=== PATIENT | male | born 1965 | race Caucasian/White ===

== ENCOUNTER 2016-05-30 06:15 | Emergency (ER) | payer OTHER ==
[~2016-05-30] VITALS: Ht 182.9 cm; Wt 73.9 kg
[~2016-05-30 06:15] MED LIST: IBUP-1105 PO; TRAZ50TA35 PO
[2016-05-30 06:22] VITALS: TEMP 37.4; Ht 182.9 cm; Wt 73.9 kg
[2016-05-30] MEDS ORDERED: ONDANSETRON INJ 2 MG/ML 2 ML VIAL IV STA (06:47)
[2016-05-30] MEDS ORDERED: KETOROLAC TROMETHAMINE 30 MG/ML VIAL IV STA (06:47)
[2016-05-30] MEDS ORDERED: FLUO20CA35 PO (06:48)
[2016-05-30 06:57] LABS: BASO % 0.1 %; BASO ABS # 0.02 K/uL (0-0.2); COMPLETE YES; EOS % 0.9 %; HEMATOCRIT 41.1 % (42-52); IG% 0.2 %; LYMPH % 5.1 %; MEAN CELL VOLUME 89.2 fL (80-100); MEAN CORPUSCULAR HEMOGLOBIN 32.8 pg (25-34); MEAN CORPUSCULAR HGB CONC 36.7 g/dl (32-36); MONO % 4.5 %; NEUT % 89.2 %; PLATELET COUNT 179 K/uL (130-400); RED BLOOD COUNT 4.61 M/uL (4.7-6.1); WHITE BLOOD COUNT 13.84 K/uL (4.8-10.8)
[2016-05-30 07:04] LABS: BUN/CREATININE RATIO 6.8 (10-20); CALCIUM 8.9 mg/dl (8.5-10.1); CREATININE 0.9 mg/dl (0.60-1.40); POTASSIUM 4.1 mmol/L (3.5-5.1)
--- NOTE | 2016-05-30 07:04 | EMERGENCY ROOM VISIT NOTE ---
History Report prepared by Valeria: Julián Avitia Under the Supervision of: Dr. Kajal Malin D.O. First contact with patient: 06:32 Chief Complaint: ABDOMINAL PAIN Stated Complaint: STOMACH PAIN,LUNGS ARE DRY, CONGESTION Nursing Triage Summary: Pt complains of abdominal pain and nausea. It started yesterday. Pt also reports cough and congestion for 2 weeks. Pt concerned because he has history of pancreatitis. History of Present Illness The patient is a 51 year old male who presents to the Emergency Room with complaints of persistent abdominal pain that started last night. The patient notes that he has a history of pancreatitis and that the discomfort started after he ate a spicy meal. He notes that sitting up makes the pain worse. He also complains of fever and nausea. The patient notes that he drinks 3 beers a day typically. He would not have withdrawal symptoms if he did not drink for a few days. The patient also complains of cold-like symptoms including chest congestion, achiness, and difficulty swallowing. These symptoms started 4 days ago. The patient also notes that his hands have been cramping which he does not know if that is from work or not feeling well. He also notes pain in his left superficial ear that has been bothering him for a year. He notes his family has a history of skin cancer on the ear, but he has not gotten it biopsied yet. He notes discomfort with laying on that side. Source of History: patient Onset: yesterday Position: abdomen Timing: other (persistent) Modifying Factors (Worsening): movement (sitting up) Associated Symptoms: + fevers, + nausea Note: Other symptoms: cold-like symptoms, chest congestion, achiness, difficulty swallowing, ear pain Review of Systems See HPI for pertinent positives & negatives. A total of 10 systems reviewed and were otherwise negative. Past Medical & Surgical Medical Problems: (1) Abdominal pain (2) Diarrhea (3) Emphysema of lung (4) Hypomagnesemia syndrome (5) Pancreatitis (6) Syncope and collapse Family History FH: HTN (hypertension) FH: cancer FH: diabetes mellitus FH: heart disease FH: kidney disease Social History Smoking Status: Current Every Day Smoker Alcohol Use: heavy Drug Use: none Marital Status: Housing Status: lives with family Occupation Status: employed Current/Historical Medications Scheduled Fluoxetine (Prozac), 20 MG PO DAILY Trazodone Hcl (Trazodone), 50 MG PO HS Allergies Coded Allergies: Penicillins (Unverified Allergy, Mild, 05/30/16) Codeine (Verified Allergy, Unknown, GI SYMPTOMS, 05/30/16) Meperidine (Verified Allergy, Unknown, ., 05/30/16) Physical Exam Vital Signs Date Time Temp Pulse Resp B/P Pulse Ox O2 Delivery O2 Flow Rate FiO2 05/30/16 08:43 84 16 130/80 96 05/30/16 07:37 79 16 118/62 97 Room Air 05/30/16 06:22 37.4 99 18 126/75 96 Room Air Physical Exam GENERAL: Smells of alcohol. HEENT: Head - normocephalic and atraumatic Pupils are equal, round, and reactive to light. Extraocular eye muscles are intact, and sclera are anicteric. Nose - moist nasal mucosa without discharge. Anterior cervical lymphadenopathy. Mouth - moist buccal mucosa. Oropharynx is mildly erythematous and there is no tonsillar exudate or edema noted. EAR: Left ear top of the pinna has mild erythema, no induration, no open wound, normal TMs Neck: Supple; no JVD, nuchal rigidity, cervical lymphadenopathy. Heart: Regular rate and rhythm. There is a normal S1 and S2 with no murmurs, clicks, or gallops appreciated. Lungs: Clear to auscultation bilaterally with no wheezes, rales, or rhonchi. Abdomen: Soft, exquisite epigastric tenderness, nondistended, with good bowel sounds. There are no palpable pulsatile masses or hepatosplenomegaly. There is no guarding, rigidity, or rebound noted. Extremities: No evidence of cyanosis, clubbing, or edema. There are easily palpable peripheral pulses. Skin: warm and dry with good turgor and no rashes. Medical Decision & Procedures ER Provider Diagnostic Interpretation: X-ray results as stated below per interpretation by me and the radiologist: TWO VIEW CHEST CLINICAL HISTORY: Cough. FINDINGS: PA and lateral chest radiographs are compared to study dated 01/15/2014. The cardiomediastinal silhouette is unremarkable. Enlargement of the central pulmonary arteries suggests pulmonary artery hypertension. Emphysema and chronic residual thickening are similar to previous. No airspace consolidation or pleural effusion is identified. A calcified granulomas again seen in the left upper lobe. There is no pneumothorax. The bony thorax appears intact. IMPRESSION: Emphysema with no acute cardiopulmonary abnormality. Electronically signed by: Javier Vazquez M.D. 05/30/2016 7:42 AM Dictated Date/Time: 05/30/2016 7:38 AM Laboratory Results 05/30/16 06:35 Red Blood Count 4.61, Mean Corpuscular Volume 89.2, Mean Corpuscular Hemoglobin 32.8, Mean Corpuscular Hemoglobin Concent 36.7, Mean Platelet Volume 10.0, Neutrophils (%) (Auto) 89.2, Lymphocytes (%) (Auto) 5.1, Monocytes (%) (Auto) 4.5, Eosinophils (%) (Auto) 0.9, Basophils (%) (Auto) 0.1, Neutrophils # (Auto) 12.34, Lymphocytes # (Auto) 0.70, Monocytes # (Auto) 0.62, Eosinophils # (Auto) 0.13, Basophils # (Auto) 0.02 05/30/16 06:35 Test 05/30/16 06:35 05/30/16 07:00 White Blood Count 13.84 K/uL (4.8-10.8) Red Blood Count 4.61 M/uL (4.7-6.1) Hemoglobin 15.1 g/dL (14.0-18.0) Hematocrit 41.1 % (42-52) Mean Corpuscular Volume 89.2 fL (80-100) Mean Corpuscular Hemoglobin 32.8 pg (25-34) Mean Corpuscular Hemoglobin Concent 36.7 g/dl (32-36) Platelet Count 179 K/uL (130-400) Mean Platelet Volume 10.0 fL (7.4-10.4) Neutrophils (%) (Auto) 89.2 % Lymphocytes (%) (Auto) 5.1 % Monocytes (%) (Auto) 4.5 % Eosinophils (%) (Auto) 0.9 % Basophils (%) (Auto) 0.1 % Neutrophils # (Auto) 12.34 K/uL (1.4-6.5) Lymphocytes # (Auto) 0.70 K/uL (1.2-3.4) Monocytes # (Auto) 0.62 K/uL (0.11-0.59) Eosinophils # (Auto) 0.13 K/uL (0-0.5) Basophils # (Auto) 0.02 K/uL (0-0.2) RDW Standard Deviation 40.8 fL (36.4-46.3) RDW Coefficient of Variation 12.6 % (11.5-14.5) Immature Granulocyte % (Auto) 0.2 % Immature Granulocyte # (Auto) 0.03 K/uL (0.00-0.02) Anion Gap 10.0 mmol/L (3-11) Est Creatinine Clear Calc Drug Dose 103.8 ml/min Estimated GFR () 115.8 Estimated GFR (Non- 99.9 BUN/Creatinine Ratio 6.8 (10-20) Calcium Level 8.9 mg/dl (8.5-10.1) Total Bilirubin 0.5 mg/dl (0.2-1) Direct Bilirubin 0.1 mg/dl (0-0.2) Aspartate Amino Transf (AST/SGOT) 26 U/L (15-37) Alanine Aminotransferase (ALT/SGPT) 24 U/L (12-78) Alkaline Phosphatase 96 U/L (45-117) Total Protein 7.7 gm/dl (6.4-8.2) Albumin 4.4 gm/dl (3.4-5.0) Lipase 765 U/L (73-393) Influenza Type A Antigen Neg for Influ A (NEG) Influenza Type B Antigen Neg for Influ B (NEG) Laboratory results per my review. Medications Administered Medications (Trade) Dose Ordered Sig/Enedina Route Start Time Stop Time Status Last Admin Dose Admin Ketorolac Tromethamine (Toradol Inj) 30 mg NOW STAT IV 05/30/16 06:47 05/30/16 06:49 DC 05/30/16 06:59 30 MG Ondansetron HCl 4 mg 4 mg NOW STAT IV 05/30/16 06:47 05/30/16 06:49 DC 05/30/16 06:59 4 MG Sodium Chloride (Nss 1000ml) 1,000 ml @ 250 mls/hr Q4H STAT IV 05/30/16 07:26 05/30/16 09:17 DC 05/30/16 07:37 250 MLS/HR Procedure Medications: Zofran Inj, Toradol Inj, Sodium Chloride ED Course 0637: Past medical records reviewed. The patient was evaluated in room B2. A complete history and physical exam was performed. 0647: Ordered Zofran Inj 4 mg IV, Toradol Inj 30 mg IV. 0726: Ordered NSS 1000 ml @ 250 mls/hr IV. 0750: At this time, I reevaluated the patient and he was resting comfortably. He notes that he feels better after the medications. We discussed admission and he said he would rather go home if he did not absolutely have to stay in the hospital. 0810: At this time, I discussed the patient's case with RANJEET Ybarra - Gastroenterology [facility] and she agreed to follow up with the patient in the clinic next week. 0815: Upon reevaluation, I discussed findings and results with the patient and counseled him to stop drinking again. He verbalized agreement of the treatment plan. The patient was discharged home after the briefcase sewer contacted [facility] asking to put in a referral to [facility] for the patient. Medical Decision The patient is a 51 year old male who presents to the ED with abdominal pain. Differential diagnosis includes pancreatitis, influenza, colitis, gastritis, and pneumonia. Labs: White count 13.8, stable h&h, normal renal function, normal glucose and LFTs, lipase 765, influenza negative. The patient has a history of alcohol use and pancreatitis. He is required previous admission to the hospital for pancreatitis but is comfortable at this time. He is requesting to go home. The patient was strongly encouraged to avoid alcohol use. He will be seen in follow-up with GI. He was told to return to the emergency department if he had any worsening symptoms. Consults Time Called: 804 Consulting Physician: Amada POLLACK - Gastroenterology [facility] Returned Call: 0810 At this time, I discussed the patient's case with Amada POLLACK and she agreed to follow up with the patient in the clinic next week. Impression Primary Impression: Pancreatitis Scribe Attestation The scribe's documentation has been prepared under my direction and personally reviewed by me in its entirety. I confirm that the note above accurately reflects all work, treatment, procedures, and medical decision making performed by me. Departure Information Dispostion Home / Self-Care Referrals [facility] (PCP) Forms Call Back Authorization, HOME CARE DOCUMENTATION FORM, IMPORTANT VISIT INFORMATION Patient Instructions My [facility] Additional Instructions YOU MUST AVOID ALCOHOL. Take a bland diet and plenty of clear liquids Rest. You will be contacted by [facility] for referral to GI. If you develop a fever, worsening pain, or vomiting...return to the ER immediately
[2016-05-30] MEDS ORDERED: SODIUM CHLORIDE 0.9% 1000ML 1,000 ML IV STA (07:26)
--- NOTE | 2016-05-30 07:43 | DIAGNOSTIC IMAGING REPORT ---
TWO VIEW CHEST CLINICAL HISTORY: Cough. FINDINGS: PA and lateral chest radiographs are compared to study dated 01/15/2014. The cardiomediastinal silhouette is unremarkable. Enlargement of the central pulmonary arteries suggests pulmonary artery hypertension. Emphysema and chronic residual thickening are similar to previous. No airspace consolidation or pleural effusion is identified. A calcified granulomas again seen in the left upper lobe. There is no pneumothorax. The bony thorax appears intact. IMPRESSION: Emphysema with no acute cardiopulmonary abnormality. Electronically signed by: Javier Vazquez M.D. 05/30/2016 7:42 AM Dictated Date/Time: 05/30/2016 7:38 AM
[2016-05-30 08:43] VITALS: BP 130/80; PULSE 84; O2SAT 96
== END 2016-05-30 08:44 | disposition home or self-care (01) ==
LOC: C.EDB 06:16
DX: K85.90 Acute pancreatitis without necrosis or infection, unspecified (principal); F17.200 Nicotine dependence, unspecified, uncomplicated; Z88.0 Allergy status to penicillin; Z88.5 Allergy status to narcotic agent; Z82.49 Family history of ischemic heart disease and other diseases of the circulatory system; Z80.9 Family history of malignant neoplasm, unspecified; Z84.1 Family history of disorders of kidney and ureter

== ENCOUNTER 2016-11-05 07:46 | Emergency (ER) | payer OTHER ==
[~2016-11-05] VITALS: Ht 182.9 cm; Wt 69.6 kg
[~2016-11-05 07:46] MED LIST changes: +FLUO20CA35 PO; -IBUP-1105 PO
[2016-11-05 07:53] VITALS: Ht 182.9 cm; Wt 69.6 kg
[2016-11-05] MEDS ORDERED: SODIUM CHLORIDE 0.9% 1000ML 1,000 ML IV STA (08:02)
--- NOTE | 2016-11-05 08:13 | EMERGENCY ROOM VISIT NOTE ---
History Report prepared by Pavelibmelanie: Lavinia Randle Under the Supervision of: Dr. Clarisse Wagner M.D. First contact with patient: 08:01 Chief Complaint: RESPIRATORY PROBLEMS Stated Complaint: TROUBLE BREATHING History of Present Illness The patient is a 51 year old male who presents to the Emergency Room with complaints of worsening shortness of breathing beginning a few weeks prior to arrival. The patient states that he is experiencing trouble breathing and lower substernal chest discomfort. The patient also has a cough with green sputum. He states that he is an alcoholic and drinks 8-10 beers a day. He has recently had a binging episode and states that he only drinks beer during those. The patient on occasion has black stool. He did have blood in his stool about 2 months ago that resolved on his own. The patient denies vomiting, blood in stool, or sticky stool. The patient has a history of pancreatitis that occurred 2 years ago. He is a smoker and smokes about a 1/2 a pack a day. 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 A total of 10 systems reviewed and were otherwise negative. Past Medical & Surgical Medical Problems: (1) Abdominal pain (2) Diarrhea (3) Emphysema of lung (4) Hypomagnesemia syndrome (5) Pancreatitis (6) Syncope and collapse Family History FH: HTN (hypertension) FH: cancer FH: diabetes mellitus FH: heart disease FH: kidney disease Social History Smoking Status: Current Every Day Smoker Alcohol Use: heavy Drug Use: none Marital Status: Housing Status: lives with family Occupation Status: employed Current/Historical Medications Scheduled Doxycycline Hyclate (Doxycycline Hyclate), 1 TAB PO BID Fluoxetine (Prozac), 20 MG PO DAILY Pantoprazole (Protonix), 40 MG PO DAILY Trazodone Hcl (Trazodone), 50 MG PO HS Allergies Coded Allergies: Penicillins (Unverified Allergy, Mild, 11/05/16) Codeine (Verified Allergy, Unknown, GI SYMPTOMS, 11/05/16) Meperidine (Verified Allergy, Unknown, ., 11/05/16) Physical Exam Vital Signs Date Time Temp Pulse Resp B/P (MAP) Pulse Ox O2 Delivery O2 Flow Rate FiO2 11/05/16 11:53 36.7 67 18 127/77 98 11/05/16 10:38 63 18 126/74 97 Room Air 11/05/16 09:53 72 18 119/76 97 Room Air 11/05/16 09:47 67 18 119/76 97 11/05/16 08:49 69 18 127/87 97 Room Air 11/05/16 08:26 74 11/05/16 07:53 36.7 88 20 143/95 99 Room Air Physical Exam Vital signs reviewed. General: Well-appearing male, in no significant distress. HEENT: No scleral icterus, PERRLA, neck supple. Atraumatic. Cardiovascular: Regular rate and rhythm, no extra sounds. Pulmonary: Clear to auscultation bilaterally, normal work of breathing. Abdomen: Soft, tender in the epigastric region, nondistended, positive bowel sounds. Musculoskeletal: Atraumatic, no peripheral edema. Neurologic: Patient awake alert and oriented x 3 Skin: Warm, dry, no rash Medical Decision & Procedures ER Provider Diagnostic Interpretation: Radiology results as stated below per my review and radiologist interpretation: CT SCAN OF THE ABDOMEN AND PELVIS WITH IV CONTRAST CLINICAL HISTORY: Right upper quadrant abdominal pain. COMPARISON STUDY: Abdominal CT dated 05/14/2014 and 01/15/2014. TECHNIQUE: Following the IV administration of 92 cc of Optiray 320, CT scan of the abdomen and pelvis is performed from the lung bases to the proximal femora. Images are reviewed in the axial, sagittal, and coronal planes. IV contrast was administered without complication. Automated dose control exposure was utilized. CT DOSE: 276.22 mGy.cm FINDINGS: Lung bases: The heart is normal in size and without pericardial effusion. A 4 mm pulmonary nodule at the right lung base seen on image #13 is unchanged dating back to 2013 and of doubtful significance. Scattered calcified granulomas are observed. The lung bases are otherwise clear. Liver: The contrast-enhanced liver is normal in size, contour, and attenuation. There is no intrahepatic biliary ductal dilatation. The hepatic veins and portal veins are patent. Gallbladder: Unremarkable. Spleen: Normal in size and attenuation. Pancreas: Unremarkable. Adrenal glands: Unremarkable. Kidneys: The contrast enhanced kidneys are normal in size and without hydronephrosis. The kidneys enhance symmetrically. Abdominal vasculature: The abdominal aorta is normal in course and caliber noting moderate atherosclerotic calcification. Bowel: The small bowel and colon are normal in course and caliber. The appendix is well-visualized and normal. Peritoneum: There is no intraperitoneal free air or abdominal ascites. Lymphadenopathy: None. Pelvic viscera: The bladder is distended and grossly unremarkable. The prostate and seminal vesicles are normal as imaged. Skeletal structures: No lytic or blastic lesions are seen. IMPRESSION: There are no acute infectious or inflammatory findings in the abdomen or pelvis. Electronically signed by: Javier Vazquez M.D. 11/05/2016 10:24 AM Dictated Date/Time: 11/05/2016 10:18 AM CHEST 2 VIEWS ROUTINE CLINICAL HISTORY: Cough, bronchitis and smoker. COMPARISON STUDY: Chest radiograph May 30, 2016. FINDINGS: Lung hyperexpansion is noted. There is no consolidation to suggest pneumonia. No pneumothorax or pleural effusion is present. Cardiac size is normal. Mediastinal contours are normal. There is a 5 mm calcified nodule within the left upper lung zone. There is a possible 8 mm right midlung nodule. This was not evident on prior exams. IMPRESSION: 1. Possible 8 mm right midlung nodule. A follow-up nonemergent chest CT is recommended. 2. No acute cardiopulmonary findings. Electronically signed by: Gunner Dobbins M.D. 11/05/2016 11:31 AM Dictated Date/Time: 11/05/2016 11:27 AM Laboratory Results 11/05/16 08:14 Red Blood Count 5.00, Mean Corpuscular Volume 89.0, Mean Corpuscular Hemoglobin 32.0, Mean Corpuscular Hemoglobin Concent 36.0, Mean Platelet Volume 9.0, Neutrophils (%) (Auto) 78.0, Lymphocytes (%) (Auto) 14.5, Monocytes (%) (Auto) 6.1, Eosinophils (%) (Auto) 0.8, Basophils (%) (Auto) 0.5, Neutrophils # (Auto) 6.15, Lymphocytes # (Auto) 1.14, Monocytes # (Auto) 0.48, Eosinophils # (Auto) 0.06, Basophils # (Auto) 0.04 11/05/16 08:14 Test 11/05/16 08:10 11/05/16 08:14 Urine Color YELLOW Urine Appearance CLEAR (CLEAR) Urine pH 7.0 (4.5-7.5) Urine Specific [place] 1.010 (1.000-1.030) Urine Protein NEG (NEG) Urine Glucose (UA) NEG (NEG) Urine Ketones NEG (NEG) Urine Occult Blood TRACE (NEG) Urine Nitrite NEG (NEG) Urine Bilirubin NEG (NEG) Urine Urobilinogen NEG (NEG) Urine Leukocyte Esterase NEG (NEG) Urine WBC (Auto) 0 /hpf (0-5) Urine RBC (Auto) 0-4 /hpf (0-4) Urine Hyaline Casts (Auto) 0 /lpf (0-5) Urine Epithelial Cells (Auto) 0-5 /lpf (0-5) Urine Bacteria (Auto) NEG (NEG) Urine Opiates Screen NEG (NEG) Urine Methadone, Qualitative NEG (NEG) Urine Barbiturates NEG (NEG) Urine Phencyclidine (PCP) Level NEG (NEG) Ur Amphetamine/Methamphetamine NEG (NEG) MDMA (Ecstasy) Screen NEG (NEG) Urine Benzodiazepines Screen NEG (NEG) Urine Cocaine Metabolite NEG (NEG) Urine Marijuana (THC) POS (NEG) White Blood Count 7.88 K/uL (4.8-10.8) Red Blood Count 5.00 M/uL (4.7-6.1) Hemoglobin 16.0 g/dL (14.0-18.0) Hematocrit 44.5 % (42-52) Mean Corpuscular Volume 89.0 fL (80-100) Mean Corpuscular Hemoglobin 32.0 pg (25-34) Mean Corpuscular Hemoglobin Concent 36.0 g/dl (32-36) Platelet Count 254 K/uL (130-400) Mean Platelet Volume 9.0 fL (7.4-10.4) Neutrophils (%) (Auto) 78.0 % Lymphocytes (%) (Auto) 14.5 % Monocytes (%) (Auto) 6.1 % Eosinophils (%) (Auto) 0.8 % Basophils (%) (Auto) 0.5 % Neutrophils # (Auto) 6.15 K/uL (1.4-6.5) Lymphocytes # (Auto) 1.14 K/uL (1.2-3.4) Monocytes # (Auto) 0.48 K/uL (0.11-0.59) Eosinophils # (Auto) 0.06 K/uL (0-0.5) Basophils # (Auto) 0.04 K/uL (0-0.2) RDW Standard Deviation 41.5 fL (36.4-46.3) RDW Coefficient of Variation 12.9 % (11.5-14.5) Immature Granulocyte % (Auto) 0.1 % Immature Granulocyte # (Auto) 0.01 K/uL (0.00-0.02) Anion Gap 8.0 mmol/L (3-11) Est Creatinine Clear Calc Drug Dose 115.7 ml/min Estimated GFR () 124.2 Estimated GFR (Non- 107.1 BUN/Creatinine Ratio 7.4 (10-20) Calcium Level 9.6 mg/dl (8.5-10.1) Magnesium Level 1.9 mg/dl (1.8-2.4) Total Bilirubin 0.4 mg/dl (0.2-1) Direct Bilirubin 0.1 mg/dl (0-0.2) Aspartate Amino Transf (AST/SGOT) 23 U/L (15-37) Alanine Aminotransferase (ALT/SGPT) 23 U/L (12-78) Alkaline Phosphatase 111 U/L (45-117) Total Protein 8.3 gm/dl (6.4-8.2) Albumin 4.6 gm/dl (3.4-5.0) Lipase 252 U/L (73-393) Ethyl Alcohol mg/dL 122.0 mg/dl (0-3) Laboratory results per my review. Medications Administered Medications (Trade) Dose Ordered Sig/Enedina Route Start Time Stop Time Status Last Admin Dose Admin Sodium Chloride 1,000 ml @ 999 mls/hr Q1H1M STAT IV 11/05/16 08:02 11/05/16 09:02 DC 11/05/16 08:23 999 MLS/HR Hydromorphone HCl (Dilaudid Inj) 0.5 mg NOW STAT IV 11/05/16 08:58 11/05/16 08:59 DC 11/05/16 09:15 0.5 MG Ondansetron HCl (Zofran Inj) 4 mg NOW STAT IV 11/05/16 08:58 11/05/16 08:59 DC 11/05/16 09:15 4 MG Pantoprazole Sodium (Protonix Tab) 40 mg NOW STAT PO 11/05/16 09:48 11/05/16 09:49 DC 11/05/16 09:52 40 MG ED Course 0802: Sodium Chloride 1,000 ml @ 999 mls/hr IV. 0805: Past medical records reviewed. The patient was evaluated in room A10. A complete history and physical examination was performed. 0858: Zofran Inj 4 mg IV, Dilaudid Inj 0.5 mg IV. 0948: Protonix Tab 40 mg PO. 1047: I reevaluated the patient. 1142: Upon reevaluation, the patient appeared to have improvement of his symptoms. I discussed findings with him. He verbalized agreement of the treatment plan. He was discharged home. Medical Decision Differential diagnosis: Etiologies such as appendicitis, diverticulitis, PUD, biliary pathology, UTI, pancreatitis, obstruction, mesenteric ischemia, aortic pathology, infections, inflammatory bowel disease, renal colic, pneumonia, bronchitis as well as others were entertained. Medication Reconciliation: I attest that I have personally reviewed the patient' s current medication list. Blood Pressure Screening: Patient was found to have normal blood pressure on screening and does not require follow-up. This patient was evaluated and appeared to be in no significant distress. Physical examination reveals tenderness to the epigastric region. Patient is found to have a blood alcohol level of 122. Patient's lipase is normal. CT scan abdomen and pelvis was obtained and reveals no acute inflammatory findings. I suspect the patient has some gastritis/peptic ulcer disease secondary to his alcohol abuse. Chest x-ray is clear. The patient has been complaining of some green sputum production and chronic cough. He is a smoker. He was given a prescription for doxycycline 100 mg twice daily for 10 days. He is advised to minimize his alcohol or stop drinking, stop smoking and to drink plenty of clear fluids. He will follow-up with his physician at [facility] this week for reevaluation and GI referral. Patient was given a prescription for Protonix 40 mg daily. Impression Primary Impression: Gastritis Additional Impressions: Bronchitis Alcohol abuse Scribe Attestation The scribe's documentation has been prepared under my direction and personally reviewed by me in its entirety. I confirm that the note above accurately reflects all work, treatment, procedures, and medical decision making performed by me. Departure Information Dispostion Home / Self-Care Prescriptions Pantoprazole (Protonix) 40 Mg Tab 40 MG PO DAILY, #30 TAB Prov: Clarisse Wagner M.D. 11/05/16 Doxycycline Hyclate (Doxycycline Hyclate) 100 Mg Cap 1 TAB PO BID for 10 Days, #20 TAB Prov: Clarisse Wagner M.D. 11/05/16 Referrals [facility] (PCP) Forms HOME CARE DOCUMENTATION FORM, IMPORTANT VISIT INFORMATION, WORK / SCHOOL INSTRUCTIONS Patient Instructions My [facility] [employer] Additional Instructions Diagnosis: Gastritis with bleeding, bronchitis, alcohol dependency Doxycycline 100 mg twice daily for 10 days. Protonix 40 mg daily. Avoid alcohol, tobacco, aspirin, Aleve and ibuprofen. Follow-up with your physician this week for reevaluation and consideration of referral to gastroenterology. Drink plenty of water. Stop smoking. Return to the ER for worsening of symptoms or any medical concerns. Problem Qualifiers
[2016-11-05 08:35] LABS: URINE APPEARANCE CLEAR (CLEAR); URINE BILIRUBIN NEG (NEG); URINE COLOR YELLOW; URINE EPITHELIAL CELL AUTO 0-5 /lpf (0-5); URINE NITRITE NEG (NEG); UROBILINOGEN NEG (NEG); ZZUR CULT IF INDIC CLEAN CATCH NO
[2016-11-05 08:36] LABS: MANUAL MICROSCOPIC REQUIRED? NO; REVIEW REQ? NO
[2016-11-05 08:37] LABS: BASO % 0.5 %; BASO ABS # 0.04 K/uL (0-0.2); COMPLETE YES; EOS % 0.8 %; HEMATOCRIT 44.5 % (42-52); IG% 0.1 %; LYMPH % 14.5 %; LYMPH ABS # 1.14 K/uL (1.2-3.4); MONO % 6.1 %; PLATELET COUNT 254 K/uL (130-400); WHITE BLOOD COUNT 7.88 K/uL (4.8-10.8)
[2016-11-05 08:51] LABS: BUN/CREATININE RATIO 7.4 (10-20); CALCIUM 9.6 mg/dl (8.5-10.1); CREATININE 0.76 mg/dl (0.60-1.40); MAGNESIUM 1.9 mg/dl (1.8-2.4); POTASSIUM 4.7 mmol/L (3.5-5.1)
[2016-11-05 08:58] LABS: BENZODIAZEPINE, URINE NEG (NEG); COCAINE,URINE NEG (NEG); PHENCYCLIDINE, URINE NEG (NEG)
[2016-11-05] MEDS ORDERED: ONDANSETRON INJ 2 MG/ML 2 ML VIAL IV STA (08:58)
[2016-11-05] MEDS ORDERED: HYDROmorphone INJ 0.5 MG/0.5 ML SYR IV STA (08:58)
[2016-11-05] MEDS ORDERED: PANTOprazole SOD 40 MG TAB PO STA (09:48)
[2016-11-05] MEDS ORDERED: OPTIRAY 320 IV PRN (10:15)
--- NOTE | 2016-11-05 10:26 | DIAGNOSTIC IMAGING REPORT ---
CT SCAN OF THE ABDOMEN AND PELVIS WITH IV CONTRAST CLINICAL HISTORY: Right upper quadrant abdominal pain. COMPARISON STUDY: Abdominal CT dated 05/14/2014 and 01/15/2014. TECHNIQUE: Following the IV administration of 92 cc of Optiray 320, CT scan of the abdomen and pelvis is performed from the lung bases to the proximal femora. Images are reviewed in the axial, sagittal, and coronal planes. IV contrast was administered without complication. Automated dose control exposure was utilized. CT DOSE: 276.22 mGy.cm FINDINGS: Lung bases: The heart is normal in size and without pericardial effusion. A 4 mm pulmonary nodule at the right lung base seen on image #13 is unchanged dating back to 2013 and of doubtful significance. Scattered calcified granulomas are observed. The lung bases are otherwise clear. Liver: The contrast-enhanced liver is normal in size, contour, and attenuation. There is no intrahepatic biliary ductal dilatation. The hepatic veins and portal veins are patent. Gallbladder: Unremarkable. Spleen: Normal in size and attenuation. Pancreas: Unremarkable. Adrenal glands: Unremarkable. Kidneys: The contrast enhanced kidneys are normal in size and without hydronephrosis. The kidneys enhance symmetrically. Abdominal vasculature: The abdominal aorta is normal in course and caliber noting moderate atherosclerotic calcification. Bowel: The small bowel and colon are normal in course and caliber. The appendix is well-visualized and normal. Peritoneum: There is no intraperitoneal free air or abdominal ascites. Lymphadenopathy: None. Pelvic viscera: The bladder is distended and grossly unremarkable. The prostate and seminal vesicles are normal as imaged. Skeletal structures: No lytic or blastic lesions are seen. IMPRESSION: There are no acute infectious or inflammatory findings in the abdomen or pelvis. Electronically signed by: Javier Vazquez M.D. 11/05/2016 10:24 AM Dictated Date/Time: 11/05/2016 10:18 AM
--- NOTE | 2016-11-05 11:32 | DIAGNOSTIC IMAGING REPORT ---
CHEST 2 VIEWS ROUTINE CLINICAL HISTORY: Cough, bronchitis and smoker. COMPARISON STUDY: Chest radiograph May 30, 2016. FINDINGS: Lung hyperexpansion is noted. There is no consolidation to suggest pneumonia. No pneumothorax or pleural effusion is present. Cardiac size is normal. Mediastinal contours are normal. There is a 5 mm calcified nodule within the left upper lung zone. There is a possible 8 mm right midlung nodule. This was not evident on prior exams. IMPRESSION: 1. Possible 8 mm right midlung nodule. A follow-up nonemergent chest CT is recommended. 2. No acute cardiopulmonary findings. Electronically signed by: Gunner Dobbins M.D. 11/05/2016 11:31 AM Dictated Date/Time: 11/05/2016 11:27 AM
[2016-11-05] MEDS ORDERED: PANT40TA PO (11:41)
[2016-11-05] MEDS ORDERED: DXY100 PO (11:41)
[2016-11-05 11:53] VITALS: BP 127/77; PULSE 67; TEMP 36.7; O2SAT 98
== END 2016-11-05 11:55 | disposition home or self-care (01) ==
LOC: C.EDB 07:47 → C.EDA 11:55
DX: K29.70 Gastritis, unspecified, without bleeding (principal); J40 Bronchitis, not specified as acute or chronic; F10.10 Alcohol abuse, uncomplicated; E83.42 Hypomagnesemia; Z82.49 Family history of ischemic heart disease and other diseases of the circulatory system; Z83.3 Family history of diabetes mellitus; F17.200 Nicotine dependence, unspecified, uncomplicated

== ENCOUNTER 2017-08-04 18:52 | Inpatient (IN) | payer OTHER ==
[~2017-08-04] VITALS: Ht 182.9 cm; Wt 72.7 kg
[~2017-08-04 18:52] MED LIST changes: +DXY100 PO
[2017-08-04] MEDS ORDERED: SODIUM CHLORIDE 0.9% 1000ML 1,000 ML IV STA (19:05)
[2017-08-04] MEDS ORDERED: FENTANYL CITRATE INJ 50 MCG/1 ML 2 ML VIAL IV STA (19:05)
[2017-08-04] MEDS ORDERED: KETOROLAC TROMETHAMINE 30 MG/ML VIAL IV STA (19:05)
[2017-08-04] MEDS ORDERED: ALBUT/IPRATROP 3MG/0.5MG NEB 3 ML VIAL INH STA (19:05)
--- NOTE | 2017-08-04 19:23 | EMERGENCY ROOM VISIT NOTE ---
History Report prepared by Valeria: Delilah Rivera Under the Supervision of: Dr. Jeffrey Wayne M.D. First contact with patient: 19:01 Chief Complaint: CHEST PAIN Stated Complaint: CHEST TIGHT, STUFFY, STOMACH Nursing Triage Summary: Pt reports epigastric pain into back that started 1.5 days ago. Cough started Sat night, pain started Sun. Denies n/v. +Diarrhea. Hurts to take a deep breath. Reports hx of pancreatitis, states this is more painful. Denies cardiac hx. Reports fever of 102. Took Ibuprofen 800mg at 1800. History of Present Illness The patient is a 52 year old male who presents to the Emergency Room with complaints of worsening chest pain starting two days ago. The patient states that the pain feels like a tightness right below his chest. He states that it feels like it is in the same spot as when he had pancreatitis, but reports that the pain is much worse this time. He currently rates his pain as a 10/10. He states that the pain is worse with breathing. He states that the pain came on while he was lying in bed. The patient complains of clear productive cough, congestion, headache, diarrhea, and back pain. The patient denies a history of PE/DVT, history of cancer, a history of cholecystectomy, use of inhalers, nausea , vomiting, and urinary symptoms. The patient notes that the drinks 3 beers a day and is a smoker. He states that he wasn't able to drink because of the pain yesterday. Source of History: patient Onset: two days ago Position: chest Symptom Intensity: 10/10 Quality: other (tightness) Timing: worsening Modifying Factors (Worsening): breathing Associated Symptoms: + headache, + cough, + back pain, + diarrhea, No nausea , No vomiting, No urinary symptoms Note: The patient complains of congestion. Review of Systems See HPI for pertinent positives and negatives. A total of ten systems were reviewed and were otherwise negative. Past Medical & Surgical Medical Problems: (1) Abdominal pain (2) Anxiety (3) Depression (4) Diarrhea (5) Emphysema of lung (6) Hemoptysis, unspecified (7) Hypomagnesemia syndrome (8) Pancreatitis (9) Syncope and collapse Family History FH: HTN (hypertension) FH: cancer FH: diabetes mellitus FH: heart disease FH: kidney disease Social History Smoking Status: Current Every Day Smoker Alcohol Use: heavy Drug Use: none Marital Status: Housing Status: lives with family Occupation Status: employed Current/Historical Medications Scheduled PRN Ibuprofen (Advil), 400 MG PO DAILY PRN for Headache or Pain Allergies Coded Allergies: Penicillins (Unverified Allergy, Mild, 11/05/16) Codeine (Verified Allergy, Unknown, GI SYMPTOMS, 11/05/16) Meperidine (Verified Allergy, Unknown, ., 11/05/16) Physical Exam Vital Signs Date Time Temp Pulse Resp B/P (MAP) Pulse Ox O2 Delivery O2 Flow Rate FiO2 08/05/17 00:11 66 08/04/17 23:56 69 18 133/86 100 Room Air 08/04/17 22:16 71 18 143/85 100 Room Air 08/04/17 20:59 80 18 126/79 100 Room Air 08/04/17 20:13 82 08/04/17 19:21 100 Room Air 08/04/17 18:58 37.5 87 18 154/84 96 Room Air Physical Exam GENERAL: Awake, alert, uncomfortable-appearing, in no distress HENT: Normocephalic, atraumatic. Oropharynx unremarkable. Dry mucus membranes. EYES: Normal conjunctiva. Sclera non-icteric. NECK: Supple. No nuchal rigidity. FROM. No JVD. RESPIRATORY: Clear to auscultation. CARDIAC: Regular rate, normal rhythm. Extremities warm and well perfused. Pulses equal. ABDOMEN: Soft, non-distended. Moderate epigastric and RUQ tenderness to palpation. Positive Sauceda's sign. No peritoneal signs. No rebound or guarding. No masses. RECTAL: Deferred. MUSCULOSKELETAL: Chest examination reveals no tenderness. The back is symmetrical on inspection without obvious abnormality. There is no CVA tenderness to palpation. No joint edema. LOWER EXTREMITIES: Calves are equal size bilaterally and non-tender. No edema. No discoloration. NEURO: Normal sensorium. No sensory or motor deficits noted. SKIN: No rash or jaundice noted. Medical Decision & Procedures ER Provider Diagnostic Interpretation: Radiology results as stated below per my review and radiologist interpretation: CHEST ONE VIEW PORTABLE CLINICAL HISTORY: CHEST PAIN pain COMPARISON STUDY: 11/05/2016 FINDINGS: The bones soft tissues and hemidiaphragms are normal. The cardiomediastinal silhouette is normal. The lungs are clear. The pulmonary vasculature is normal. IMPRESSION: Negative chest. The above report was generated using voice recognition software. It may contain grammatical, syntax or spelling errors. Electronically signed by: Jomar Nixon M.D. 08/04/2017 7:44 PM Dictated Date/Time: 08/04/2017 7:43 PM CTA CHEST: No aortic dissection or aneurysm. No evidence of pulmonary emboli. Centrilobular nodules opacities with subtle groundglass in the left lower lobe in a peribronchovascular distribution in tree-in-bud configuration likely represent endobronchial spread of infection. Additional areas of reticular and groundglass opacities noted in the lateral segment of the right lower lobe which could also represent a focal area of infection or inflammation. Partially calcified 7 mm nodule in the right upper lobe (image 71), 5 mm nodule in the basilar posterior segment of the right lower lobe (image 43), 3 mm nodule in the left upper lobe (image 93) are nonspecific. Based on current Fleischner society guidelines, in low risk patients, for multiple solid incidental nodules greater than 6 mm, recommend CT at 3-6 months, then consider CT at 18-24 months. However, in high risk patients, recommend CT at 3-[address] at 18-24 months. Radiologist: Randy Jones MD Study ready at 23:42 and initial results transmitted at 00:02. Laboratory Results 08/04/17 19:14 Red Blood Count 4.64, Mean Corpuscular Volume 87.3, Mean Corpuscular Hemoglobin 32.5, Mean Corpuscular Hemoglobin Concent 37.3, Mean Platelet Volume 9.6, Neutrophils (%) (Auto) 77.3, Lymphocytes (%) (Auto) 14.1, Monocytes (%) (Auto) 7.8, Eosinophils (%) (Auto) 0.5, Basophils (%) (Auto) 0.3, Neutrophils # (Auto) 2.97, Lymphocytes # (Auto) 0.54, Monocytes # (Auto) 0.30, Eosinophils # (Auto) 0.02, Basophils # (Auto) 0.01 08/04/17 19:14 Test 08/04/17 19:14 08/04/17 19:28 08/04/17 20:10 White Blood Count 3.84 K/uL (4.8-10.8) Red Blood Count 4.64 M/uL (4.7-6.1) Hemoglobin 15.1 g/dL (14.0-18.0) Hematocrit 40.5 % (42-52) Mean Corpuscular Volume 87.3 fL (80-100) Mean Corpuscular Hemoglobin 32.5 pg (25-34) Mean Corpuscular Hemoglobin Concent 37.3 g/dl (32-36) Platelet Count 111 K/uL (130-400) Mean Platelet Volume 9.6 fL (7.4-10.4) Neutrophils (%) (Auto) 77.3 % Lymphocytes (%) (Auto) 14.1 % Monocytes (%) (Auto) 7.8 % Eosinophils (%) (Auto) 0.5 % Basophils (%) (Auto) 0.3 % Neutrophils # (Auto) 2.97 K/uL (1.4-6.5) Lymphocytes # (Auto) 0.54 K/uL (1.2-3.4) Monocytes # (Auto) 0.30 K/uL (0.11-0.59) Eosinophils # (Auto) 0.02 K/uL (0-0.5) Basophils # (Auto) 0.01 K/uL (0-0.2) RDW Standard Deviation 40.9 fL (36.4-46.3) RDW Coefficient of Variation 12.8 % (11.5-14.5) Immature Granulocyte % (Auto) 0.0 % Immature Granulocyte # (Auto) 0.00 K/uL (0.00-0.02) Prothrombin Time 9.9 SECONDS (9.0-12.0) Prothromb Time International Ratio 0.9 (0.9-1.1) Anion Gap 9.0 mmol/L (3-11) Est Creatinine Clear Calc Drug Dose 96.3 ml/min Estimated GFR () 118.3 Estimated GFR (Non- 102.1 BUN/Creatinine Ratio 6.6 (10-20) Osmolality 263 mOsm/kg (280-300) Calcium Level 8.5 mg/dl (8.5-10.1) Phosphorus Level 3.6 mg/dl (2.5-4.9) Magnesium Level 2.0 mg/dl (1.8-2.4) Total Bilirubin 0.3 mg/dl (0.2-1) Direct Bilirubin < 0.1 mg/dl (0-0.2) Aspartate Amino Transf (AST/SGOT) 40 U/L (15-37) Alanine Aminotransferase (ALT/SGPT) 34 U/L (12-78) Alkaline Phosphatase 85 U/L (45-117) Troponin I < 0.015 ng/ml (0-0.045) Total Protein 7.4 gm/dl (6.4-8.2) Albumin 3.9 gm/dl (3.4-5.0) Lipase 162 U/L (73-393) Influenza Type A (RT-PCR) Neg for Influ A (NEG) Influenza Type B (RT-PCR) POS for Influ B (NEG) Venous Blood pH 7.47 (7.36-7.41) Venous Blood Partial Pressure CO2 38 mmHg (38.0-50.0) Venous Blood Partial Pressure O2 35 mmHg Venous Blood HCO3 27 mmol/L Venous Blood Oxygen Saturation 68.7 % Venous Blood Base Excess 3.3 mEq/L Ethyl Alcohol mg/dL 8.5 mg/dl (0-3) Urine Color YELLOW Urine Appearance CLEAR (CLEAR) Urine pH 7.0 (4.5-7.5) Urine Specific [place] 1.007 (1.000-1.030) Urine Protein NEG (NEG) Urine Glucose (UA) NEG (NEG) Urine Ketones NEG (NEG) Urine Occult Blood TRACE (NEG) Urine Nitrite NEG (NEG) Urine Bilirubin NEG (NEG) Urine Urobilinogen NEG (NEG) Urine Leukocyte Esterase NEG (NEG) Urine WBC (Auto) 0 /hpf (0-5) Urine RBC (Auto) 0-4 /hpf (0-4) Urine Hyaline Casts (Auto) 0 /lpf (0-5) Urine Epithelial Cells (Auto) 0-5 /lpf (0-5) Urine Bacteria (Auto) NEG (NEG) Urine Osmolality 175 mOms/kg (500-800) Laboratory results reviewed by me Medications Administered Medications (Trade) Dose Ordered Sig/Enedina Route Start Time Stop Time Status Last Admin Dose Admin Sodium Chloride 1,000 ml @ 999 mls/hr Q1H1M STAT IV 08/04/17 19:05 08/04/17 20:05 DC 08/04/17 19:18 999 MLS/HR Fentanyl Citrate (Fentanyl Inj) 50 mcg NOW STAT IV 08/04/17 19:05 08/04/17 19:11 DC 08/04/17 19:17 50 MCG Albuterol/ Ipratropium (Duoneb) 3 ml NOW STAT INH 08/04/17 19:05 08/04/17 19:11 DC 08/04/17 19:17 3 ML Ketorolac Tromethamine (Toradol Inj) 15 mg NOW STAT IV 08/04/17 19:05 08/04/17 19:11 DC 08/04/17 19:18 15 MG Famotidine (Pepcid Tab) 20 mg NOW ONCE PO 08/04/17 21:00 08/04/17 21:01 DC 08/04/17 20:58 20 MG Miscellaneous Medication (Gi Cocktail) 24 ml NOW STAT PO 08/04/17 20:47 08/04/17 20:49 DC 08/04/17 20:58 24 ML Al Hydroxide/Mg Hydroxide (Maalox Susp) 30 ml STK-MED ONCE .ROUTE 08/04/17 20:55 08/04/17 20:56 DC 08/04/17 20:57 30 ML Lidocaine HCl (Viscous Lidocaine 2% Soln) 20 ml STK-MED ONCE .ROUTE 08/04/17 20:55 08/04/17 20:56 DC 08/04/17 20:58 20 ML Oseltamivir Phosphate (Tamiflu Cap) 75 mg NOW STAT PO 08/04/17 21:13 08/04/17 21:15 DC 08/04/17 21:19 75 MG Levofloxacin (Levaquin / D5W) 750 mg NOW STAT IV 08/05/17 00:31 08/05/17 00:32 DC 08/05/17 00:47 750 MG ECG Per My Interpretation Indication: chest pain Rate (beats per minute): 87 Rhythm: normal sinus Findings: no acute ischemic change, other (normal axis) ED Course 1903: The patient was evaluated in room B12B. A complete history and physical exam was performed. 2235: I reevaluated the patient and he is doing well. 2303: I reevaluated the patient and he is coughing up blood. 0051: I discussed the patient with Dr. Sophia Pham [facility] Hospitalist will evaluate the patient for further treatment. Medical Decision I reviewed the patient's past medical history, medications, and the nursing notes as described above. Differential diagnosis: Etiologies such as appendicitis, diverticulitis, PUD, biliary pathology, UTI, pancreatitis, obstruction, mesenteric ischemia, aortic pathology, infections, inflammatory bowel disease, renal colic, cardiac ischemia, aortic dissection, pulmonary embolism, pneumonia, pneumothorax, musculoskeletal, infections, pericarditis, myocarditis, esophageal rupture, gastrointestinal, as well as others were entertained. The patient is a 52-year-old gentleman with a past medical history of alcohol abuse, chronic smoking, pancreatitis who presents emergency department with upper abdominal pain and chest pain per hpi. On arrival, the patient is uncomfortable but no acute distress, afebrile stable vital signs. EKG unremarkable. Influenza B positive. WBC 3.8 consistent with viral illness. Patient has hyponatremia to 126 setting of the patient's chronic alcohol abuse. The patient is feeling slightly improved after IVFs and duo neb. However, then had episode of minor hemoptysis (blood tinged sputum with cough). CT-PE ordered and demonstrates ground glass opacities c/w PNA. Thus, will treat with Levaquin. Case d/w VERENICE Gallegos hospitalist who will evaluate the patient for admission. Medication Reconcilliation Current Medication List: was personally reviewed by me Blood Pressure Screening Patient's blood pressure: Normal blood pressure Will be further monitored by the hospitalist. Consults Time Called: 31 Consulting Physician: Dr. Sophia REAL Hospitalist Returned Call: [phone] I discussed the patient with Dr. Sophia REAL Hospitalist will evaluate the patient for further treatment. Impression Primary Impression: Pneumonia Additional Impressions: Hyponatremia Influenza B Scribe Attestation The scribe's documentation has been prepared under my direction and personally reviewed by me in its entirety. I confirm that the note above accurately reflects all work, treatment, procedures, and medical decision making performed by me. Departure Information Dispostion Being Evaluated By Hospitalist Referrals Boni Rudolph M.D. (PCP) Patient Instructions My [facility] Problem Qualifiers
[2017-08-04 19:28] LABS: BASO % 0.3 %; BASO ABS # 0.01 K/uL (0-0.2); EOS % 0.5 %; EOS ABS # 0.02 K/uL (0-0.5); HEMATOCRIT 40.5 % (42-52); HEMOGLOBIN 15.1 g/dL (14.0-18.0); LYMPH % 14.1 %; LYMPH ABS # 0.54 K/uL (1.2-3.4); MEAN CELL VOLUME 87.3 fL (80-100); MEAN CORPUSCULAR HEMOGLOBIN 32.5 pg (25-34); MEAN CORPUSCULAR HGB CONC 37.3 g/dl (32-36); MEAN PLATELET VOLUME 9.6 fL (7.4-10.4); MONO % 7.8 %; NEUT % 77.3 %; NEUT ABS # 2.97 K/uL (1.4-6.5); PLATELET COUNT 111 K/uL (130-400); RED CELL DISTRIBUTION WIDTH CV 12.8 % (11.5-14.5); RED CELL DISTRIBUTION WIDTH SD 40.9 fL (36.4-46.3); WHITE BLOOD COUNT 3.84 K/uL (4.8-10.8)
[2017-08-04 19:41] LABS: INR 0.9 (0.9-1.1)
[2017-08-04 19:45] LABS: ALBUMIN 3.9 gm/dl (3.4-5.0); ALT/SGPT 34 U/L (12-78); BLOOD UREA NITROGEN 6 mg/dl (7-18); CALCIUM 8.5 mg/dl (8.5-10.1); CARBON DIOXIDE 25 mmol/L (21-32); CREATININE 0.84 mg/dl (0.60-1.40); GLUCOSE 72 mg/dl (70-99); LIPASE 162 U/L (73-393); POTASSIUM 3.8 mmol/L (3.5-5.1); SODIUM 126 mmol/L (136-145)
--- NOTE | 2017-08-04 19:45 | DIAGNOSTIC IMAGING REPORT ---
CHEST ONE VIEW PORTABLE CLINICAL HISTORY: CHEST PAIN pain COMPARISON STUDY: 11/05/2016 FINDINGS: The bones soft tissues and hemidiaphragms are normal. The cardiomediastinal silhouette is normal. The lungs are clear. The pulmonary vasculature is normal. IMPRESSION: Negative chest. The above report was generated using voice recognition software. It may contain grammatical, syntax or spelling errors. Electronically signed by: Jomar Nixon M.D. 08/04/2017 7:44 PM Dictated Date/Time: 08/04/2017 7:43 PM
[2017-08-04] MEDS ORDERED: IBUP-1050 PO (19:47)
[2017-08-04 19:50] LABS: ALKALINE PHOSPHATASE 85 U/L (45-117); AST/SGOT 40 U/L (15-37); TOTAL PROTEIN 7.4 gm/dl (6.4-8.2)
[2017-08-04] MEDS ORDERED: GI COCKTAIL PO STA (20:47)
[2017-08-04] MEDS ORDERED: LIDOCAINE HCL 2% VISC SOLN 20 ML UDC ONE (20:55)
[2017-08-04] MEDS ORDERED: ALUMINUM/MAGNESIUM SUSP 30 ML UDC ONE (20:55)
[2017-08-04 20:58] LABS: INFLUENZA A PCR Neg for Influ A (NEG); INFLUENZA B PCR POS for Influ B (NEG)
[2017-08-04] MEDS ORDERED: FAMOTIDINE 20 MG TAB PO ONE (21:00)
[2017-08-04] MEDS ORDERED: OSELTAMIVIR PHOSPHATE 75 MG CAP PO STA (21:13)
--- NOTE | 2017-08-04 22:03 | DIAGNOSTIC IMAGING REPORT ---
GALLBLADDER-ABD LIMITED CLINICAL HISTORY: RUQ pain nausea TECHNIQUE: Ultrasound COMPARISON STUDY: None FINDINGS: Normal gallbladder. Slightly contracted. Common bile duct 5.5 mm. Liver is uniform. Pancreas poorly seen due to overlying bowel content. Right kidney is negative for hydronephrosis. IMPRESSION: Negative study. The above report was generated using voice recognition software. It may contain grammatical, syntax or spelling errors. Electronically signed by: Jomar Nixon M.D. 08/04/2017 10:01 PM Dictated Date/Time: 08/04/2017 10:00 PM
[2017-08-04] MEDS ORDERED: OPTIRAY 320 IV PRN (23:15)
[2017-08-05] MEDS ORDERED: LEVAQUIN 750MG / 150ML D5W IV STA (00:31)
[2017-08-05] MEDS ORDERED: LORAZEPAM 2 MG/ML 1 ML VIAL IV PRN ×2 (01:45)
[2017-08-05] MEDS ORDERED: ALUMINUM/MAGNESIUM/SIMETH (MAALOX MAX) 30 ML UDC PO PRN (01:45)
[2017-08-05] MEDS ORDERED: IV FLUIDS COMPLETED PRN (02:15)
--- NOTE | 2017-08-05 02:40 | History and Physical ---
History & Physical Date & Time of Service: Aug 05, 2017 at 01:58 Chief Complaint: cough with hemoptysis, epigastric pain Primary Care Physician: Boni Rudolph M.D. History of Present Illness Source: patient Mr. Sykes is a 52yo C male with history of GERD, COPD, tobacco abuse and daily EtOH use presenting with cough that started the evening of 24March. Cough is productive for clear sputum, had some mild hemoptysis, bright red streaks of blood in his sputum this evening. He reports fevers since 25March AM , 102.5 PO today as well as body aches, headache, rhinorrhea. He has been taking Ibuprofen 200mg x 4 tablets daily for the last3 days for his fevers. He also reports severe epigastric abdominal pain, dull and achy 10/10 in severity with radiation to the back and shoulders that has been present since 25March. He states that the pain is similar to his prior episode of pancreatitis, although more severe. He has had some mild diarrhea and nausea as well. He denies chest pain, SOB, wheeze, melena/hematochezia or urinary complaints. He is an active drinker, reports 1-2 beers daily with his last drink being 10AM yesterday. He has participated in Alcohol rehab multiple times, denies history of withdrawal symptoms or seizures. ER Course: Levaquin 750mg IV, Tamiflu 75mg, Pepcid 20mg, Maalox 30mL, Viscous lidocaine, GI cocktail, Fentanyl 50mcg, DuoNeb, Toradol 15mg Past Medical/Surgical History Medical Problems: (1)Pancreatitis (2) Alcohol abuse (3) Anxiety/Depression (4) GERD (5) Chronic hyponatremia (6) Hypomagnesemia (7) Emphysema of lung (8) Gastritis (9) Hemoptysis, unspecified (10) Tobacco abuse Family History FH: HTN (hypertension) FH: cancer FH: diabetes mellitus FH: heart disease FH: kidney disease Social History Smoking Status: Current Every Day Smoker Smokeless Tobacco Use: No Alcohol Use: heavy Drug Use: none Marital Status: , Housing status: lives with family Occupational Status: employed Immunizations History of Influenza Vaccine: No History of Tetanus Vaccine?: No History of Pneumococcal: No History of Hepatitis B Vaccine: No Allergies Coded Allergies: Penicillins (Unverified Allergy, Mild, 11/05/16) Codeine (Verified Allergy, Unknown, GI SYMPTOMS, 11/05/16) Meperidine (Verified Allergy, Unknown, ., 11/05/16) Home Medications Scheduled PRN Ibuprofen (Advil), 400 MG PO DAILY PRN for Headache or Pain Review of Systems Constitutional: + fever, + chills, + sweats, + weakness, + fatigue Eyes: No eye pain, No redness ENT: + nasal symptoms, + sore throat, No trouble swallowing Respiratory: + cough, + sputum, + hemoptysis, No wheezing, No shortness of breath, No dyspnea on exertion Cardiovascular: No chest pain, No edema, No palpitations Abdomen: + pain, + nausea, + diarrhea, No vomiting, No GI bleeding Musculoskeletal: No swelling Genitourinary - Male: No hematuria Psychiatric: No depression symptoms Hematologic / Lymphatic: No abnormal bleeding/bruising Physical Exam Vital Signs Date Time Temp Pulse Resp B/P (MAP) Pulse Ox O2 Delivery O2 Flow Rate FiO2 08/05/17 00:11 66 08/04/17 23:56 69 18 133/86 100 Room Air 08/04/17 22:16 71 18 143/85 100 Room Air 08/04/17 20:59 80 18 126/79 100 Room Air 08/04/17 20:13 82 08/04/17 19:21 100 Room Air 08/04/17 18:58 37.5 87 18 154/84 96 Room Air General: AA&Ox4, NAD, resting comfortably in bed Skin: warm, dry, intact, no rashes/bruises or lesions HEENT: NC/AT, PERRL, EOMI, anicteric sclera, conjunctiva without injection, MMM , poor dentition, erythema of posterior pharynx, neck supple, trachea midline, palpable anterior cervical LAD, tender and mobile, neck supple Heart: +S1/S2, regular, no m/r/g Lungs: equal air entry bilaterally, no rales/rhonchi or wheezes Abdomen: flat, normoactive bowel sounds, soft with midepigastric tenderness and voluntary guarding, tenderness of RUQ and LUQ without rebound, negative McBurneys, no organomegaly, liver 7cm right mid-clavicular line, no ascites Extremities: warm, well perfused, palpable pulses, no edema Neuro: grossly nonfocal, moving 4 extremities spontaneously with equal strength Diagnostics Laboratory Results Results Past 24 Hours Test 08/04/17 19:14 08/04/17 19:28 08/04/17 20:10 08/05/17 01:40 Range/Units White Blood Count 3.84 4.8-10.8 K/uL Red Blood Count 4.64 4.7-6.1 M/uL Hemoglobin 15.1 14.0-18.0 g/dL Hematocrit 40.5 42-52 % Mean Corpuscular Volume 87.3 80-100 fL Mean Corpuscular Hemoglobin 32.5 25-34 pg Mean Corpuscular Hemoglobin Concent 37.3 32-36 g/dl Platelet Count 111 130-400 K/uL Mean Platelet Volume 9.6 7.4-10.4 fL Neutrophils (%) (Auto) 77.3 % Lymphocytes (%) (Auto) 14.1 % Monocytes (%) (Auto) 7.8 % Eosinophils (%) (Auto) 0.5 % Basophils (%) (Auto) 0.3 % Neutrophils # (Auto) 2.97 1.4-6.5 K/uL Lymphocytes # (Auto) 0.54 1.2-3.4 K/uL Monocytes # (Auto) 0.30 0.11-0.59 K/uL Eosinophils # (Auto) 0.02 0-0.5 K/uL Basophils # (Auto) 0.01 0-0.2 K/uL RDW Standard Deviation 40.9 36.4-46.3 fL RDW Coefficient of Variation 12.8 11.5-14.5 % Immature Granulocyte % (Auto) 0.0 % Immature Granulocyte # (Auto) 0.00 0.00-0.02 K/uL Prothrombin Time 9.9 9.0-12.0 SECONDS Prothromb Time International Ratio 0.9 0.9-1.1 Sodium Level 126 136-145 mmol/L Potassium Level 3.8 3.5-5.1 mmol/L Chloride Level 92 98-107 mmol/L Carbon Dioxide Level 25 21-32 mmol/L Anion Gap 9.0 3-11 mmol/L Blood Urea Nitrogen 6 7-18 mg/dl Creatinine 0.84 0.60-1.40 mg/dl Est Creatinine Clear Calc Drug Dose 96.3 ml/min Estimated GFR () 118.3 Estimated GFR (Non- 102.1 BUN/Creatinine Ratio 6.6 10-20 Random Glucose 72 70-99 mg/dl Osmolality 263 280-300 mOsm/kg Calcium Level 8.5 8.5-10.1 mg/dl Total Bilirubin 0.3 0.2-1 mg/dl Direct Bilirubin < 0.1 0-0.2 mg/dl Aspartate Amino Transf (AST/SGOT) 40 15-37 U/L Alanine Aminotransferase (ALT/SGPT) 34 12-78 U/L Alkaline Phosphatase 85 45-117 U/L Troponin I < 0.015 0-0.045 ng/ml Total Protein 7.4 6.4-8.2 gm/dl Albumin 3.9 3.4-5.0 gm/dl Lipase 162 73-393 U/L Influenza Type A (RT-PCR) Neg for Influ A NEG Influenza Type B (RT-PCR) POS for Influ B NEG Venous Blood pH 7.47 7.36-7.41 Venous Blood Partial Pressure CO2 38 38.0-50.0 mmHg Venous Blood Partial Pressure O2 35 mmHg Venous Blood HCO3 27 mmol/L Venous Blood Oxygen Saturation 68.7 % Venous Blood Base Excess 3.3 mEq/L Ethyl Alcohol mg/dL 8.5 0-3 mg/dl Urine Color YELLOW Urine Appearance CLEAR CLEAR Urine pH 7.0 4.5-7.5 Urine Specific [place] 1.007 1.000-1.030 Urine Protein NEG NEG Urine Glucose (UA) NEG NEG Urine Ketones NEG NEG Urine Occult Blood TRACE NEG Urine Nitrite NEG NEG Urine Bilirubin NEG NEG Urine Urobilinogen NEG NEG Urine Leukocyte Esterase NEG NEG Urine WBC (Auto) 0 0-5 /hpf Urine RBC (Auto) 0-4 0-4 /hpf Urine Hyaline Casts (Auto) 0 0-5 /lpf Urine Epithelial Cells (Auto) 0-5 0-5 /lpf Urine Bacteria (Auto) NEG NEG Urine Osmolality 175 500-800 mOms/kg Diagnostic Radiology GALLBLADDER-ABD LIMITED CLINICAL HISTORY: RUQ pain nausea TECHNIQUE: Ultrasound COMPARISON STUDY: None FINDINGS: Normal gallbladder. Slightly contracted. Common bile duct 5.5 mm. Liver is uniform. Pancreas poorly seen due to overlying bowel content. Right kidney is negative for hydronephrosis. IMPRESSION: Negative study. CHEST ONE VIEW PORTABLE CLINICAL HISTORY: CHEST PAIN pain COMPARISON STUDY: 11/05/2016 FINDINGS: The bones soft tissues and hemidiaphragms are normal. The cardiomediastinal silhouette is normal. The lungs are clear. The pulmonary vasculature is normal. IMPRESSION: Negative chest. EKG The study demonstrates normal sinus rhythm at 87bpm, normal axis and intervals, no evidence of ischemia. Interpreted by me Normal EKG Impression Assessment and Plan 52yo C male presenting with 3 days of cough/congestion/fever/body aches with scant hemoptysis this evening found to be positive for influenza B. Also with severe epigastric discomfort. 1. Hemoptysis - patient with scant bright red blood streaked sputum this evening in ER in setting of cough x 3 days, positive Influenza B serology. Patient is hemodynamically stable, no respiratory distress. -Continue to monitor -Robitussin PRN cough 2. Influenza B - Patient administered Tamiflu in ER. -Continue Tamiflu 75mg po BID x 5 day duration -Administer flu shot 3. Epigastric pain - Patient with documented history of GERD, presently not on medications. Thorough ER workup with Ofjsbw=147, LFTs largely normal, RUQUS negative, CT of thoracic aorta performed, final read pending, no dissection noted by my review. I suspect gastritis vs PUD secondary to ibuprofen and continued EtOH use. -Ranitidine 150mg po BID -Maalox PRN -Hold NSAIDS -If pain persists or worsens will pursue additional imaging and consultation with GI 4. COPD - Stable. Adequate oxygenation and ventilation on RA. No respiratory distress. -Albuterol PRN SOB/wheeze 5. EtOH use - patient reports daily EtOH intake, last drink yesterday AM around 10:00. No history of withdrawal or seizures. -Administer banana bag x 1 liter -CIWA protocol with IV Ativan PRN -Daily MVI 6. F/E/N - banana bag x 1 liter, check Mg and PO4 and replete as needed, patient with chronic hyponatremia, Dt=856 today, baseline in 130's. Continue to monitor. Regular diet as tolerated with daily MVI 7. Ppx - LEROY stockings and early ambulation for DVT prophylaxis in setting of mild hemoptysis 8. Code - Full per discussion with patient 9. Dispo - Observation Resuscitation Status Full VTE Prophylaxis Will order VTE Prophylaxis: No Reason for no VTE drug order: Treatment not indicated Reason no Mechanical VTE Order: Treatment not indicated
[2017-08-05] MEDS ORDERED: ALBUT/IPRATROP 3MG/0.5MG NEB 3 ML VIAL INH PRN (02:45)
[2017-08-05 02:48] LABS: PHOSPHORUS 3.6 mg/dl (2.5-4.9)
[2017-08-05] MEDS ORDERED: MULTI-VITAMIN INFUSION INJ 10 ML, THIAMINE HCL INJ 100 MG, FoLIC ACID INJ 1 MG in SODIU... IV ONE (03:00)
[2017-08-05 03:09] VITALS: BP 171/99; PULSE 76; TEMP 36.7; O2SAT 95; Ht 182.9 cm; Wt 72.7 kg
--- NOTE | 2017-08-05 06:49 | DIAGNOSTIC IMAGING REPORT ---
CT ANGIOGRAM OF THE CHEST CLINICAL HISTORY: Atypical chest pain COMPARISON STUDY: Chest x-ray dated 08/04/2017 TECHNIQUE: Following the IV administration of 91 mL of Optiray-320, CT angiogram of the thorax was performed from the thoracic inlet to the lung bases utilizing the pulmonary embolus protocol. Images are reviewed in the axial, sagittal, and coronal planes. IV contrast was administered without complication. MIP imaging was performed. A dose lowering technique was utilized adhering to the principles of ALARA. CT DOSE: 275.59 mGy.cm FINDINGS: There is an enlarged subcarinal lymph node measuring 14 mm. There is mild bilateral hilar lymph node enlargement. There is no evidence of pathologic axillary lymphadenopathy. There was no evidence of thoracic aortic dilatation. There were no pulmonary artery filling defects to indicate acute pulmonary embolism. No pleural effusions are visualized. There is mild bronchiectasis. There are few scattered calcified granulomas present. There are areas of lower lobe mucous plugging. Tree-in-bud nodularity within the left lower lobe is likely inflammatory/infectious. There is a 9 mm right upper lobe pulmonary nodule containing central calcifications. This favors a postinflammatory etiology. There is a 5 mm solid right lower lobe pulmonary nodule as visualized in image #107/[id number]. There are subtle groundglass opacities within the right middle lobe best visualized in image #90/333 is a 4 mm left upper lobe pulmonary nodule as visualized in image #231/333. There is a 3 mm lingular nodule as visualized in image #93/333. IMPRESSION: 1. No evidence of acute pulmonary embolism. 2. Mild mediastinal and hilar lymphadenopathy 3. Bronchiectasis with lower lobe mucous plugging 4. Tree-in-bud opacities within the left lower lobe, likely infectious/inflammatory 5. Scattered bilateral pulmonary nodules, the largest of which is located within the right lower lobe measuring 9 mm. 3-6 month follow-up CT scanning is recommended. Please refer to below summary of Fleischner criteria recommendations for follow-up of incidental CT nodules ([place], Guidelines for management of small pulmonary nodules detected on CT scans: A statement from the Fleischner Society, Radiology 237: [phone].) SOLID NODULES Solitary nodule size: <6 mm * low risk patients: no follow-up needed * high risk patients: optional CT at 12 months Solitary nodule size: 6-8 mm * low risk patients: follow-up at 6-12 months, then consider further follow-up at 18-24 months * high risk patients: initial follow-up CT at 6-12 months and then at 18-24 months if no change Solitary nodule size: >8 mm * either low or high risk patients - consider follow-up CT at 3 months, and/or CT-PET, and/or biopsy Multiple nodules size: <6 mm * low risk patients: no routine follow-up * high risk patients: optional CT at 12 months Multiple nodules size: 6-8 mm * low risk patients: follow-up at 3-6 months, then consider further follow-up at 18-24 months * high risk patients: follow-up at 3-6 months, then at 18-24 months if no change Multiple nodules size: >8 mm * low risk patients: follow-up at 3-6 months, then consider further follow-up at 18-24 months * high risk patients: follow-up at 3-6 months, then at 18-24 months if no change Note: newly detected indeterminate nodule in persons 35 years of age or older. * low risk patients: minimal or absent history of smoking and/or other known risk factors * high risk patients: history of smoking or of other known risk factors (e.g. first degree relative with lung cancer, or exposure to asbestos, radon, uranium) * if a nodule up to 8 mm is partly solid or is ground glass further follow-up is required after 24 months to exclude possible slow growing adenocarcinoma (SUSANA) SUBSOLID NODULES Solitary pure ground-glass nodule * nodule size <6 mm - no CT follow-up required * nodule size >=6 mm - follow-up CT at 6-12 months, then every 2 years until 5 years Solitary part-solid nodule * nodule size <6 mm - no CT follow-up required * nodule size >=6 mm - follow-up CT at 3-6 months. If unchanged, and solid component remains <6 mm, then annual follow-up for 5 years Multiple subsolid nodules * nodule size <6 mm - follow-up CT at 3-6 months, consider further follow-up at 2 and 4 years if stable * nodule size >=6 mm - follow-up CT at 3-6 months, subsequent management based on the most suspicious nodule(s) Electronically signed by: Deepak Alcantara M.D. 08/05/2017 6:48 AM Dictated Date/Time: 08/05/2017 6:40 AM
[2017-08-05 07:51] VITALS: BP 134/94; PULSE 76; TEMP 37; O2SAT 96
[2017-08-05] MEDS: ACETAMINOPHEN 325 MG TAB PO PRN ×3 (08:13→22:25)
[2017-08-05] MEDS: NICOTINE 14 MG/24 HR TDSY TD SCH (08:13)
[2017-08-05] MEDS: OSELTAMIVIR PHOSPHATE 75 MG CAP PO SCH ×2 (08:22→20:00)
[2017-08-05] MEDS: MULTIVITAMINS W/MINERALS 15ML UDP PO SCH (08:22)
[2017-08-05] MEDS: RANITIDINE HCL 150 MG TAB PO SCH ×2 (08:22→20:00)
[2017-08-05 08:33] VITALS: O2SAT 96
[2017-08-05] MEDS: GUAIFENESIN SUGAR FREE 100 MG/5 ML UDC PO PRN ×2 (15:42→22:30)
[2017-08-05 18:07] LABS: HEMATOCRIT 41.9 % (42-52); HEMOGLOBIN 15.4 g/dL (14.0-18.0); MEAN CELL VOLUME 87.7 fL (80-100); MEAN CORPUSCULAR HEMOGLOBIN 32.2 pg (25-34); MEAN CORPUSCULAR HGB CONC 36.8 g/dl (32-36); PLATELET COUNT 117 K/uL (130-400); RED CELL DISTRIBUTION WIDTH CV 12.8 % (11.5-14.5); RED CELL DISTRIBUTION WIDTH SD 41.2 fL (36.4-46.3); WHITE BLOOD COUNT 2.98 K/uL (4.8-10.8)
[2017-08-05 18:24] LABS: CALCIUM 8.9 mg/dl (8.5-10.1); CREATININE 0.93 mg/dl (0.60-1.40); POTASSIUM 3.8 mmol/L (3.5-5.1)
[2017-08-05] MEDS ORDERED: SODIUM CHLORIDE 0.65% NA SOLN 45 ML (OCEAN) ONE (21:02)
[2017-08-05] MEDS: ZOLPIDEM TARTRATE 5 MG TAB PO PRN (22:24)
[2017-08-05 23:31] VITALS: BP 124/80; PULSE 81; TEMP 36.7; O2SAT 96
[2017-08-06 06:44] LABS: CALCIUM 9.1 mg/dl (8.5-10.1); CREATININE 0.88 mg/dl (0.60-1.40); POTASSIUM 4.3 mmol/L (3.5-5.1)
[2017-08-06 07:37] VITALS: BP 136/85; PULSE 78; TEMP 36.5; O2SAT 96
[2017-08-06] MEDS: OSELTAMIVIR PHOSPHATE 75 MG CAP PO SCH ×2 (08:05→20:18)
[2017-08-06] MEDS: MULTIVITAMINS W/MINERALS 15ML UDP PO SCH (08:05)
[2017-08-06] MEDS: RANITIDINE HCL 150 MG TAB PO SCH ×2 (08:06→20:19)
[2017-08-06] MEDS: NICOTINE 14 MG/24 HR TDSY TD SCH (08:06)
[2017-08-06] MEDS: IBUPROFEN 200 MG TAB PO PRN (08:07)
--- NOTE | 2017-08-06 10:49 | Progress Note ---
Progress Note Date of Service Aug 05, 2017. Progress Note Late entry due to system being down. Patient admitted overnight. He states no significant improvement. Will monitor and order AFB times 3 given that imaging showed tree in bud. Will check for Mycobacterium avium complex.
[2017-08-06] MEDS: ACETAMINOPHEN 325 MG TAB PO PRN (13:21)
[2017-08-06 15:46] VITALS: BP 109/71; PULSE 63; TEMP 36.5; O2SAT 98
[2017-08-06] MEDS: GUAIFENESIN 200 MG TAB PO SCH (20:18)
[2017-08-06] MEDS: ZOLPIDEM TARTRATE 5 MG TAB PO PRN (20:25)
--- NOTE | 2017-08-06 22:53 | Progress Note ---
Subjective Date of Service: Aug 06, 2017. Subjective Pt evaluation today including: conversation w/ patient 52 YO MALE who presents to the hospital with fever, chills, and cough. Patient reports cough and fevers have subsided. Patient reports that he is having difficulty giving a sample of AFB. Patient reports though that he continues to have pain in his bilateral lower chest when he breaths. Pain is aggravating when patient touches the chest, Problem List Medical Problems: (1) Alcohol abuse Status: Acute (2) Anxiety Status: Acute (3) Bronchitis Status: Acute (4) Chronic hyponatremia Status: Acute (5) Depression Status: Acute (6) Facial cellulitis Status: Acute (7) Gastritis Status: Acute (8) Hypomagnesemia Status: Acute (9) Hyponatremia Status: Acute (10) Influenza Status: Acute (11) Influenza B Status: Acute (12) Mood disorder Status: Acute (13) Pneumonia Status: Acute (14) Syncope Status: Acute Review of Systems Constitutional: No fever Eyes: No worsening of vision ENT: No hearing loss Respiratory: + cough, + shortness of breath Cardiac: + chest pain Neurologic: No memory loss Psychiatric: No depression symptoms Endo: + fatigue Skin: No rash All Other Systems: Reviewed and Negative Objective Vital Signs Date Time Temp Pulse Resp B/P (MAP) Pulse Ox O2 Delivery O2 Flow Rate FiO2 08/06/17 16:30 Room Air 08/06/17 15:46 36.5 63 18 109/71 (84) 98 Room Air 08/06/17 09:51 Room Air 08/06/17 07:37 36.5 78 18 136/85 (102) 96 Room Air 08/06/17 00:00 Room Air 08/05/17 23:31 36.7 81 18 124/80 (95) 96 Room Air Physical Exam General Appearance: WD/WN, no apparent distress Eyes: normal inspection ENT: normal ENT inspection Neck: supple, no adenopathy Respiratory/Chest: chest non-tender, lungs clear, normal breath sounds Cardiovascular: regular rate, rhythm, no edema Abdomen: normal bowel sounds, non tender, soft Extremities: normal range of motion, non-tender Neurologic/Psychiatric: alert, oriented x 3 Skin: normal color Lymphatic: no adenopathy Laboratory Results Last 24 Hours Test 08/06/17 05:16 Sodium Level 130 mmol/L Potassium Level 4.3 mmol/L Chloride Level 95 mmol/L Carbon Dioxide Level 27 mmol/L Anion Gap 8.0 mmol/L Blood Urea Nitrogen 5 mg/dl Creatinine 0.88 mg/dl Est Creatinine Clear Calc Drug Dose 103.3 ml/min Estimated GFR () 116.1 Estimated GFR (Non- 100.2 BUN/Creatinine Ratio 6.2 Random Glucose 97 mg/dl Calcium Level 9.1 mg/dl Assessment and Plan 52yo C male presenting with 3 days of cough/congestion/fever/body aches with scant hemoptysis this evening found to be positive for influenza B. Also with severe epigastric discomfort. 1. Hemoptysis - patient with scant bright red blood streaked sputum this evening in ER in setting of cough x 3 days, positive Influenza B serology. Patient is hemodynamically stable, no respiratory distress. -Continue to monitor -will obtain AFB. likely MAC as imaging showed tree in bud. -will hold off antibiotics until cultures are confirmed. -will hold opff pulmonary consult for now. 2. Influenza B - Patient administered Tamiflu in ER. -Continue Tamiflu 75mg po BID x 5 day duration -Administer flu shot 3. Epigastric pain - Patient with documented history of GERD, presently not on medications. Thorough ER workup with Zwaumf=151, LFTs largely normal, RUQUS negative, CT of thoracic aorta performed, final read pending, no dissection noted by my review. I suspect gastritis vs PUD secondary to ibuprofen and continued EtOH use. -Ranitidine 150mg po BID -Maalox PRN -pain appears to be controlled. 4. COPD - Stable. Adequate oxygenation and ventilation on RA. No respiratory distress. -Albuterol PRN SOB/wheeze 5. EtOH use - patient reports daily EtOH intake, last drink yesterday AM around 10:00. No history of withdrawal or seizures. -Patient currently not actively going through withdrawals. -CIWA protocol with IV Ativan PRN -Daily MVI 6. F/E/N - banana bag x 1 liter, check Mg and PO4 and replete as needed, patient with chronic hyponatremia, Ka=641 today, baseline in 130's. Continue to monitor. Regular diet as tolerated with daily MVI 7.Chest pain likely musculoskeletal from influenza. will monitor. 8. Ppx - LEROY stockings and early ambulation for DVT prophylaxis in setting of mild hemoptysis 9. Code - Full per discussion with patient Continued [facility] stay due to: other (awaiting culture)
[2017-08-06 23:41] VITALS: BP 109/70; PULSE 64; TEMP 36.4; O2SAT 96
[2017-08-07] MEDS: GUAIFENESIN 200 MG TAB PO SCH ×6 (01:54→20:28)
[2017-08-07 07:06] LABS: CALCIUM 8.7 mg/dl (8.5-10.1); CREATININE 0.8 mg/dl (0.60-1.40); POTASSIUM 4.6 mmol/L (3.5-5.1)
[2017-08-07 07:30] VITALS: BP 108/72; PULSE 64; TEMP 36.5; O2SAT 96
[2017-08-07] MEDS: RANITIDINE HCL 150 MG TAB PO SCH ×2 (07:51→20:28)
[2017-08-07] MEDS: OSELTAMIVIR PHOSPHATE 75 MG CAP PO SCH ×2 (07:51→20:29)
[2017-08-07] MEDS: NICOTINE 14 MG/24 HR TDSY TD SCH (07:52)
[2017-08-07] MEDS: IBUPROFEN 200 MG TAB PO PRN ×2 (07:52→20:30)
[2017-08-07] MEDS: MULTIVITAMINS W/MINERALS 15ML UDP PO SCH (07:53)
[2017-08-07 15:21] VITALS: BP 156/90; PULSE 67; TEMP 36.7; O2SAT 97
[2017-08-07] MEDS: ZOLPIDEM TARTRATE 5 MG TAB PO PRN (20:37)
--- NOTE | 2017-08-07 22:18 | Progress Note ---
Subjective Date of Service: Aug 07, 2017. Subjective Pt evaluation today including: conversation w/ patient 52 YO MALE Patient was found sitting comfortably in bed. Patient reports his cough has decreased, however, he is able to give a good sample today for his AFB culture. Patient states his chest pain is improving too. Patient rpeorts that he deneis any tremors, hallucinations, nausea, vomiting. Problem List Medical Problems: (1) Alcohol abuse Status: Acute (2) Anxiety Status: Acute (3) Bronchitis Status: Acute (4) Chronic hyponatremia Status: Acute (5) Depression Status: Acute (6) Facial cellulitis Status: Acute (7) Gastritis Status: Acute (8) Hypomagnesemia Status: Acute (9) Hyponatremia Status: Acute (10) Influenza Status: Acute (11) Influenza B Status: Acute (12) Mood disorder Status: Acute (13) Pneumonia Status: Acute (14) Syncope Status: Acute Review of Systems Constitutional: No fever, No chills Eyes: No worsening of vision ENT: No hearing loss Respiratory: No dyspnea on exertion, No dyspnea at rest Cardiac: + chest pain Abdomen: No pain Male : No dysuria Neurologic: No memory loss Psychiatric: No depression symptoms Heme: No abnormal bleeding/bruising Endo: No fatigue Skin: No rash All Other Systems: Reviewed and Negative Objective Vital Signs Date Time Temp Pulse Resp B/P (MAP) Pulse Ox O2 Delivery O2 Flow Rate FiO2 08/07/17 15:21 36.7 67 18 156/90 (112) 97 Room Air 08/07/17 15:20 Room Air 08/07/17 08:00 Room Air 08/07/17 07:30 36.5 64 18 108/72 (84) 96 08/07/17 01:26 Room Air 08/06/17 23:41 36.4 64 18 109/70 (83) 96 Room Air Physical Exam Comments: General Appearance: WD/WN, no apparent distress Eyes: normal inspection ENT: normal ENT inspection Neck: supple, no adenopathy Respiratory/Chest: chest non-tender, lungs clear, normal breath sounds Cardiovascular: regular rate, rhythm, no edema Abdomen: normal bowel sounds, non tender, soft Extremities: normal range of motion, non-tender Neurologic/Psychiatric: alert, oriented x 3 Skin: normal color Lymphatic: no adenopathy Laboratory Results Last 24 Hours Test 08/07/17 05:27 Sodium Level 131 mmol/L Potassium Level 4.6 mmol/L Chloride Level 97 mmol/L Carbon Dioxide Level 26 mmol/L Anion Gap 8.0 mmol/L Blood Urea Nitrogen 9 mg/dl Creatinine 0.80 mg/dl Est Creatinine Clear Calc Drug Dose 113.6 ml/min Estimated GFR () 120.7 Estimated GFR (Non- 104.2 BUN/Creatinine Ratio 10.7 Random Glucose 95 mg/dl Calcium Level 8.7 mg/dl Assessment and Plan 52yo C male presenting with 3 days of cough/congestion/fever/body aches with scant hemoptysis this evening found to be positive for influenza B. Also with severe epigastric discomfort. 1. Hemoptysis - patient with scant bright red blood streaked sputum this evening in ER in setting of cough x 3 days, positive Influenza B serology. Patient is hemodynamically stable, no respiratory distress. -Continue to monitor -will obtain AFB. likely MAC as imaging showed tree in bud. -will hold off antibiotics until cultures are confirmed. -will hold off pulmonary consult for now. -so far we have 2 out of 3 AFB cultures brewing. 2. Influenza B - Patient administered Tamiflu in ER. -Continue Tamiflu 75mg po BID x 5 day duration -Administer flu shot -August 09 AM should be final dose of tamiflu. Patient has remained afebrile. 3. Epigastric pain - Patient with documented history of GERD, presently not on medications. Thorough ER workup with Yqthbo=804, LFTs largely normal, RUQUS negative, CT of thoracic aorta performed, final read pending, no dissection noted by my review. I suspect gastritis vs PUD secondary to ibuprofen and continued EtOH use. -Ranitidine 150mg po BID -Maalox PRN -pain appears to be controlled. 4. COPD - Stable. Adequate oxygenation and ventilation on RA. No respiratory distress. -Albuterol PRN SOB/wheeze 5. EtOH use - patient reports daily EtOH intake, last drink yesterday AM around 10:00. No history of withdrawal or seizures. -Patient currently not actively going through withdrawals. -CIWA protocol with IV Ativan PRN -Daily MVI 6. F/E/N - banana bag x 1 liter, check Mg and PO4 and replete as needed, patient with chronic hyponatremia, Gv=885 today, baseline in 130's. Continue to monitor. Regular diet as tolerated with daily MVI 7.Chest pain likely musculoskeletal from influenza. will monitor. 8. Ppx - LEROY stockings and early ambulation for DVT prophylaxis in setting of mild hemoptysis 9. Code - Full per discussion with patient
[2017-08-07 23:56] VITALS: BP 115/72; PULSE 57; TEMP 36.7; O2SAT 97
[2017-08-08] MEDS: GUAIFENESIN 200 MG TAB PO SCH ×4 (03:36→21:10)
[2017-08-08] MEDS: IBUPROFEN 200 MG TAB PO PRN (03:37)
[2017-08-08 06:34] LABS: CALCIUM 8.9 mg/dl (8.5-10.1); CREATININE 0.86 mg/dl (0.60-1.40); POTASSIUM 4.1 mmol/L (3.5-5.1)
[2017-08-08 07:53] VITALS: BP 132/95; PULSE 69; TEMP 36.6; O2SAT 97
[2017-08-08 08:00] VITALS: O2SAT 97
[2017-08-08] MEDS: MULTIVITAMINS W/MINERALS 15ML UDP PO SCH (08:46)
[2017-08-08] MEDS: RANITIDINE HCL 150 MG TAB PO SCH ×2 (08:47→21:09)
[2017-08-08] MEDS: OSELTAMIVIR PHOSPHATE 75 MG CAP PO SCH ×2 (08:47→21:08)
[2017-08-08] MEDS: NICOTINE 14 MG/24 HR TDSY TD SCH (08:48)
[2017-08-08] MEDS: ACETAMINOPHEN 325 MG TAB PO PRN ×2 (10:13→17:35)
[2017-08-08 15:56] VITALS: BP 115/82; PULSE 96; TEMP 37.1; O2SAT 98
[2017-08-08 16:00] VITALS: O2SAT 97
--- NOTE | 2017-08-08 16:36 | Progress Note ---
Subjective Date of Service: Aug 08, 2017. Subjective Pt evaluation today including: conversation w/ patient, physical exam, chart review, lab review Pain: No pain reported Voiding: no voiding problems Patient is seen and examined by me. Patient is feeling much better compared to yesterday. Patient is pacing the room little anxious however denies chest pain , shortness of breath, dizziness, palpitation or loss of consciousness. Patient denies abdominal pain, nausea, vomiting and diarrhea. Patient denies headache and blurry vision. Patient is doing incentive spirometry on and off however not consistent with it. Problem List Medical Problems: (1) Alcohol abuse Status: Acute (2) Anxiety Status: Acute (3) Bronchitis Status: Acute (4) Chronic hyponatremia Status: Acute (5) Depression Status: Acute (6) Facial cellulitis Status: Acute (7) Gastritis Status: Acute (8) Hypomagnesemia Status: Acute (9) Hyponatremia Status: Acute (10) Influenza Status: Acute (11) Influenza B Status: Acute (12) Mood disorder Status: Acute (13) Pneumonia Status: Acute (14) Syncope Status: Acute Review of Systems Constitutional: No fever, No chills Eyes: No worsening of vision ENT: No hearing loss Respiratory: No dyspnea on exertion, No dyspnea at rest Cardiac: + chest pain Abdomen: No pain Male : No dysuria Neurologic: No memory loss Psychiatric: No depression symptoms Heme: No abnormal bleeding/bruising Endo: No fatigue Skin: No rash Objective Vital Signs Date Time Temp Pulse Resp B/P (MAP) Pulse Ox O2 Delivery O2 Flow Rate FiO2 08/08/17 15:56 37.1 96 20 115/82 (93) 98 Room Air 08/08/17 08:00 97 Room Air 08/08/17 07:53 36.6 69 20 132/95 (107) 97 Room Air 08/08/17 00:00 Room Air 08/07/17 23:56 36.7 57 18 115/72 (86) 97 Room Air 08/07/17 20:00 Room Air Physical Exam Comments: General Appearance: WD/WN, no apparent distress Eyes: normal inspection ENT: normal ENT inspection Neck: supple, no adenopathy Respiratory/Chest: chest non-tender, lungs clear, normal breath sounds Cardiovascular: regular rate, rhythm, no edema Abdomen: normal bowel sounds, non tender, soft Extremities: normal range of motion, non-tender Neurologic/Psychiatric: alert, oriented x 3 Skin: normal color Lymphatic: no adenopathy Laboratory Results Last 24 Hours Test 08/08/17 05:10 Sodium Level 130 mmol/L Potassium Level 4.1 mmol/L Chloride Level 97 mmol/L Carbon Dioxide Level 29 mmol/L Anion Gap 4.0 mmol/L Blood Urea Nitrogen 9 mg/dl Creatinine 0.86 mg/dl Est Creatinine Clear Calc Drug Dose 105.7 ml/min Estimated GFR () 117.2 Estimated GFR (Non- 101.1 BUN/Creatinine Ratio 10.5 Random Glucose 81 mg/dl Calcium Level 8.9 mg/dl Assessment and Plan 52yo C male presenting with 3 days of cough/congestion/fever/body aches with scant hemoptysis this evening found to be positive for influenza B. Also with severe epigastric discomfort. 1. Hemoptysis -resolved -will obtain AFB. likely MAC ? as imaging showed tree in bud -will hold off antibiotics until cultures are confirmed. -will hold off pulmonary consult for now. -3 AFB cultures are collected, 1 shows no acid-fast bacilli 2. Influenza B - Patient administered Tamiflu in ER. -Continue Tamiflu 75mg po BID x 5 day duration -Administer flu shot -August 09 AM should be final dose of tamiflu. Patient has remained afebrile. 3. Epigastric pain GERD versus gastritis versus peptic ulcer disease -Ranitidine 150mg po BID -Maalox PRN -pain appears to be controlled. 4. COPD - Stable. Adequate oxygenation and ventilation on RA. No respiratory distress. -Albuterol PRN SOB/wheeze 5. EtOH use - patient reports daily EtOH intake, last drink yesterday AM around 10:00. No history of withdrawal or seizures. -Patient currently not actively going through withdrawals. -CIWA protocol with IV Ativan PRN -Daily MVI 6. F/E/N - banana bag x 1 liter, check Mg and PO4 and replete as needed, patient with chronic hyponatremia, Tk=701 today, baseline in 130's. Continue to monitor. Regular diet as tolerated with daily MVI 7.Chest pain likely musculoskeletal from influenza. will monitor. 8. Ppx - LEROY stockings and early ambulation for DVT prophylaxis in setting of mild hemoptysis 9. Code - Full per discussion with patient Continued [facility] stay due to: other (awaiting culture) Discharge planning: home
[2017-08-08] MEDS ORDERED: DOCUSATE SODIUM 100 MG CAP PO ONE (18:15)
[2017-08-08] MEDS ORDERED: NURSING VERBAL MED ORDER ONE (18:15)
[2017-08-08] MEDS: ZOLPIDEM TARTRATE 5 MG TAB PO PRN (21:16)
[2017-08-08 23:56] VITALS: BP 107/70; PULSE 87; TEMP 37.3; O2SAT 97
[2017-08-09 07:49] VITALS: BP 104/69; PULSE 74; TEMP 36.7; O2SAT 98
[2017-08-09] MEDS: GUAIFENESIN 200 MG TAB PO SCH ×5 (08:00→19:53)
[2017-08-09] MEDS: MULTIVITAMINS W/MINERALS 15ML UDP PO SCH (08:18)
[2017-08-09] MEDS: OSELTAMIVIR PHOSPHATE 75 MG CAP PO SCH ×2 (08:18→19:53)
[2017-08-09] MEDS: NICOTINE 14 MG/24 HR TDSY TD SCH (08:19)
[2017-08-09] MEDS: RANITIDINE HCL 150 MG TAB PO SCH ×2 (08:19→19:53)
[2017-08-09] MEDS: ACETAMINOPHEN 325 MG TAB PO PRN (08:26)
--- NOTE | 2017-08-09 11:41 | Progress Note ---
Subjective Date of Service: Aug 09, 2017. Subjective Pt evaluation today including: conversation w/ patient, physical exam, chart review, lab review, review of inpatient medication list Pain: no pain reported Voiding: no voiding problems, no incontinence Pt is seen and examined by me, little tenderness on coughing still some sputum production. Problem List Medical Problems: (1) Alcohol abuse Status: Acute (2) Anxiety Status: Acute (3) Bronchitis Status: Acute (4) Chronic hyponatremia Status: Acute (5) Depression Status: Acute (6) Facial cellulitis Status: Acute (7) Gastritis Status: Acute (8) Hypomagnesemia Status: Acute (9) Hyponatremia Status: Acute (10) Influenza Status: Acute (11) Influenza B Status: Acute (12) Mood disorder Status: Acute (13) Pneumonia Status: Acute (14) Syncope Status: Acute Review of Systems Respiratory: + cough, + sputum All Other Systems: Reviewed and Negative Medications Medications (Trade) Dose Ordered Sig/[place]ed[place] Route Start Time Stop Time Status Last Admin Dose Admin Docusate Sodium (coLACE CAP) 200 mg NOW ONCE PO 08/08/17 18:15 08/08/17 18:16 DC 08/08/17 21:07 200 MG Objective Vital Signs Date Time Temp Pulse Resp B/P (MAP) Pulse Ox O2 Delivery O2 Flow Rate FiO2 08/09/17 08:00 Room Air 08/09/17 07:49 36.7 74 18 104/69 (81) 98 Room Air 08/09/17 00:00 Room Air 08/08/17 23:56 37.3 87 18 107/70 (82) 97 Room Air 08/08/17 20:00 Room Air 08/08/17 16:00 97 Room Air 08/08/17 15:56 37.1 96 20 115/82 (93) 98 Room Air Physical Exam General Appearance: WD/WN, no apparent distress Eyes: normal inspection, EOMI Neck: supple Respiratory/Chest: normal breath sounds, no accessory muscle use, + pertinent finding (slightly tender chest on coughing ) Cardiovascular: regular rate, rhythm, no murmur Abdomen: normal bowel sounds, non tender, soft Extremities: normal range of motion, non-tender, normal inspection, no pedal edema Neurologic/Psychiatric: alert, normal mood/affect, oriented x 3 Skin: no rash Lymphatic: no adenopathy Assessment and Plan 52yo C male presenting with 3 days of cough/congestion/fever/body aches with scant hemoptysis this evening found to be positive for influenza B. Also with severe epigastric discomfort. 1. Hemoptysis -resolved - feeling little tender in chest area when he cough other simpson normal o2 saturation -will hold off antibiotics until cultures are confirmed. -will hold off pulmonary consult for now. -3 AFB smears are collected, 3 shows no acid-fast bacilli, final culture pending 2. Influenza B - Patient administered Tamiflu in ER. -Continue Tamiflu 75mg po BID x 5 day duration -Administer flu shot -August 09 AM should be final dose of tamiflu. Patient has remained afebrile. 3. Epigastric pain GERD versus gastritis versus peptic ulcer disease -Ranitidine 150mg po BID -Maalox PRN -pain appears to be controlled. 4. COPD - Stable. Adequate oxygenation and ventilation on RA. No respiratory distress. -Albuterol PRN SOB/wheeze 5. EtOH use - patient reports daily EtOH intake, last drink yesterday AM around 10:00. No history of withdrawal or seizures. -Patient currently not actively going through withdrawals. -CIWA protocol with IV Ativan PRN -Daily MVI 6. F/E/N - banana bag x 1 liter, check Mg and PO4 and replete as needed, patient with chronic hyponatremia, Lk=045 today, baseline in 130's. Continue to monitor. Regular diet as tolerated with daily MVI 7.Chest pain likely musculoskeletal from influenza. will monitor. 8. Ppx - LEROY stockings and early ambulation for DVT prophylaxis in setting of mild hemoptysis 9. Code - Full per discussion with patient Dc in am Continued [facility] stay due to: other (awaiting culture) Discharge planning: home
[2017-08-09] MEDS: GUAIFENESIN SUGAR FREE 100 MG/5 ML UDC PO PRN (13:45)
[2017-08-09 15:46] VITALS: BP 125/89; PULSE 77; TEMP 36.8; O2SAT 97
[2017-08-09 16:00] VITALS: O2SAT 97
[2017-08-09] MEDS: ZOLPIDEM TARTRATE 5 MG TAB PO PRN (21:27)
[2017-08-09 23:30] VITALS: BP 110/66; PULSE 64; TEMP 36.8; O2SAT 97
[2017-08-10] MEDS: RANITIDINE HCL 150 MG TAB PO SCH (07:55)
[2017-08-10] MEDS: MULTIVITAMINS W/MINERALS 15ML UDP PO SCH (07:55)
[2017-08-10] MEDS: NICOTINE 14 MG/24 HR TDSY TD SCH (07:55)
[2017-08-10] MEDS: GUAIFENESIN 200 MG TAB PO SCH ×2 (07:55→11:59)
[2017-08-10] MEDS: OSELTAMIVIR PHOSPHATE 75 MG CAP PO SCH (07:55)
[2017-08-10 08:15] VITALS: BP 112/72; PULSE 65; TEMP 36.3; O2SAT 96
[2017-08-10 12:12] VITALS: BP 112/72; PULSE 65; TEMP 36.3; O2SAT 96
[2017-08-10] MEDS ORDERED: ZNT150 PO (13:29)
--- NOTE | 2017-08-10 13:31 | Discharge Instructions ---
Discharge Instructions Date of Service Aug 10, 2017. Admission Reason for Admission: Hemoptysis,Unsepcified Discharge Discharge Diagnosis / Problem: Flu Discharge Goals Goal(s): Decrease discomfort, Improve function, Increase independence Activity Recommendations Activity Limitations: resume your previous activity . Instructions / Follow-Up Instructions / Follow-Up Dr. Rudolph as needed You finished a course of Tamiflu during your admission and will not need further treatment for flu Current Hospital Diet Patient's current hospital diet: Regular Diet Discharge Diet Recommended Diet: Regular Diet Pending Studies Studies pending at discharge: no Medical Emergencies . Who to Call and When: Medical Emergencies: If at any time you feel your situation is an emergency, please call 911 immediately. . Non-Emergent Contact Non-Emergency issues call your: Primary Care Provider . . "Provider Documentation" section prepared by Ana Mccord. .
--- NOTE | 2017-08-10 13:33 | Discharge Summary ---
Discharge Summary Date of Service Aug 10, 2017. Discharge Summary Admission Date: Aug 06, 2017 at 17:43 Discharge Date: Aug 10, 2017 Discharge Disposition: Home Principal Diagnosis: Influenza Problems/Secondary Diagnoses: GERD COPD Anxiety/depression Alcohol abuse Immunizations: Have You Had Influenza Vaccine: No History of Tetanus Vaccine?: No History of Pneumococcal: No History of Hepatitis B Vaccine: No Medication Reconciliation New Medications: Ranitidine HCl (Ranitidine HCl) 150 Mg Tab 150 MG PO BID for 30 Days, #60 TAB Continued Medications: Ibuprofen (Advil) 200 Mg Tab 400 MG PO DAILY PRN for Headache or Pain, TAB Discharge Exam Pt is feeling much improved. Still with a cough, but better. No further blood in his sputum. Tolerating PO without issue. No chest pain or SOB. Pt denies fever, abd pain, n/v/c/d, LE pain or swelling. He would like to go home today. Physical Exam: General Appearance: WD/WN, no apparent distress Eyes: normal inspection, sclerae normal Respiratory/Chest: normal breath sounds, no respiratory distress Cardiovascular: regular rate, rhythm, no edema Abdomen / GI: non tender, soft Extremities: no calf tenderness, no pedal edema Neurologic/Psychiatric: alert, normal mood/affect, oriented x 3 Skin: normal color, warm/dry Hospital Course 52yo C male presenting with 3 days of cough/congestion/fever/body aches with scant hemoptysis this evening found to be positive for influenza B. Hemoptysis -resolved -3 AFB smears are collected, 3 shows no acid-fast bacilli, final culture pending Influenza B - Patient administered Tamiflu in ER. -Finished course of Tamiflu 75mg during admission -Administer flu shot Patient has remained afebrile. Epigastric pain GERD versus gastritis versus peptic ulcer disease in the setting of known alcohol abuse -Ranitidine 150mg po BID -Maalox PRN -pain has resolved COPD - Stable. Adequate oxygenation and ventilation on RA. No respiratory distress. -Albuterol PRN SOB/wheeze EtOH use - patient reports daily EtOH intake. No history of withdrawal or seizures and no issues during admission Chest pain likely musculoskeletal from influenza and has resolved Total Time Spent: Greater than 30 minutes This includes examination of the patient, discharge planning, medication reconciliation, and communication with other providers. Discharge Instructions Please refer to the electronic Patient Visit Report (Discharge Instructions) for additional information. Follow-Up Dr. Rudolph as needed Additional Copies To Boni Rudolph M.D.
== END 2017-08-10 14:04 | disposition home or self-care (01) | DRG 194 ==
LOC: C.EDB 18:55 → C.4E 08-05 01:56 → UNDOADMOB 08-05 01:56 → ENRESERV 08-05 02:18 → INTOOBSV 08-05 17:43 → OBSVTOIN 08-05 17:43 → C.4E 08-06 00:22 → OBSVTOIN 08-06 17:43
PROVIDERS: ADMIT Internal Medicine; ATTEND Family Medicine
DX: J10.1 Influenza due to other identified influenza virus with other respiratory manifestations (principal); R04.2 Hemoptysis; E87.1 Hypo-osmolality and hyponatremia; R10.13 Epigastric pain; K21.9 Gastro-esophageal reflux disease without esophagitis; K29.20 Alcoholic gastritis without bleeding; K27.9 Peptic ulcer, site unspecified, unspecified as acute or chronic, without hemorrhage or perforation; T39.315A Adverse effect of propionic acid derivatives, initial encounter; J44.9 Chronic obstructive pulmonary disease, unspecified; R07.89 Other chest pain; F17.200 Nicotine dependence, unspecified, uncomplicated; Z72.89 Other problems related to lifestyle; Z88.0 Allergy status to penicillin; Z88.5 Allergy status to narcotic agent; Z82.49 Family history of ischemic heart disease and other diseases of the circulatory system; Z83.3 Family history of diabetes mellitus; Z84.1 Family history of disorders of kidney and ureter

== ENCOUNTER → 2017-09-01 | Outpatient (CLI) | payer OTHER ==
[~2017-09-01] MED LIST changes: -DXY100 PO; -FLUO20CA35 PO; +IBUP-1050 PO; -TRAZ50TA35 PO; +ZNT150 PO
== END | disposition home or self-care (01) ==
LOC: C.LAB 20:30
DX: Z02.83 Encounter for blood-alcohol and blood-drug test (principal)

== ENCOUNTER 2020-01-02 20:15 | Inpatient (IN) ==
[2020-01-02] MEDS ORDERED: SODIUM CHLORIDE 0.9% 1000ML 1,000 ML IV ONE ×2 (21:01→22:30)
[2020-01-02] MEDS ORDERED: FAMOTIDINE 20MG/5ML IV PUSH IV STA (21:01)
--- NOTE | 2020-01-02 21:09 | Emergency Department Note ---
History of Present Illness General Chief complaint: Mental Health Evaluation Stated complaint: UNABLE TO SLEEP OR EAT Time Seen by Provider: 01/02/20 20:26 Source: patient Mode of arrival: ambulatory Limitations: no limitations History of Present Illness Provider complaint: Suicidal ideation with plan, abdominal pain Onset (ago): day(s) 3 Location: abdomen Radiation: back Severity: moderate Pain Consistency: + constant Maximum Pain Intensity: 9 Current Pain Intensity: 9 Quality: + constant Relieved By: + none Exacerbated By: + none Associated symptoms: + cough, + loss of appetite, + malaise and + nausea/vomiting; no chest pain, no fever/chills and no shortness of breath Treatments prior to arrival: none This is a 54-year-old male who presents the emergency department with various complaints. Patient states he is here because he has been having suicidal thoughts and this afternoon had a plan to hang himself. Patient states he tied a noose and then realized what he was doing and stopped and called his family and asked them to bring him to the emergency room. Patient states he does have a history of suicidal ideation and has been admitted as an inpatient to a psychiatric facility on 3 prior occasions. No prior attempt. Patient denies HI, paranoia, hallucinations. Patient states that he began having SI 3 days ago. Patient states that around the same time he began noticing epigastric and right upper quadrant pain. Patient states it feels similar to a prior episode of pancreatitis. Patient does admit to smoking and states he has had a more productive cough recently, he denies any shortness of breath or hemoptysis. Patient denies any known sick contacts. Patient states he has been trying to quit smoking. Patient states he does use alcohol daily, and he has been trying to cut back on that as well. Patient states he did have one beer earlier today. Patient states he has had pancreatitis once before, denies that it was related to liver or biliary dysfunction or related to alcohol abuse. Patient states he has not eaten in 3 days as he has not had an appetite. Then goes on to state that he did have a small amount of food yesterday, however states this did not worsen his pain in any way. Patient denies any nausea or vomiting. Patient denies any diarrhea, black or bloody stools. Patient denies any change in urine. Pt seen during a time of high acuity and national emergency pandemic while wearing PPE. Home Medications Home Medications Medication Instructions Recorded Confirmed Type escitalopram oxalate 20 mg PO DAILY 01/02/20 01/02/20 History folic acid 1 mg PO DAILY 01/02/20 01/02/20 History gabapentin 300 mg PO TID 01/02/20 01/02/20 History doxepin 100 mg PO HS 01/04/20 01/04/20 History Allergies Allergy/AdvReac Type Severity Reaction Status Date / Time codeine Allergy Intermediate GI SYMPTOMS Verified 01/02/20 21:08 meperidine Allergy Intermediate CAUSES Verified 01/02/20 21:08 CONFUSION Penicillins Allergy Mild FINGERS Verified 01/02/20 21:08 SWELLED A CHILD Past Med/Surg History Medical History Anxiety Depression Pancreatitis Social History Smoking Status: Heavy tobacco smoker Cigarettes Per Day: 20; Second Hand Exposure: Yes; Do You Dip or Chew Tobacco: No; Tobacco Cessation Education Requested by Patient: No Hx Alcohol Use: Yes Alcohol type: beer Hx Substance Use: No Preferred Language: [place] Communication Ability: Effective 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 and A total of 10 systems reviewed and were otherwise negative Physical Exam Vital Signs Vital Signs - 24 hr 01/02/20 20:17 01/02/20 22:00 01/02/20 22:30 Temperature 36.8 C Temperature Source Oral Pulse Rate 103 H 81 74 Pulse Rate from SpO2 Sensor 81 74 Respiratory Rate 18 14 Respiratory Depth Normal Blood Pressure 129/96 125/77 118/69 Blood Pressure Mean 107 87 78 Blood Pressure Position Sitting Pulse Oximetry 98 97 95 Oxygen Delivery Method Room Air Room Air Room Air Sepsis Recent Fever Within 48 Hours No Sepsis New/Unexplained Change in Mental Status No Sepsis Action Taken by Nursing No Action Required 01/02/20 23:00 01/02/20 23:30 01/03/20 00:07 Temperature Temperature Source Pulse Rate 81 74 79 Pulse Rate from SpO2 Sensor 81 74 81 Respiratory Rate 16 16 19 Respiratory Depth Blood Pressure 113/59 L 124/78 150/82 H Blood Pressure Mean 80 86 97 Blood Pressure Position Pulse Oximetry 95 95 98 Oxygen Delivery Method Sepsis Recent Fever Within 48 Hours Sepsis New/Unexplained Change in Mental Status Sepsis Action Taken by Nursing 01/03/20 00:30 Temperature Temperature Source Pulse Rate 75 Pulse Rate from SpO2 Sensor 75 Respiratory Rate 15 Respiratory Depth Blood Pressure 105/60 Blood Pressure Mean 68 Blood Pressure Position Pulse Oximetry 96 Oxygen Delivery Method Sepsis Recent Fever Within 48 Hours Sepsis New/Unexplained Change in Mental Status Sepsis Action Taken by Nursing GENERAL: alert, well appearing, well nourished, no distress, non-toxic, thin build EYE EXAM: normal conjunctiva, PERRL and EOM's grossly intact OROPHARYNX: no exudate, no erythema, lips, buccal mucosa, and tongue normal and mucous membranes are moist NECK: supple, no nuchal rigidity, no adenopathy, non-tender LUNGS: Clear but decreased to auscultation. Normal chest wall mechanics, no w/r/r HEART: no murmurs, S1 normal and S2 normal ABDOMEN: abdomen soft, non-tender, normo-active bowel sounds, no masses, no rebound or guarding. BACK: Back is symmetrical on inspection and there is no deformity, no midline tenderness, no CVA tenderness. SKIN: no rashes and no bruising UPPER EXTREMITIES: upper extremities are grossly normal. FROM, nml pulses b/l. Mild clubbing noted bilaterally, discoloration of the right second and third digits consistent with smoking. LOWER EXTREMITIES: No pitting edema. FROM, nml pulses b/l. NEURO EXAM: Normal sensorium, cranial nerves II-XII grossly intact, normal speech, no gross weakness of arms, no gross weakness of legs. Gross sensation intact. Course Course 0050: Pt resting, multivitamin bag infusing. Will recheck sugar. No hx of inpatient etoh withdrawal treatment/DT's. 0107: Pt signed out to Dr. Malin. Pt awaiting sobriety and psych case management coordinator evaluation. Administered Medications Acetaminophen (Acetaminophen 325 Mg Tab) 650 mg PO Q4H PRN PRN Reason: Pain or Fever Stop: 02/02/20 09:36 Last Admin: 01/04/20 14:37 Dose: 650 mg Documented by: [id number] Doxepin HCl (Doxepin Hcl 50 Mg Capsule) 100 mg PO HS YESSENIA Stop: 02/02/20 21:59 Last Admin: 01/03/20 21:59 Dose: 100 mg Documented by: [id number] Escitalopram Oxalate (Escitalopram Oxalate 20 Mg Tab) 20 mg PO DAILY YESSENIA Stop: 02/02/20 09:36 Last Admin: 01/03/20 10:17 Dose: 20 mg Documented by: [id number] Folic Acid 1 mg/ Syringe 10 mls @ 5 mls/min IV QAM YESSENIA Stop: 02/02/20 09:36 Last Admin: 01/05/20 08:10 Dose: 5 mls/min Documented by: [id number] Admin: 01/04/20 08:28 Dose: 5 mls/min Documented by: [id number] Admin: 01/03/20 10:17 Dose: 5 mls/min Documented by: [id number] Lorazepam (Ativan) 1 mg in 2 mls @ 2 mls/min IV UD PRN; Protocol PRN Reason: EtOH Withdrawl AWSS Score 6,7 Stop: 02/02/20 09:36 Last Admin: 01/03/20 10:33 Dose: 2 mls/min Documented by: [id number] Thiamine HCl 100 mg/ Syringe 10 mls @ 2 mls/min IV QAM YESSENIA Stop: 02/02/20 09:36 Last Admin: 01/05/20 08:10 Dose: 2 mls/min Documented by: [id number] Admin: 01/04/20 08:28 Dose: 2 mls/min Documented by: [id number] Admin: 01/03/20 10:17 Dose: 2 mls/min Documented by: [id number] Pantoprazole Sodium (Pantoprazole 40 Mg Tab) 40 mg PO BID YESSENIA Stop: 02/03/20 20:59 Last Admin: 01/05/20 08:10 Dose: 40 mg Documented by: [id number] Admin: 01/04/20 21:07 Dose: 40 mg Documented by: [id number] Discontinued Medications Famotidine (Famotidine 20mg/5ml Iv Push) 20 mg IV ONE STA Stop: 01/02/20 21:02 Last Admin: 01/02/20 21:25 Dose: 20 mg Documented by: [id number] Gabapentin (Gabapentin 600 Mg Tab) 1,200 mg PO NOW ONE Stop: 01/03/20 10:01 Last Admin: 01/03/20 10:17 Dose: 1,200 mg Documented by: [id number] Gabapentin (Gabapentin 600 Mg Tab) 600 mg PO Q6H YESSENIA Stop: 01/03/20 22:01 Last Admin: 01/03/20 21:29 Dose: 600 mg Documented by: [id number] Admin: 01/03/20 16:00 Dose: 600 mg Documented by: [id number] Gabapentin (Gabapentin 600 Mg Tab) 600 mg PO Q8H YESSENIA Stop: 01/04/20 22:01 Last Admin: 01/04/20 21:08 Dose: 600 mg Documented by: [id number] Admin: 01/04/20 14:29 Dose: 600 mg Documented by: [id number] Admin: 01/04/20 05:57 Dose: 600 mg Documented by: [id number] Sodium Chloride (Nss 1000ml) 1,000 mls @ 999 mls/hr IV .Q1H1M ONE Stop: 01/02/20 22:01 Last Infusion: 01/02/20 22:11 Dose: 0 mls/hr Documented by: [id number] Admin: 01/02/20 21:10 Dose: 999 mls/hr Documented by: [id number] Sodium Chloride (Nss 1000ml) 1,000 mls @ 999 mls/hr IV .Q1H1M ONE Stop: 01/02/20 23:30 Last Infusion: 01/02/20 23:58 Dose: 0 mls/hr Documented by: [id number] Admin: 01/02/20 22:40 Dose: 999 mls/hr Documented by: [id number] Multivitamins 10 ml/ Thiamine HCl 100 mg/ Folic Acid 1 mg/Sodium Chloride 1,011.2 mls @ 1,011.2 mls/hr IV .Q1H ONE Stop: 01/02/20 23:32 Last Infusion: 01/03/20 00:45 Dose: 0 mls/hr Documented by: [id number] Admin: 01/02/20 23:27 Dose: 1,011.2 mls/hr Documented by: [id number] Lorazepam (Ativan) 1 mg in 2 mls @ 2 mls/min IV NOW STA Stop: 01/03/20 05:50 Last Admin: 01/03/20 05:56 Dose: 2 mls/min Documented by: [id number] Dextrose/Sodium Chloride (D5w And Nss) 1,000 mls @ 80 mls/hr IV .[id number] YESSENIA Stop: 02/02/20 09:59 Last Infusion: 01/04/20 16:48 Dose: 0 mls/hr Documented by: [id number] Admin: 01/04/20 12:27 Dose: 80 mls/hr Documented by: [id number] Infusion: 01/04/20 10:30 Dose: 80 mls/hr Documented by: [id number] Admin: 01/03/20 22:00 Dose: 80 mls/hr Documented by: [id number] Infusion: 01/03/20 22:00 Dose: 80 mls/hr Documented by: [id number] Admin: 01/03/20 10:41 Dose: 80 mls/hr Documented by: [id number] Pantoprazole Sodium 40 mg/ (Syringe) 10 mls @ 5 mls/min IV BID YESSENIA Stop: 02/02/20 09:36 Last Admin: 01/04/20 08:28 Dose: 5 mls/min Documented by: [id number] Admin: 01/03/20 20:02 Dose: 5 mls/min Documented by: [id number] Admin: 01/03/20 10:16 Dose: 5 mls/min Documented by: [id number] Magnesium Sulfate/Dextrose (Magnesium Sulfate / D5w) 1 gm in 100 mls @ 50 mls/hr IV Q2H YESSENIA Stop: 01/04/20 16:59 Last Infusion: 01/04/20 18:20 Dose: 0 mls/hr Documented by: [id number] Admin: 01/04/20 16:15 Dose: 50 mls/hr Documented by: [id number] Infusion: 01/04/20 16:15 Dose: 50 mls/hr Documented by: [id number] Admin: 01/04/20 14:29 Dose: 50 mls/hr Documented by: [id number] Infusion: 01/04/20 14:24 Dose: 50 mls/hr Documented by: [id number] Admin: 01/04/20 12:24 Dose: 50 mls/hr Documented by: [id number] Infusion: 01/04/20 12:21 Dose: 50 mls/hr Documented by: [id number] Admin: 01/04/20 10:21 Dose: 50 mls/hr Documented by: [id number] Ioversol (Ioversol 100ml) 93 ml IV ONCE ONE Stop: 01/02/20 22:53 Last Admin: 01/02/20 22:52 Dose: 93 ml Documented by: [id number] Potassium Chloride (Potassium Chloride 20 Meq Tabcr) 40 meq PO Q6H YESSENIA Stop: 01/04/20 16:00 Last Admin: 01/04/20 16:14 Dose: 40 meq Documented by: [id number] Admin: 01/04/20 10:21 Dose: 40 meq Documented by: [id number] Medical Decision Making Differential Diagnosis Differential diagnoses includes but is not limited to gastritis, peptic ulcer d isease, GERD, gallbladder disease, pancreatitis, small bowel obstruction, acute coronary syndrome, pericarditis, ischemic bowel, irritable bowel disease, irritable bowel syndrome, appendicitis, diverticulitis, malignancy, hernia, urinary tract infection, torsion, [/ectopic (if female)], perforation, trauma, infectious, mood disorder, infection, hypoglycemia, electrolyte abnormalities, cardiac sources, intracerebral event, toxicologic, neurologic, as well as others. Medical Records Attestation: I reviewed the patient's medical records. Home Medications Current Medication List: was personally reviewed by me Laboratory Data Attestation: I reviewed the patient's lab results. Result diagrams: 01/05/20 06:48 01/05/20 06:48 Lab Results 01/02/20 01/02/20 01/02/20 Range/Units 21:09 21:09 21:09 WBC 4.44 L (4.8-10.8) K/uL RBC 4.93 (4.7-6.1) M/uL Hgb 16.3 (14.0-18.0) g/dL Hct 44.8 (42-52) % MCV 90.9 (80-100) fL MCH 33.1 (25-34) pg MCHC 36.4 H (32-36) g/dL RDW Std Deviation 44.0 (36.4-46.3) fL RDW Coeff of Florencio 13.3 (11.5-14.5) % Plt Count 105 L (130-400) K/uL MPV 9.5 (7.4-10.4) fL Neutrophils % (Manual) 29.6 % Lymphocytes % (Manual) 31.2 % Reactive Lymphs % (Man) 26.1 % Monocytes % (Manual) 12.2 % Basophils % (Manual) 0.9 % Neutrophils # (Manual) 1.31 L (1.4-6.5) K/uL Total Absolute Neuts 1.31 L (1.4-6.5) K/uL Lymphocytes # (Manual) 1.39 (1.2-3.4) K/uL Reactive Lymphs # 1.16 K/uL Total Abs Lymphocytes 2.54 (1.2-3.4) K/uL Monocytes # (Manual) 0.54 (0.11-0.59) K/uL Basophils # (Manual) 0.04 (0-0.2) K/uL RBC Morphology Unremarkable PT 10.5 (9.0-12.0) Seconds INR 1.0 (0.9-1.1) Sodium 132 L (136-145) mmol/L Potassium 4.1 (3.5-5.1) mmol/L Chloride 99 (98-107) mmol/L Carbon Dioxide 24 (21-32) mmol/L Anion Gap 9.0 (3-11) BUN 8 (7-18) mg/dl Creatinine 0.65 (0.6-1.4) mg/dl Est Cr Clr Drug Dosing 131.4 ml/min Est GFR ( Amer) 129.6 Est GFR (Non-Af Amer) 111.9 BUN/Creatinine Ratio 11.8 (10-20) Glucose 49 L* (70-99) mg/dl POC Glucose (70-99) mg/dl Calcium 9.3 (8.5-10.1) mg/dl Magnesium 1.9 (1.8-2.4) mg/dl Total Bilirubin 0.6 (0.2-1) mg/dl AST 112 H (15-37) U/L ALT 153 H (12-78) U/L Alkaline Phosphatase 109 (45-117) U/L Troponin I < 0.015 (0-0.045) ng/ml NT-Pro-B Natriuret Pep 23 (0-900) pg/ml Total Protein 8.3 H (6.4-8.2) gm/dl Albumin 4.2 (3.4-5.0) gm/dl Globulin 4.1 H (2.5-4.0) gm/dl Albumin/Globulin Ratio 1.0 (0.9-2) Lipase 432 H (73-393) U/L Salicylates (2.8-20) mg/dl Urine Opiates Screen (Neg) Ur Methadone, Qual (Neg) Acetaminophen (10-30) ug/ml Urine Barbiturates (Neg) Ur Phencyclidine (PCP) (Neg) U Amphetamin/Meth Scrn (Neg) MDMA (Ecstasy) Screen (Neg) U Benzodiazepines Scrn (Neg) Ur Cocaine Metabolite (Neg) U Marijuana (THC) Screen (Neg) Ethyl Alcohol mg/dL (0-3) mg/dl 01/02/20 01/02/20 01/02/20 Range/Units 21:09 21:09 21:30 WBC (4.8-10.8) K/uL RBC (4.7-6.1) M/uL Hgb (14.0-18.0) g/dL Hct (42-52) % MCV (80-100) fL MCH (25-34) pg MCHC (32-36) g/dL RDW Std Deviation (36.4-46.3) fL RDW Coeff of Florencio (11.5-14.5) % Plt Count (130-400) K/uL MPV (7.4-10.4) fL Neutrophils % (Manual) % Lymphocytes % (Manual) % Reactive Lymphs % (Man) % Monocytes % (Manual) % Basophils % (Manual) % Neutrophils # (Manual) (1.4-6.5) K/uL Total Absolute Neuts (1.4-6.5) K/uL Lymphocytes # (Manual) (1.2-3.4) K/uL Reactive Lymphs # K/uL Total Abs Lymphocytes (1.2-3.4) K/uL Monocytes # (Manual) (0.11-0.59) K/uL Basophils # (Manual) (0-0.2) K/uL RBC Morphology PT (9.0-12.0) Seconds INR (0.9-1.1) Sodium (136-145) mmol/L Potassium (3.5-5.1) mmol/L Chloride (98-107) mmol/L Carbon Dioxide (21-32) mmol/L Anion Gap (3-11) BUN (7-18) mg/dl Creatinine (0.6-1.4) mg/dl Est Cr Clr Drug Dosing ml/min Est GFR ( Amer) Est GFR (Non-Af Amer) BUN/Creatinine Ratio (10-20) Glucose (70-99) mg/dl POC Glucose (70-99) mg/dl Calcium (8.5-10.1) mg/dl Magnesium (1.8-2.4) mg/dl Total Bilirubin (0.2-1) mg/dl AST (15-37) U/L ALT (12-78) U/L Alkaline Phosphatase (45-117) U/L Troponin I (0-0.045) ng/ml NT-Pro-B Natriuret Pep (0-900) pg/ml Total Protein (6.4-8.2) gm/dl Albumin (3.4-5.0) gm/dl Globulin (2.5-4.0) gm/dl Albumin/Globulin Ratio (0.9-2) Lipase (73-393) U/L Salicylates 4.3 (2.8-20) mg/dl Urine Opiates Screen Neg (Neg) Ur Methadone, Qual Neg (Neg) Acetaminophen < 2 L (10-30) ug/ml Urine Barbiturates Neg (Neg) Ur Phencyclidine (PCP) Neg (Neg) U Amphetamin/Meth Scrn Neg (Neg) MDMA (Ecstasy) Screen Neg (Neg) U Benzodiazepines Scrn Neg (Neg) Ur Cocaine Metabolite Neg (Neg) U Marijuana (THC) Screen Neg (Neg) Ethyl Alcohol mg/dL 304.7 H (0-3) mg/dl 01/02/20 01/03/20 Range/Units 22:21 01:12 WBC (4.8-10.8) K/uL RBC (4.7-6.1) M/uL Hgb (14.0-18.0) g/dL Hct (42-52) % MCV (80-100) fL MCH (25-34) pg MCHC (32-36) g/dL RDW Std Deviation (36.4-46.3) fL RDW Coeff of Florencio (11.5-14.5) % Plt Count (130-400) K/uL MPV (7.4-10.4) fL Neutrophils % (Manual) % Lymphocytes % (Manual) % Reactive Lymphs % (Man) % Monocytes % (Manual) % Basophils % (Manual) % Neutrophils # (Manual) (1.4-6.5) K/uL Total Absolute Neuts (1.4-6.5) K/uL Lymphocytes # (Manual) (1.2-3.4) K/uL Reactive Lymphs # K/uL Total Abs Lymphocytes (1.2-3.4) K/uL Monocytes # (Manual) (0.11-0.59) K/uL Basophils # (Manual) (0-0.2) K/uL RBC Morphology PT (9.0-12.0) Seconds INR (0.9-1.1) Sodium (136-145) mmol/L Potassium (3.5-5.1) mmol/L Chloride (98-107) mmol/L Carbon Dioxide (21-32) mmol/L Anion Gap (3-11) BUN (7-18) mg/dl Creatinine (0.6-1.4) mg/dl Est Cr Clr Drug Dosing ml/min Est GFR ( Amer) Est GFR (Non-Af Amer) BUN/Creatinine Ratio (10-20) Glucose (70-99) mg/dl POC Glucose 93 94 (70-99) mg/dl Calcium (8.5-10.1) mg/dl Magnesium (1.8-2.4) mg/dl Total Bilirubin (0.2-1) mg/dl AST (15-37) U/L ALT (12-78) U/L Alkaline Phosphatase (45-117) U/L Troponin I (0-0.045) ng/ml NT-Pro-B Natriuret Pep (0-900) pg/ml Total Protein (6.4-8.2) gm/dl Albumin (3.4-5.0) gm/dl Globulin (2.5-4.0) gm/dl Albumin/Globulin Ratio (0.9-2) Lipase (73-393) U/L Salicylates (2.8-20) mg/dl Urine Opiates Screen (Neg) Ur Methadone, Qual (Neg) Acetaminophen (10-30) ug/ml Urine Barbiturates (Neg) Ur Phencyclidine (PCP) (Neg) U Amphetamin/Meth Scrn (Neg) MDMA (Ecstasy) Screen (Neg) U Benzodiazepines Scrn (Neg) Ur Cocaine Metabolite (Neg) U Marijuana (THC) Screen (Neg) Ethyl Alcohol mg/dL (0-3) mg/dl Imaging Data Radiologist's Impression: CT abdomen and pelvis with contrast: No prior exam for comparison. Clear lung bases. Normal cardiac size. Fluid within the ascending colon which may be associated with nonspecific enteritis or malabsorption. No focal wall thickening to suggest colitis. Normal appendix. Degenerative disc disease at L5-S1. Atherosclerotic disease of aorta with no evidence of aneurysm. Impression: Fluid within the colon which may indicate sequelae of nonspecific enteritis or malabsorption. No acute appendicitis or bowel obstruction. Unremarkable abdominal viscera. Radiologist: Melvina Mello MD ECG Data Attestation: I personally reviewed and interpreted this ECG as follows: Indication: + abdominal pain Rate (beats per minute): 83 Rhythm: + normal sinus ECG Intervals/blocks: + Normal QRS and + Normal QT ECG Howe: + Normal ECG ST segments: + Normal ST segments Blood Pressure Blood Pressure Findings: Elevated blood pressure Blood Pressure Disposition: Referred to patients primary care provider MDM Narrative This is a 54-year-old male who presents the emergency department voluntarily complaining of suicidal ideation with plan to hang himself. Patient does admit to ongoing alcohol use and does have a history of alcohol abuse. Patient also describes some upper abdominal pain which she states feels similar to pancreatitis. In light of this labs are drawn and sent, patient started on IV fluids, and sent for CT imaging. Patient's labs reassuring, mild elevation of transaminases likely secondary to alcohol use. Mild elevation of lipase likely secondary to alcohol use as well. No CT evidence for acute pancreatitis, pseudocyst or necrosis. No other evidence of acute abdominal pathology, and other labs reassuring. Thrombocytopenia and mild hyponatremia likely secondary to alcohol use as well. Patient hydrated here with 2 L of normal saline and given a banana bag in addition. Patient continued to remain calm and cooperative with stable vital signs. No evidence at time of signout of evolving withdrawal and patient has not previously been admitted for severe withdrawal symptoms, DTs, or alcohol-related seizures. Patient admitted to with plan while here, and states he has previously had inpatient psychiatric treatment. Patient signed out to tool and die maker level five awaiting sobriety and psychiatric evaluation. An order was placed for continuous cardiac monitoring. The monitor shows a rate of 78_ with _normal sinus rhythm. Patient has no family history of alcohol abuse. Patient was first seen and observation began at 2025 and was necessary in order to allow time for sobriety and ongoing observation of patient's symptoms as well as observation for any signs of alcohol withdrawal requiring medical admission. Upon re-evaluation, 8 hours of observation revealed that the patient could be Medically cleared and evaluated by the psychiatric case therapist. Final disposition pending at time of signout to the tool and die maker level five, Dr. Skinner. Impression & Plan Abdominal pain, Suicidal ideation, Alcohol abuse, Alcoholic intoxication, Hypoglycemia, Thrombocytopenia, Acute hyponatremia, Transaminitis Discharge Plan Visit Data Chief Complaint: Mental Health Evaluation Stated Complaint: UNABLE TO SLEEP OR EAT ED Provider: Kajal Malin Discharge Problem: Abdominal pain, Suicidal ideation, Alcohol abuse, Alcoholic intoxication, Hypoglycemia, Thrombocytopenia, Acute hyponatremia, Transaminitis Patient Disposition: Admitted As Inpatient Discharge Instructions Interventions: ED Discharge Assessment Last Done: 01/03/20 08:41 Discharge Problem: Abdominal pain Qualifiers: Abdominal location: upper abdomen, unspecified Qualified Code(s): R10.10 - Upper abdominal pain, unspecified Alcoholic intoxication Qualifiers: Complication of substance-induced condition: uncomplicated Qualified Code(s): F10.920 - Alcohol use, unspecified with intoxication, uncomplicated
[2020-01-02 21:24] LABS: Hematocrit (blood only) 44.8 % (42-52); Hemoglobin 16.3 g/dL (14.0-18.0); Mean Corpuscular Hemoglobin 33.1 pg (25-34); Mean Corpuscular Hgb Conc 36.4 g/dL (32-36); Mean Corpuscular Volume 90.9 fL (80-100); Mean Platelet Volume 9.5 fL (7.4-10.4); Platelet Count 105 K/uL (130-400); RDW Coefficient of Variation 13.3 % (11.5-14.5); Red Blood Count 4.93 M/uL (4.7-6.1); White Blood Count 4.44 K/uL (4.8-10.8)
[2020-01-02 21:34] LABS: Prothrombin Time 10.5 Seconds (9.0-12.0)
[2020-01-02 21:47] LABS: Acetaminophen < 2 ug/ml (10-30); Salicylate 4.3 mg/dl (2.8-20)
[2020-01-02 21:48] LABS: Alanine Aminotransferase 153 U/L (12-78); Albumin Level 4.2 gm/dl (3.4-5.0); Alkaline Phosphatase 109 U/L (45-117); Aspartate Aminotransferase 112 U/L (15-37); BUN Creatinine Ratio 11.8 (10-20); Bilirubin,Total 0.6 mg/dl (0.2-1); Blood Urea Nitrogen 8 mg/dl (7-18); Calcium 9.3 mg/dl (8.5-10.1); Carbon Dioxide 24 mmol/L (21-32); Chloride 99 mmol/L (98-107); Creatinine Clr Calc Pharmacy 131.4 ml/min; Est GFR (African American) 129.6; Est GFR (Non-African American) 111.9; Globulin 4.1 gm/dl (2.5-4.0); Glucose 49 mg/dl (70-99); Lipase 432 U/L (73-393); Magnesium 1.9 mg/dl (1.8-2.4); NT Pro B Type Natriuretic Pept 23 pg/ml (0-900); Potassium 4.1 mmol/L (3.5-5.1); Sodium 132 mmol/L (136-145); Total Protein 8.3 gm/dl (6.4-8.2); Troponin I < 0.015 ng/ml (0-0.045)
[2020-01-02 22:06] LABS: Amphetamines+Metham, Urine Neg (Neg); Barbiturates, Urine Neg (Neg); Benzodiazepine, Urine Neg (Neg); Cocaine, Urine Neg (Neg); MDMA (Ecstacy), Urine Neg (Neg); Methadone, Urine Neg (Neg); Opiate, Urine Neg (Neg); Phencyclidine, Urine Neg (Neg)
[2020-01-02 22:24] LABS: ALC (manual) 2.54 K/uL (1.2-3.4); ANC (manual) 1.31 K/uL (1.4-6.5); Basophils # (manual) 0.04 K/uL (0-0.2); Basophils % (manual) 0.9 %; Lymphocytes # (manual) 1.39 K/uL (1.2-3.4); Lymphocytes % (manual) 31.2 %; Monocytes # (manual) 0.54 K/uL (0.11-0.59); Monocytes % (manual) 12.2 %; Neutrophils # (manual) 1.31 K/uL (1.4-6.5); Neutrophils % (manual) 29.6 %; RBC Morphology Unremarkable; Reactive Lymphocytes # (manual) 1.16 K/uL; Reactive Lymphocytes % (manual) 26.1 %
[2020-01-02] MEDS ORDERED: MULTI-VITAMIN INFUSION 10 ML, THIAMINE HCL 100 MG, FOLIC ACID 1 MG in SODIUM CHLORIDE 0... IV ONE (22:33)
[2020-01-02] MEDS ORDERED: IOVERSOL 100ml IV ONE (22:52)
--- NOTE | 2020-01-03 01:42 | Emergency Department Note ---
ED Visit Note This case was signed out to me at change of shift awaiting evaluation at 5 AM once the patient is sober. 0545: The patient was evaluated by the ED psychiatric bilingual case manager. We had a lengthy discussion about his case. Unfortunately, the patient has started to withdraw from alcohol. He will receive benzodiazepines to help with those withdrawal symptoms. I will discuss the case with [facility] and they will evaluate for further inpatient medical management of his withdrawal symptoms and detox. . : Abdominal pain Qualifiers: Abdominal location: upper abdomen, unspecified Qualified Code(s): R10.10 - Upper abdominal pain, unspecified Alcoholic intoxication Qualifiers: Complication of substance-induced condition: uncomplicated Qualified Code(s): F10.920 - Alcohol use, unspecified with intoxication, uncomplicated
[2020-01-03] MEDS ORDERED: LORazepam 1 MG/2 ML VIAL IV STA (05:49)
--- NOTE | 2020-01-03 07:55 | XRay Report ---
XR chest 1V portable CLINICAL HISTORY: cough COMPARISON STUDY: 08/02/2018 FINDINGS: The cardiac and mediastinal contours are normal. There is no evidence of focal pulmonary co nsolidation. There is no evidence of failure. No pleural effusions are visualized.[Bilateral pulmonar y nodules remain stable. IMPRESSION: No active disease in the chest. ACT 112: Negative or not required by law. Electronically signed by: Deepak Alcantara M.D. 01/03/2020 7:54 AM
--- NOTE | 2020-01-03 08:00 | CT Scan Report ---
CT abd pelvis IV con only CLINICAL HISTORY: epigastric, RUQ pain COMPARISON STUDY: 11/05/2016 TECHNIQUE: The patient was scanned in a dynamic helical fashion during intravenous administration of 93 cc of Optiray 320 A dose lowering technique was utilized adhering to the principles of ALARA. CT DOSE: 298.24 mGy.cm FINDINGS: Lower chest: The heart is normal in size and configuration, without pericardial effusion. The lung ba ses and pleural spaces are clear. Liver: There is mild hepatic steatosis. No focal hepatic masses are visualized. The hepatic and tiffany l veins appear patent. There is no ductal dilatation. Gallbladder: Unremarkable. Spleen: Normal in size and attenuation. Pancreas: Unremarkable. Adrenal glands: Unremarkable. Kidneys: There is symmetric renal cortical enhancement. The kidneys are normal in size without hydron ephrosis. Bowel: There are fluid-filled loops of colon and small bowel. There are no transition zones to indica te bowel obstruction. The appendix appears normal. There is no evidence of acute diverticulitis. Peritoneum: There is no intraperitoneal free air or abdominal ascites. Vasculature: The abdominal aorta is normal in course and caliber. Adenopathy: None. Pelvic viscera: There is mild prostatomegaly Skeletal structures: There are scattered tiny sclerotic lesions likely representing bone islands IMPRESSION: 1. No evidence of bowel obstruction. No evidence of free air 2. Normal appendix. No evidence of acute diverticulitis 3. Scattered fluid within the bowel. This can be a normal finding or related to an enteritis. ACT 112: Negative or not required by law. Electronically signed by: Deepak Alcantara M.D. 01/03/2020 7:58 AM
--- NOTE | 2020-01-03 08:42 | Electrocardiogram Report ---
Test Reason : Blood Pressure : / mmHG Vent. Rate : 083 BPM Atrial Rate : 083 BPM P-R Int : 172 ms QRS Dur : 106 ms QT Int : 408 ms P-R-T Axes : 075 079 072 degrees QTc Int : 479 ms Normal sinus rhythm Normal ECG When compared with ECG of 02-AUG-2018 05:46, QT has lengthened Confirmed by Giovanny Lopes ([id number]) on 01/03/2020 8:42:04 AM Referred By: REFERRED SELF Confirmed By:Giovanny Lopes
--- NOTE | 2020-01-03 08:55 | History and Physical Report ---
DATE OF ADMISSION: 01/02/2020 CHIEF COMPLAINT: Alcoholism and abdominal pain. HISTORY OF PRESENT ILLNESS: This is a 54-year-old male with past medical history significant for ongoing alcohol abuse, major depression, sleep disturbance, anxiety, chronic sinusitis, presents with alcoholism and suicidal ideation. The patient states that he drinks 80 ounces of beer every day and smokes half pack of cigarettes daily. Lives with his mom. He is having abdominal discomfort for the last few days and did not eat any food for the last 3 days and is also having cough with yellowish phlegm. He smokes and also complains of some cough going for last 1 month and shortness of breath. Denies feeling hot and cold. Complains of some blurred vision going on for few months says in right eye. Has some headache. Has some runny nose, no sore throat. No chest pain. Has diarrhea. No blood in the stool or black stools. Normal bladder movements. No rash. Ambulates okay. Currently resting comfortably and hemodynamically stable. ALLERGIES: CODEINE, MEPERIDINE AND PENICILLINS. PAST MEDICAL HISTORY: As mentioned above. PAST SURGICAL HISTORY: Colonoscopy, EGD with endoscopic ultrasound, tonsillectomy. MEDICATIONS: The patient is on Lexapro 20 mg p.o. daily, gabapentin 300 mg p.o. t.i.d., doxepin 100 mg capsule at bedtime, folic acid 1 mg p.o. daily. FAMILY HISTORY: Significant for mother had diabetes. Father had cirrhosis. Uncle has skin cancer. SOCIAL HISTORY: Currently lives with his mom, smokes 1 pack a day for 21 years, patient says currently smokes half pack a day. Alcohol drinking 80 ounces of beer daily. Drug use, marijuana as per the records. REVIEW OF SYMPTOMS: As per HPI. Rest of review of symptoms negative. PHYSICAL EXAMINATION: GENERAL: The patient is of moderate build, not in acute distress. VITAL SIGNS: Temperature 36.8, pulse 77, respiratory rate 13, blood pressure 131/101, oxygen 97% on room air. HEENT: No pallor, no icterus. Pupils equal, round, reactive to light. NECK: No JVD, no neck masses. CARDIOVASCULAR: S1, S2 heard, regular rate and rhythm, no murmur, no gallop. RESPIRATORY SYSTEM: Normal AP diameter. No accessory muscle use. No wheezing, no crackles. ABDOMEN: Soft, bowel sounds present. Mild abdominal discomfort. No guarding, no rigidity. CENTRAL NERVOUS SYSTEM: Cranial nerves II-XII grossly intact, nonfocal. EXTREMITIES: No edema, no erythema. LABORATORY DATA: WBC 4.4, hemoglobin 16.3, hematocrit 46.8, platelets 105. PT 10.5, INR 1. Sodium 132, potassium 4.1, chloride 99, bicarbonate 24, BUN 8, creatinine 0.6, serum glucose 49, calcium 9.3, magnesium 1.9, total bilirubin 0.6, AST 112, ALT 153, alkaline phosphatase 109. Troponin I less than 0.015. BNP 23. Lipase 432. Urine drug screen negative. Ethyl alcohol level 304. IMAGING: CT of abdomen and pelvis preliminary report showed nonspecific enteritis. Chest x-ray, no acute findings. EKG: Normal sinus rhythm with rate of 83, no acute ST changes seen. ASSESSMENT AND PLAN: This is a 54-year-old male who presents with history of alcoholism and tobacco abuse comes for evaluation of his abdominal pain. 1. Alcoholism, drinks 80 ounces of beer every day. Alcohol level is 304 in the ER. We will monitor for withdrawal. We will place him on gabapentin protocol. Hold his home gabapentin, we will resume home gabapentin after protocol. IV Ativan p.r.n. Received banana bag in the ER. We will place on IV thiamine and IV folic acid. Closely monitor in the med tele. Needs counseling. 2. Tobacco abuse, needs counseling. 3. Suicidal ideation. He says he felt like hanging himself today. Placed him on one-on-one, suicidal checks. Consult psychiatry. 4. History of depression. Continue his Lexapro. 5. Abdominal pain, could be from gastritis. Lipase level is slightly elevated, but his ct scan seemed okay for any pancreatitis. We will place on Protonix b.i.d. and consult GI for further recommendations. 6. Complaint of cough and shortness of breath, history of tobacco abuse. Chest x-ray unremarkable. We will monitor. 7. Thrombocytopenia, could be from alcoholism. We will follow the labs. 8. Hypoglycemia. We will place him on fluids, D5 normal saline and fpllow. 9.Elevated transaminitis. We will follow the repeat labs. 10. Blurred vision. Needs to be followed up 11. Deep venous thrombosis prophylaxis, sequential compression devices. DISPOSITION: Monitor in the med tele. Level 1 full code. Social Service to help with discharge planning. VIVIANA
[2020-01-03] MEDS ORDERED: ATIVAN IV ALCOHOL WITHDRAWL IV PRN (09:37)
[2020-01-03] MEDS ORDERED: NITROGLYCERIN SL 0.4 MG/TAB TAB SL PRN (09:37)
[2020-01-03] MEDS ORDERED: LORazepam 2 MG/4 ML VIAL IV PRN (09:37)
[2020-01-03] MEDS ORDERED: LORazepam 3 MG/6 ML VIAL IV PRN (09:37)
[2020-01-03] MEDS ORDERED: cloNIDine HCL 0.1 MG TAB PO PRN (09:37)
[2020-01-03] MEDS ORDERED: ACETAMINOPHEN 325 MG TAB PO PRN (09:37)
[2020-01-03] MEDS ORDERED: ONDANSETRON INJ 2 MG/ML 2 ML VIAL IV PRN (09:37)
[2020-01-03] MEDS ORDERED: LORazepam 1 MG/2 ML VIAL IV PRN (09:37)
[2020-01-03] MEDS ORDERED: GABAPENTIN 1200MG ALCOHOL WITHDRAWAL LOAD PO STA (09:37)
[2020-01-03] MEDS ORDERED: ESCITALOPRAM OXALATE 20 MG TAB PO SCH (09:37)
[2020-01-03] MEDS ORDERED: GABAPENTIN 600 MG TAB PO ONE (10:00)
[2020-01-03] MEDS: PANTOprazole 40 MG in SYRINGE 0 ML IV SCH ×2 (10:16→20:02)
[2020-01-03] MEDS: FOLIC ACID 1 MG in SYRINGE 9.8 ML IV SCH (10:17)
[2020-01-03] MEDS: THIAMINE HCL 100 MG in SYRINGE 9 ML IV SCH (10:17)
--- NOTE | 2020-01-03 10:20 | Gastrointestinal Consultation ---
Date of Consultation January 03, 2020 Assessment & Plan (1) Alcoholic intoxication: (2) Transaminitis: (3) Suicidal ideation: (4) Abdominal pain: Pt is a 54 y/o male admitted for ETOH intoxication, suicidal ideation. GI consulted for abd pain which is worse w eating and located on epigastric area. No n/v, diarrhea symptoms. Labs notable for transaminitis and very mild lipase elevation. CT abd/pelvis w contrast showed fatty liver, normal pancreas and gallbladder, fluid in bowels ? enteritis. Suspect has gastritis (large ETOH intake w NSAIDs), and likely mild ETOH hepatitis but Maddreys Discriminant function score is low. - IVF support - Protonix 40mg IV BID - Would defer endoscopic eval at this time especially if he's going through ETOH withdrawals - If diarrhea, check stool studies to r/o infections - Trend LFTs and if increasing may consider Pentoxifylline for ETOh hepatitis - Watch for DTs, protocol in place - Psych to eval and treat, likely will go to inpt rehab once medically stable - ETOH cessation advised. Supervising Physician Co-Signing Physician Notes I have seen and examined the patient and discussed the management with RANJEET Ndiaye. Consult is for abdominal pain. Labs suggestive of mild alcoholic hepatitis and pancreatitis. IV fluids, IV PPI, consider Trental if persistent elevation in lft's. Stool studies for diarhea. PE - sad appearing gentleman in nad, perrla no scleral icterus noted, cv- rrr no mrg, pulm - ctab, abd - soft nt nd +bs Labs reviewed Agree with further plan of care as outlined in Maggie's assessment and plan. History of Present Illness Reason for Consultation: Abdominal pain Requesting Physician: Dr. Marilu Pruett Attending Physician: Dr. Karla Smith History of Present Illness Pt is a 54 y/o male who presented to ED today w c/o productive cough, upper abd pain x last 3-4 days and suicidal thoughts. He made a hangman noose couple of days ago and had suicidal thoughts. Currently on 1:1 watch. Hx of ongoing ETOH abuse (80 oz beer a day), depression, anxiety. He was on psych & ETOH rehab, quit drinking for 8 months but started back again. On Lexapro, Ativan, Gabapentin at home. Takes NSAIDs for abd pain. He denies any sick contact, fever, chills, n/v. Eating makes upper abd pain worse. He denies any diarrhea, rectal bleeding. Labs reviewed: no leukocytosis, H/H normal, + thrombocytopenia, no coagulopathy. BMP unremarkable. LFTs w transaminitis: Tbili 0.6, AST 112, ALT 153, Alk phos 109. Lipase 432. CXR unremarkable. CT abd/pelvis w contrast showed signs of hepatic steatosis, gallbladder, pancreas normal. + fluid in small bowel suggestive of enteritis. No signs of obstruction or free air noted. EGD/EUS: gastritis, ? pancreas divisum Colonoscopy 2019: Tubovillous adenoma polyps, int hemorrhoids Allergies Allergy/AdvReac Type Severity Reaction Status Date / Time codeine Allergy Intermediate GI SYMPTOMS Verified 01/02/20 21:08 meperidine Allergy Intermediate CAUSES Verified 01/02/20 21:08 CONFUSION Penicillins Allergy Mild FINGERS Verified 01/02/20 21:08 SWELLED A CHILD Home Medications Home Medications Medication Instructions Recorded Confirmed Type escitalopram oxalate 20 mg PO DAILY 01/02/20 01/02/20 History folic acid 1 mg PO DAILY 01/02/20 01/02/20 History gabapentin 300 mg PO TID 01/02/20 01/02/20 History Patient History Medical History Anxiety Depression Pancreatitis Social History Smoking Status: Heavy tobacco smoker Cigarettes Per Day: 20; Second Hand Exposure: Yes; Do You Dip or Chew Tobacco: No; Tobacco Cessation Education Requested by Patient: No Hx Alcohol Use: Yes Alcohol type: beer Hx Substance Use: No Preferred Language: South Korean Communication Ability: Effective Fondant Cooker Required: No Beliefs That Will Affect Care: None Current Living Situation: Parent Other Information That Helps Us Care for You: No Feels Safe at Home: Yes Safety Concerns: Feels Safe At This Time Review of Systems Review of Systems: All systems reviewed & are unremarkable except as noted in HPI & below Physical Exam Constitutional: Shaky, cooperative Eyes: PERRL, conjunctivae normal, anicteric sclerae ENMT: external ear and nose normal, oropharynx normal Respiratory: normal respiratory effort and + cough; no respiratory distress and does not use accessory muscles coarse lung sounds Cardiovascular: RRR, no murmur, no edema Gastrointestinal (Abdomen): Inspection/Auscultation: + hypoactive bowel sounds Percussion/Palpation: + abdomen tender (epigastric ) and abdomen soft Skin: no rashes, warm and dry no jaundice Neurologic: Motor/Sensory: + tremor Psychiatric: A+Ox3, euthymic affect Lymphatic: no lymphedema Results & Data ([facility]) Vital Signs (Past 12 Hours) Vital Signs Temp Pulse Resp BP BP Pulse Ox 01/03/20 09:44 36.9 C 20 160/98 H 96 01/03/20 08:41 88 16 124/80 96 01/03/20 07:31 78 17 95 01/03/20 07:30 78 18 151/99 H 95 01/03/20 07:01 72 15 95 01/03/20 07:00 69 16 125/73 95 01/03/20 06:31 65 14 95 01/03/20 06:30 66 12 118/74 95 01/03/20 06:01 67 12 96 01/03/20 06:00 71 10 L 126/74 95 01/03/20 05:31 77 13 97 01/03/20 05:30 79 17 131/101 H 97 01/03/20 05:01 71 16 96 01/03/20 05:00 70 16 131/90 96 01/03/20 04:31 68 16 96 01/03/20 04:30 74 14 124/76 96 01/03/20 04:01 73 15 95 01/03/20 04:00 75 16 120/74 95 01/03/20 03:31 76 18 95 01/03/20 03:30 76 21 131/88 95 01/03/20 03:01 75 22 95 01/03/20 03:00 75 21 136/86 95 01/03/20 02:30 75 17 116/79 95 01/03/20 02:00 84 13 132/88 95 01/03/20 01:30 75 14 113/87 98 01/03/20 01:00 76 16 110/60 95 01/03/20 00:30 75 15 105/60 96 01/03/20 00:07 79 19 150/82 H 98 01/02/20 23:30 74 16 124/78 95 01/02/20 23:00 81 16 113/59 L 95 01/02/20 22:30 74 118/69 95 (1) Alcoholic intoxication Complication of substance-induced condition: uncomplicated Qualified Code(s): F10.920 - Alcohol use, unspecified with intoxication, uncomplicated (2) Abdominal pain Abdominal location: upper abdomen, unspecified Qualified Code(s): R10.10 - Upper abdominal pain, unspecified
[2020-01-03] MEDS: D5W AND NSS 1,000 ML IV SCH ×2 (10:41→22:00)
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
[2020-01-03] MEDS: GABAPENTIN 600 MG TAB PO SCH ×2 (16:00→21:29)
--- NOTE | 2020-01-03 17:45 | Communication Note ---
Date of Service: January 03, 2020 The patient was seen and examined in medical telemetry unit He is a 54-year-old male with significant history of alcoholism and suicidal ideation who has been in inpatient alcohol rehab x3 was admitted with abdominal pain and suicidal ideation He was noted to have withdrawal symptoms on admission During my examination he was not having any significant symptoms except some pain in abdomen without nausea and or vomiting and minimal tremors involving the outstretched hands. On examination Hemodynamically stable Chest-clear to auscultate bilateral Heart-S1-S2 regular Abdomen-mildly tender epigastrium without guarding and rigidity Extremities-negative for any edema [employer]-alert, awake and oriented x3 Has minimal tremors involving the outstretched hands His labs and imaging studies reviewed Has alcoholic intoxication and going through withdrawal Transaminitis with acute pancreatitis Suicidal ideation Appreciate GI and psychiatry input and recommendation We will continue current management Dr Juliet Pruett
[2020-01-03] MEDS ORDERED: DOXEPIN HCL 50 MG CAPSULE PO SCH (22:00)
[2020-01-03 22:58] LABS: Appearance Urine Clear (Clear); Bilirubin Urine Negative (Negative); Blood Urine Negative (Negative); Color Urine Yellow; Glucose Urine UA Negative (Negative); Ketones Urine Negative (Negative); Leukocyte Esterase Urine Negative (Negative); Nitrite Urine Negative (Negative); Protein Urine Negative (Negative); Specific Gravity Urine 1.011 (1.000-1.030); Urobilinogen Urine Negative (Negative); pH Urine 7.5 (4.5-7.5)
[2020-01-04 05:51] LABS: Hematocrit (blood only) 42.7 % (42-52); Hemoglobin 14.9 g/dL (14.0-18.0); Mean Corpuscular Hemoglobin 32.3 pg (25-34); Mean Corpuscular Hgb Conc 34.9 g/dL (32-36); Mean Corpuscular Volume 92.4 fL (80-100); RDW Coefficient of Variation 13.3 % (11.5-14.5); RDW Standard Deviation 44.6 fL (36.4-46.3); Red Blood Count 4.62 M/uL (4.7-6.1); White Blood Count 3.57 K/uL (4.8-10.8)
[2020-01-04] MEDS: GABAPENTIN 600 MG TAB PO SCH ×3 (05:57→21:08)
[2020-01-04 06:22] LABS: Albumin Level 3.7 gm/dl (3.4-5.0); BUN Creatinine Ratio 5.4 (10-20); Bilirubin Direct 0.4 mg/dl (0-0.2); Bilirubin,Total 1.5 mg/dl (0.2-1); Creatinine Clr Calc Pharmacy 133.5 ml/min; Est GFR (African American) 130.5; Est GFR (Non-African American) 112.6; Magnesium 1.3 mg/dl (1.8-2.4); Phosphorus 3.1 mg/dl (2.5-4.9); Total Protein 7.2 gm/dl (6.4-8.2)
[2020-01-04 07:14] LABS: ALC (manual) 1.61 K/uL (1.2-3.4); ANC (manual) 1.74 K/uL (1.4-6.5); Basophils # (manual) 0.03 K/uL (0-0.2); Basophils % (manual) 0.9 %; Lymphocytes # (manual) 1.12 K/uL (1.2-3.4); Lymphocytes % (manual) 31.3 %; Monocytes # (manual) 0.19 K/uL (0.11-0.59); Monocytes % (manual) 5.2 %; Neutrophils # (manual) 1.74 K/uL (1.4-6.5); Neutrophils % (manual) 48.7 %; Platelet Count 89 K/uL (130-400); Reactive Lymphocytes % (manual) 13.9 %
[2020-01-04] MEDS: FOLIC ACID 1 MG in SYRINGE 9.8 ML IV SCH (08:28)
[2020-01-04] MEDS: THIAMINE HCL 100 MG in SYRINGE 9 ML IV SCH (08:28)
[2020-01-04] MEDS: PANTOprazole 40 MG in SYRINGE 0 ML IV SCH (08:28)
[2020-01-04 08:48] LABS: Folate (Folic Acid) 12.85 ng/ml (>5.38)
--- NOTE | 2020-01-04 09:51 | Gastroenterology Progress Note ---
Date of Service January 04, 2020 Assessment & Plan (1) Alcoholic intoxication: (2) Transaminitis: (3) Suicidal ideation: (4) Abdominal pain: Pt is a 54 y/o male admitted for ETOH intoxication, suicidal ideation. GI consulted for abd pain which is worse w eating and located on epigastric area. No n/v, diarrhea symptoms. Labs notable for transaminitis and very mild lipase elevation. CT abd/pelvis w contrast showed fatty liver, normal pancreas and gallbladder, fluid in bowels ? enteritis. Cdiff negative, Stool cx pending. Suspect has gastritis (large ETOH intake w NSAIDs), and likely mild ETOH hepatitis but Maddreys Discriminant function score is low. No more nausea, abd pain improved, tolerating solid meals. - IVF support - Protonix 40mg PO BID - Would defer endoscopic eval at this time especially if he's going through ETOH withdrawals - Cdiff negative, f/u stool cx - Slight increase in Tbili but transaminases decreasing. Trend LFTs, and if increased again will consider [place] - Watch for DTs, protocol in place - 1:1 suicide precaution. Psych to eval and treat, likely will go to inpt rehab once medically stable - ETOH cessation advised. - GI to sign off; pls recall prn Admission and Anticipated Discharge Date Admission Date: January 03, 2020 Supervising Physician Co-Signing Physician Notes I have seen and examined the patient and discussed the management with RANJEET Ndiaye. Mood somewhat better. Abdominal pain somewhat better. PE noteable for well nourished male in nad, HEENT - perrla, no scleral icterus, CV - rrr no mrg, Pulm - CTAB, Abd - soft nt nd +bs Labs reviewed Would continue with PPI. He is continuing to follow with psych. Subjective Pt reports abd pain is improved, no nausea, vomiting. Stools loose, Cdiff negative, stool cx pending. Tolerating solid meals Still w suicidal thoughts though less frequent. He is anticipating inpt psych rehab after medically DC'd. + cough w whitish phlegm but w/o SOB, CP Review of Systems Review of Systems: All systems reviewed & are unremarkable except as noted in HPI & below Physical Exam Eyes: PERRL, conjunctivae normal, anicteric sclerae ENMT: external ear and nose normal, oropharynx normal Respiratory: normal respiratory effort; no respiratory distress and does not use accessory muscles Cardiovascular: RRR, no murmur, no edema Gastrointestinal (Abdomen): normal bowel sounds, soft, nontender, no hepatosplenomegaly Skin: no rashes, warm and dry no jaundice Neurologic: Motor/Sensory: + tremor Psychiatric: A+Ox3, euthymic affect Lymphatic: no lymphedema Results & Data ([facility]) Vital Signs (Past 12 Hours) Vital Signs Temp Pulse Pulse Resp BP Pulse Ox 01/04/20 07:54 36.7 C 72 18 145/91 H 99 01/04/20 03:31 36.5 C 71 18 134/96 94 01/03/20 23:59 61 01/03/20 23:28 36.6 C 71 18 149/89 H 98 (1) Alcoholic intoxication Complication of substance-induced condition: uncomplicated Qualified Code(s): F10.920 - Alcohol use, unspecified with intoxication, uncomplicated (2) Abdominal pain Abdominal location: upper abdomen, unspecified Qualified Code(s): R10.10 - Upper abdominal pain, unspecified
[2020-01-04] MEDS: POTASSIUM CHLORIDE 20 MEQ TABCR PO SCH ×2 (10:21→16:14)
[2020-01-04] MEDS: MAGNESIUM SULFATE / D5W 1 GM/100 ML BAG IV SCH ×4 (10:21→16:15)
[2020-01-04] MEDS: D5W AND NSS 1,000 ML IV SCH (12:27)
--- NOTE | 2020-01-04 14:56 | Hospitalist Progress Note ---
Date of Service January 04, 2020 Assessment & Plan (1) Depression: Home medication is Lexapro, currently on hold. Planned for psych inpatient rehab at discharge. Will also hold Doxepin as this has a warning for increased suicidal thoughts. (2) Alcohol withdrawal: supportive care and gabapentin/Lorazepam protocol. Notably he has not needed any Lorazepam for 24 hours. (3) Suicidal ideations: 302, inpatient psychiatric counseling pending medical stability post ETOH withdrawal symptoms. (4) Abdominal pain: Likely 2/2 gastritis with ETOH and NSAID use. Cont Protonix BID. Consider outpatient EGD. No peritoneal signs, epigastric pain that is concerning, nausea or vomiting and tolerating food. Appreciate GI following and recs. Liver US ordered for today with RUQ pain on exam. (5) Alcohol abuse: counseled to stop drinking. He is open to an requesting an inpatient alcohol rehabilitation program. Vitamins B and folate daily. (6) Transaminitis: likely related to alcohol and fatty liver. Cont to trend for now off ETOH. Will also obtain RUQ us with RUQ pain on exam today and to ensure there is nothing obstructing the biliary tree. (7) Thrombocytopenia: chronic, likely related to long history of alcohol abuse. (8) Hypomagnesemia: Replace and repeat in am. (9) Hypokalemia: Replace and repeat in am. (10) Smoker: denies nicoderm replacement (11) DVT prophylaxis: SCDs/ambulation Full Code Dispo-to psych inpatient program once medically stable, then to alcohol rehab program. Karley Covarrubias DO [facility] Hospitalist Admission and Anticipated Discharge Date Admission Date: January 03, 2020 Subjective 54 yo depressed alcoholic man presented with suicidal ideations. He has been withdrawing from alcohol since admission and is still tremulous today. He feels like he is withdrawing and reports some anxiety. He reports apathy to food but otherwise denies symptoms such as no abd pain, chest pain or shortness of breath. He reports that he was suicidal, and that he has juancarlos stressed on the job front. He reports interest in alcoholic rehab. Reports not eating much at home prior to admission. Review of Systems Review of Systems: All systems reviewed & are unremarkable except as noted in Subjective Physical Exam Physical Exam: CONSTITUTIONAL: WNWD, vitals as above, generally well- appearing EYES: pupils are equal and round bilaterally, normal conjunctivae, no scleral icterus ENT: MMM RESPIRATORY: clear to auscultation bilaterally, no crackles, rales or wheezes, normal respiratory effort CARDIOVASCULAR: regular rate and rhythm, S1 and 2 heard without murmurs, gallops or rubs, no JVD, no peripheral edema GASTROINTESTINAL: normal bowel sounds, soft, ND, some tenderness to palpation over the RUQ area. MUSCULOSKELETAL: strength 5/5 throughout, head is normocephalic and atraumatic, neck supple, normal palpation of chest wall without tenderness SKIN: warm and dry NEUROLOGIC: No facial palsy, no dysarthria. Touch, pain and proprioception normal. CN 2-12 grossly intact, no sensory deficit, normal cognition, normal speech, +tremor PSYCHIATRIC: alert cooperative and oriented to person, place and time. Euthymic mood, makes good eye contact. Results & Data Results & Data ([facility]) Vital Signs (Past 12 Hours) Vital Signs Temp Pulse Pulse Resp BP Pulse Ox 01/04/20 12:30 66 01/04/20 07:54 36.7 C 72 18 145/91 H 99 01/04/20 03:31 36.5 C 71 18 134/96 94 Laboratory Results Short CBC 01/04/20 Range/Units 05:36 WBC 3.57 L (4.8-10.8) K/uL Hgb 14.9 (14.0-18.0) g/dL Hct 42.7 (42-52) % Plt Count 89 L (130-400) K/uL BMP 01/04/20 05:36 Sodium 135 L Potassium 3.0 L D Chloride 100 Carbon Dioxide 30 BUN 3 L D Creatinine 0.64 Glucose 101 H Calcium 9.0 Liver Function 01/04/20 Range/Units 05:36 Total Bilirubin 1.5 H D (0.2-1) mg/dl Direct Bilirubin 0.4 H (0-0.2) mg/dl AST 78 H (15-37) U/L ALT 114 H (12-78) U/L Alkaline Phosphatase 80 (45-117) U/L Albumin 3.7 (3.4-5.0) gm/dl Urine 01/03/20 Range/Units 21:30 Urine Color Yellow Urine Appearance Clear (Clear) Urine pH 7.5 (4.5-7.5) Ur Specific Marilla 1.011 (1.000-1.030) Urine Protein Negative (Negative) Urine Glucose (UA) Negative (Negative) Medications Administered Current Inpatient Medications Acetaminophen (Acetaminophen 325 Mg Tab) 650 mg PO Q4H PRN PRN Reason: Pain or Fever Stop: 02/02/20 09:36 Last Admin: 01/04/20 14:37 Dose: 650 mg Documented by: Clonidine HCl (Clonidine Hcl 0.1 Mg Tab) 0.1 mg PO Q4H PRN PRN Reason: Hypertension Stop: 02/02/20 09:36 Doxepin HCl (Doxepin Hcl 50 Mg Capsule) 100 mg PO HS YESSENIA Stop: 02/02/20 21:59 Last Admin: 01/03/20 21:59 Dose: 100 mg Documented by: Escitalopram Oxalate (Escitalopram Oxalate 20 Mg Tab) 20 mg PO DAILY [facility] Stop: 02/02/20 09:36 Last Admin: 01/03/20 10:17 Dose: 20 mg Documented by: Gabapentin (Gabapentin 600 Mg Tab) 600 mg PO Q24H YESSENIA Stop: 01/06/20 22:01 Gabapentin (Gabapentin 600 Mg Tab) 600 mg PO Q8H YESSENIA Stop: 01/04/20 22:01 Last Admin: 01/04/20 14:29 Dose: 600 mg Documented by: Gabapentin (Gabapentin 600 Mg Tab) 600 mg PO Q12H YESSENIA Stop: 01/05/20 22:01 Folic Acid 1 mg/ Syringe 10 mls @ 5 mls/min IV QAM YESSENIA Stop: 02/02/20 09:36 Last Admin: 01/04/20 08:28 Dose: 5 mls/min Documented by: Lorazepam (Ativan) 1 mg in 2 mls @ 2 mls/min IV UD PRN; Protocol PRN Reason: EtOH Withdrawl AWSS Score 6,7 Stop: 02/02/20 09:36 Last Admin: 01/03/20 10:33 Dose: 2 mls/min Documented by: Lorazepam (Ativan) 2 mg in 4 mls @ 4 mls/min IV UD PRN; Protocol PRN Reason: EtOH Withdrawl AWSS Score 8,9 Stop: 02/02/20 09:36 Lorazepam (Ativan) 3 mg in 6 mls @ 4 mls/min IV ONCE PRN; Protocol PRN Reason: EtOH Withdrawl AWSS Score >=10 Stop: 02/02/20 09:36 Dextrose/Sodium Chloride (D5w And Nss) 1,000 mls @ 80 mls/hr IV .[id number] [facility] Stop: 02/02/20 09:59 Last Admin: 01/04/20 12:27 Dose: 80 mls/hr Documented by: Thiamine HCl 100 mg/ Syringe 10 mls @ 2 mls/min IV QAM [facility] Stop: 02/02/20 09:36 Last Admin: 01/04/20 08:28 Dose: 2 mls/min Documented by: Magnesium Sulfate/Dextrose (Magnesium Sulfate / D5w) 1 gm in 100 mls @ 50 mls/hr IV Q2H [facility] Stop: 01/04/20 16:59 Last Admin: 01/04/20 14:29 Dose: 50 mls/hr Documented by: Nitroglycerin (Nitroglycerin Sl 0.4 Mg/Tab Tab) 0.4 mg SL UD PRN PRN Reason: Chest Pain Stop: 02/02/20 09:36 Ondansetron HCl (Ondansetron Inj 2 Mg/Ml 2 Ml Vial) 4 mg IV Q6H PRN PRN Reason: Nausea Stop: 02/02/20 09:36 Pantoprazole Sodium (Pantoprazole 40 Mg Tab) 40 mg PO BID [facility] Stop: 02/03/20 20:59 Potassium Chloride (Potassium Chloride 20 Meq Tabcr) 40 meq PO Q6H YESSENIA Stop: 01/04/20 16:00 Last Admin: 01/04/20 10:21 Dose: 40 meq Documented by: (1) Abdominal pain Abdominal location: upper abdomen, unspecified Qualified Code(s): R10.10 - Upper abdominal pain, unspecified
--- NOTE | 2020-01-04 20:13 | Ultrasound Report ---
US liver CLINICAL HISTORY: alcoholic, elev LFTs, RUQ pain COMPARISON STUDY: Right upper quadrant ultrasound August 04, 2017. CT of the abdomen and pelvis Augus 2019. FINDINGS: The liver is mildly enlarged. Hepatic echogenicity is at the upper limits of normal. No hep atic lesions are identified. Main portal vein is patent with appropriately directed flow. There is no biliary ductal dilatation. The common bile duct measures 4 mm in caliber. There are no gallstones. N o gallbladder wall thickening is noted. The pancreatic body is normal. The head and tail are obscured . There is no right hydronephrosis. IMPRESSION: 1. No gallstones or biliary ductal dilatation. 2. Mild hepatomegaly and possible fatty infiltration of the liver. ACT 112: Negative or not required by law. Electronically signed by: Gunner Dobbins M.D. 01/04/2020 8:12 PM
[2020-01-04] MEDS: PANTOprazole 40 MG TAB PO SCH (21:07)
[2020-01-05 07:19] LABS: Hematocrit (blood only) 41.3 % (42-52); Hemoglobin 14.6 g/dL (14.0-18.0); Mean Corpuscular Hemoglobin 33.1 pg (25-34); Mean Corpuscular Hgb Conc 35.4 g/dL (32-36); Mean Corpuscular Volume 93.7 fL (80-100); RDW Standard Deviation 44.7 fL (36.4-46.3); Red Blood Count 4.41 M/uL (4.7-6.1); White Blood Count 2.55 K/uL (4.8-10.8)
[2020-01-05 07:30] LABS: Mean Platelet Volume 10.5 fL (7.4-10.4); Platelet Count 84 K/uL (130-400)
[2020-01-05 07:46] LABS: BUN Creatinine Ratio 6.2 (10-20); Calcium 9.1 mg/dl (8.5-10.1); Creatinine Clr Calc Pharmacy 128.6 ml/min; Est GFR (African American) 129.6; Est GFR (Non-African American) 111.9; Potassium 3.9 mmol/L (3.5-5.1)
[2020-01-05] MEDS: PANTOprazole 40 MG TAB PO SCH ×2 (08:10→21:52)
[2020-01-05] MEDS: THIAMINE HCL 100 MG in SYRINGE 9 ML IV SCH (08:10)
[2020-01-05] MEDS: FOLIC ACID 1 MG in SYRINGE 9.8 ML IV SCH (08:10)
[2020-01-05] MEDS: GABAPENTIN 600 MG TAB PO SCH ×2 (10:54→21:52)
--- NOTE | 2020-01-05 15:04 | Hospitalist Progress Note ---
Date of Service January 05, 2020 Assessment & Plan (1) Depression: Home medication is Lexapro, currently on hold. Planned for psych inpatient rehab at discharge. They will restart the Lexapro once they have him on the floor as he hasn't been using it for 3 weeks. Will also hold Doxepin as this has a warning for increased suicidal thoughts. (2) Alcohol withdrawal: supportive care and gabapentin/Lorazepam protocol. This appears to have resolved. (3) Suicidal ideations: 302, inpatient psychiatric counseling when medically cleared. Kyliey, need to get his abdominal pain better controlled. (4) Abdominal pain: Likely 2/2 gastritis with ETOH and NSAID use. Cont Protonix BID. Epigastric pain is worse today but he is still eating and denies nausea or vomiting. This pain has been ongoing for 4 weeks per his report. GI is considering outpatient EGD. After speaking with GI will plan to try carafate and bentyl to see if this helps his symptoms. Will trend LFTs in am, also. (5) Alcohol abuse: counseled to stop drinking. He is open to an requesting an inpatient alcohol rehabilitation program. Vitamins B and folate daily. (6) Transaminitis: likely related to alcohol and fatty liver. Cont to trend for now off ETOH. per plan for abdominal pain above (7) Thrombocytopenia: chronic, likely related to long history of alcohol abuse. (8) Hypomagnesemia: resolved (9) Hypokalemia: resolved (10) Smoker: denies nicoderm replacement, recommended to quit smoking altogether (11) Neuropathy: Neuropathic symptoms of feet bilaterally. Will start initial workup of peripheral neuropathy with screening for A1C, TSH, DEANNA,SPEP. This is most likely a result of nerve damage from alcoholism. B12 was already checked this admission and was within normal range. PT has seen him and assessed that he has no PT needs at this time. Would recommend continuing the workup/followup for this with PCP as outpatient. Also, quit drinking moving forward to avoid further insult. (12) DVT prophylaxis: SCDs/ambulation-added lovenox at this time. Full Code Dispo-to psych inpatient program once medically stable, then to alcohol rehab program. Karley Cov[facility]ubias DO [facility] and Anticipated Discharge Date Admission Date: January 03, 2020 Subjective 54 yo M admitted for ETOH withdrawal and suicidal ideations. He has severe depression and has been to alcohol and depression/mental health rehab in the past. Pt reports drinking 80 oz beer daily. He also reports today some worsened abdominal pain, specifically in the epigastric area. Also there is persistent pain in the RUQ. Lipase was normal and patient has been eating food (although "not that much") but reports early satiety, not pain or nausea. He states that over the last 4 weeks he would drink a beer and this pain would immediately go away. He also now reports numbness in his feet bilaterally, which has been ongoing for the past 4 weeks at home. He states this impedes his ability to walk properly. Otherwise ROS was negative. Review of Systems Review of Systems: All systems reviewed & are unremarkable except as noted in Subjective Physical Exam Physical Exam: CONSTITUTIONAL: WNWD, vitals as above, generally well- appearing EYES: pupils are equal and round bilaterally, normal conjunctivae, no scleral icterus ENT: MMM RESPIRATORY: clear to auscultation bilaterally, no crackles, rales or wheezes, normal respiratory effort CARDIOVASCULAR: regular rate and rhythm, S1 and 2 heard without murmurs, gallops or rubs, no JVD, no peripheral edema GASTROINTESTINAL: normal bowel sounds, soft, ND, some tenderness to palpation over the RUQ area, greater TTP in epigastric area. MUSCULOSKELETAL: strength 5/5 throughout, head is normocephalic and atraumatic, neck supple, normal palpation of chest wall without tenderness SKIN: warm and dry NEUROLOGIC: No facial palsy, no dysarthria. Touch, pain and proprioception normal. CN 2-12 grossly intact, no sensory deficit, normal cognition, normal speech, +tremor PSYCHIATRIC: alert cooperative and oriented to person, place and time. Euthymic mood, makes good eye contact. Results & Data Results & Data ([facility]) Vital Signs (Past 12 Hours) Vital Signs Temp Pulse Pulse Resp BP Pulse Ox 01/05/20 07:32 69 01/05/20 07:19 36.6 C 65 18 130/88 100 Laboratory Results Short CBC 01/05/20 Range/Units 06:48 WBC 2.55 L (4.8-10.8) K/uL Hgb 14.6 (14.0-18.0) g/dL Hct 41.3 L (42-52) % Plt Count 84 L (130-400) K/uL BMP 01/05/20 06:48 Sodium 134 L Potassium 3.9 D Chloride 101 Carbon Dioxide 29 BUN 4 L Creatinine 0.65 Glucose 78 Calcium 9.1 Diagnostic Findings US liver CLINICAL HISTORY: alcoholic, elev LFTs, RUQ pain COMPARISON STUDY: Right upper quadrant ultrasound August 04, 2017. CT of the abdomen and pelvis January 02, 2020. FINDINGS: The liver is mildly enlarged. Hepatic echogenicity is at the upper limits of normal. No hepatic lesions are identified. Main portal vein is patent with appropriately directed flow. There is no biliary ductal dilatation. The common bile duct measures 4 mm in caliber. There are no gallstones. No gallbladder wall thickening is noted. The pancreatic body is normal. The head and tail are obscured. There is no right hydronephrosis. IMPRESSION: 1. No gallstones or biliary ductal dilatation. 2. Mild hepatomegaly and possible fatty infiltration of the liver. Medications Administered Current Inpatient Medications Acetaminophen (Acetaminophen 325 Mg Tab) 650 mg PO Q4H PRN PRN Reason: Pain or Fever Stop: 02/02/20 09:36 Last Admin: 01/04/20 14:37 Dose: 650 mg Documented by: Clonidine HCl (Clonidine Hcl 0.1 Mg Tab) 0.1 mg PO Q4H PRN PRN Reason: Hypertension Stop: 02/02/20 09:36 Doxepin HCl (Doxepin Hcl 50 Mg Capsule) 100 mg PO HS YESSENIA Stop: 02/02/20 21:59 Last Admin: 01/03/20 21:59 Dose: 100 mg Documented by: Escitalopram Oxalate (Escitalopram Oxalate 20 Mg Tab) 20 mg PO DAILY YESSENIA Stop: 02/02/20 09:36 Last Admin: 01/03/20 10:17 Dose: 20 mg Documented by: Gabapentin (Gabapentin 600 Mg Tab) 600 mg PO Q24H YESSENIA Stop: 01/06/20 22:01 Gabapentin (Gabapentin 600 Mg Tab) 600 mg PO Q12H YESSENIA Stop: 01/05/20 22:01 Last Admin: 01/05/20 10:54 Dose: 600 mg Documented by: Folic Acid 1 mg/ Syringe 10 mls @ 5 mls/min IV QAM YESSENIA Stop: 02/02/20 09:36 Last Admin: 01/05/20 08:10 Dose: 5 mls/min Documented by: Lorazepam (Ativan) 1 mg in 2 mls @ 2 mls/min IV UD PRN; Protocol PRN Reason: EtOH Withdrawl AWSS Score 6,7 Stop: 02/02/20 09:36 Last Admin: 01/03/20 10:33 Dose: 2 mls/min Documented by: Lorazepam (Ativan) 2 mg in 4 mls @ 4 mls/min IV UD PRN; Protocol PRN Reason: EtOH Withdrawl AWSS Score 8,9 Stop: 02/02/20 09:36 Lorazepam (Ativan) 3 mg in 6 mls @ 4 mls/min IV ONCE PRN; Protocol PRN Reason: EtOH Withdrawl AWSS Score >=10 Stop: 02/02/20 09:36 Thiamine HCl 100 mg/ Syringe 10 mls @ 2 mls/min IV QAM [facility] Stop: 02/02/20 09:36 Last Admin: 01/05/20 08:10 Dose: 2 mls/min Documented by: Nitroglycerin (Nitroglycerin Sl 0.4 Mg/Tab Tab) 0.4 mg SL UD PRN PRN Reason: Chest Pain Stop: 02/02/20 09:36 Ondansetron HCl (Ondansetron Inj 2 Mg/Ml 2 Ml Vial) 4 mg IV Q6H PRN PRN Reason: Nausea Stop: 02/02/20 09:36 Pantoprazole Sodium (Pantoprazole 40 Mg Tab) 40 mg PO BID [facility] Stop: 02/03/20 20:59 Last Admin: 01/05/20 08:10 Dose: 40 mg Documented by: (1) Abdominal pain Abdominal location: upper abdomen, unspecified Qualified Code(s): R10.10 - Upper abdominal pain, unspecified
[2020-01-05 17:42] LABS: Ferritin 715.7 ng/ml (8-388); Thyroid Stimulating Hormone 2.66 uIu/ml (0.300-4.500)
[2020-01-05] MEDS: SUCRALFATE 1 GM/10 ML UDC PO SCH ×2 (18:20→21:52)
[2020-01-05 18:42] LABS: Lyme Ab IgG w/WB Rflx Negative (Negative)
[2020-01-05 18:50] LABS: Lyme Ab IgM w/WB Rflx Equivocal (Negative)
[2020-01-05] MEDS: DICYCLOMINE HCL 10 MG CAP PO SCH (21:52)
[2020-01-06 05:47] LABS: Estimated Average Glucose 97 mg/dl
[2020-01-06 07:01] LABS: Hematocrit (blood only) 41.4 % (42-52); Hemoglobin 14.5 g/dL (14.0-18.0); Mean Corpuscular Hemoglobin 32.7 pg (25-34); Mean Corpuscular Volume 93.2 fL (80-100); RDW Coefficient of Variation 12.9 % (11.5-14.5); RDW Standard Deviation 44.2 fL (36.4-46.3); Red Blood Count 4.44 M/uL (4.7-6.1); White Blood Count 4.43 K/uL (4.8-10.8)
[2020-01-06 07:28] LABS: Mean Platelet Volume 10.3 fL (7.4-10.4); Platelet Count 91 K/uL (130-400)
[2020-01-06 07:44] LABS: Albumin Level 3.8 gm/dl (3.4-5.0); BUN Creatinine Ratio 9.9 (10-20); Calcium 9.4 mg/dl (8.5-10.1); Creatinine Clr Calc Pharmacy 123.7 ml/min; Est GFR (African American) 127.3; Est GFR (Non-African American) 109.8; Magnesium 1.7 mg/dl (1.8-2.4); Potassium 4.1 mmol/L (3.5-5.1)
[2020-01-06 07:51] LABS: Albumin Globulin Ratio 1.1 (0.9-2); Globulin 3.4 gm/dl (2.5-4.0); Total Protein 7.2 gm/dl (6.4-8.2)
[2020-01-06] MEDS: FOLIC ACID 1 MG in SYRINGE 9.8 ML IV SCH (08:44)
[2020-01-06] MEDS: THIAMINE HCL 100 MG in SYRINGE 9 ML IV SCH (08:44)
[2020-01-06] MEDS: SUCRALFATE 1 GM/10 ML UDC PO SCH ×4 (08:45→20:31)
[2020-01-06] MEDS: PANTOprazole 40 MG TAB PO SCH ×2 (08:45→20:32)
[2020-01-06] MEDS: DICYCLOMINE HCL 10 MG CAP PO SCH (08:45)
[2020-01-06] MEDS: MAGNESIUM SULFATE / D5W 1 GM/100 ML BAG IV SCH ×2 (11:19→13:31)
[2020-01-06] MEDS ORDERED: LORazepam 0.5 MG/1 ML VIAL IV STA (13:34)
[2020-01-06] MEDS: GABAPENTIN 300 MG CAP PO SCH ×2 (15:35→20:31)
--- NOTE | 2020-01-06 18:57 | Hospitalist Progress Note ---
Date of Service January 06, 2020 Assessment & Plan (1) Depression: Home medication is Lexapro, currently on hold. Planned for psych inpatient rehab at discharge. They will restart the Lexapro once they have him on the floor as he hasn't been using it for 3 weeks. Will also hold Doxepin as this has a warning for increased suicidal thoughts. (2) Alcohol withdrawal: supportive care and gabapentin/Lorazepam protocol. This appears to have resolved. (3) Suicidal ideations: 302, inpatient psychiatric counseling when medically cleared. Kyliey, need to get his abdominal pain better controlled. (4) Abdominal pain: Likely 2/2 gastritis with ETOH and NSAID use. Cont Protonix BID. Epigastric pain is worse today but he is still eating and denies nausea or vomiting. This pain has been ongoing for 4 weeks per his report. GI is considering outpatient EGD. Cont carafate as this is helping. Avoid NSAIDs. LFTs slightly higher today, likely related to alcohol use. Spoke with GI and this is less likely alcohol induced hepatitis. Cont symptom treatment. (5) Alcohol abuse: counseled to stop drinking. He is open to an requesting an inpatient alcohol rehabilitation program. Thiamine and folate daily. (6) Transaminitis: likely related to alcohol and fatty liver. Less likely alcohol induced hepatitis per GI who will likely followup with him in the clinic in a few weeks and consider an outpatient EGD. (7) Thrombocytopenia: chronic, likely related to long history of alcohol abuse. (8) Hypomagnesemia: resolved (9) Hypokalemia: resolved (10) Smoker: denies nicoderm replacement, recommended to quit smoking altogether (11) Neuropathy: Neuropathic symptoms of feet bilaterally. Will start initial workup of peripheral neuropathy. This is most likely a result of nerve damage from alcoholism. B12 was already checked this admission and was within normal range. Lyme and DEANNA still pending. PT has seen him and assessed that he has no PT needs at this time. Would recommend continuing the workup/followup for this with PCP as outpatient. Also, quit drinking moving forward to avoid further insult. Restart his home gabapentin to help with pain. (12) DVT prophylaxis: Lovenox Full Code Dispo-to psych inpatient program once medically stable, then to alcohol rehab program. Karley Covarrubias DO [facility] Hospitalist Admission and Anticipated Discharge Date Admission Date: January 03, 2020 Subjective still having epigastric pain, not necessarily provoked by food. Carafate is helping, not sure if bentyl is though. Feet are still painful. We discussed the labs and that this may be moreso from alcohol use. We talked about outpatient EMG/NCV to prove it. He reports strong intention to stay quit. Also gabapentin was considered for pain control. He is already taking 300 TID at home so will restart this now. Review of Systems Review of Systems: All systems reviewed & are unremarkable except as noted in Subjective Physical Exam Physical Exam: CONSTITUTIONAL: WNWD, vitals as above, generally well- appearing EYES: pupils are equal and round bilaterally, normal conjunctivae, no scleral icterus ENT: MMM RESPIRATORY: clear to auscultation bilaterally, no crackles, rales or wheezes, normal respiratory effort CARDIOVASCULAR: regular rate and rhythm, S1 and 2 heard without murmurs, gallops or rubs, no JVD, no peripheral edema GASTROINTESTINAL: normal bowel sounds, soft, ND, some tenderness to palpation over the RUQ area, greater TTP in epigastric area-about the same as yesterday. MUSCULOSKELETAL: strength 5/5 throughout, head is normocephalic and atraumatic, neck supple, normal palpation of chest wall without tenderness SKIN: warm and dry NEUROLOGIC: No facial palsy, no dysarthria. Touch, pain and proprioception normal. CN 2-12 grossly intact, no sensory deficit, normal cognition, normal speech, no tremor PSYCHIATRIC: alert cooperative and oriented to person, place and time. Eu thymic mood, makes good eye contact. Results & Data Results & Data ([facility]) Vital Signs (Past 12 Hours) Vital Signs Temp Pulse Pulse Resp BP Pulse Ox 01/06/20 14:50 36.7 C 71 16 122/73 99 01/06/20 13:35 36.9 C 78 19 130/86 99 01/06/20 10:57 36.9 C 68 19 135/86 100 01/06/20 07:13 36.6 C 68 16 119/80 98 01/06/20 07:00 63 Laboratory Results Short CBC 01/06/20 Range/Units 06:48 WBC 4.43 L (4.8-10.8) K/uL Hgb 14.5 (14.0-18.0) g/dL Hct 41.4 L (42-52) % Plt Count 91 L (130-400) K/uL BMP 01/06/20 06:48 Sodium 135 L Potassium 4.1 Chloride 99 Carbon Dioxide 29 BUN 7 Creatinine 0.68 Glucose 92 Calcium 9.4 Liver Function 01/06/20 Range/Units 06:48 Total Bilirubin 1.0 (0.2-1) mg/dl AST 129 H (15-37) U/L ALT 183 H (12-78) U/L Alkaline Phosphatase 94 (45-117) U/L Albumin 3.8 (3.4-5.0) gm/dl Medications Administered Current Inpatient Medications Acetaminophen (Acetaminophen 325 Mg Tab) 650 mg PO Q4H PRN PRN Reason: Pain or Fever Stop: 02/02/20 09:36 Last Admin: 01/04/20 14:37 Dose: 650 mg Documented by: Doxepin HCl (Doxepin Hcl 50 Mg Capsule) 100 mg PO HS [facility] Stop: 02/02/20 21:59 Last Admin: 01/03/20 21:59 Dose: 100 mg Documented by: Escitalopram Oxalate (Escitalopram Oxalate 20 Mg Tab) 20 mg PO DAILY [facility] Stop: 02/02/20 09:36 Last Admin: 01/03/20 10:17 Dose: 20 mg Documented by: Folic Acid (Folic Acid 1 Mg Tab) 1 mg PO DAILY YESSENIA Stop: 02/06/20 08:59 Gabapentin (Gabapentin 300 Mg Cap) 300 mg PO TID [facility] Stop: 02/05/20 14:46 Last Admin: 01/06/20 15:35 Dose: 300 mg Documented by: Lorazepam (Ativan) 1 mg in 2 mls @ 2 mls/min IV UD PRN; Protocol PRN Reason: EtOH Withdrawl AWSS Score 6,7 Stop: 02/02/20 09:36 Last Admin: 01/03/20 10:33 Dose: 2 mls/min Documented by: Lorazepam (Ativan) 2 mg in 4 mls @ 4 mls/min IV UD PRN; Protocol PRN Reason: EtOH Withdrawl AWSS Score 8,9 Stop: 02/02/20 09:36 Lorazepam (Ativan) 3 mg in 6 mls @ 4 mls/min IV ONCE PRN; Protocol PRN Reason: EtOH Withdrawl AWSS Score >=10 Stop: 02/02/20 09:36 Ondansetron HCl (Ondansetron Inj 2 Mg/Ml 2 Ml Vial) 4 mg IV Q6H PRN PRN Reason: Nausea Stop: 02/02/20 09:36 Pantoprazole Sodium (Pantoprazole 40 Mg Tab) 40 mg PO BID [facility] Stop: 02/03/20 20:59 Last Admin: 01/06/20 08:45 Dose: 40 mg Documented by: Sucralfate (Sucralfate 1 Gm/10 Ml Udc) 1 gm PO QID [facility] Stop: 02/04/20 17:14 Last Admin: 01/06/20 16:24 Dose: 1 gm Documented by: (1) Abdominal pain Abdominal location: upper abdomen, unspecified Qualified Code(s): R10.10 - Upper abdominal pain, unspecified
[2020-01-06] MEDS ORDERED: GABAPENTIN 300 MG CAP PO SCH (21:00)
[2020-01-06] MEDS ORDERED: GABAPENTIN 600 MG TAB PO SCH (22:00)
[2020-01-07 07:02] LABS: Albumin Level 3.6 gm/dl (3.4-5.0); Calcium 9.8 mg/dl (8.5-10.1); Creatinine Clr Calc Pharmacy 106.4 ml/min; Est GFR (African American) 119.7; Est GFR (Non-African American) 103.2; Magnesium 1.9 mg/dl (1.8-2.4)
[2020-01-07 07:05] LABS: Bilirubin,Total 0.7 mg/dl (0.2-1); Globulin 3.7 gm/dl (2.5-4.0); Total Protein 7.3 gm/dl (6.4-8.2)
[2020-01-07] MEDS: GABAPENTIN 300 MG CAP PO SCH ×2 (08:24→13:03)
[2020-01-07] MEDS: PANTOprazole 40 MG TAB PO SCH (08:24)
[2020-01-07] MEDS: SUCRALFATE 1 GM/10 ML UDC PO SCH ×3 (08:24→16:50)
[2020-01-07] MEDS ORDERED: FOLIC ACID 1 MG TAB PO SCH (09:00)
--- NOTE | 2020-01-07 15:22 | Discharge Summary ---
Date of Service January 07, 2020 Admission HPI Per Admitting Provider HISTORY OF PRESENT ILLNESS: This is a 54-year-old male with past medical history significant for ongoing alcohol abuse, major depression, sleep disturbance, anxiety, chronic sinusitis, presents with alcoholism and suicidal ideation. The patient states that he drinks 80 ounces of beer every day and smokes half pack of cigarettes daily. Lives with his mom. He is having abdominal discomfort for the last few days and did not eat any food for the last 3 days and is also having cough with yellowish phlegm. He smokes and also complains of some cough going for last 1 month and shortness of breath. Denies feeling hot and cold. Complains of some blurred vision going on for few months says in right eye. Has some headache. Has some runny nose, no sore throat. No chest pain. Has diarrhea. No blood in the stool or black stools. Normal bladder movements. No rash. Ambulates okay. Currently resting comfortably and hemodynamically stable. Admission Exam Per Admitting Provider PHYSICAL EXAMINATION: GENERAL: The patient is of moderate build, not in acute distress. VITAL SIGNS: Temperature 36.8, pulse 77, respiratory rate 13, blood pressure 131/101, oxygen 97% on room air. HEENT: No pallor, no icterus. Pupils equal, round, reactive to light. NECK: No JVD, no neck masses. CARDIOVASCULAR: S1, S2 heard, regular rate and rhythm, no murmur, no gallop. RESPIRATORY SYSTEM: Normal AP diameter. No accessory muscle use. No wheezing, no crackles. ABDOMEN: Soft, bowel sounds present. Mild abdominal discomfort. No guarding, no rigidity. CENTRAL NERVOUS SYSTEM: Cranial nerves II-XII grossly intact, nonfocal. EXTREMITIES: No edema, no erythema. Principal Diagnosis ETOH Withdrawal Tobacco Abuse Peripheral Neuropathy Depression with Suicidal Ideations Discharge Exam CONSTITUTIONAL: WNWD, vitals as above, generally well-appearing EYES: pupils are equal and round bilaterally, normal conjunctivae, no scleral icterus ENT: MMM RESPIRATORY: clear to auscultation bilaterally, no crackles, rales or wheezes, normal respiratory effort CARDIOVASCULAR: regular rate and rhythm, S1 and 2 heard without murmurs, gallops or rubs, no JVD, no peripheral edema GASTROINTESTINAL: normal bowel sounds, soft, ND, some tenderness to palpation over the RUQ area, greater TTP in epigastric area-about the same as yesterday. MUSCULOSKELETAL: strength 5/5 throughout, head is normocephalic and atraumatic, neck supple, normal palpation of chest wall without tenderness SKIN: warm and dry NEUROLOGIC: No facial palsy, no dysarthria. Touch, pain and proprioception normal. CN 2-12 grossly intact, no sensory deficit, normal cognition, normal speech, no tremor PSYCHIATRIC: alert cooperative and oriented to person, place and time. Euthymic mood, makes good eye contact. Discharge Data Allergies Allergy/AdvReac Type Severity Reaction Status Date / Time codeine Allergy Intermediate GI SYMPTOMS Verified 01/02/20 21:08 meperidine Allergy Intermediate CAUSES Verified 01/02/20 21:08 CONFUSION Penicillins Allergy Mild FINGERS Verified 01/02/20 21:08 SWELLED A CHILD Consultations 01/03/20 05:46 ED Decision to Admit Stat 01/03/20 09:37 Consult Case Management - Discharge Planning Routine Consult Gastroenterology Routine Consult Psychiatry Routine Ordered Studies 01/02/20 22:30 CT abd pelvis IV con only Urgent 01/04/20 15:10 US liver Routine Hospital Course (1) Alcohol withdrawal: supportive care and gabapentin/Lorazepam protocol. Resolved prior to discharge. He is mentating clearly and ready for further work on depression as an inpatient. (2) Abdominal pain: Likely 2/2 gastritis with ETOH and NSAID use. Cont Protonix BID. Epigastric pain was present, but he was still tolerating PO and without nausea or vomiting. This pain was ongoing for 4 weeks per his report. GI was consulted and would consider an outpatient EGD if not improved. Trial of carafate and Protonix 40mg BID with avoidance of NSAIDs. Slight transaminitis was worked up and thought to be 2/2 alcohol use. Cont to avoid NSAIDs and alcohol and followup with PCP as outpatient. (3) Alcohol abuse: counseled to stop drinking. He is open to an requesting an inpatient alcohol rehabilitation program. Thiamine and folate given daily while admitted (4) Transaminitis: likely related to alcohol and fatty liver. Less likely alcohol induced hepatitis per GI who will likely followup with him in the clinic in a few weeks and consider an outpatient EGD. (5) Thrombocytopenia: chronic, likely related to long history of alcohol abuse. (6) Hypomagnesemia: resolved (7) Hypokalemia: resolved (8) Smoker: denies nicoderm replacement, recommended to quit smoking altogether (9) Neuropathy: Neuropathic symptoms of feet bilaterally. Workup initiated during the hospital stay, despite this most likely a result of nerve damage from alcoholism. B12 was already checked this admission and was within normal range. Lyme and DEANNA were negative. Physical therapy has seen him and assessed that he has no PT needs at this time. Would recommend continuing the workup/followup for this with PCP as outpatient. Also, quit drinking moving forward to avoid further insult. Restart his home gabapentin to help with pain. At time of discharge he was mentating and ambulating at baseline and was tolerating PO. He was sent to mental health rehab followed by alcohol rehab in stable condition. Total Time Total Time Spent Total Time Spent (In Minutes): 60 Total Time Includes: Examination of the Patient, Discharge Planning, Medication Reconciliation and Communication With Other Providers Discharge Plan Discharge Items Patient Disposition: Transfer Behavioral Health Fac Reason For Visit: sucideal ideation Discharge Diagnosis: ETOH Withdrawal Tobacco Abuse Peripheral Neuropathy Depression with Suicidal Ideations Condition on Discharge: Good Goals: Stop smoking Quit drinking Activity: Resume your previous activity Non-emergency contact: Primary Care Provider Call non-emergency contact if: you have any medication questions and your symptoms worsen Follow-up/Referrals: PCP,NO [Primary Care Provider] - Diet: Regular Addtl Attending Provider Instructions: Please take all medications as instructed on discharge list below. It is recommended that you follow-up closely with your PCP within 1-2 weeks after discharge. Alcohol rehabilitation is strongly recommended. Please continue taking the gabapentin for your peripheral neuropathy and follow- up with your PCP for titration of this as needed, and to report on the results of the outstanding labwork pending at time of discharge. It was a pleasure taking care of you! Please call if you have any questions or problems. You can reach a [facility] [address] hospitalist on duty at [facility] 24 hours a day by calling [phone]. Take care of yourself. Karley Covarrubias DO [facility] [address] Hospitalist Pending Studies at Discharge: Yes Studies:: Lyme, DEANNA Stand-Alone Forms: My [facility], Suicide Prevention Resources Skilled Items DNR: No Lines: None Urinary Catheter: No Medications and DC Order Prescriptions: New pantoprazole 40 mg Tablet,Delayed Release (Dr/Ec) 40 mg PO BID Qty: 60 RF: 1 sucralfate 100 mg/mL Suspension 1 g PO QID Qty: 420 RF: 0 Continued folic acid 1 mg tablet 1 mg PO DAILY RF: 0 escitalopram oxalate 20 mg tablet 20 mg PO DAILY RF: 0 gabapentin 300 mg capsule 300 mg PO TID RF: 0 No Action nicotine (polacrilex) [Nicorelief] 2 mg Gum 4 mg MT Q2H PRN (Reason: cravings) Qty: 1 RF: 0 nicotine [Nicoderm CQ] 21 mg/24 hr Patch 24 Hour 21 mg transdermal QAM Qty: 1 RF: 0 Discharge Orders: Discharge Order (Routine); Ordered 01/07/20 Ordered By: Karley Covarrubias Admission Data Admit Date/Time: 01/03/20 06:35 Attending Provider: Karley Covarrubias Admit Provider: Keagan Almonte Primary Care Provider: PCP,NO Other Providers: Keagan Almonte ; Ruddy Hanson Melissa C. Other Interventions: Discharge Summary Assessment (RN) Last Done: 01/07/20 15:58
[2020-01-09 15:11] LABS: Anti Nuclear Antibody Screen POSITIVE (NEGATIVE)
[2020-01-09 19:01] LABS: Alpha 1 Globulin 0.3 g/dL (0.2-0.3); Alpha 2 Globulin 0.6 g/dL (0.5-0.9); Beta-1-Globulin 0.4 g/dL (0.4-0.6); Beta-2-Globulin 0.3 g/dL (0.2-0.5); Gamma Globulin 0.9 g/dL (0.8-1.7); Monoclonal Protein Band 1 DNR g/dL (NONE DETECTED); Monoclonal Protein Band 2 DNR g/dL (NONE DETECTED); Monoclonal Protein Band 3 DNR g/dL (NONE DETECTED); Total Protein 6.5 g/dL (6.1-8.1)
[2020-01-10 10:51] LABS: 18KDIGG Band REACTIVE; 23KDIGG Band NON-REACTIVE; 23KDIGM Band REACTIVE; 28KDIGG Band NON-REACTIVE; 30KDIGG Band NON-REACTIVE; 39KDIGG Band NON-REACTIVE; 39KDIGM Band NON-REACTIVE; 41KDIGG Band REACTIVE; 41KDIGM Band NON-REACTIVE; 45KDIGG Band NON-REACTIVE; 58KDIGG Band NON-REACTIVE; 66KDIGG Band NON-REACTIVE; 93KDIGG Band NON-REACTIVE; Lyme Antibodies, WB IgG NEGATIVE (NEGATIVE); Lyme Antibodies, WB IgM NEGATIVE (NEGATIVE)
[2020-01-10 13:54] LABS: ANA Pattern Nuclear, Homogeneous
== END 2020-01-07 18:05 | DRG 897 ==
LOC: ED 20:15 → SUATTDRO 01-03 06:35 → 2W 01-03 06:35 → 3W 01-06 13:35

== ENCOUNTER 2020-01-07 16:53 | Inpatient (IN) ==
[2020-01-07] MEDS ORDERED: SODIUM CHLORIDE 0.65% NA SOLN 45 ML (OCEAN) PRN (18:37)
[2020-01-07] MEDS ORDERED: BISMUTH SUBSALICYLATE PER ML OMNICELL CHARGE PO PRN (18:37)
[2020-01-07] MEDS ORDERED: ALUMINUM/MAGNESIUM SUSP 30 ML UDC PO PRN (18:37)
[2020-01-07] MEDS ORDERED: MAGNESIUM HYDROXIDE SUSP 30 ML UDC PO PRN (18:37)
[2020-01-07] MEDS ORDERED: NICOTINE POLACRILEX 2 MG GUM MT PRN (18:52)
[2020-01-07] MEDS ORDERED: PATIENT'S HEIGHT AND/OR WEIGHT NEEDED SCH (19:00)
[2020-01-07] MEDS: GABAPENTIN 300 MG CAP PO SCH (21:01)
[2020-01-07] MEDS: PANTOprazole 40 MG TAB PO SCH (21:01)
[2020-01-07] MEDS: SUCRALFATE 1 GM/10 ML UDC PO SCH (21:03)
[2020-01-07] MEDS: NICOTINE 21 MG/24 HR TDSY TD SCH (21:09)
[2020-01-07] MEDS ORDERED: DOXEPIN HCL 50 MG CAPSULE PO SCH (22:00)
[2020-01-08] MEDS: NICOTINE 21 MG/24 HR TDSY TD SCH (07:48)
[2020-01-08] MEDS: GABAPENTIN 300 MG CAP PO SCH ×3 (07:48→20:55)
[2020-01-08] MEDS: SUCRALFATE 1 GM/10 ML UDC PO SCH ×4 (07:48→20:55)
[2020-01-08] MEDS: FOLIC ACID 1 MG TAB PO SCH (07:48)
[2020-01-08] MEDS: ESCITALOPRAM OXALATE 20 MG TAB PO SCH (07:48)
[2020-01-08] MEDS: PANTOprazole 40 MG TAB PO SCH ×2 (07:48→20:55)
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
[2020-01-08] MEDS: ACETAMINOPHEN 325 MG TAB PO PRN (19:50)
[2020-01-09] MEDS: FOLIC ACID 1 MG TAB PO SCH (07:43)
[2020-01-09] MEDS: SUCRALFATE 1 GM/10 ML UDC PO SCH ×4 (07:43→20:48)
[2020-01-09] MEDS: GABAPENTIN 300 MG CAP PO SCH ×3 (07:43→20:48)
[2020-01-09] MEDS: ESCITALOPRAM OXALATE 20 MG TAB PO SCH (07:43)
[2020-01-09] MEDS: PANTOprazole 40 MG TAB PO SCH ×2 (07:43→20:49)
[2020-01-09] MEDS: NICOTINE 21 MG/24 HR TDSY TD SCH (07:43)
[2020-01-09 08:29] LABS: Albumin Level 3.9 gm/dl (3.4-5.0); Bilirubin Direct 0.2 mg/dl (0-0.2); Bilirubin,Total 0.6 mg/dl (0.2-1); Total Protein 7.8 gm/dl (6.4-8.2)
--- NOTE | 2020-01-09 10:58 | Psychiatric Progress Note ---
Date of Service January 09, 2020 Impression / Recommendations Impression 54-year-old single male with a history of severe alcoholism, depression, and now multiple medical problems as a result of alcohol abuse who presented to the hospital with abdominal pain, inability to eat, intoxication, and suicidal ideation with a plan to hang himself, and reported having made a noose at home. He was admitted medically for alcohol withdrawal and work-up of his GI symptoms, all of which were felt to be due to his alcoholism. Upon medical clearance he came to the [facility], and interestingly, he is now stating that he was never suicidal and only said that to be admitted to the hospital, and only made a noose because he "likes to tie knots." We will need to get collateral information from his sister, who brought him to the hospital - a family meeting has been scheduled for this afternoon. He reports that depression has been well controlled with escitalopram, and although he is refusing recommendations for inpatient rehab for his alcoholism, he is willing to increase his outpatient substance abuse treatment to an IOP level of care. Inpatient treatment is medically necessary due to the severity of presenting symptoms and risk for rapid relapse, worsening depression, and suicide if discharged prematurely and without a good discharge plan. (1) Suicidal ideation: 01/07 -patient now minimizing depressive symptoms and SI. States that he lied about his plan to hang himself on presentation, and that he only said this to get help faster. We will start by calling his sister who was involved in bringing him to the hospital for collateral information, as I am concerned that he is misrepresenting his true state at the time of admission. Other considerations include malingering. 01/08 - Pt now denying SI; giving conflicting information regarding factors contributing to his admission - Need to confirm that noose and other potentially harmful items (firearms, medications, etc) are secured - Family meeting with sister via phone today (2) Depression: 01/07 -continue home dose of escitalopram 20 mg daily, which patient states has been effective and well-tolerated. Advised him that it is hepatically metabolized, and that given his alcoholic hepatitis, this will need to be monitored closely, and that if he continues to drink, he should probably not take this medication. -Refer for outpatient psychiatric care for dual diagnosis. -Discontinue doxepin as it is also hepatically metabolized and we are trying to minimize the strain on his liver given ongoing transaminitis. 01/08 - Continue medication regimen as above - Determine psychiatric capability of patient's requested IOP program. (3) Alcohol dependence: 01/07 -withdrawal treated on the medical floor, resolved. Reviewed the risks of ongoing alcohol abuse, including worsening of his medical problems (already has alcoholic hepatitis, neuropathy, thrombocytopenia, gastritis, electrolyte abnormalities, drug drug interactions, OUTREACH COORDINATOR depression, withdrawal, and ). He expressed understanding. Reviewed that our primary recommendation is for inpatient rehab, and then this is very strongly recommended as the best way for him to attain sobriety, followed by IOP and peers support groups such as AA. He, unfortunately, is now refusing this recommendation, although while on the medical floor had agreed. He is now only willing for IOP. -Contact his outpatient therapist, Narendra, at [facility] tomorrow for coordination of care. Patient had not been honest with him about his ongoing daily drinking. -Recovery protocol. -Avoid medications that are addictive/abusable, or hepatically metabolized. Brief intervention was offered and accepted Intervention was greater than 5 min in length. Brief interventions include: 1. Assess Readiness to Quit, 2. Advise: Help Patient to Reduce or Abstain from Alcohol, 3. Agree: Set Specific, Feasible Goals, 4. Assist: Anticipate barriers, Problem-Solving Solutions. Social work to 5. Arrange: Referrals to appropriate treatment. Summary of intervention: The patient is in contemplation stage with regards to transtheoretical model of change. The patient is advised to decrease alcohol consumption due to depressant effects and risk of interactions with prescription medications. The patient agreed to IOP, and will be provided with recovery mate crow to continue to education self on how to cope with their condition without drinking. 01/08 - Continued to discuss patient's motivation and goals related to his alcohol use. Pt continues to report goal to maintain sobriety on discharge but is unwilling to follow recommendation of inpatient D&A rehab. - Will coordinate IOP through [facility] and speak with patient's D&A counselor about recommendations (4) Neuropathy: 01/07 -continue home dose of gabapentin, and send records to PCP for coordination of care. -Vitamin B12 normal. Lyme and DEANNA still pending, he will complete the work-up with his PCP. (5) Smoker: 01/07 -patient has cut back smoking on his own to approximately 5 cigarettes/day. Continue patch and nicotine gum as needed, will discharge with prescription and follow-up with PCP for smoking cessation. (6) Abdominal pain: 01/07 -GI work-up on hospitalist service indicated pain and nausea were due to alcoholic gastritis and hepatitis, and he was started on pantoprazole 40 mg twice daily and sucralfate 1 g 4 times daily. 01/08 - LFTs rechecked, levels remain elevated, but improved overall. AST - 52 (down from 105 on 01/06) and ALT - 150 (down from 174 on 01/06). - Recommendation from medical admission was for outpatient GI follow-up, with consideration for EGD. Will try to determine if this appointment had been scheduled while patient was on the medical floor. Risk Factors Assessment Male: Yes : Yes Do You Have Access To A Gun?: No Health Problems: Yes Mental Health Diagnoses: Yes Substance Use Disorders: Yes Previous Attempt: No Family History of Suicide: No Previous Psychiatric Hospitalization: Yes Hopelessness: No Smoker: Yes Protective Factors Assessment : No Responsible for Young Children: No Employed: No Supportive Family: Yes Good Rapport with Provider: No (Not honest with substance abuse counselor about his ongoing alcohol abuse.) Interval History Identifying Information RICK BLANTON is a 54-year-old M who currently lives in [place] with his mother, has a history of depression and alcohol dependence, and was admitted on 01/07/20 18:20 on a 201 voluntary commitment for depression and suicidality. Chief Complaint "Oh, I'm good. Just working through these books and stuff. This ain't my first rodeo." Review of Systems Notes Constitutional: denied Cardiovascular: denied Respiratory: denied Gastrointestinal: denied Neurological: reports ongoing tremors of hands Psychiatric: denies symptoms other than stated above Total of at least 10 systems reviewed, pertinent positives as above and in HPI. Sleep Information Total Hours of Sleep: 6 Sleep Comments: pt on q-15 minute checks Meal Information Percent Meal Consumed - Breakfast: 100 Percent Meal Consumed - Lunch: 100 Percent Meal Consumed - Dinner: 100 Subjective Subjective Patient was seen & assessed and interval progress reviewed with treatment team. Staff report the patient has continued to minimize his presenting symptoms, even to the point of seemingly lying about events leading to admission. Some collateral has been obtained from the patient's sister who shares that patient has had very limited episodes of sobriety and that his mother is enabling his chronic alcohol use. Pt is willing for IOP, but continues to refuse recommended inpatient D&A treatment. Family meeting with sister has been scheduled for this afternoon. Pt was seen today to assess progress since admission. Pt states "Oh, I'm good." He is observed to be working through aspects of his Recovery Protocol book, and is preparing for a group meeting on completing written safety plans. Pt frequently reports "this ain't my first rodeo" during our conversation. Pt tells this provider that he knows his sister cares about him, but he is "pretty frustrated with her right now." He shares that he is aware of some of the information his sister shared with staff and that the information is "all not true." Pt does admit that he had called his sister requesting she br ing him to the hospital and is now telling this provider "I told her I would tell them I was suicidal to get me in here faster" - he clarifies he does mean inpatient psychiatric treatment as, "I knew I needed it." Pt then begins to share his opinion that "information has been twisted" and tells this provider about his hobby of "knot-tying." This provider reminded the patient of the information he shared during our previous conversation on the medical floor - where he did in fact admit that he created to noose with intent to hang himself and stated he was searching for somewhere to hang it. Pt stated "no, no. That's not true." Pt was reminded that those were, in fact, his words to this provider. He also reports frustration that "my Lexapro was just stopped, cold turkey." Pt was reminded that he had informed this provider that he had run out of medications and had not been taking them for 3 weeks prior to his admission. Pt again states, "I didn't say that. That's not true." Pt continues to refuse recommendation for inpatient rehab. He is permitting us to contact his D&A counselor, and is agreeable to IOP. However, patient does state "If Narendra told me he wanted me to go to rehab, I'd be right there." Pt denies SI today. He denies other needs or concerns presently. He is aware of scheduled meeting this afternoon and reports a plan to "just wing it." Physical Exam Psychiatric Orientation: alert, oriented x 3 and + guarded (superficially cooperative, though provider contradictory information) Apperance: appropriately dressed (casually, wearing t-shirt and pajama pants) and + disheveled (long hair and euceda, appearing clean but unkempt) Eye Contact: good eye contact Motor Behavior: no abnormal motor movements (observed while sitting in chair at activity table) Speech: normal rate/rhythm/volume of speech Affect: + blunted affect (appearing subdued, but not overtly depressed) Mood: no depressed mood ("Good") Thought Process: goal directed thought process Thought Content: + cognitive distortions (most consistent with addiction history ); no hopelessness and no worthlessness Suicidal Thoughts: denies suicidal thoughts Homicidal Thoughts: denies homicidal thoughts Cognition: attention grossly intact and language grossly intact Insight: + poor insight Judgement: + impaired judgement Vital Signs (Past 24 Hours) Last Vital Signs Temp 36.6 C 01/09/20 06:32 Pulse 87 01/09/20 06:33 Resp 18 01/09/20 06:32 BP 128/85 01/09/20 06:33 Results & Data ([facility]) Laboratory Results Laboratory Results - last 24 hr 01/09/20 07:40 Total Bilirubin 0.6 Direct Bilirubin 0.2 AST 52 H ALT 150 H Alkaline Phosphatase 83 Total Protein 7.8 Albumin 3.9 Current Inpatient Medications Current Inpatient Medications: Current Inpatient Medications Acetaminophen (Acetaminophen 325 Mg Tab) 650 mg PO Q4H PRN PRN Reason: Headache or Minor Fever Stop: 02/06/20 18:36 Last Admin: 01/08/20 19:50 Dose: 650 mg Documented by: Al Hydrox/Mg Hydrox/Simethicone (Aluminum/Magnesium Susp 30 Ml Udc) 30 ml PO Q4H PRN PRN Reason: GI Upset Stop: 02/06/20 18:36 Bismuth Subsalicylate (Bismuth Subsalicylate Per Ml Omnicell Charge) 15 ml PO PRN PRN PRN Reason: Loose Stool Stop: 02/06/20 18:36 Escitalopram Oxalate (Escitalopram Oxalate 20 Mg Tab) 20 mg PO QAM YESSENIA Stop: 02/07/20 08:59 Last Admin: 01/09/20 07:43 Dose: 20 mg Documented by: Folic Acid (Folic Acid 1 Mg Tab) 1 mg PO QAM [facility] Stop: 02/07/20 08:59 Last Admin: 01/09/20 07:43 Dose: 1 mg Documented by: Gabapentin (Gabapentin 300 Mg Cap) 300 mg PO TID [facility] Stop: 02/06/20 20:59 Last Admin: 01/09/20 07:43 Dose: 300 mg Documented by: Hydroxyzine HCl (Hydroxyzine Hcl 25 Mg Tab) 50 mg PO HSZ PRN PRN Reason: Insomnia Stop: 02/06/20 18:36 Last Admin: 01/08/20 22:30 Dose: 50 mg Documented by: Hydroxyzine HCl (Hydroxyzine Hcl 25 Mg Tab) 25 mg PO Q4H PRN PRN Reason: Anxiety Stop: 02/06/20 18:36 Magnesium Hydroxide (Magnesium Hydroxide Susp 30 Ml Udc) 30 ml PO DAILY PRN PRN Reason: Constipation Stop: 02/06/20 18:36 Miscellaneous (Remove Nicoderm Patch) 1 ea N/A DAILY@[id number] [facility] Stop: 02/07/20 08:58 Last Admin: 01/08/20 07:47 Dose: 1 ea Documented by: Nicotine (Nicotine 21 Mg/24 Hr Tdsy) 21 mg TD QAM [facility] Stop: 02/06/20 18:59 Last Admin: 01/09/20 07:43 Dose: 21 mg Documented by: Nicotine Polacrilex (Nicotine Polacrilex 2 Mg Gum) 2 piece MT Q2H PRN PRN Reason: NICOTINE WITHDRAWAL Stop: 02/06/20 18:51 Last Admin: 01/08/20 21:08 Dose: 2 piece Documented by: Pantoprazole Sodium (Pantoprazole 40 Mg Tab) 40 mg PO BID [facility] Stop: 02/06/20 20:59 Last Admin: 01/09/20 07:43 Dose: 40 mg Documented by: Sodium Chloride (Sodium Chloride 0.65% Na Soln 45 Ml ([place])) 1 - 2 sprays NA PRN PRN PRN Reason: Nasal Dryness/Congestion Stop: 02/06/20 18:36 Sucralfate (Sucralfate 1 Gm/10 Ml Udc) 1 gm PO QID [facility] Stop: 02/06/20 20:59 Last Admin: 01/09/20 07:43 Dose: 1 gm Documented by: Mental Health & Subst Abuse Tx Therapist Name of Therapist: D& A counselor at [facility] [employer] Administrative Assistant Name of Real Estate Administrative Assistant: none Post Discharge Appointments Primary Care Physician Name Of Family Doctor: Dr. Arboleda
[2020-01-09] MEDS: ACETAMINOPHEN 325 MG TAB PO PRN (20:50)
[2020-01-10] MEDS: FOLIC ACID 1 MG TAB PO SCH (09:14)
[2020-01-10] MEDS: ESCITALOPRAM OXALATE 20 MG TAB PO SCH (09:14)
[2020-01-10] MEDS: GABAPENTIN 300 MG CAP PO SCH ×3 (09:14→21:03)
[2020-01-10] MEDS: SUCRALFATE 1 GM/10 ML UDC PO SCH ×4 (09:14→21:03)
[2020-01-10] MEDS: PANTOprazole 40 MG TAB PO SCH ×2 (09:15→21:03)
[2020-01-10] MEDS: NICOTINE 21 MG/24 HR TDSY TD SCH (09:15)
--- NOTE | 2020-01-10 11:14 | Psychiatric Progress Note ---
Date of Service January 10, 2020 Impression / Recommendations Impression 54-year-old single male with a history of severe alcoholism, depression, and now multiple medical problems as a result of alcohol abuse who presented to the hospital with abdominal pain, inability to eat, intoxication, and suicidal ideation with a plan to hang himself, and reported having made a noose at home. He was admitted medically for alcohol withdrawal and work-up of his GI symptoms, all of which were felt to be due to his alcoholism. Upon medical clearance he came to the [facility], and interestingly, he is now stating that he was never suicidal and only said that to be admitted to the hospital, and only made a noose because he "likes to tie knots." Pt participated in a family meeting with his sister, and during that session made the decision to return to inpatient rehab. Referral had been faxed to [facility] that afternoon. He reports that depression has been well controlled with escitalopram, and has tolerated the medication being resumed. Inpatient treatment is medically necessary due to the severity of presenting symptoms and recommendation for direct transfer to rehab to reduce risk of relapse. (1) Suicidal ideation: 01/07 -patient now minimizing depressive symptoms and SI. States that he lied about his plan to hang himself on presentation, and that he only said this to get help faster. We will start by calling his sister who was involved in bringing him to the hospital for collateral information, as I am concerned that he is misrepresenting his true state at the time of admission. Other considerations include malingering. 01/08 - Pt now denying SI; giving conflicting information regarding factors contributing to his admission - Need to confirm that noose and other potentially harmful items (firearms, medications, etc) are secured - Family meeting with sister via phone today 01/09 - Pt continues to deny SI, future oriented in conversation and is now motivated for inpatient rehab (2) Depression: 01/07 -continue home dose of escitalopram 20 mg daily, which patient states has been effective and well-tolerated. Advised him that it is hepatically metabolized, and that given his alcoholic hepatitis, this will need to be monitored closely, and that if he continues to drink, he should probably not take this medication. -Refer for outpatient psychiatric care for dual diagnosis. -Discontinue doxepin as it is also hepatically metabolized and we are trying to minimize the strain on his liver given ongoing transaminitis. 01/08 - Continue medication regimen as above - Determine psychiatric capability of patient's requested IOP program. 01/09 - Continue current medication regimen - Pt continues to deny SI - and supportive family meeting with sister yesterday - Pt now interested in attending inpatient rehab at discharge, requesting referral to [facility] as he is familiar with this program (3) Alcohol dependence: 01/07 -withdrawal treated on the medical floor, resolved. Reviewed the risks of ongoing alcohol abuse, including worsening of his medical problems (already has alcoholic hepatitis, neuropathy, thrombocytopenia, gastritis, electrolyte abnormalities, drug drug interactions, [facility] depression, withdrawal, and ). He expressed understanding. Reviewed that our primary recommendation is for inpatient rehab, and then this is very strongly recommended as the best way for him to attain sobriety, followed by IOP and peers support groups such as AA. He, unfortunately, is now refusing this recommendation, although while on the medical floor had agreed. He is now only willing for IOP. -Contact his outpatient therapist, Narendra, at [facility] tomorrow for coordination of care. Patient had not been honest with him about his ongoing daily drinking. -Recovery protocol. -Avoid medications that are addictive/abusable, or hepatically metabolized. Brief intervention was offered and accepted Intervention was greater than 5 min in length. Brief interventions include: 1. Assess Readiness to Quit, 2. Advise: Help Patient to Reduce or Abstain from Alcohol, 3. Agree: Set Specific, Feasible Goals, 4. Assist: Anticipate barriers, Problem-Solving Solutions. Social work to 5. Arrange: Referrals to appropriate treatment. Summary of intervention: The patient is in contemplation stage with regards to transtheoretical model of change. The patient is advised to decrease alcohol consumption due to depressant effects and risk of interactions with prescription medications. The patient agreed to IOP, and will be provided with recovery materials to continue to education self on how to cope with their condition without drinking. 01/08 - Continued to discuss patient's motivation and goals related to his alcohol use. Pt continues to report goal to maintain sobriety on discharge but is unwilling to follow recommendation of inpatient D&A rehab. - Will coordinate IOP through [facility] and speak with patient's D&A counselor about recommendations 01/09 - Pt is now willing for referral to [facility] for inpatient [facility] - Will assist with coordinating referral (4) Neuropathy: 01/07 -continue home dose of gabapentin, and send records to PCP for coordination of care. -Vitamin B12 normal. Lyme and DEANNA still pending, he will complete the work-up with his PCP. (5) Smoker: 01/07 -patient has cut back smoking on his own to approximately 5 cigarettes/day. Continue patch and nicotine gum as needed, will discharge with prescription and follow-up with PCP for smoking cessation. (6) Abdominal pain: 01/07 -GI work-up on hospitalist service indicated pain and nausea were due to alcoholic gastritis and hepatitis, and he was started on pantoprazole 40 mg twice daily and sucralfate 1 g 4 times daily. 01/08 - LFTs rechecked, levels remain elevated, but improved overall. AST - 52 (down from 105 on 01/06) and ALT - 150 (down from 174 on 01/06). - Recommendation from medical admission was for outpatient GI follow-up, with consideration for EGD. Will try to determine if this appointment had been scheduled while patient was on the medical floor. Risk Factors Assessment Male: Yes : Yes Do You Have Access To A Gun?: No Health Problems: Yes Mental Health Diagnoses: Yes Substance Use Disorders: Yes Previous Attempt: No Family History of Suicide: No Previous Psychiatric Hospitalization: Yes Hopelessness: No Smoker: Yes Protective Factors Assessment : No Responsible for Young Children: No Employed: No Supportive Family: Yes Good Rapport with Provider: No (Not honest with substance abuse counselor about his ongoing alcohol abuse.) Interval History Identifying Information RICK BLANTON is a 54-year-old M who currently lives in [place] with his mother, has a history of depression and alcohol dependence, and was admitted on 01/07/20 18:20 on a 201 voluntary commitment for depression and suicidality. Chief Complaint "Oh, I'm doing real good. Planning to go back to [place] now. My sister started crying during that meeting, and I was just like - 'nope, no more'." Review of Systems Notes Constitutional: denied Cardiovascular: denied Respiratory: denied Gastrointestinal: denied Neurological: denied Psychiatric: denies symptoms other than stated above Total of at least 10 systems reviewed, pertinent positives as above and in HPI. Sleep Information Total Hours of Sleep: 5.5 Sleep Comments: pt SHAYLA @0445 and thereafter. pt on q-15 minute checks Meal Information Percent Meal Consumed - Breakfast: 100 Percent Meal Consumed - Lunch: 100 Percent Meal Consumed - Dinner: 100 Subjective Subjective Patient was seen & assessed and interval progress reviewed with nursing and social work. Staff reports the patient participated in a meeting with his sister yesterday. It was reported the patient was challenged by his sister, but that the meeting was ultimately supportive. Patient did agree to pursuing inpatient rehab as part of his discharge plan. Patient is hopeful to return to [facility] as he has found rehab there to be helpful in the past. Patient rated his mood a 9/10 and "peaceful" evening. Patient was seen today to assess progress since admission. He updates this provider with his new discharge plan, but that now includes a referral for inpatient rehab. Patient states that he realized his need for additional treatment after his sister became emotional during the family meeting yesterday. Patient states that with sisters encouragement and ongoing support from friends he feels that rehab will be beneficial for him. Patient states he is also considering a partial program through [facility] when he is completed the inpatient portion of his treatment. Patient continues to deny suicidal ideation, and is optimistic that rehab will be beneficial for him. Patient denies other needs or concerns, and at this time is agreeable to remaining in inpatient psychiatric treatment to allow for direct transfer to an inpatient rehab facility. Patient is aware that communication has been initiated with [facility] and that we will provide updates as available. Physical Exam Psychiatric Orientation: alert, oriented x 3 and cooperative Apperance: appropriately dressed (casually, in t-shirt and pajama pants), ap propriately groomed (long hair and euceda appearing somwhat unkempt, but clean) and appeared stated age Eye Contact: good eye contact Motor Behavior: steady gait and station and no abnormal motor movements Speech: normal rate/rhythm/volume of speech Affect: euthymic affect and mood congruent with affect Mood: no depressed mood ("real good") Thought Process: goal directed thought process, clear/coherent thought process and thought association intact Thought Content: reality based without delusions; no hopelessness and no worthlessness Suicidal Thoughts: denies suicidal thoughts, denies suicidal plan and denies suicidal intent Homicidal Thoughts: denies homicidal thoughts Hallucinations: no auditory hallucinations and no visual hallucinations Cognition: recent memory grossly intact, attention grossly intact and language grossly intact Estimated Intelligence: consistent with education level Insight: + fair insight Judgement: + fair judgement Vital Signs (Past 24 Hours) Last Vital Signs Temp 36.6 C 01/10/20 06:47 Pulse 75 01/10/20 06:47 Resp 18 01/10/20 06:47 BP 127/84 01/10/20 06:47 Results & Data ([facility]) Current Inpatient Medications Current Inpatient Medications: Current Inpatient Medications Acetaminophen (Acetaminophen 325 Mg Tab) 650 mg PO Q4H PRN PRN Reason: Headache or Minor Fever Stop: 02/06/20 18:36 Last Admin: 01/09/20 20:50 Dose: 650 mg Documented by: Al Hydrox/Mg Hydrox/Simethicone (Aluminum/Magnesium Susp 30 Ml Udc) 30 ml PO Q4H PRN PRN Reason: GI Upset Stop: 02/06/20 18:36 Bismuth Subsalicylate (Bismuth Subsalicylate Per Ml Omnicell Charge) 15 ml PO PRN PRN PRN Reason: Loose Stool Stop: 02/06/20 18:36 Escitalopram Oxalate (Escitalopram Oxalate 20 Mg Tab) 20 mg PO QAM [facility] Stop: 02/07/20 08:59 Last Admin: 01/10/20 09:14 Dose: 20 mg Documented by: Folic Acid (Folic Acid 1 Mg Tab) 1 mg PO QAM YESSENIA Stop: 02/07/20 08:59 Last Admin: 01/10/20 09:14 Dose: 1 mg Documented by: Gabapentin (Gabapentin 300 Mg Cap) 300 mg PO TID YESSENIA Stop: 02/06/20 20:59 Last Admin: 01/10/20 09:14 Dose: 300 mg Documented by: Hydroxyzine HCl (Hydroxyzine Hcl 25 Mg Tab) 50 mg PO HSZ PRN PRN Reason: Insomnia Stop: 02/06/20 18:36 Last Admin: 01/09/20 21:41 Dose: 50 mg Documented by: Hydroxyzine HCl (Hydroxyzine Hcl 25 Mg Tab) 25 mg PO Q4H PRN PRN Reason: Anxiety Stop: 02/06/20 18:36 Last Admin: 01/09/20 12:42 Dose: 25 mg Documented by: Magnesium Hydroxide (Magnesium Hydroxide Susp 30 Ml Udc) 30 ml PO DAILY PRN PRN Reason: Constipation Stop: 02/06/20 18:36 Miscellaneous (Remove Nicoderm Patch) 1 ea N/A DAILY@0859 [facility] Stop: 02/07/20 08:58 Last Admin: 01/10/20 09:39 Dose: 1 ea Documented by: Nicotine (Nicotine 21 Mg/24 Hr Tdsy) 21 mg TD QAM [facility] Stop: 02/06/20 18:59 Last Admin: 01/10/20 09:15 Dose: 21 mg Documented by: Nicotine Polacrilex (Nicotine Polacrilex 2 Mg Gum) 2 piece MT Q2H PRN PRN Reason: NICOTINE WITHDRAWAL Stop: 02/06/20 18:51 Last Admin: 01/08/20 21:08 Dose: 2 piece Documented by: Pantoprazole Sodium (Pantoprazole 40 Mg Tab) 40 mg PO BID [facility] Stop: 02/06/20 20:59 Last Admin: 01/10/20 09:15 Dose: 40 mg Documented by: Sodium Chloride (Sodium Chloride 0.65% Na Soln 45 Ml ([place])) 1 - 2 sprays NA PRN PRN PRN Reason: Nasal Dryness/Congestion Stop: 02/06/20 18:36 Sucralfate (Sucralfate 1 Gm/10 Ml Udc) 1 gm PO QID [facility] Stop: 02/06/20 20:59 Last Admin: 01/10/20 09:14 Dose: 1 gm Documented by: Mental Health & Subst Abuse Tx Therapist Name of Therapist: Miguelangel - Drug and Alcohol Counselor Vero Mackey Therapist's Therapy Appointment Comment: [facility] [place] [address] Research Microbiologist Name of Research Microbiologist: none Post Discharge Appointments Primary Care Physician Name Of Family Doctor: Lonnie Richard [facility] Date of Appointment with PCP: 01/13/20 Time of Appointment with PCP: 1:45 p.m. Provider Appointment Comment: [address] [place] [address]
[2020-01-11] MEDS: NICOTINE 21 MG/24 HR TDSY TD SCH (08:31)
[2020-01-11] MEDS: FOLIC ACID 1 MG TAB PO SCH (08:32)
[2020-01-11] MEDS: GABAPENTIN 300 MG CAP PO SCH ×2 (08:32→12:17)
[2020-01-11] MEDS: ESCITALOPRAM OXALATE 20 MG TAB PO SCH (08:32)
[2020-01-11] MEDS: PANTOprazole 40 MG TAB PO SCH (08:32)
[2020-01-11] MEDS: SUCRALFATE 1 GM/10 ML UDC PO SCH ×2 (08:32→12:16)
--- NOTE | 2020-01-11 08:36 | Discharge Summary ---
Date of Service January 11, 2020 History of Present Illness The patient presented to the ER on 01/02/2020 with suicidal ideation and a plan to hang himself, having made a noose, then calling family who brought him to the ER. He also reported epigastric and abdominal pain, insomnia, productive cough, daily alcohol use, and inability to eat x3 days. He was tachycardic, hypertensive, leukocytopenic, hyponatremic, hyperglycemic, with elevated lipase, transaminitis, and ethyl alcohol level of 304.7. CT abdomen and pelvis showed fluid in within the colon and fatty liver, EKG was normal. He was observed in the ER until sober, and began to have alcohol withdrawal symptoms, so was admitted to the hospitalist service for 4 days, where his withdrawal was treated per [facility] protocol with gabapentin taper and lorazepam as needed. He had a GI consultation for abdominal pain, thought to be due to gastritis and alcoholic hepatitis. Transaminases were monitored and decreased. He had thrombocytopenia and bilateral lower extremity neuropathy, both thought to be due to chronic alcohol abuse. Vitamin B12 was normal, Lyme and DEANNA drawn and pending. Physical therapy saw him and did not have any recommendations for acute treatment. The primary recommendation was that he go to inpatient rehab for addiction treatment, and cessation of alcohol use. He had psychiatric consultation on 01/03/2020, and given ongoing depression and SI, inpatient psychiatric treatment was recommended. Escitalopram was held as he had been noncompliant with it for several weeks prior to admission and was actively in withdrawal with alcoholic hepatitis, but was resumed upon medical clearance. He was medically cleared and transferred to the psychiatric unit voluntarily 01/07/2020. Most recent labs from yesterday show AST 105 (down from 129), and ALT 174 (down from 183). On my assessment, the patient states his mood has been depressed for a couple of months, was isolating, not eating due to stomach pain, and started having suicidal thoughts a few days prior to admission. He then says his mood is "always happy, if I see daylight, I'm happy," and that he only made the noose because he likes to make knots. He says he lied about his plan to end his life, and only said that so that he could "get help quicker." His reports today do not match his reports from his hospitalization prior to this, stating he loves life. He does say he is on escitalopram for depression, which was started in rehab last fall, and thinks it helps. States he lives with his mother and that she is healthy, although told staff he takes care of her. Says he helps her with shopping and lifting heavy things. Also reports good support from his s ister, uncle and aunt. He denies current depressive symptoms and SI, anxiety, psychosis and scott. States he sees his therapist weekly and when asked if he had told him he was drinking again, says "well I told him once, but he never really asked." States he isn't really sure when he relapsed and began drinking again, "hard to keep track of em, been to so many." Says he wants to "focus on recovery," but is refusing rehab, "not going again, I've been to 8 of em." States he will return to [facility] at [facility] in [place]. He says he goes to but doesn't have a sponsor, "I don't believe in sponsors, I don't believe in the 12 steps, I just go to vent and relax." He thinks Lexapro is helpful for mood and reports it has worked better than any other medication he's tried. Physical Exam Psychiatric Orientation: alert and cooperative Apperance: appropriately dressed, appropriately groomed and appeared stated age Eye Contact: good eye contact Motor Behavior: steady gait and station and no abnormal motor movements Speech: normal rate/rhythm/volume of speech Affect: euthymic affect and mood congruent with affect "Good." Thought Process: goal directed thought process Thought Content: reality based without delusions Suicidal Thoughts: denies suicidal thoughts Homicidal Thoughts: denies homicidal thoughts Hallucinations: no auditory hallucinations Cognition: recent memory grossly intact, attention grossly intact and language grossly intact Insight: + impaired insight Judgement: + fair judgement Vital Signs (Past 24 Hours) Last Vital Signs Temp 36.8 C 01/11/20 06:40 Pulse 79 01/11/20 06:40 Resp 18 01/11/20 06:40 BP 125/77 01/11/20 06:40 Principal Diagnosis Depression otherwise specified Alcohol use disorder, severe with withdrawal Psychiatric Data The patient was hospitalized for 4 days. He was initially on the hospitalist service for 5 days for alcohol withdrawal, alcoholic gastritis, transaminitis, neuropathy, and electrolyte abnormalities, all related to his drinking. He was seen on the psychiatric consultation service, and inpatient psychiatric treatment recommended due to suicidality on presentation to the hospital. His home psychotropic medications were held on the medical floor due to alcohol withdrawal, and escitalopram was resumed on transfer to the behavioral health unit, but doxepin was discontinued given his persistent transaminitis. LFTs were tracked and were decreasing but remained above normal levels (most recent values 01/09/2020 showed AST 52 and ALT 150). He was eating and sleeping well on the [facility], taking medications as prescribed, and attended and participated in groups and therapy. He minimized his alcoholism, gave inconsistent reports about periods of sobriety, and also minimized the suicidal ideation that he had reported when he initially presented to the hospital. He consistently denied depressive symptoms and SI while on the [facility]. He had agreed to rehab for his alcoholism while on the medical service, but on transfer to our unit initially refused, stating he would only do outpatient treatment, but did not want to do AA as he "doesn't believe in sponsors," and "doesn't believe in 12 steps." We attempted to contact his outpatient substance abuse counselor to coordinate care, but did not hear back from him. He had a family meeting with his sister and the social work nurse on 01/09/2020; his sister was able to confront the person regarding his poor insight and minimization of alcoholism and suicidal thoughts prior to presentation, telling him she feared he would from his alcoholism. The patient became tearful, and they processed stressors, including their mother, whom he lives with, who tells him he has to take care of her and do things for her because he promised his father he would. He admitted that he spends the majority of his day in the basement drinking, and ultimately agreed to recommendations for inpatient rehab. His sister agreed to go to his mother's home and remove the noose he had made from the basement. He was referred to rehab at [place], and transferred directly there from the hospital in order to minimize risk of relapse. Day of Discharge Assessment Staff report the patient is attending groups and participating, socializing with peers, taking medications as prescribed, and stating willingness to transition to rehab. On my assessment, he states his mood is "good," feels treatment has been helpful, and denies any suicidal thoughts since he came to the hospital. He states he is ready to take the next step and go to rehab, "this ain't my firs t rodeo, I know what to expect next." He says he is "ready to get this ball rolling." He thoughts of harming himself or anyone else, and reports good support from family. Reviewed the results of his Lyme and DEANNA screens with Dr. Covarrubias and the patient. PCP follow-up is scheduled in 1 month, after he returns from rehab. Transition of Care Transition Of Care Record: was reviewed with the patient Advance Directives Advance Directives Information Provided: Yes Advance Directives: No Mental Health Advance Directive: No Advance Directives on File: No Living Will: No Power of Repairer General: No Advance Directives Reason:: Declines as Mental Health Visit. Risk Factors Assessment Risk factors were mitigated by admission to the inpatient unit, use of medications to target mood symptoms, monitoring of labs related to liver damage from alcohol, treatment of comorbid medical conditions and coordination with hospitalist service, involving him in groups and therapy, working on healthy coping skills and discharge safety plan, education about the risks of ongoing substance abuse/recovery protocol, family meeting with his sister, and referral to inpatient rehab to address his alcoholism. He has demonstrated improved mood, has consistently denied suicidal thoughts in the hospital, is tolerating medications well, eating and drinking, and performing ADLs independently. He is being transferred directly to inpatient rehab at [place] today to address his addiction. He is no longer at acute risk of harm to himself, so can be managed at a rehab level of care at this time. He has consistently denied thoughts of harming others, has not been violent, aggressive or threatening, and is not at acute risk of harm to others. Male: Yes : Yes Do You Have Access To A Gun?: No Health Problems: Yes Mental Health Diagnoses: Yes Substance Use Disorders: Yes Previous Attempt: No Family History of Suicide: No Previous Psychiatric Hospitalization: Yes Hopelessness: No Smoker: Yes Protective Factors Assessment : No Responsible for Young Children: No Employed: No Supportive Family: Yes Good Rapport with Provider: No (Not honest with substance abuse counselor about his ongoing alcohol abuse.) Tobacco Cessation at Discharge Tobacco Cessation Medication Prescribed at Discharge: Offered & Prescribed Practical counseling provided including: recognizing danger situations, develo ping coping skills and providing basic information about quitting Tobacco Cessation Outpatient Followup: Outpatient referral made to (Inpatient rehab, then PCP) Total Time Total Time Spent: Greater Than 30 Minutes Total Time Includes: Examination of the patient, Discharge Planning, Medication Reconciliation and Communication with other providers Discharge Data Lab Results 01/09/20 07:40 Total Bilirubin 0.6 Direct Bilirubin 0.2 AST 52 H ALT 150 H Alkaline Phosphatase 83 Total Protein 7.8 Albumin 3.9 Hospital Course (1) Suicidal ideation: 01/07 -patient now minimizing depressive symptoms and SI. States that he lied about his plan to hang himself on presentation, and that he only said this to get help faster. We will start by calling his sister who was involved in bringing him to the hospital for collateral information, as I am concerned that he is misrepresenting his true state at the time of admission. Other co nsiderations include malingering. 01/08 - Pt now denying SI; giving conflicting information regarding factors contributing to his admission - Need to confirm that noose and other potentially harmful items (firearms, medications, etc) are secured - Family meeting with sister via phone today 01/09 - Pt continues to deny SI, future oriented in conversation and is now motivated for inpatient rehab (2) Depression: 01/07 -continue home dose of escitalopram 20 mg daily, which patient states has been effective and well-tolerated. Advised him that it is hepatically metabolized, and that given his alcoholic hepatitis, this will need to be monitored closely, and that if he continues to drink, he should probably not take this medication. -Refer for outpatient psychiatric care for dual diagnosis. -Discontinue doxepin as it is also hepatically metabolized and we are trying to minimize the strain on his liver given ongoing transaminitis. 01/08 - Continue medication regimen as above - Determine psychiatric capability of patient's requested IOP program. 01/09 - Continue current medication regimen - Pt continues to deny SI - and supportive family meeting with sister yesterday - Pt now interested in attending inpatient rehab at discharge, requesting referral to [facility] as he is familiar with this program (3) Alcohol dependence: 01/07 -withdrawal treated on the medical floor, resolved. 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 He expressed understanding. Reviewed that our primary recommend ation is for inpatient rehab, and then this is very strongly recommended as the best way for him to attain sobriety, followed by IOP and peers support groups such as AA. He, unfortunately, is now refusing this recommendation, although while on the medical floor had agreed. He is now only willing for IOP. -Contact his outpatient therapist, Narendra, at [facility] tomorrow for coordination of care. Patient had not been honest with him about his ongoing daily drinking. -Recovery protocol. -Avoid medications that are addictive/abusable, or hepatically metabolized. Brief intervention was offered and accepted Intervention was greater than 5 min in length. Brief interventions include: 1. Assess Readiness to Quit, 2. Advise: Help Patient to Reduce or Abstain from Alcohol, 3. Agree: Set Specific, Feasible Goals, 4. Assist: Anticipate barriers, Problem-Solving Solutions. Social work to 5. Arrange: Referrals to appropriate treatment. Summary of intervention: The patient is in contemplation stage with regards to transtheoretical model of change. The patient is advised to decrease alcohol consumption due to depressant effects and risk of interactions with prescription medications. The patient agreed to IOP, and will be provided with recovery materials to continue to education self on how to cope with their condition without drinking. 01/08 - Continued to discuss patient's motivation and goals related to his alcohol use. Pt continues to report goal to maintain sobriety on discharge but is unwilling to follow recommendation of inpatient D&A rehab. - Will coordinate IOP through [facility] and speak with patient's D&A counselor about recommendations 01/09 - Pt is now willing for referral to [facility] for inpatient [facility]A rehab - Will assist with coordinating referral (4) Neuropathy: 01/07 -continue home dose of gabapentin, and send records to PCP for coordination of care. -Vitamin B12 normal. Lyme and DEANNA still pending, he will complete the work-up with his PCP. 01/10 -Lyme and DEANNA results reviewed and discussed with Dr. Covarrubias; she reports Lyme is negative and DEANNA is positive, may be a normal variant. He may require a rheumatology referral, which will need to go through his PCP. She will communicate this to his PCP, and we have scheduled follow-up with Dr. John on 02/14/2020, after patient returns from rehab. (5) Smoker: 01/07 -patient has cut back smoking on his own to approximately 5 cigarettes/day. Continue patch and nicotine gum as needed, will discharge with prescription and follow-up with PCP for smoking cessation. (6) Abdominal pain: 01/07 -GI work-up on hospitalist service indicated pain and nausea were due to alcoholic gastritis and hepatitis, and he was started on pantoprazole 40 mg twice daily and sucralfate 1 g 4 times daily. Prescriptions were sent to his pharmacy by the hospitalist on discharge from their service. 01/08 - LFTs rechecked, levels remain elevated, but improved overall. AST - 52 (down from 105 on 01/06) and ALT - 150 (down from 174 on 01/06). - Recommendation from medical admission was for outpatient GI follow-up, with consideration for EGD. Mental Health & Subst Abuse Tx Therapist Name of Therapist: Miguelangel - Drug and Alcohol Counselor - Narendra Smith Therapist's Time of Therapist Appointment: Follow up post discharge from rehab Therapy Appointment Comment: [address] [place] [address] Senior Business Process Analyst Name of Senior Business Process Analyst: . Post Discharge Appointments Primary Care Physician Name Of Family Doctor: Lonnie [facility] Date of Appointment with PCP: 01/13/20 Time of Appointment with PCP: Follow up post discharge from rehab Provider Appointment Comment: [address] [place] [address] Smoking Cessation Counseling Tobacco Cessation Medication Prescribed at Discharge: Offered & Prescribed Contact Information Discharge Discharge Address: [facility]: [address] [place] [address] Contact Information Comment: Permanent Address: [address] [place] [id number] Discharge Plan Discharge Items Patient Disposition: Drug & Alcohol Rehab Reason For Visit: DEPRESSION NOS Discharge Diagnosis: Depression Alcohol dependence Activity: Per Instructions section Non-emergency contact: Primary Care Provider and Therapist Call non-emergency contact if: you have any medication questions and your symptoms worsen Follow-up/Referrals: PCP,NO [Primary Care Provider] - Diet: Regular Addtl Attending Provider Instructions: SPECIAL CARE INSTRUCTIONS: 1. Follow through with your scheduled aftercare appointments. If unable to keep an appointment, please call to reschedule. After you complete rehab, you can follow-up with [facility] and your therapist at [facility] in [facility]. 2. Take your medication only as prescribed. Medication should not be changed or stopped without the approval of your doctor. In the event of worsening symptoms or concerns about side effects, contact your doctor immediately. While you are on the hospitalist service, you were started on sucralfate and pantoprazole for GI symptoms. Dr. Covarrubias sent these prescriptions to your pharmacy for pickup when you complete rehab. On the medical service, you had Lyme and DEANNA testing (Lyme was negative, DEANNA screen was positive) -please follow-up with your PCP after completing rehab. 3. Utilize new healthy coping skills, anger management skills, and stress management skills learned during your hospitalization. Journal feelings and process them with a support person. Identify stressors or situations that may result in relapse, deterioration or inappropriate behaviors and develop a plan to deal with those issues. 4. If your coping skills are ineffective and you are in crisis, contact your outpatient providers for direction. If unable to reach your providers, please call the [facility] CRISIS LINE AT or go to the closest Emergency Room. 5. You should not drink alcohol, use recreational drugs, or take prescription medications that are addictive or abusable. 6. You have been provided with the Mental Health Advance Directives Pamphlet for your review. AFTERCARE APPOINTMENTS: * Please call your insurance company prior to your scheduled appointment to confirm your aftercare providers are covered. Take your insurance information to your appointments. WHO TO CALL AND WHEN: Medical Emergencies: For questions or emergencies related to your hospital stay, please contact the Inpatient Behavioral Health Unit at [phone]. A office clinician is on-call 01/12 for the Behavioral Health Unit for emergencies At any time you feel your situation is an emergency, you may also call 911 immediately. Your Doctors Instructions noted above were prepared by provider Madelyn Morrison MD. Pending Studies at Discharge: No Stand-Alone Forms: [facility] Sk[facility] Patient informed of condition?: Yes DNR: No Discharge Level of Care: Other Communicable Disease: No Discharge Prognosis: Improving Lines: None Urinary Catheter: No Medications and DC Order Prescriptions: New nicotine (polacrilex) [Nicorelief] 2 mg Gum 4 mg MT Q2H PRN (Reason: cravings) Qty: 1 RF: 0 nicotine [Nicoderm CQ] 21 mg/24 hr Patch 24 Hour 21 mg transdermal QAM Qty: 1 RF: 0 Continued folic acid 1 mg tablet 1 mg PO DAILY RF: 0 escitalopram oxalate 20 mg tablet 20 mg PO DAILY RF: 0 gabapentin 300 mg capsule 300 mg PO TID RF: 0 pantoprazole 40 mg Tablet,Delayed Release (Dr/Ec) 40 mg PO BID Qty: 60 RF: 1 sucralfate 100 mg/mL Suspension 1 g PO QID Qty: 420 RF: 0 Discontinued doxepin 100 mg capsule 100 mg PO HS RF: 0 Discharge Orders: Discharge Order (Routine); Ordered 01/11/20 Ordered By: Madelyn Morrison Admission Data Admit Date/Time: 01/07/20 18:20 Attending Provider: Madelyn Morrison Admit Provider: Madelyn Morrison Primary Care Provider: PCP,NO Other Interventions: Discharge Summary Assessment (RN) Last Done: 01/11/20 10:56 PSY Interdisciplinary Discharge Planning Last Done: 01/11/20 10:56 Coding Level of Care Code 26347 D/C day mgmt > 30 min Diagnoses Suicidal ideation R45.851 Depression F32.9 Alcohol dependence F10.20 Neuropathy G62.9 Smoker F17.200 Abdominal pain R10.9
== END 2020-01-11 14:32 | disposition alcohol treatment (31) | DRG 897 ==
LOC: 3S 18:20

== ENCOUNTER 2020-12-27 12:13 | Inpatient (IN) ==
[2020-12-27 14:04] LABS: Basophils # (auto) 0.01 K/uL (0-0.2); Basophils % (auto) 0.4 %; Hematocrit (blood only) 45.2 % (42-52); Hemoglobin 15.9 g/dL (14.0-18.0); Lymphocytes # (auto) 0.26 K/uL (1.2-3.4); Lymphocytes % (auto) 10.3 %; Mean Corpuscular Hemoglobin 32.9 pg (25-34); Mean Corpuscular Hgb Conc 35.2 g/dL (32-36); Mean Corpuscular Volume 93.6 fL (80-100); Mean Platelet Volume 9.7 fL (7.4-10.4); Monocytes # (auto) 0.09 K/uL (0.11-0.59); Monocytes % (auto) 3.6 %; Neutrophils # (auto) 2.17 K/uL (1.4-6.5); Neutrophils % (auto) 85.7 %; Platelet Count 129 K/uL (130-400); RDW Coefficient of Variation 13.9 % (11.5-14.5); RDW Standard Deviation 48.1 fL (36.4-46.3); Red Blood Count 4.83 M/uL (4.7-6.1); White Blood Count 2.53 K/uL (4.8-10.8)
[2020-12-27] MEDS ORDERED: MULTI-VITAMIN INFUSION 10 ML, THIAMINE HCL 100 MG, FOLIC ACID 1 MG in SODIUM CHLORIDE 0... IV ONE (14:07)
--- NOTE | 2020-12-27 14:07 | Emergency Department Note ---
History of Present Illness General Chief complaint: Weakness Stated complaint: diaphoretic, detox Time Seen by Provider: 12/27/20 14:05 Home Medications Medication Instructions Recorded Confirmed Type escitalopram oxalate 20 mg tablet 20 mg PO QAM 01/02/20 11/04/20 History folic acid 1 mg tablet 1 mg PO QAM 01/02/20 11/04/20 History gabapentin 300 mg capsule 300 mg PO TID 01/02/20 11/04/20 History pantoprazole 40 mg tablet,delayed 40 mg PO BID #60 tab 01/07/20 11/04/20 Rx release sucralfate 100 mg/mL oral 1 g PO QID #420 ml 01/07/20 11/04/20 Rx suspension doxepin 100 mg capsule 100 mg PO HS 11/04/20 11/04/20 History oxycodone 5 mg tablet (Roxicodone) 5 mg PO Q6H PRN #12 tab 11/04/20 Rx prazosin 2 mg capsule (Minipress) 2 mg PO HS 11/04/20 11/04/20 History propranolol 10 mg tablet 10 mg PO BID 11/04/20 11/04/20 History Allergies Allergy/AdvReac Type Severity Reaction Status Date / Time codeine Allergy Intermediate GI SYMPTOMS Verified 11/04/20 09:16 meperidine Allergy Intermediate CAUSES Verified 11/04/20 09:16 CONFUSION Penicillins Allergy Mild FINGERS Verified 11/04/20 09:16 SWELLED A CHILD Past Med/Surg History Medical History Abdominal pain Alcohol dependence Anxiety Depression Pancreatitis Suicidal ideation Social History Smoking Status: Current every day smoker Tobacco Type: Cigarettes Cigarettes Per Day: 20; Second Hand Exposure: Yes; Hx Alcohol Use: Yes Alcohol type: beer Hx Substance Use: No Preferred Language: Kinyarwanda Communication Ability: Effective Auction Assistant Required: No Beliefs That Will Affect Care: [employer] (Druze) marital status: Single Current Living Situation: Parent Feels Safe at Home: Yes Assistive Devices: None Physical Exam Vital Signs Vital Signs - 24 hr 12/27/20 12:20 12/27/20 12:26 12/27/20 12:30 Temperature 34.0 C L Temperature Source Rectal Pulse Rate 68 53 L 53 L Pulse Rate from SpO2 Sensor 53 L Pulse Rhythm Regular Pulse Strength Normal Respiratory Rate 15 20 10 L Respiratory Effort / Characteristics Non-Labored Spontaneous Respiratory Depth Normal Blood Pressure 137/85 131/83 131/83 Blood Pressure Mean 102 99 99 Pulse Oximetry 98 99 Oxygen Delivery Method Room Air Oxygen Flow Rate Sepsis Recent Fever Within 48 Hours No Sepsis New/Unexplained Change in Mental Status N/A Sepsis Action Taken by Nursing No Action Required 12/27/20 12:36 12/27/20 13:00 12/27/20 13:30 Temperature 35.1 C L Temperature Source Pulse Rate 53 L 58 L Pulse Rate from SpO2 Sensor 53 L 58 L Pulse Rhythm Pulse Strength Respiratory Rate 10 L 12 Respiratory Effort / Characteristics Respiratory Depth Blood Pressure 129/80 129/87 Blood Pressure Mean 96 101 Pulse Oximetry 98 99 98 Oxygen Delivery Method Room Air Oxygen Flow Rate 0 Sepsis Recent Fever Within 48 Hours Sepsis New/Unexplained Change in Mental Status Sepsis Action Taken by Nursing 12/27/20 13:42 Temperature Temperature Source Pulse Rate Pulse Rate from SpO2 Sensor Pulse Rhythm Pulse Strength Respiratory Rate Respiratory Effort / Characteristics Respiratory Depth Blood Pressure Blood Pressure Mean Pulse Oximetry 97 Oxygen Delivery Method Room Air Oxygen Flow Rate Sepsis Recent Fever Within 48 Hours Sepsis New/Unexplained Change in Mental Status Sepsis Action Taken by Nursing Medical Decision Making Laboratory Data Result diagrams: 12/27/20 13:55 12/27/20 13:55 Lab Results 12/27/20 12/27/20 Range/Units 12:22 13:55 WBC 2.53 L (4.8-10.8) K/uL RBC 4.83 (4.7-6.1) M/uL Hgb 15.9 (14.0-18.0) g/dL Hct 45.2 (42-52) % MCV 93.6 (80-100) fL MCH 32.9 (25-34) pg MCHC 35.2 (32-36) g/dL RDW Std Deviation 48.1 H (36.4-46.3) fL RDW Coeff of Florencio 13.9 (11.5-14.5) % Plt Count 129 L (130-400) K/uL MPV 9.7 (7.4-10.4) fL Immature Gran % (Auto) 0.0 % Neut % (Auto) 85.7 % Lymph % (Auto) 10.3 % [place] % (Auto) 3.6 % Eos % (Auto) 0.0 % Baso % (Auto) 0.4 % Neut # (Auto) 2.17 (1.4-6.5) K/uL Lymph # (Auto) 0.26 L (1.2-3.4) K/uL [place] # (Auto) 0.09 L (0.11-0.59) K/uL Eos # (Auto) 0.00 (0-0.5) K/uL Baso # (Auto) 0.01 (0-0.2) K/uL Immature Gran # (Auto) 0.00 (0.00-0.02) K/uL POC Glucose 166 H (70-99) mg/dl Discharge Plan Visit Data Chief Complaint: Weakness Stated Complaint: diaphoretic, detox ED Provider: Justin Calvillo Forms Stand Alone Forms: [facility] Prescriptions Prescriptions: No Action folic acid 1 mg tablet 1 mg PO QAM RF: 0 escitalopram oxalate 20 mg tablet 20 mg PO QAM RF: 0 gabapentin 300 mg capsule 300 mg PO TID RF: 0 pantoprazole 40 mg Tablet,Delayed Release (Dr/Ec) 40 mg PO BID Qty: 60 RF: 1 sucralfate 100 mg/mL Suspension 1 g PO QID Qty: 420 RF: 0 propranolol 10 mg tablet 10 mg PO BID RF: 0 doxepin 100 mg capsule 100 mg PO HS RF: 0 prazosin [Minipress] 2 mg capsule 2 mg PO HS RF: 0 oxycodone [Roxicodone] 5 mg tablet 5 mg PO Q6H PRN (Reason: pain) Qty: 12 RF: 0 Referrals Referrals: Jomar Richard MD [Primary Care Provider] -
[2020-12-27] MEDS ORDERED: LORazepam 1 MG/2 ML VIAL IV STA ×2 (14:13→16:10)
--- NOTE | 2020-12-27 14:13 | XRay Report ---
XR chest 1V portable HISTORY: weakness COMPARISON: Chest and right rib series 11/04/2020. FINDINGS: There again noted also nondisplaced right posterior rib fractures. These are better appreci ated on the recent right rib series. No pneumothorax. No pleural effusions. Stable calcified granulom a seen within the lungs. No evidence for pulmonary edema. The heart is normal in size. No new focal l farooq consolidations to suggest pneumonia. IMPRESSION: Redemonstration of the nondisplaced right posterior rib fractures. Otherwise, no acute process within the chest. ACT 112: Negative or not required by law. Electronically signed by: Bassem Díaz M.D. 12/27/2020 2:11 PM
[2020-12-27 14:19] LABS: Echinocytes 1+
[2020-12-27 14:23] LABS: Albumin Level 4.3 gm/dl (3.4-5.0); Calcium 8.9 mg/dl (8.5-10.1); Creatinine Clr Calc Pharmacy 125.9 ml/min; Est GFR (African American) 128.7 ml/min; Est GFR (Non-African American) 111.1 ml/min; Potassium 3.8 mmol/L (3.5-5.1)
[2020-12-27 14:33] LABS: Albumin Globulin Ratio 1.1 (0.9-2); Bilirubin,Total 0.7 mg/dl (0.2-1); Globulin 3.8 gm/dl (2.5-4.0); Thyroid Stimulating Hormone 0.596 uIu/ml (0.300-4.500); Total Protein 8.1 gm/dl (6.4-8.2)
--- NOTE | 2020-12-27 15:03 | CT Scan Report ---
CT head/brain wo con CLINICAL HISTORY: 55 years-old Male with fall. Acute head trauma status post fall TECHNIQUE: Multiple axial CT images of the head were obtained without contrast. A dose lowering tech nique was utilized adhering to the principles of ALARA. CT DOSE: 729.78 mGycm COMPARISON: Head CT 04/20/2015 FINDINGS: No acute intracranial hemorrhage, midline shift, intracranial mass, hydrocephalus, territorial ischem ia or abnormal extra-axial collection. The calvarium is intact. The paranasal sinuses, mastoid air cells, and middle ear cavities are clear . IMPRESSION: No acute intracranial abnormality or calvarial fracture. ACT 112: Negative or not required by law. The above report was generated using voice recognition software. It may contain grammatical, syntax o r spelling errors. Electronically signed by: Shamir Flynn M.D. 12/27/2020 3:01 PM
[2020-12-27 15:04] LABS: Magnesium 1.8 mg/dl (1.8-2.4); Troponin I < 0.015 ng/ml (0-0.045)
--- NOTE | 2020-12-27 15:12 | CT Scan Report ---
CT OF THE CERVICAL SPINE CLINICAL HISTORY: found down COMPARISON STUDY: No previous studies for comparison. CT DOSE: 456.66 mGycm TECHNIQUE: CT scan of the cervical spine was performed from the skull base to the thoracic inlet. Jyoti ges are reviewed in the axial, sagittal, and coronal planes. IV contrast was not administered for thi s examination. A dose lowering technique was utilized adhering to the principles of ALARA. FINDINGS: The visualized portions of the lung apices reveal no evidence of pneumothorax. The prevertebral soft tissues are normal. No fractures or subluxations are visualized. Normal cervical lordosis is preserved. Minimal intervertebral disc space narrowing is seen at the C5-C6 and C6-7 level with anterior and pos terior osteophytes. No significant central canal stenosis is seen. Minimal neural foraminal narrowing is seen at the C5-C6 and C6-C7 on the left and at the C6-C7 level on the right. IMPRESSION: No acute fracture or traumatic malalignment. Mild multilevel degenerative changes as detailed above. ACT 112: Negative or not required by law. The above report was generated using voice recognition software. It may contain grammatical, syntax o r spelling errors. Electronically signed by: Abby Crowley DO 12/27/2020 3:11 PM
[2020-12-27 15:27] LABS: Folate (Folic Acid) > 20.00 ng/ml (>5.38); Vitamin B12 936 pg/ml (193-986)
--- NOTE | 2020-12-27 15:48 | XRay Report ---
XR ribs RT min 2V w CXR1V CLINICAL HISTORY: pain post ?fall; h/o prior rib frx's that side 4 w COMPARISON STUDY: November 04, 2020 FINDINGS: No pneumothorax. No pleural effusion. No large infiltrates or consolidative lesions are seen. Cardiomediastinal silhouette is within normal limits in size. No significant pulmonary vascular congestion.. Osseous structures: unremarkable.Previously seen fractures of posterior aspect of the ninth and 10th right ribs are no longer visualized. No new acute displaced rib fractures demonstrated. IMPRESSION: 1. No acute pulmonary process. 2. No definite acute displaced rib fractures seen. ACT 112: Negative or not required by law. The above report was generated using voice recognition software. It may contain grammatical, syntax o r spelling errors. Electronically signed by: Abby Crowley DO 12/27/2020 3:46 PM
--- NOTE | 2020-12-27 16:24 | History & Physical Report ---
Date of Service December 27, 2020 Assessment & Plan (1) Alcohol withdrawal: (2) Alcoholic intoxication: (3) Hypothermia: (4) Acute hyponatremia: (5) Hypoglycemia: (6) Thrombocytopenia: (7) Rib fracture: (8) Emphysema of lung: (9) Depression: Plan: This is a 55-year-old male who has significant past medical history of alcohol abuse, depression with anxiety, history of pancreatitis, history of gastritis, tobacco abuse who presents to ED 2/2 to attempting to rehab at home from alcohol. Alcohol abuse/intoxication Alcohol withdrawal Hypothermia Metabolic acidosis likely 2/2 to acute alcohol abuse, ETOH level 188 LR @ 125cc/hr Gabapentin taper per protocol IV ativan prn continue folic acid and b12 encourage alcohol cessation/rehab, pt refusing currently stating he has been there 8 times in past Transaminitis 2/2 to alcohol use monitor lfts, does not meet criteria for alcoholic hepatitis Liver US 12/2019 revealed mild hepatomegaly and possible fatty infiltration of liver need to follow up with [facility] will obtain US for follow up Hyponatremia, chronic likely 2/2 to etoh use obtain serum osm, urine osm, urine na continue IVF, monitor bmp Hypoglycemia obtain a1c in a.m., no hx of t2dm likely alcohol induced, poor intake R rib fracture, 9 and 10, non displaced lidoderm patch, incentive spirometry supportive care Emphysema of lung Tobacco abuse nicotine patch encourage smoking cessation Depression mood stable continue escitalopram, doxepin, prazosin, propranolol DVT ppx: Lovenox Dispo: PCU PCP: Hilary FULL CODE Pt was seen and examined in collaboration with Dr. Torrez, please see addendum History of Present Illness Chief Complaint: Attempting to rehab at home from ETOH. Primary Care Provider: Jomar Richard MD This is a 55-year-old male who has significant past medical history of alcohol abuse, depression with anxiety, history of pancreatitis, history of gastritis, tobacco abuse who presents to ED 2/2 to attempting to rehab at home from alcohol. He was found down at home diaphoretic and hypothermic and was brought in via EMS. BSG on arrival was 40 and he required amp of D50. According to patient he is attempting to rehab from alcohol while at home. His last alcoholic beverage was yesterday. Of significance he was seen in ED a few weeks prior secondary to fall with rib fractures. He states he got his feet tangled in sheets and fell on his right side. Earlier today patient admits he went downstairs and felt sweaty and then cold and opted to lay on the floor. He continued to have sweats and generally felt weak and unable to get up. His mother found him about an hour later and called EMS. He states he last drank yesterday approximately 6-8 beers. He also smoked weed approximately 2 days ago. He continues to smoke tobacco. He admits to being in a rehab a times admitting it is never, "worked for him." He does not wish to return to rehab. He further complains of itchy watery eyes, rhinorrhea and inability to eat. He states he is afraid to eat secondary to straining causing him to have right rib pain. Right rib pain is also made worse with deep breathing. Per EMS paperwork patient's temp on arrival was 91.8. He was also hypothermic in ED which improved with bear hugger. His alcohol level was found to be extremely high at 188.6. Further lab abnormalities include sodium 129, chloride 96, anion gap 17, BUN six, creatinine 0.65, glucose 123, AST 299, ALT 233. Rib series x-ray revealed previous fractures on right ribs nine and 10 nondisplaced. In ED he did receive banana bag and IV lorazepam. Patient denies prior history of alcohol withdrawal despite multiple rehab attempts or seizure-like activity. Allergies Allergy/AdvReac Type Severity Reaction Status Date / Time codeine Allergy Intermediate GI SYMPTOMS Verified 11/04/20 09:16 meperidine Allergy Intermediate CAUSES Verified 11/04/20 09:16 CONFUSION Penicillins Allergy Mild FINGERS Verified 11/04/20 09:16 SWELLED A CHILD Home Medications Medication Instructions Recorded Confirmed Type escitalopram oxalate 20 mg tablet 20 mg PO QAM 01/02/20 12/27/20 History folic acid 1 mg tablet 1 mg PO QAM 01/02/20 12/27/20 History gabapentin 300 mg capsule 300 mg PO TID 01/02/20 12/27/20 History pantoprazole 40 mg tablet,delayed 40 mg PO BID #60 tab 01/07/20 12/27/20 Rx release doxepin 100 mg capsule 100 mg PO HS 11/04/20 12/27/20 History prazosin 2 mg capsule (Minipress) 2 mg PO HS 11/04/20 12/27/20 History propranolol 10 mg tablet 10 mg PO BID 11/04/20 12/27/20 History Past Med/Surg History Medical History (Updated 12/27/20 @ 16:57 by Milady Hernandez PA-C) Abdominal pain Alcohol dependence Anxiety Depression Pancreatitis Suicidal ideation Surgical History History of colonoscopy History of esophagogastroduodenoscopy (EGD) History of tonsillectomy Family History Father Alcohol abuse Cirrhosis Social History Smoking Status: Current every day smoker Tobacco Type: Cigarettes Cigarettes Per Day: 10; Second Hand Exposure: Yes; Hx Alcohol Use: Yes Alcohol type: beer Hx Substance Use: Yes Last Used Substance: Days (ago) Preferred Language: Icelandic Communication Ability: Effective Arc Cutter Plasma Arc Required: No Beliefs That Will Affect Care: None marital status: Single Current Living Situation: Parent Other Information That Helps Us Care for You: No Feels Safe at Home: Yes Safety Concerns: Feels Safe At This Time Assistive Devices: None Review of Systems Review of Systems: All systems reviewed & are unremarkable except as noted in HPI & below Physical Exam Physical Exam: Constitutional: WD/WN, facial hair unkempt, vitals as above, NAD, sitting up in bed, pleasant, conversing easily Head: Normocephalic, Atraumatic Eyes: PERRL, conjunctivae normal, anicteric sclerae ENMT: external ear and nose normal, oropharynx normal Neck: trachea midline, no thyromegaly normal visual inspection Respiratory: normal respiratory effort, but guarded secondary to pain, lungs clear to auscultation, no wheeze, rales, rhonchi. Normal insp/exp effort, no accessory muscle use Cardiovascular: RRR, no murmur, no edema Vessels: no JVD or carotid bruit Chest: normal inspection of chest Abdomen: normal bowel sounds, soft, nontender, no hepatosplenomegaly Musculoskeletal: no cyanosis or clubbing, extremities motor strength 5/5 Skin: no rashes, warm and dry normal turgor Neurologic: PERRL, EOMI, accommodation nl, no face palsy, no dysarthria CN's II-XI intact bilaterally and moves all extremities Psychiatric: A+Ox3, euthymic affect Lymphatic: no cervical or axillary lymphadenopathy : deferred Results & Data Results & Data ([facility]) Vital Signs (Past 12 Hours) Vital Signs Temp Pulse Resp BP Pulse Ox 12/27/20 15:35 36.3 C L 12/27/20 14:00 80 12 139/93 99 12/27/20 13:42 97 12/27/20 13:30 35.1 C L 58 L 12 129/87 98 12/27/20 13:00 53 L 10 L 129/80 99 12/27/20 12:36 98 12/27/20 12:30 53 L 10 L 131/83 99 12/27/20 12:26 34.0 C L 53 L 20 131/83 98 12/27/20 12:20 68 15 137/85 Diagnostic Findings Chest X-Ray 12/27/20 13:41 XR chest 1V portable HISTORY: weakness COMPARISON: Chest and right rib series 11/04/2020. FINDINGS: There again noted also nondisplaced right posterior rib fractures. These are better appreciated on the recent right rib series. No pneumothorax. No pleural effusions. Stable calcified granuloma seen within the lungs. No evidence for pulmonary edema. The heart is normal in size. No new focal lung consolidations to suggest pneumonia. IMPRESSION: Redemonstration of the nondisplaced right posterior rib fractures. Otherwise, no acute process within the chest. ACT 112: Negative or not required by law. Electronically signed by: Bassem Díaz M.D. 12/27/2020 2:[address] 12/27/20 14:07 CT OF THE CERVICAL SPINE CLINICAL HISTORY: found down COMPARISON STUDY: No previous studies for comparison. CT DOSE: 456.66 mGycm TECHNIQUE: CT scan of the cervical spine was performed from the skull base to the thoracic inlet. Images are reviewed in the axial, sagittal, and coronal planes. IV contrast was not administered for this examination. A dose lowering technique was utilized adhering to the principles of ALARA. FINDINGS: The visualized portions of the lung apices reveal no evidence of pneumothorax. The prevertebral soft tissues are normal. No fractures or subluxations are visu alized. Normal cervical lordosis is preserved. Minimal intervertebral disc space narrowing is seen at the C5-C6 and C6-7 level with anterior and posterior osteophytes. No significant central canal stenosis is seen. Minimal neural foraminal narrowing is seen at the C5-C6 and C6-C7 on the left and at the C6-C7 level on the right. IMPRESSION: No acute fracture or traumatic malalignment. Mild multilevel degenerative changes as detailed above. ACT 112: Negative or not required by law. The above report was generated using voice recognition software. It may contain grammatical, syntax or spelling errors. Electronically signed by: Abby Crowley DO 12/27/2020 3:[address] 12/27/20 14:07 CT head/brain wo con CLINICAL HISTORY: 55 years-old Male with fall. Acute head trauma status post fall TECHNIQUE: Multiple axial CT images of the head were obtained without contrast. A dose lowering technique was utilized adhering to the principles of ALARA. CT DOSE: 729.78 mGycm COMPARISON: Head CT 04/20/2015 FINDINGS: No acute intracranial hemorrhage, midline shift, intracranial mass, hydrocephalus, territorial ischemia or abnormal extra-axial collection. The calvarium is intact. The paranasal sinuses, mastoid air cells, and middle ear cavities are clear. IMPRESSION: No acute intracranial abnormality or calvarial fracture. ACT 112: Negative or not required by law. The above report was generated using voice recognition software. It may contain grammatical, syntax or spelling errors. Electronically signed by: Shamir Flynn M.D. 12/27/2020 3:01 PM Ribs w/Chest X-Ray 12/27/20 14:13 XR ribs RT min 2V w CXR1V CLINICAL HISTORY: pain post ?fall; h/o prior rib frx's that side 4 w COMPARISON STUDY: November 04, 2020 FINDINGS: No pneumothorax. No pleural effusion. No large infiltrates or consolidative lesions are seen. Cardiomediastinal silhouette is within normal limits in size. No significant pulmonary vascular congestion.. Osseous structures: unremarkable.Previously seen fractures of posterior aspect of the ninth and 10th right ribs are no longer visualized. No new acute displaced rib fractures demonstrated. IMPRESSION: 1. No acute pulmonary process. 2. No definite acute displaced rib fractures seen. ACT 112: Negative or not required by law. The above report was generated using voice recognition software. It may contain grammatical, syntax or spelling errors. Electronically signed by: Abby Crowley DO 12/27/2020 3:46 PM Medications Administered Medication List Discontinued Medications Multivitamins 10 ml/ Thiamine HCl 100 mg/ Folic Acid 1 mg/Sodium Chloride 1,011.2 mls @ 1,011.2 mls/hr IV .Q1H ONE Stop: 12/27/20 15:06 Last Admin: 12/27/20 14:42 Dose: 1,011.2 mls/hr Documented by: [id number] Lorazepam (Ativan) 1 mg in 2 mls @ 2 mls/min IV NOW STA Stop: 12/27/20 14:14 Last Admin: 12/27/20 14:37 Dose: 2 mls/min Documented by: [id number] ECG Rate (beats per minute): 62 Rhythm: normal sinus COVID-19 Results Results COVID-19 Adm Lab Results: RBC 4.83 M/uL (4.7-6.1) 12/27/20 WBC 2.53 K/uL (4.8-10.8) L 12/27/20 Hgb 15.9 g/dL (14.0-18.0) 12/27/20 Hct 45.2 % (42-52) 12/27/20 Plt Count 129 K/uL (130-400) L 12/27/20 Neutrophils (%) (Auto) 85.7 % 12/27/20 Lymphocytes (%) (Auto) 10.3 % 12/27/20 Monocytes # (Auto) 0.09 K/uL (0.11-0.59) L 12/27/20 Eosinophils # (Auto) 0.00 K/uL (0-0.5) 12/27/20 Immature Granulocyte % (Auto) 0.0 % 12/27/20 Neutrophils # (Auto) 2.17 K/uL (1.4-6.5) 12/27/20 Lymphocytes # (Auto) 0.26 K/uL (1.2-3.4) L 12/27/20 Monocytes # (Auto) 0.09 K/uL (0.11-0.59) L 12/27/20 Eosinophils # (Auto) 0.00 K/uL (0-0.5) 12/27/20 Basophils # (Auto) 0.01 K/uL (0-0.2) 12/27/20 Immature Granulocyte # (Auto) 0.00 K/uL (0.00-0.02) 12/27/20 Echinocytes 1+ 12/27/20 Na 129 mmol/L (136-145) L 12/27/20 K 3.8 mmol/L (3.5-5.1) 12/27/20 Cl 96 mmol/L (98-107) L 12/27/20 CO2 16 mmol/L (21-32) L 12/27/20 Anion Gap 17.0 (3-11) H 12/27/20 BUN 6 mg/dl (7-18) L 12/27/20 Creatinine 0.65 mg/dl (0.6-1.4) 12/27/20 BUN/Creatinine Ratio 9.0 (10-20) L 12/27/20 Glucose Level 136 mg/dl (70-99) H 12/27/20 Ca 8.9 mg/dl (8.5-10.1) 12/27/20 Total Bilirubin 0.7 mg/dl (0.2-1) 12/27/20 AST/SGOT 299 U/L (15-37) H 12/27/20 ALT/SGPT 233 U/L (12-78) H 12/27/20 Alkaline Phosphatase 116 U/L (45-117) 12/27/20 Total Protein 8.1 gm/dl (6.4-8.2) 12/27/20 Albumin 4.3 gm/dl (3.4-5.0) 12/27/20 Globulin 3.8 gm/dl (2.5-4.0) 12/27/20 Albumin/Globulin Ratio 1.1 (0.9-2) 12/27/20 Troponin I < 0.015 ng/ml (0-0.045) 12/27/20 COVID-19 PCR NEGATIVE (Negative) 12/27/20 Chest X-Ray 12/27/20 Code Status & VTE Plan Code Status Full Code VTE Prophylaxis Plan VTE Prophylaxis will be ordered: Yes Supervising Physician Co-Signing Physician Notes Patient is a 55-year-old male with history of alcohol abuse, tobacco use disorder and other medical problems presents with history of alcohol intoxication. He was found to be hypothermic, hypoglycemic when checked by EMS. He admits to drinking 6-8 beers per day. States having right rib pain from recent rib fractures secondary to fall. Please review HPI for complete details of presentation. Blood work suggestive of hyponatremia 129, anion gap metabolic acidosis, transaminitis, alcohol levels 188. On exam patient is moderately built and nourished, unkept, poor oral hygiene, no distress, normocephalic atraumatic, EOMI, decreased breath sounds, clear to auscultation, S1-S2, no murmur, no pedal edema, abdomen soft, nontender, normal bowel sounds, alert, awake, oriented, grossly no focal deficits. Patient is admitted for management of alcohol intoxication, metabolic acidosis, hyponatremia. Agree with IV fluids, thiamine, folic acid, gabapentin protocol. Case management to help with discharge planning. Counseled to quit drinking alcohol. Monitor LFTs. Avoid hepatotoxic agents. Agree with hyponatremia work-up, monitor sodium levels. Monitor for hypoglycemia as well. I personally reviewed the record. Patient is interviewed and examined at bedside. Patient's care is coordinated with Milady Hernandez PA-C. Please refer to the documentation above for details of patient's presentation and for discussion of other issues. (1) Alcoholic intoxication Complication of substance-induced condition: uncomplicated Qualified Code(s): F10.920 - Alcohol use, unspecified with intoxication, uncomplicated
[2020-12-27] MEDS ORDERED: LORazepam 1 MG/2 ML VIAL IV PRN (18:48)
[2020-12-27] MEDS ORDERED: MAGNESIUM HYDROXIDE SUSP 30 ML UDC PO PRN (18:48)
[2020-12-27] MEDS ORDERED: ONDANSETRON INJ 2 MG/ML 2 ML VIAL IV PRN (18:48)
[2020-12-27] MEDS ORDERED: LACTATED RINGER'S 1,000 ML IV SCH (18:48)
[2020-12-27] MEDS ORDERED: POLYETHYLENE (MIRALAX) 17 GM PACK PO PRN (18:48)
[2020-12-27] MEDS ORDERED: ALUMINUM/MAGNESIUM SUSP 30 ML UDC PO PRN (18:48)
[2020-12-27] MEDS ORDERED: GABAPENTIN 1200MG ALCOHOL WITHDRAWAL LOAD PO STA (18:48)
[2020-12-27] MEDS ORDERED: ACETAMINOPHEN 325 MG TAB PO PRN (18:48)
[2020-12-27] MEDS ORDERED: GABAPENTIN 600 MG TAB PO ONE (19:15)
[2020-12-27] MEDS: FOLIC ACID 1 MG TAB PO SCH (19:46)
[2020-12-27] MEDS: NICOTINE 21 MG/24 HR TDSY TD SCH (19:46)
[2020-12-27] MEDS: LIDOCAINE 5% 1 PATCH TD SCH (19:46)
[2020-12-27] MEDS: THIAMINE HCL 100 MG TAB PO SCH (19:46)
--- NOTE | 2020-12-27 20:10 | Emergency Department Note ---
Impression & Plan Alcohol abuse, Hypothermia, Dehydration, Transaminitis ED Provider Note NAME: RICK BLANTON AGE: 55 SEX: M : 1965 ARRIVES VIA: Ambulance INFORMANT: Patient, ED PROVIDER(S): Justin Calvillo MD Chief Complaint: Found down, hypothermia, possible alcohol HPI: Patient does present after being found down in his parents residence as the patient does live with his mother. The patient reportedly was hypothermic. BSG was in the 40s and 50s and thus was given dextrose in route. The patient did present and had some complaints of some right-sided chest wall pain. The patient does have a recent history of a similar event where the patient did have several right-sided rib fractures. Patient denies any fevers or chills. Patient denies any abdominal pain or vomiting. The patient does admit to chronic alcohol use and typically drinks about a sixpack at night. The patient does use tobacco but denies drugs. The patient denies any numbness tingling or focal weakness. He denies any head or neck pain. The patient states he feels improved compared to before. Patient does state that the pain in his right chest is typically worse with breathing or palpation. He describes it as occasionally sharp in nature. ROS: See HPI for pertinent positives and negatives. A total of 10 systems were reviewed and otherwise negative. Past medical history: See below Surgical history: See below Social history: See below Physical Exam: GENERAL: NAD, wearing a mask, non-toxic. EYE EXAM: Normal conjunctiva. PERRL, no anisocoria and EOM's grossly intact w/o pain. NECK: Supple, no nuchal rigidity, no adenopathy, non-tender. No signs of meningismus. No midline C-spine TTP. Chest: Mild right-sided chest wall pain without obvious flail chest crepitus or ecchymosis. LUNGS: Clear to auscultation. Normal chest wall mechanics. HEART: NSR, no MRG. ABDOMEN: Abdomen soft, non-tender, normo-active bowel sounds, no masses, no rebound or guarding. BACK: No CVA TTP. SKIN: No rashes and no bruising. UPPER EXTREMITIES: Upper extremities are grossly normal. LOWER EXTREMITIES: Grossly normal, no edema. NEURO EXAM: A&O x3, cranial nerves II-XII grossly intact, normal speech, moves all 4 extremities on command w/o issue. Differential diagnoses: Infection, dehydration, metabolic abnormality, hypo/hyperglycemia, electrolyte disturbance, anemia, hypoxia, cardiac sources, intracerebral event, toxicologic, neurologic, as well as other pathologies. Course: Patient was seen and evaluated the bedside. Full history physical exam was performed. EKG interpreted by me Normal sinus rhythm, rate of 62, normal intervals, normal axis, no ST changes or T WI. Imaging Studies: See Below Cardiac monitoring: An order was placed for continuous cardiac monitoring. The monitor shows a rate of 65 with sinus rhythm. MDM: Patient did present with concern for being found down and hypothermia. Blood work was obtained. The patient did have a CT of the head and cervical spine performed along with a rib series. The patient's blood work did show a leukopenia and thrombocytopenia with associated hyponatremia. Patient does have slightly lower bicarb and elevated anion gap. This may be because of dehydration and the patient's chronic alcohol use. The patient has a negative troponin and unremarkable EKG. The patient was ordered a banana bag. Alcohol 180. Covid negative. Rib series does not show any acute changes just the chronic fractures. CT of the head is negative. Given the patient's electrolyte abnormalities and hypothermia I did speak with the on-call hospitalist the patient was admitted by Dr. Torrez. 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 Beliefs That Will Affect Care: None marital status: Single Current Living Situation: Parent Other Information That Helps Us Care for You: No Feels Safe at Home: Yes Safety Concerns: Feels Safe At This Time Assistive Devices: None Allergies Allergies Allergy/AdvReac Type Severity Reaction Status Date / Time codeine Allergy Intermediate GI SYMPTOMS Verified 11/04/20 09:16 meperidine Allergy Intermediate CAUSES Verified 11/04/20 09:16 CONFUSION Penicillins Allergy Mild FINGERS Verified 11/04/20 09:16 SWELLED A CHILD Home Meds Home Medications Medication Instructions Recorded Confirmed escitalopram oxalate 20 mg tablet 20 mg PO QAM 01/02/20 12/27/20 folic acid 1 mg tablet 1 mg PO QAM 01/02/20 12/27/20 gabapentin 300 mg capsule 300 mg PO TID 01/02/20 12/27/20 doxepin 100 mg capsule 100 mg PO HS 11/04/20 12/27/20 prazosin 2 mg capsule (Minipress) 2 mg PO HS 11/04/20 12/27/20 propranolol 10 mg tablet 10 mg PO BID 11/04/20 12/27/20 Previous Rx's Medication Instructions Recorded pantoprazole 40 mg tablet,delayed 40 mg PO BID #60 tab 01/07/20 release Results & Data (ED) Vital Signs Vital Signs - 24 hr 12/27/20 12:20 12/27/20 12:26 12/27/20 12:30 Temperature 34.0 C L Temperature Source Rectal Pulse Rate 68 53 L 53 L Pulse Rate from SpO2 Sensor 53 L Pulse Rhythm Regular Pulse Strength Normal Respiratory Rate 15 20 10 L Respiratory Effort / Characteristics Non-Labored Spontaneous Respiratory Depth Normal Blood Pressure 137/85 131/83 131/83 Blood Pressure Mean 102 99 99 Pulse Oximetry 98 99 Oxygen Delivery Method Room Air Oxygen Flow Rate Sepsis Recent Fever Within 48 Hours No Sepsis New/Unexplained Change in Mental Status N/A Sepsis Action Taken by Nursing No Action Required 12/27/20 12:36 12/27/20 13:00 12/27/20 13:30 Temperature 35.1 C L Temperature Source Pulse Rate 53 L 58 L Pulse Rate from SpO2 Sensor 53 L 58 L Pulse Rhythm Pulse Strength Respiratory Rate 10 L 12 Respiratory Effort / Characteristics Respiratory Depth Blood Pressure 129/80 129/87 Blood Pressure Mean 96 101 Pulse Oximetry 98 99 98 Oxygen Delivery Method Room Air Oxygen Flow Rate 0 Sepsis Recent Fever Within 48 Hours Sepsis New/Unexplained Change in Mental Status Sepsis Action Taken by Nursing 12/27/20 13:42 12/27/20 14:00 12/27/20 15:00 Temperature Temperature Source Pulse Rate 80 78 Pulse Rate from SpO2 Sensor 80 78 Pulse Rhythm Pulse Strength Respiratory Rate 12 12 Respiratory Effort / Characteristics Respiratory Depth Blood Pressure 139/93 147/90 H Blood Pressure Mean 108 109 Pulse Oximetry 97 99 99 Oxygen Delivery Method Room Air Oxygen Flow Rate Sepsis Recent Fever Within 48 Hours Sepsis New/Unexplained Change in Mental Status Sepsis Action Taken by Nursing 12/27/20 15:30 12/27/20 15:35 12/27/20 16:02 Temperature 36.3 C L Temperature Source Oral Pulse Rate 79 89 Pulse Rate from SpO2 Sensor 79 Pulse Rhythm Pulse Strength Respiratory Rate 14 20 Respiratory Effort / Characteristics Respiratory Depth Blood Pressure 138/94 Blood Pressure Mean 108 Pulse Oximetry 99 Oxygen Delivery Method Oxygen Flow Rate Sepsis Recent Fever Within 48 Hours Sepsis New/Unexplained Change in Mental Status Sepsis Action Taken by [facility] Medications Current Medication List: was personally reviewed by me Laboratory Data Attestation: I reviewed the patient's lab results. Result diagrams: 12/27/20 13:55 12/27/20 13:55 Lab Results 12/27/20 12/27/20 12/27/20 Range/Units 12:22 13:55 13:55 WBC 2.53 L (4.8-10.8) K/uL RBC 4.83 (4.7-6.1) M/uL Hgb 15.9 (14.0-18.0) g/dL Hct 45.2 (42-52) % MCV 93.6 (80-100) fL MCH 32.9 (25-34) pg MCHC 35.2 (32-36) g/dL RDW Std Deviation 48.1 H (36.4-46.3) fL RDW Coeff of Florencio 13.9 (11.5-14.5) % Plt Count 129 L (130-400) K/uL MPV 9.7 (7.4-10.4) fL Immature Gran % (Auto) 0.0 % Neut % (Auto) 85.7 % Lymph % (Auto) 10.3 % [place] % (Auto) 3.6 % Eos % (Auto) 0.0 % Baso % (Auto) 0.4 % Neut # (Auto) 2.17 (1.4-6.5) K/uL Lymph # (Auto) 0.26 L (1.2-3.4) K/uL [place] # (Auto) 0.09 L (0.11-0.59) K/uL Eos # (Auto) 0.00 (0-0.5) K/uL Baso # (Auto) 0.01 (0-0.2) K/uL Immature Gran # (Auto) 0.00 (0.00-0.02) K/uL Echinocytes 1+ Sodium 129 L (136-145) mmol/L Potassium 3.8 (3.5-5.1) mmol/L Chloride 96 L (98-107) mmol/L Carbon Dioxide 16 L (21-32) mmol/L Anion Gap 17.0 H (3-11) BUN 6 L (7-18) mg/dl Creatinine 0.65 (0.6-1.4) mg/dl Est Cr Clr Drug Dosing 125.9 ml/min Est GFR ( Amer) 128.7 ml/min Est GFR (Non-Af Amer) 111.1 ml/min BUN/Creatinine Ratio 9.0 L (10-20) Glucose 136 H (70-99) mg/dl POC Glucose 166 H (70-99) mg/dl Osmolality (280-300) mOsm/kg Calcium 8.9 (8.5-10.1) mg/dl Magnesium (1.8-2.4) mg/dl Total Bilirubin 0.7 (0.2-1) mg/dl AST 299 H (15-37) U/L ALT 233 H (12-78) U/L Alkaline Phosphatase 116 (45-117) U/L Troponin I (0-0.045) ng/ml Total Protein 8.1 (6.4-8.2) gm/dl Albumin 4.3 (3.4-5.0) gm/dl Globulin 3.8 (2.5-4.0) gm/dl Albumin/Globulin Ratio 1.1 (0.9-2) Vitamin B12 (193-986) pg/ml Folate (>5.38) ng/ml TSH 0.596 (0.300-4.500) uIu/ml Ethyl Alcohol mg/dL (0-3) mg/dl COVID-19 Eval Order SARS-CoV-2 (PCR) (Negative) 12/27/20 12/27/20 12/27/20 Range/Units 14:00 14:32 14:32 WBC (4.8-10.8) K/uL RBC (4.7-6.1) M/uL Hgb (14.0-18.0) g/dL Hct (42-52) % MCV (80-100) fL MCH (25-34) pg MCHC (32-36) g/dL RDW Std Deviation (36.4-46.3) fL RDW Coeff of Florencio (11.5-14.5) % Plt Count (130-400) K/uL MPV (7.4-10.4) fL Immature Gran % (Auto) % Neut % (Auto) % Lymph % (Auto) % [place] % (Auto) % Eos % (Auto) % Baso % (Auto) % Neut # (Auto) (1.4-6.5) K/uL Lymph # (Auto) (1.2-3.4) K/uL [place] # (Auto) (0.11-0.59) K/uL Eos # (Auto) (0-0.5) K/uL Baso # (Auto) (0-0.2) K/uL Immature Gran # (Auto) (0.00-0.02) K/uL Echinocytes Sodium (136-145) mmol/L Potassium (3.5-5.1) mmol/L Chloride (98-107) mmol/L Carbon Dioxide (21-32) mmol/L Anion Gap (3-11) BUN (7-18) mg/dl Creatinine (0.6-1.4) mg/dl Est Cr Clr Drug Dosing ml/min Est GFR ( Amer) ml/min Est GFR (Non-Af Amer) ml/min BUN/Creatinine Ratio (10-20) Glucose (70-99) mg/dl POC Glucose (70-99) mg/dl Osmolality 325 H (280-300) mOsm/kg Calcium (8.5-10.1) mg/dl Magnesium 1.8 (1.8-2.4) mg/dl Total Bilirubin (0.2-1) mg/dl AST (15-37) U/L ALT (12-78) U/L Alkaline Phosphatase (45-117) U/L Troponin I < 0.015 (0-0.045) ng/ml Total Protein (6.4-8.2) gm/dl Albumin (3.4-5.0) gm/dl Globulin (2.5-4.0) gm/dl Albumin/Globulin Ratio (0.9-2) Vitamin B12 936 (193-986) pg/ml Folate > 20.00 (>5.38) ng/ml TSH (0.300-4.500) uIu/ml Ethyl Alcohol mg/dL (0-3) mg/dl COVID-19 Eval Order SARS-CoV-2 (PCR) (Negative) 12/27/20 12/27/20 12/27/20 Range/Units 14:32 14:33 14:48 WBC (4.8-10.8) K/uL RBC (4.7-6.1) M/uL Hgb (14.0-18.0) g/dL Hct (42-52) % MCV (80-100) fL MCH (25-34) pg MCHC (32-36) g/dL RDW Std Deviation (36.4-46.3) fL RDW Coeff of Florencio (11.5-14.5) % Plt Count (130-400) K/uL MPV (7.4-10.4) fL Immature Gran % (Auto) % Neut % (Auto) % Lymph % (Auto) % [place] % (Auto) % Eos % (Auto) % Baso % (Auto) % Neut # (Auto) (1.4-6.5) K/uL Lymph # (Auto) (1.2-3.4) K/uL [place] # (Auto) (0.11-0.59) K/uL Eos # (Auto) (0-0.5) K/uL Baso # (Auto) (0-0.2) K/uL Immature Gran # (Auto) (0.00-0.02) K/uL Echinocytes Sodium (136-145) mmol/L Potassium (3.5-5.1) mmol/L Chloride (98-107) mmol/L Carbon Dioxide (21-32) mmol/L Anion Gap (3-11) BUN (7-18) mg/dl Creatinine (0.6-1.4) mg/dl Est Cr Clr Drug Dosing ml/min Est GFR ( Amer) ml/min Est GFR (Non-Af Amer) ml/min BUN/Creatinine Ratio (10-20) Glucose (70-99) mg/dl POC Glucose 123 H (70-99) mg/dl Osmolality (280-300) mOsm/kg Calcium (8.5-10.1) mg/dl Magnesium (1.8-2.4) mg/dl Total Bilirubin (0.2-1) mg/dl AST (15-37) U/L ALT (12-78) U/L Alkaline Phosphatase (45-117) U/L Troponin I (0-0.045) ng/ml Total Protein (6.4-8.2) gm/dl Albumin (3.4-5.0) gm/dl Globulin (2.5-4.0) gm/dl Albumin/Globulin Ratio (0.9-2) Vitamin B12 (193-986) pg/ml Folate (>5.38) ng/ml TSH (0.300-4.500) uIu/ml Ethyl Alcohol mg/dL 188.6 H (0-3) mg/dl COVID-19 Eval Order Covid19 at [facility] SARS-CoV-2 (PCR) (Negative) 12/27/20 Range/Units 14:48 WBC (4.8-10.8) K/uL RBC (4.7-6.1) M/uL Hgb (14.0-18.0) g/dL Hct (42-52) % MCV (80-100) fL MCH (25-34) pg MCHC (32-36) g/dL RDW Std Deviation (36.4-46.3) fL RDW Coeff of Florencio (11.5-14.5) % Plt Count (130-400) K/uL MPV (7.4-10.4) fL Immature Gran % (Auto) % Neut % (Auto) % Lymph % (Auto) % [place] % (Auto) % Eos % (Auto) % Baso % (Auto) % Neut # (Auto) (1.4-6.5) K/uL Lymph # (Auto) (1.2-3.4) K/uL [place] # (Auto) (0.11-0.59) K/uL Eos # (Auto) (0-0.5) K/uL Baso # (Auto) (0-0.2) K/uL Immature Gran # (Auto) (0.00-0.02) K/uL Echinocytes Sodium (136-145) mmol/L Potassium (3.5-5.1) mmol/L Chloride (98-107) mmol/L Carbon Dioxide (21-32) mmol/L Anion Gap (3-11) BUN (7-18) mg/dl Creatinine (0.6-1.4) mg/dl Est Cr Clr Drug Dosing ml/min Est GFR ( Amer) ml/min Est GFR (Non-Af Amer) ml/min BUN/Creatinine Ratio (10-20) Glucose (70-99) mg/dl POC Glucose (70-99) mg/dl Osmolality (280-300) mOsm/kg Calcium (8.5-10.1) mg/dl Magnesium (1.8-2.4) mg/dl Total Bilirubin (0.2-1) mg/dl AST (15-37) U/L ALT (12-78) U/L Alkaline Phosphatase (45-117) U/L Troponin I (0-0.045) ng/ml Total Protein (6.4-8.2) gm/dl Albumin (3.4-5.0) gm/dl Globulin (2.5-4.0) gm/dl Albumin/Globulin Ratio (0.9-2) Vitamin B12 (193-986) pg/ml Folate (>5.38) ng/ml TSH (0.300-4.500) uIu/ml Ethyl Alcohol mg/dL (0-3) mg/dl COVID-19 Eval Order SARS-CoV-2 (PCR) NEGATIVE (Negative) Administered Medications Folic Acid (Folic Acid 1 Mg Tab) 1 mg PO QAM YESSENIA Stop: 01/26/21 19:14 Last Admin: 12/27/20 19:46 Dose: 1 mg Documented by: [id number] Lactated Ringer's (Lr) 1,000 mls @ 125 mls/hr IV .Q8H YESSENIA Stop: 01/26/21 18:47 Last Admin: 12/27/20 19:46 Dose: 125 mls/hr Documented by: [id number] Lidocaine (Lidocaine 5% 1 Patch) 1 patch TD QAM YESSENIA Stop: 01/26/21 19:14 Last Admin: 12/27/20 19:46 Dose: 1 patch Documented by: [id number] Nicotine (Nicotine 21 Mg/24 Hr Tdsy) 21 mg TD QAM YESSENIA Stop: 01/26/21 19:14 Last Admin: 12/27/20 19:46 Dose: 21 mg Documented by: [id number] Thiamine HCl (Thiamine Hcl 100 Mg Tab) 100 mg PO QAM YESSENIA Stop: 01/26/21 19:14 Last Admin: 12/27/20 19:46 Dose: 100 mg Documented by: [id number] Discontinued Medications Gabapentin (Gabapentin 600 Mg Tab) 1,200 mg PO ONE ONE Stop: 12/27/20 19:16 Last Admin: 12/27/20 19:45 Dose: 1,200 mg Documented by: [id number] Multivitamins 10 ml/ Thiamine HCl 100 mg/ Folic Acid 1 mg/Sodium Chloride 1,011.2 mls @ 1,011.2 mls/hr IV .Q1H ONE Stop: 12/27/20 15:06 Last Infusion: 12/27/20 16:32 Dose: 0 mls/hr Documented by: [id number] Admin: 12/27/20 14:42 Dose: 1,011.2 mls/hr Documented by: [id number] Lorazepam (Ativan) 1 mg in 2 mls @ 2 mls/min IV NOW STA Stop: 12/27/20 14:14 Last Admin: 12/27/20 14:37 Dose: 2 mls/min Documented by: [id number] Lorazepam (Ativan) 1 mg in 2 mls @ 2 mls/min IV NOW STA Stop: 12/27/20 16:11 Last Admin: 12/27/20 16:30 Dose: 2 mls/min Documented by: [id number] Imaging Data Radiologist's Impression: Chest X-Ray 12/27/20 13:41 XR chest 1V portable HISTORY: weakness COMPARISON: Chest and right rib series 11/04/2020. FINDINGS: There again noted also nondisplaced right posterior rib fractures. These are better appreciated on the recent right rib series. No pneumothorax. No pleural effusions. Stable calcified granuloma seen within the lungs. No evidence for pulmonary edema. The heart is normal in size. No new focal lung consolidations to suggest pneumonia. IMPRESSION: Redemonstration of the nondisplaced right posterior rib fractures. Otherwise, no acute process within the chest. ACT 112: Negative or not required by law. Electronically signed by: Bassem Díaz M.D. 12/27/2020 2:[address] 12/27/20 14:07 CT OF THE CERVICAL SPINE CLINICAL HISTORY: found down COMPARISON STUDY: No previous studies for comparison. CT DOSE: 456.66 mGycm TECHNIQUE: CT scan of the cervical spine was performed from the skull base to the thoracic inlet. Images are reviewed in the axial, sagittal, and coronal planes. IV contrast was not administered for this examination. A dose lowering technique was utilized adhering to the principles of ALARA. FINDINGS: The visualized portions of the lung apices reveal no evidence of pneumothorax. The prevertebral soft tissues are normal. No fractures or subluxations are visualized. Normal cervical lordosis is preserved. Minimal intervertebral disc space narrowing is seen at the C5-C6 and C6-7 level with anterior and posterior osteophytes. No significant central canal stenosis is seen. Minimal neural foraminal narrowing is seen at the C5-C6 and C6-C7 on the left and at the C6-C7 level on the right. IMPRESSION: No acute fracture or traumatic malalignment. Mild multilevel degenerative changes as detailed above. ACT 112: Negative or not required by law. The above report was generated using voice recognition software. It may contain grammatical, syntax or spelling errors. Electronically signed by: Abby Crowley DO 12/27/2020 3:[address] 12/27/20 14:07 CT head/brain wo con CLINICAL HISTORY: 55 years-old Male with fall. Acute head trauma status post fall TECHNIQUE: Multiple axial CT images of the head were obtained without contrast. A dose lowering technique was utilized adhering to the principles of ALARA. CT DOSE: 729.78 mGycm COMPARISON: Head CT 04/20/2015 FINDINGS: No acute intracranial hemorrhage, midline shift, intracranial mass, hydrocephalus, territorial ischemia or abnormal extra-axial collection. The calvarium is intact. The paranasal sinuses, mastoid air cells, and middle ear cavities are clear. IMPRESSION: No acute intracranial abnormality or calvarial fracture. ACT 112: Negative or not required by law. The above report was generated using voice recognition software. It may contain grammatical, syntax or spelling errors. Electronically signed by: Shamir Flynn M.D. 12/27/2020 3:01 PM Ribs w/Chest X-Ray 12/27/20 14:13 XR ribs RT min 2V w [id number] CLINICAL HISTORY: pain post ?fall; h/o prior rib frx's that side 4 w COMPARISON STUDY: November 04, 2020 FINDINGS: No pneumothorax. No pleural effusion. No large infiltrates or consolidative lesions are seen. Cardiomediastinal silhouette is within normal limits in size. No significant pulmonary vascular congestion.. Osseous structures: unremarkable.Previously seen fractures of posterior aspect of the ninth and 10th right ribs are no longer visualized. No new acute displaced rib fractures demonstrated. IMPRESSION: 1. No acute pulmonary process. 2. No definite acute displaced rib fractures seen. ACT 112: Negative or not required by law. The above report was generated using voice recognition software. It may contain grammatical, syntax or spelling errors. Electronically signed by: Abby Crowley DO 12/27/2020 3:46 PM Discharge Plan Visit Data Chief Complaint: Weakness Stated Complaint: diaphoretic, detox ED Provider: Justin Calvillo Discharge Problem: Alcohol abuse, Hypothermia, Dehydration, Transaminitis Patient Disposition: Admitted As Inpatient Discharge Instructions Interventions: ED Discharge Assessment Last Done: 12/27/20 17:58
[2020-12-27] MEDS: PRAZOSIN HCL 1 MG CAP PO SCH (20:47)
[2020-12-27] MEDS: PROPRANOLOL HCL 10 MG TAB PO SCH (20:48)
[2020-12-27] MEDS: DOXEPIN HCL 50 MG CAPSULE PO SCH (20:48)
[2020-12-27] MEDS: PANTOprazole 40 MG TAB PO SCH (20:48)
--- NOTE | 2020-12-27 20:49 | Ultrasound Report ---
US abdomen limited HISTORY: 55 years-old Male liver, elevated lft acutely elevated LFTs COMPARISON: Abdominal ultrasound 01/04/2020, CT abdomen and pelvis 01/02/2020 TECHNIQUE: Multiple real-time sonographic images of the abdominal right upper quadrant were obtained assessing grayscale appearance and color flow FINDINGS: The pancreas is obscured by bowel gas. Increased echogenicity of the liver which measures up to 19 cm in length. No hepatic mass, marginal nodularity or ascites. Trace gallbladder sludge. No shadowing c holelithiasis, gallbladder wall thickening or pericholecystic fluid. Mild gallbladder distention. Son ographic Sauceda sign reported as negative. Normal common bile duct, 5 mm. The imaged right kidney is unremarkable without hydronephrosis. IMPRESSION: 1. Trace gallbladder sludge. No cholelithiasis or sonographic evidence of acute cholecystitis. 2. No biliary ductal dilation. 3. Hepatomegaly with hepatic steatosis redemonstrated. ACT 112: Negative or not required by law. The above report was generated using voice recognition software. It may contain grammatical, syntax o r spelling errors. Electronically signed by: Shamir Flynn M.D. 12/27/2020 8:48 PM
[2020-12-27 22:04] LABS: BUN Creatinine Ratio 9.4 (10-20); Calcium 8.6 mg/dl (8.5-10.1); Creatinine Clr Calc Pharmacy 163.8 ml/min; Est GFR (African American) 141.1 ml/min; Est GFR (Non-African American) 121.7 ml/min; Potassium 3.6 mmol/L (3.5-5.1)
[2020-12-27] MEDS: DEXTROSE 50% 50 ML SYRINGE IV STA (22:31)
[2020-12-27] MEDS ORDERED: DEXTROSE 50% 50 ML SYRINGE IV ONE (22:33)
[2020-12-27] MEDS: D5W AND NSS 1,000 ML IV SCH (22:45)
[2020-12-28] MEDS: GABAPENTIN 600 MG TAB PO SCH ×2 (01:30→07:49)
[2020-12-28] MEDS: DEXTROSE 50% 50 ML SYRINGE IV STA (02:01)
[2020-12-28] MEDS: D5W AND NSS 1,000 ML IV SCH ×3 (05:45→21:18)
[2020-12-28 06:00] LABS: Hematocrit (blood only) 38.3 % (42-52); Hemoglobin 13.8 g/dL (14.0-18.0); Mean Corpuscular Hemoglobin 32.6 pg (25-34); Mean Corpuscular Volume 90.5 fL (80-100); Mean Platelet Volume 9.8 fL (7.4-10.4); Platelet Count 124 K/uL (130-400); RDW Coefficient of Variation 13.9 % (11.5-14.5); RDW Standard Deviation 46.3 fL (36.4-46.3); Red Blood Count 4.23 M/uL (4.7-6.1); White Blood Count 2.92 K/uL (4.8-10.8)
--- NOTE | 2020-12-28 06:03 | Electrocardiogram Report ---
Test Reason : Blood Pressure : / mmHG Vent. Rate : 062 BPM Atrial Rate : 062 BPM P-R Int : 174 ms QRS Dur : 106 ms QT Int : 448 ms P-R-T Axes : 081 066 070 degrees QTc Int : 454 ms Poor data quality, interpretation may be adversely affected Normal sinus rhythm Normal ECG When compared with ECG of 02-JAN-2020 21:21, T wave amplitude has increased in Anterior leads Confirmed by Mu Estevez ([id number]) on 12/28/2020 6:02:37 AM Referred By: Confirmed By:Mu Estevez
[2020-12-28 06:08] LABS: INR 1.1 (0.9-1.1); Prothrombin Time 10.9 Seconds (9.0-12.0)
[2020-12-28 06:36] LABS: Albumin Level 3.7 gm/dl (3.4-5.0); BUN Creatinine Ratio 7.6 (10-20); Calcium 8.7 mg/dl (8.5-10.1); Est GFR (African American) 134.9 ml/min; Est GFR (Non-African American) 116.4 ml/min; Magnesium 1.6 mg/dl (1.8-2.4); Potassium 3.7 mmol/L (3.5-5.1)
[2020-12-28 06:46] LABS: Albumin Globulin Ratio 1.2 (0.9-2); Bilirubin,Total 1.1 mg/dl (0.2-1); Total Protein 6.7 gm/dl (6.4-8.2)
[2020-12-28 07:49] LABS: Estimated Average Glucose 94 mg/dl; Hemoglobin A1C 4.9 % (4.5-5.6)
[2020-12-28] MEDS: FOLIC ACID 1 MG TAB PO SCH (07:49)
[2020-12-28] MEDS: ESCITALOPRAM OXALATE 20 MG TAB PO SCH (07:49)
[2020-12-28] MEDS: PROPRANOLOL HCL 10 MG TAB PO SCH ×2 (07:49→21:17)
[2020-12-28] MEDS: THIAMINE HCL 100 MG TAB PO SCH (07:49)
[2020-12-28] MEDS: ENOXAPARIN INJ 40 MG/0.4 ML SYR SQ SCH (07:50)
[2020-12-28] MEDS: PANTOprazole 40 MG TAB PO SCH ×2 (07:50→21:17)
[2020-12-28] MEDS: NICOTINE 21 MG/24 HR TDSY TD SCH (07:50)
[2020-12-28] MEDS: LIDOCAINE 5% 1 PATCH TD SCH (07:51)
[2020-12-28] MEDS ORDERED: ATIVAN IV ALCOHOL WITHDRAWL IV PRN (08:02)
[2020-12-28] MEDS ORDERED: LORazepam 3 MG/6 ML VIAL IV PRN (08:02)
[2020-12-28] MEDS ORDERED: LORazepam 2 MG/4 ML VIAL IV PRN (08:02)
[2020-12-28] MEDS ORDERED: LORazepam 0.5 MG/1 ML VIAL IV PRN (08:05)
[2020-12-28] MEDS ORDERED: THIAMINE HCL 100 MG in SYRINGE 9 ML IV STA (08:14)
[2020-12-28] MEDS ORDERED: KETOROLAC 30 MG/ML VIAL IV PRN (08:14)
[2020-12-28 08:48] LABS: Appearance Urine Clear (Clear); Bilirubin Urine Negative (Negative); Blood Urine Negative (Negative); Color Urine Yellow; Glucose Urine UA 1+ (Negative); Ketones Urine 1+ (Negative); Leukocyte Esterase Urine Negative (Negative); Nitrite Urine Negative (Negative); Protein Urine Negative (Negative); Specific Gravity Urine 1.014 (1.000-1.030); Urobilinogen Urine Negative (Negative); pH Urine 6.5 (4.5-7.5)
[2020-12-28 09:21] LABS: Amphetamines+Metham, Urine Neg (Neg); Barbiturates, Urine Neg (Neg); Benzodiazepine, Urine Neg (Neg); Cocaine, Urine Neg (Neg); MDMA (Ecstacy), Urine Neg (Neg); Methadone, Urine Neg (Neg); Opiate, Urine Neg (Neg); Phencyclidine, Urine Neg (Neg)
[2020-12-28] MEDS ORDERED: chlordiazePOXIDE ALCOHOL WITHDRAWL 50MG PO STA (10:10)
--- NOTE | 2020-12-28 10:12 | Hospitalist Progress Note ---
Date of Service December 28, 2020 Assessment & Plan (1) Alcohol withdrawal: (2) Alcoholic intoxication: (3) Hypothermia: (4) Acute hyponatremia: (5) Hypoglycemia: (6) Thrombocytopenia: (7) Rib fracture: (8) Emphysema of lung: (9) Depression: Plan: This is a 55-year-old male who has significant past medical history of alcohol abuse, depression with anxiety, history of pancreatitis, history of gastritis, tobacco abuse who presents to ED 2/2 to attempting to rehab at home from alcohol. Alcohol abuse/intoxication Alcohol withdrawal Hypothermia Metabolic acidosis likely 2/2 to acute alcohol abuse ETOH level 188 -- change to Librium protocol PRN IV Ativan Alc Withdrawal protocol -- monitor closely -- patient not interested in Rehab Hypoglycemia a1c 4.9 likely alcohol induced, poor intake -- continue IV D5NSS IV Thiamine -- advance diet sa tolerated Transaminitis 2/2 to alcohol use does not meet criteria for alcoholic hepatitis Liver US 12/2019 revealed mild hepatomegaly and possible fatty infiltration of liver need to follow up with [facility] will obtain US for follow up : 1. Trace gallbladder sludge. No cholelithiasis or sonographic evidence of acute cholecystitis. 2. No biliary ductal dilation. 3. Hepatomegaly with hepatic steatosis redemonstrated. -- Tot [place] 1.1 AST 11 AST 161 -- monitor Hyponatremia, chronic likely 2/2 to etoh use -- Na 132 R rib fracture, 9 and 10, non displaced lidoderm patch, incentive spirometry PRN Toradol Emphysema of lung Tobacco abuse nicotine patch encourage smoking cessation Depression patient denies worsening of depression per sister, patient's depression seems to have worsened the past month continue escitalopram, doxepin, prazosin, propranolol DVT ppx: Lovenox Dispo: PCU PCP: Hilary FULL CODE Disposition patient declining Alcohol rehab at this time Admission and Anticipated Discharge Date Admission Date: December 27, 2020 Subjective ff up for alcohol withdrawal, etc seen resting in bed, comfortable states he feels "rough"- worse then previous admission for alcohol withdrawal reports some anxiety, tremors but no hallucinations no headache, dizziness, chest pain, palpitations, dyspnea no abdominal pain, nausea/vomiting, fever no other symptoms Review of Systems Review of Systems: all noted and negative except for above Physical Exam Physical Exam: General- oriented x 3, not in distress, speaks in sentences with no effort or accessory muscle use Head- atraumatic Eyes- PERRL, EOMI, anicteric ENT- oropharynx clear Neck- supple, no JVD, no adenopathy, no thyromegaly; carotids +2/2, no bruits appreciated Lungs- clear to auscultation bilaterally, no rales/wheezes Heart- normal rate, regular rhythm; no murmur, no gallop, no rub appreciated Abdomen- normal bowel sounds, nondistended, soft, nontender, no masses or hepatosplenomegaly Extremities- no pretibial edema, no calf tenderness; peripheral pulses intact (+) mild tremors Neuro- alert, oriented x 3; CN 2-12 grossly intact; motor 5/5 bilaterally;sensation 100% on all extremities; no other gross focal neurologic deficits Skin- warm & dry Results & Data Results & Data ([facility]) Vital Signs (Past 12 Hours) Vital Signs Temp Pulse Pulse Resp BP Pulse Ox 12/28/20 09:30 78 12/28/20 07:41 36.5 C 87 20 132/88 98 12/28/20 03:25 36.7 C 86 18 124/82 97 12/27/20 23:53 36.7 C 91 H 18 125/72 96 12/27/20 23:39 86 (1) Alcoholic intoxication Complication of substance-induced condition: uncomplicated Qualified Code(s): F10.920 - Alcohol use, unspecified with intoxication, uncomplicated
[2020-12-28] MEDS ORDERED: chlordiazePOXIDE HCl 25 MG CAP PO SCH (10:15)
[2020-12-28] MEDS ORDERED: MAGNESIUM SULFATE / D5W 1 GM/100 ML BAG IV ONE (10:30)
[2020-12-28] MEDS: CHLORDIAZEPOXIDE 50MG STARTING DOSE PO SCH ×3 (10:43→21:18)
[2020-12-28] MEDS: LORazepam 1 MG/2 ML VIAL IV PRN (14:04)
[2020-12-28] MEDS ORDERED: GABAPENTIN 600 MG TAB PO SCH (15:30)
[2020-12-28] MEDS: DOXEPIN HCL 50 MG CAPSULE PO SCH (21:17)
[2020-12-28] MEDS: PRAZOSIN HCL 1 MG CAP PO SCH (21:17)
[2020-12-29] MEDS: D5W AND NSS 1,000 ML IV SCH ×3 (04:22→18:38)
[2020-12-29] MEDS: CHLORDIAZEPOXIDE 50MG STARTING DOSE PO SCH (04:22)
[2020-12-29] MEDS: LIDOCAINE 5% 1 PATCH TD SCH (08:22)
[2020-12-29] MEDS: PANTOprazole 40 MG TAB PO SCH ×2 (08:22→19:32)
[2020-12-29] MEDS: FOLIC ACID 1 MG TAB PO SCH (08:22)
[2020-12-29] MEDS: THIAMINE HCL 200 MG in SODIUM CHLORIDE 0.9% 50 ML IV SCH (08:22)
[2020-12-29] MEDS: ESCITALOPRAM OXALATE 20 MG TAB PO SCH (08:22)
[2020-12-29] MEDS: NICOTINE 21 MG/24 HR TDSY TD SCH (08:22)
[2020-12-29] MEDS: PROPRANOLOL HCL 10 MG TAB PO SCH ×2 (08:22→19:31)
[2020-12-29] MEDS: ENOXAPARIN INJ 40 MG/0.4 ML SYR SQ SCH (08:23)
[2020-12-29 09:27] LABS: Basophils # (auto) 0.01 K/uL (0-0.2); Basophils % (auto) 0.4 %; Eosinophils # (auto) 0.06 K/uL (0-0.5); Eosinophils % (auto) 2.2 %; Hematocrit (blood only) 36.4 % (42-52); Hemoglobin 12.8 g/dL (14.0-18.0); Immature Granulocytes # (auto) 0.01 K/uL (0.00-0.02); Immature Granulocytes % (auto) 0.4 %; Lymphocytes # (auto) 1.21 K/uL (1.2-3.4); Mean Corpuscular Hemoglobin 32.8 pg (25-34); Mean Corpuscular Hgb Conc 35.2 g/dL (32-36); Mean Corpuscular Volume 93.3 fL (80-100); Mean Platelet Volume 9.9 fL (7.4-10.4); Monocytes # (auto) 0.35 K/uL (0.11-0.59); Neutrophils # (auto) 1.05 K/uL (1.4-6.5); Platelet Count 122 K/uL (130-400); RDW Coefficient of Variation 14.3 % (11.5-14.5); RDW Standard Deviation 48.9 fL (36.4-46.3); White Blood Count 2.69 K/uL (4.8-10.8)
[2020-12-29 09:43] LABS: Giant Platelets 1+
[2020-12-29 10:01] LABS: BUN Creatinine Ratio 2.4 (10-20); Calcium 8.8 mg/dl (8.5-10.1); Creatinine Clr Calc Pharmacy 152.6 ml/min; Est GFR (Non-African American) 115.6 ml/min; Potassium 3.4 mmol/L (3.5-5.1)
--- NOTE | 2020-12-29 11:30 | Psychiatric Consultation ---
Date of Consultation December 29, 2020 Impression / Recommendations Impression 55-year-old male presented to hospital with alcohol withdrawal. Patient not interested in rehab. Currently patient is doing better with stable mood and denies any further need from psychiatric services. (1) Alcohol abuse: No further action from psychiatric services. Patient will be provided with a list of outpatient resources should he decide to change his mind. Psych History Chief Complaint "I am okay". History of Present Illness HPI as per psychiatric liaison "Consult requested for possible worsening of depression. Rounded on patient, resting in bed, pleasant and cooperative. He reports that he has been withdrawing from ETOH, and that he has been to rehab 8 times and is not interested in going back again. States "I can do this on my own." He reports having a past outpatient therapist for D&A and has since retired. He is willing to consider outpatient services, he would like to think about it more. He denies any SI, states "I never was like that." Does admit to mental health inpatient stays in the past. Was started on lexapro and Doxepin at [place], he feels they have been helpful. He reports that his PCP at [facility] will continue those and he does have an appointment scheduled, per patient. It was discussed with him that our service can assist him with outpatient services, options for services for mental health and D&A will be provided incase he is interested in assistance." Patient seen this morning, endorses the above information is accurate. Denies any SI and reports mood is starting to improve. He also reports feeling better and is hoping to get to leave the hospital soon. Denies any further need from psychiatric services at this time. Allergies Allergy/AdvReac Type Severity Reaction Status Date / Time codeine Allergy Intermediate GI SYMPTOMS Verified 11/04/20 09:16 meperidine Allergy Intermediate CAUSES Verified 11/04/20 09:16 CONFUSION Penicillins Allergy Mild FINGERS Verified 11/04/20 09:16 SWELLED A CHILD Home Medications Medication Instructions Recorded Confirmed Type escitalopram oxalate 20 mg tablet 20 mg PO QAM 01/02/20 12/27/20 History folic acid 1 mg tablet 1 mg PO QAM 01/02/20 12/27/20 History gabapentin 300 mg capsule 300 mg PO TID 01/02/20 12/27/20 History pantoprazole 40 mg tablet,delayed 40 mg PO BID #60 tab 01/07/20 12/27/20 Rx release doxepin 100 mg capsule 100 mg PO HS 11/04/20 12/27/20 History prazosin 2 mg capsule (Minipress) 2 mg PO HS 11/04/20 12/27/20 History propranolol 10 mg tablet 10 mg PO BID 11/04/20 12/27/20 History Personal History Beliefs That Will Affect Care: None Patient History Medical History Abdominal pain Alcohol dependence Anxiety Depression Pancreatitis Suicidal ideation Surgical History History of colonoscopy History of esophagogastroduodenoscopy (EGD) History of tonsillectomy Family History Father Alcohol abuse Cirrhosis Social History Smoking Status: Current every day smoker Tobacco Type: Cigarettes Cigarettes Per Day: 10; Second Hand Exposure: Yes; Hx Alcohol Use: Yes Alcohol type: beer Hx Substance Use: Yes Last Used Substance: Days (ago) Preferred Language: French Communication Ability: Effective Scaler Packer Required: No Beliefs That Will Affect Care: None marital status: Single Current Living Situation: Parent Other Information That Helps Us Care for You: No Feels Safe at Home: Yes Safety Concerns: Feels Safe At This Time Assistive Devices: None Physical Exam Psychiatric: Orientation: oriented to person, oriented to place and oriented to time Apperance: appropriately groomed Eye Contact: + fair eye contact Motor Behavior: no abnormal motor movements Speech: normal rate/rhythm/volume of speech Affect: euthymic affect Mood: no depressed mood Thought Process: goal directed thought process and linear/logical thought process Thought Content: reality based without delusions Suicidal Thoughts: denies suicidal thoughts Homicidal Thoughts: denies homicidal thoughts Hallucinations: no auditory hallucinations and no visual hallucinations Cognition: recent memory grossly intact Estimated Intelligence: consistent with education level Insight: + fair insight Judgement: + fair judgement Vital Signs (Past 24 Hours): Last Vital Signs Temp 36.6 C 12/29/20 11:00 Pulse 64 12/29/20 11:00 Resp 20 12/29/20 11:00 BP 136/87 12/29/20 11:00 Pulse Ox 99 12/29/20 11:00 Review of Systems All systems reviewed & are unremarkable except as noted in HPI & below Results & Data ([facility]) Medications Administered Doxepin HCl (Doxepin Hcl 50 Mg Capsule) 100 mg PO [facility] Stop: 01/26/21 20:59 Last Admin: 12/28/20 21:17 Dose: 100 mg Documented by: [id number] Admin: 12/27/20 20:48 Dose: 100 mg Documented by: [id number] Enoxaparin Sodium (Enoxaparin Inj 40 Mg/0.4 Ml Syr) 40 mg SQ [facility] Stop: 01/27/21 08:59 Last Admin: 12/29/20 08:23 Dose: 40 mg Documented by: [id number] Admin: 12/28/20 07:50 Dose: 40 mg Documented by: [id number] Escitalopram Oxalate (Escitalopram Oxalate 20 Mg Tab) 20 mg PO [facility] Stop: 01/27/21 08:59 Last Admin: 12/29/20 08:22 Dose: 20 mg Documented by: [id number] Admin: 12/28/20 07:49 Dose: 20 mg Documented by: [id number] Folic Acid (Folic Acid 1 Mg Tab) 1 mg PO [facility] Stop: 01/26/21 19:14 Last Admin: 12/29/20 08:22 Dose: 1 mg Documented by: [id number] Admin: 12/28/20 07:49 Dose: 1 mg Documented by: [id number] Admin: 12/27/20 19:46 Dose: 1 mg Documented by: [id number] Dextrose/Sodium Chloride (D5w And Nss) 1,000 mls @ 125 mls/hr IV .Q8H YESSENIA Stop: 01/26/21 22:44 Last Admin: 12/29/20 04:22 Dose: 125 mls/hr Documented by: [id number] Infusion: 12/29/20 04:22 Dose: 0 mls/hr Documented by: [id number] Admin: 12/28/20 21:18 Dose: 125 mls/hr Documented by: [id number] Infusion: 12/28/20 21:18 Dose: 125 mls/hr Documented by: [id number] Admin: 12/28/20 13:55 Dose: 125 mls/hr Documented by: [id number] Infusion: 12/28/20 13:45 Dose: 125 mls/hr Documented by: [id number] Admin: 12/28/20 05:45 Dose: 125 mls/hr Documented by: [id number] Infusion: 12/28/20 05:45 Dose: 125 mls/hr Documented by: [id number] Admin: 12/27/20 22:45 Dose: 125 mls/hr Documented by: [id number] Lorazepam (Ativan) 1 mg in 2 mls @ 2 mls/min IV UD PRN; Protocol PRN Reason: EtOH Withdrawl AWSS Score 6,7 Stop: 01/27/21 08:01 Last Admin: 12/28/20 14:04 Dose: 2 mls/min Documented by: [id number] Thiamine HCl 200 mg/ Sodium (Chloride) 52 mls @ 208 mls/hr IV DAILY [facility] Stop: 01/28/21 08:59 Last Infusion: 12/29/20 09:08 Dose: 0 mls/hr Documented by: [id number] Admin: 12/29/20 08:22 Dose: 208 mls/hr Documented by: [id number] Lidocaine (Lidocaine 5% 1 Patch) 1 patch TD QAM [facility] Stop: 01/26/21 19:14 Last Admin: 12/29/20 08:22 Dose: 1 patch Documented by: [id number] Admin: 12/28/20 07:51 Dose: 1 patch Documented by: [id number] Admin: 12/27/20 19:46 Dose: 1 patch Documented by: [id number] Miscellaneous (Remove Lidoderm Patch) 1 ea N/A DAILY@2100 [facility] Stop: 01/27/21 00:00 Last Admin: 12/28/20 21:18 Dose: 1 ea Documented by: [id number] Admin: 12/28/20 00:00 Dose: 1 ea Documented by: [id number] Miscellaneous (Remove Nicoderm Patch) 1 ea N/A DAILY@0859 [facility] Stop: 01/27/21 08:58 Last Admin: 12/29/20 08:23 Dose: 1 ea Documented by: [id number] Admin: 12/28/20 07:50 Dose: 1 ea Documented by: [id number] Nicotine (Nicotine 21 Mg/24 Hr Tdsy) 21 mg TD QAM [facility] Stop: 01/26/21 19:14 Last Admin: 12/29/20 08:22 Dose: 21 mg Documented by: [id number] Admin: 12/28/20 07:50 Dose: 21 mg Documented by: [id number] Admin: 12/27/20 19:46 Dose: 21 mg Documented by: [id number] Pantoprazole Sodium (Pantoprazole 40 Mg Tab) 40 mg PO BID YESSENIA Stop: 01/26/21 20:59 Last Admin: 12/29/20 08:22 Dose: 40 mg Documented by: [id number] Admin: 12/28/20 21:17 Dose: 40 mg Documented by: [id number] Admin: 12/28/20 07:50 Dose: 40 mg Documented by: [id number] Admin: 12/27/20 20:48 Dose: 40 mg Documented by: [id number] Prazosin HCl (Prazosin Hcl 1 Mg Cap) 2 mg PO HS YESSENIA Stop: 01/26/21 20:59 Last Admin: 12/28/20 21:17 Dose: 2 mg Documented by: [id number] Admin: 12/27/20 20:47 Dose: 2 mg Documented by: [id number] Propranolol HCl (Propranolol Hcl 10 Mg Tab) 10 mg PO BID YESSENIA Stop: 01/26/21 20:59 Last Admin: 12/29/20 08:22 Dose: 10 mg Documented by: [id number] Admin: 12/28/20 21:17 Dose: 10 mg Documented by: [id number] Admin: 12/28/20 07:49 Dose: 10 mg Documented by: [id number] Admin: 12/27/20 20:48 Dose: 10 mg Documented by: [id number] Coding Level of Care Code 20240 [facility]osp [facility] Lvl 2 Diagnoses Alcohol abuse F10.10 Time Spent (min) 35
[2020-12-29] MEDS: LORazepam 1 MG/2 ML VIAL IV PRN (11:46)
[2020-12-29] MEDS: CHLORDIAZEPOXIDE 50MG 2ND DOSE PO SCH ×2 (13:55→20:51)
--- NOTE | 2020-12-29 13:55 | Hospitalist Progress Note ---
Date of Service December 29, 2020 Assessment & Plan (1) Alcohol withdrawal: (2) Alcoholic intoxication: (3) Hypothermia: (4) Acute hyponatremia: (5) Hypoglycemia: (6) Thrombocytopenia: (7) Rib fracture: (8) Emphysema of lung: (9) Depression: Plan: This is a 55-year-old male who has significant past medical history of alcohol abuse, depression with anxiety, history of pancreatitis, history of gastritis, tobacco abuse who presents to ED 2/2 to attempting to rehab at home from alcohol. Alcohol abuse/intoxication Alcohol withdrawal Hypothermia Metabolic acidosis likely 2/2 to acute alcohol abuse ETOH level 188 -- changed to Librium protocol PRN IV Ativan Alc Withdrawal protocol -- mild tremors, otherwise doing fine -- patient not interested in Rehab Hypoglycemia a1c 4.9 likely alcohol induced, poor intake -- continue IV D5NSS IV Thiamine -- diet advanced, tolerating well Transaminitis 2/2 to alcohol use does not meet criteria for alcoholic hepatitis Liver US 12/2019 revealed mild hepatomegaly and possible fatty infiltration of liver need to follow up with [facility] will obtain US for follow up : 1. Trace gallbladder sludge. No cholelithiasis or sonographic evidence of acute cholecystitis. 2. No biliary ductal dilation. 3. Hepatomegaly with hepatic steatosis redemonstrated. -- Tot [place] 1.1 AST 11 AST 161 -- monitor Hyponatremia, chronic likely 2/2 to etoh use -- Na 137 R rib fracture, 9 and 10, non displaced lidoderm patch, incentive spirometry PRN Toradol Emphysema of lung Tobacco abuse nicotine patch encourage smoking cessation Depression patient denies worsening of depression per sister, patient's depression seems to have worsened the past month continue escitalopram, doxepin, prazosin, propranolol Psych consulted- stable mood provided with list of outpatient resources DVT ppx: Lovenox Dispo: PCU PCP: Hilary FULL CODE Disposition patient declining Alcohol rehab at this time Admission and Anticipated Discharge Date Admission Date: December 27, 2020 Subjective ff up for alcohol withdrawal, etc seen resting in bed, comfortable pleasant, calm, cooperative states he feels improved today compared to yesterday has minimal anxiety, tremors but no sweating , hallucinations no rib pain no chest pain, dyspnea, palpitations, dizziness denies suicidal ideation no other symptoms Review of Systems Review of Systems: all noted and negative except for above Physical Exam Physical Exam: General- oriented x 3, not in distress, speaks in sentences with no effort or accessory muscle use Eyes- anicteric Neck- no JVD Lungs- clear BS BL no rales/wheezing Heart- normal rate, regular rhythm; no murmurs Abdomen- normal bowel sounds, nondistended, soft, nontender Extremities- no pretibial edema, no calf tenderness mild hand tremors Neuro- alert, oriented x 3; no gross focal neurologic deficits Skin- warm & dry Results & Data Results & Data ([facility]) Vital Signs (Past 12 Hours) Vital Signs Temp Pulse Pulse Resp BP Pulse Ox 12/29/20 11:00 36.6 C 64 20 136/87 99 12/29/20 08:30 64 12/29/20 07:07 36.4 C L 67 22 133/78 99 12/29/20 04:02 36.5 C 57 L 18 125/84 97 all noted and reviewed including below (1) Alcoholic intoxication Complication of substance-induced condition: uncomplicated Qualified Code(s): F10.920 - Alcohol use, unspecified with intoxication, uncomplicated
[2020-12-29] MEDS ORDERED: POTASSIUM CHLORIDE CRTAB 20 MEQ TABCR PO STA (17:58)
[2020-12-29] MEDS ORDERED: GABAPENTIN 600 MG TAB PO SCH (19:30)
[2020-12-29] MEDS: PRAZOSIN HCL 1 MG CAP PO SCH (19:32)
[2020-12-29] MEDS: DOXEPIN HCL 50 MG CAPSULE PO SCH (19:32)
[2020-12-30] MEDS: D5W AND NSS 1,000 ML IV SCH ×2 (06:40→14:41)
[2020-12-30 06:42] LABS: Basophils # (auto) 0.02 K/uL (0-0.2); Basophils % (auto) 0.7 %; Eosinophils # (auto) 0.07 K/uL (0-0.5); Eosinophils % (auto) 2.4 %; Hematocrit (blood only) 38.8 % (42-52); Hemoglobin 13.7 g/dL (14.0-18.0); Lymphocytes # (auto) 1.12 K/uL (1.2-3.4); Mean Corpuscular Hemoglobin 33.1 pg (25-34); Mean Corpuscular Hgb Conc 35.3 g/dL (32-36); Mean Corpuscular Volume 93.7 fL (80-100); Mean Platelet Volume 9.9 fL (7.4-10.4); Monocytes # (auto) 0.29 K/uL (0.11-0.59); Monocytes % (auto) 10.1 %; Neutrophils # (auto) 1.37 K/uL (1.4-6.5); Neutrophils % (auto) 47.8 %; Platelet Count 117 K/uL (130-400); RDW Coefficient of Variation 14.2 % (11.5-14.5); RDW Standard Deviation 48.2 fL (36.4-46.3); Red Blood Count 4.14 M/uL (4.7-6.1); White Blood Count 2.87 K/uL (4.8-10.8)
[2020-12-30] MEDS: CHLORDIAZEPOXIDE 50MG 2ND DOSE PO SCH (06:43)
[2020-12-30 07:14] LABS: BUN Creatinine Ratio 7.2 (10-20); Creatinine Clr Calc Pharmacy 165.1 ml/min; Est GFR (Non-African American) 120.8 ml/min; Potassium 3.7 mmol/L (3.5-5.1)
[2020-12-30 07:15] LABS: RBC Morphology Unremarkable
[2020-12-30 07:51] LABS: Marijuana Quant, GCMS Urine 746 ng/mL (<5)
[2020-12-30] MEDS: NICOTINE 21 MG/24 HR TDSY TD SCH (08:00)
[2020-12-30] MEDS: LIDOCAINE 5% 1 PATCH TD SCH (08:01)
[2020-12-30] MEDS: ENOXAPARIN INJ 40 MG/0.4 ML SYR SQ SCH (08:01)
[2020-12-30] MEDS: PROPRANOLOL HCL 10 MG TAB PO SCH ×2 (08:02→21:15)
[2020-12-30] MEDS: PANTOprazole 40 MG TAB PO SCH ×2 (08:02→21:17)
[2020-12-30] MEDS: FOLIC ACID 1 MG TAB PO SCH (08:02)
[2020-12-30] MEDS: THIAMINE HCL 200 MG in SODIUM CHLORIDE 0.9% 50 ML IV SCH (10:51)
[2020-12-30] MEDS: ESCITALOPRAM OXALATE 20 MG TAB PO SCH (11:12)
[2020-12-30] MEDS: CHLORDIAZEPOXIDE 25MG 3RD DOSE PO SCH ×2 (14:40→21:15)
--- NOTE | 2020-12-30 15:31 | Hospitalist Progress Note ---
Date of Service December 30, 2020 Assessment & Plan (1) Alcohol withdrawal: (2) Alcoholic intoxication: (3) Hypothermia: (4) Acute hyponatremia: (5) Hypoglycemia: (6) Thrombocytopenia: (7) Rib fracture: (8) Emphysema of lung: (9) Depression: Plan: This is a 55-year-old male who has significant past medical history of alcohol abuse, depression with anxiety, history of pancreatitis, history of gastritis, tobacco abuse who presents to ED 2/2 to attempting to rehab at home from alcohol. Alcohol abuse/intoxication Alcohol withdrawal Hypothermia Metabolic acidosis likely 2/2 to acute alcohol abuse ETOH level 188 -- changed to Librium protocol PRN IV Ativan Alc Withdrawal protocol -- mild tremors, reports anxiety -- continue protoxcol -- patient not interested in Rehab Hypoglycemia a1c 4.9 likely alcohol induced, poor intake -- tolerating regular diet well d/c D5NSS, ,monitor BSGs q6h IV Thiamine -- monitor closely Transaminitis 2/2 to alcohol use does not meet criteria for alcoholic hepatitis Liver US 12/2019 revealed mild hepatomegaly and possible fatty infiltration of liver need to follow up with [facility] will obtain US for follow up : 1. Trace gallbladder sludge. No cholelithiasis or sonographic evidence of acute cholecystitis. 2. No biliary ductal dilation. 3. Hepatomegaly with hepatic steatosis redemonstrated. -- Tot [place] 1.1 AST 11 AST 161 -- monitor Hyponatremia, chronic likely 2/2 to etoh use -- Na 135 R rib fracture, 9 and 10, non displaced lidoderm patch, incentive spirometry PRN Toradol Emphysema of lung Tobacco abuse nicotine patch encourage smoking cessation Depression patient denies worsening of depression per sister, patient's depression seems to have worsened the past month continue escitalopram, doxepin, prazosin, propranolol Psych consulted- stable mood provided with list of outpatient resources DVT ppx: Lovenox Dispo: PCU PCP: Hilary FULL CODE Disposition patient declining Alcohol rehab at this time Admission and Anticipated Discharge Date Admission Date: December 27, 2020 Subjective ff up for alcohol withdrawal, etc seen resting in bed, not in distress reports significant anxiety, at one point became tearful states he is just emotional denies being severely depressed, suicidality no sweating, hallucinations no chest pain, dyspnea, palpitations, dizziness tolerating diet well no rib pain no other symptoms Review of Systems Review of Systems: all noted and negative except for above Physical Exam Physical Exam: General- oriented x 3, not in distress, speaks in sentences with no effort or accessory muscle use Eyes- anicteric Neck- no JVD Lungs- clear BS BL no crackles Heart- normal rate, regular rhythm; no murmurs Abdomen- normal bowel sounds, nondistended, soft, nontender Extremities- no pretibial edema, no calf tenderness (+) mild hand tremors Neuro- alert, oriented x 3; no gross focal neurologic deficits Skin- warm & dry Results & Data Results & Data ([facility]) Vital Signs (Past 12 Hours) Vital Signs Temp Pulse Pulse Resp BP Pulse Ox 12/30/20 15:10 36.5 C 68 18 147/96 H 100 12/30/20 10:58 36.4 C L 85 18 118/90 100 12/30/20 08:00 36.4 C L 59 L 18 128/89 99 12/30/20 07:36 60 (1) Alcoholic intoxication Complication of substance-induced condition: uncomplicated Qualified Code(s): F10.920 - Alcohol use, unspecified with intoxication, uncomplicated
[2020-12-30] MEDS: PRAZOSIN HCL 1 MG CAP PO SCH (21:15)
[2020-12-30] MEDS: DOXEPIN HCL 50 MG CAPSULE PO SCH (21:17)
[2020-12-30] MEDS: LORazepam 1 MG/2 ML VIAL IV PRN (23:49)
[2020-12-31] MEDS: CHLORDIAZEPOXIDE 25MG 3RD DOSE PO SCH (06:08)
[2020-12-31] MEDS ORDERED: GABAPENTIN 600 MG TAB PO SCH (07:30)
[2020-12-31 07:37] LABS: BUN Creatinine Ratio 9.1 (10-20); Calcium 9.7 mg/dl (8.5-10.1); Creatinine Clr Calc Pharmacy 137.8 ml/min; Est GFR (African American) 129.6 ml/min; Est GFR (Non-African American) 111.8 ml/min; Potassium 3.6 mmol/L (3.5-5.1)
[2020-12-31] MEDS: PANTOprazole 40 MG TAB PO SCH ×2 (08:26→20:16)
[2020-12-31] MEDS: ENOXAPARIN INJ 40 MG/0.4 ML SYR SQ SCH (08:26)
[2020-12-31] MEDS: NICOTINE 21 MG/24 HR TDSY TD SCH (08:27)
[2020-12-31] MEDS: LIDOCAINE 5% 1 PATCH TD SCH (08:27)
[2020-12-31] MEDS: PROPRANOLOL HCL 10 MG TAB PO SCH ×2 (08:27→20:17)
[2020-12-31] MEDS: FOLIC ACID 1 MG TAB PO SCH (08:27)
[2020-12-31] MEDS: ESCITALOPRAM OXALATE 20 MG TAB PO SCH (08:28)
[2020-12-31] MEDS: THIAMINE HCL 200 MG in SODIUM CHLORIDE 0.9% 50 ML IV SCH (08:58)
[2020-12-31] MEDS: CHLORDIAZEPOXIDE 10MG 4TH DOSE PO SCH (17:13)
--- NOTE | 2020-12-31 19:30 | Hospitalist Progress Note ---
Date of Service December 31, 2020 Assessment & Plan (1) Alcohol withdrawal: (2) Alcoholic intoxication: (3) Hypothermia: (4) Acute hyponatremia: (5) Hypoglycemia: (6) Thrombocytopenia: (7) Rib fracture: (8) Emphysema of lung: (9) Depression: Plan: This is a 55-year-old male who has significant past medical history of alcohol abuse, depression with anxiety, history of pancreatitis, history of gastritis, tobacco abuse who presents to ED 2/2 to attempting to rehab at home from alcohol. Alcohol abuse/intoxication Alcohol withdrawal Hypothermia Metabolic acidosis likely 2/2 to acute alcohol abuse ETOH level 188 -- changed to Librium protocol PRN IV Ativan Alc Withdrawal protocol --Clinically improved -- continue Librium protocol -- patient not interested in Rehab Hypoglycemia a1c 4.9 likely alcohol induced, poor intake -- tolerating regular diet well d/c D5NSS, ,monitor BSGs q6h IV Thiamine --Appetite is great, BSG's within acceptable limits No signs and symptoms of hypoglycemia Transaminitis 2/2 to alcohol use does not meet criteria for alcoholic hepatitis Liver US 12/2019 revealed mild hepatomegaly and possible fatty infiltration of liver need to follow up with [facility] will obtain US for follow up : 1. Trace gallbladder sludge. No cholelithiasis or sonographic evidence of acute cholecystitis. 2. No biliary ductal dilation. 3. Hepatomegaly with hepatic steatosis redemonstrated. -- Tot [place] 1.1 AST 11 AST 161 -- monitor Hyponatremia, chronic likely 2/2 to etoh use -- Na 135 R rib fracture, 9 and 10, non displaced lidoderm patch, incentive spirometry PRN Toradol Emphysema of lung Tobacco abuse nicotine patch encourage smoking cessation Depression patient denies worsening of depression per sister, patient's depression seems to have worsened the past month continue escitalopram, doxepin, prazosin, propranolol Psych consulted- stable mood provided with list of outpatient resources DVT ppx: Lovenox Dispo: PCU PCP: Hilary FULL CODE Disposition patient declining Alcohol rehab at this time Anticipate discharge home tomorrow Admission and Anticipated Discharge Date Admission Date: December 27, 2020 Subjective Follow-up for alcohol withdrawal, etc. Seen resting in bed, comfortable, no distress States he feels better today compared to yesterday Anxiety is better Denies tremors, palpitations, sweating, hallucinations Tolerating diet well Appetite is great Denies feeling depressed or anxious today Denies suicidal ideation No other symptoms Review of Systems Review of Systems: all noted and negative except for above Physical Exam Physical Exam: General- oriented x 3, not in distress, speaks in sentences with no effort or accessory muscle use Eyes- anicteric Neck- no JVD Lungs- clear BS, no crackles or wheezing bilaterally Heart- normal rate, regular rhythm; no murmurs Abdomen- normal bowel sounds, nondistended, soft, nontender Extremities- no pretibial edema, no calf tenderness No tremors Neuro- alert, oriented x 3; no gross focal neurologic deficits Skin- warm & dry Results & Data Results & Data ([facility]) Vital Signs (Past 12 Hours) Vital Signs Temp Pulse Pulse Pulse Resp BP BP 12/31/20 19:25 36.5 C 75 20 128/88 12/31/20 16:50 36.4 C L 70 19 122/84 12/31/20 15:08 74 12/31/20 12:25 36.6 C 70 19 130/86 12/31/20 08:14 36.4 C L 72 21 113/80 12/31/20 08:00 61 Pulse Ox 12/31/20 19:25 100 12/31/20 16:50 100 12/31/20 15:08 12/31/20 12:25 98 12/31/20 08:14 100 12/31/20 08:00 all noted and reviewed including below (1) Alcoholic intoxication Complication of substance-induced condition: uncomplicated Qualified Code(s): F10.920 - Alcohol use, unspecified with intoxication, uncomplicated
[2020-12-31] MEDS: PRAZOSIN HCL 1 MG CAP PO SCH (20:16)
[2020-12-31] MEDS: DOXEPIN HCL 50 MG CAPSULE PO SCH (20:16)
[2021-01-01] MEDS: CHLORDIAZEPOXIDE 10MG 4TH DOSE PO SCH (05:46)
[2021-01-01 06:34] LABS: BUN Creatinine Ratio 12.3 (10-20); Calcium 9.4 mg/dl (8.5-10.1); Creatinine Clr Calc Pharmacy 149.9 ml/min; Est GFR (Non-African American) 115.6 ml/min; Potassium 3.7 mmol/L (3.5-5.1)
[2021-01-01] MEDS: ENOXAPARIN INJ 40 MG/0.4 ML SYR SQ SCH (08:48)
[2021-01-01] MEDS: THIAMINE HCL 200 MG in SODIUM CHLORIDE 0.9% 50 ML IV SCH (08:48)
[2021-01-01] MEDS: LIDOCAINE 5% 1 PATCH TD SCH (08:49)
[2021-01-01] MEDS: NICOTINE 21 MG/24 HR TDSY TD SCH (08:49)
[2021-01-01] MEDS: FOLIC ACID 1 MG TAB PO SCH (08:50)
[2021-01-01] MEDS: PROPRANOLOL HCL 10 MG TAB PO SCH (08:50)
[2021-01-01] MEDS: ESCITALOPRAM OXALATE 20 MG TAB PO SCH (08:50)
[2021-01-01] MEDS: PANTOprazole 40 MG TAB PO SCH (08:50)
--- NOTE | 2021-01-01 13:58 | Hospitalist Progress Note ---
Date of Service January 01, 2021 delayed entry date of service noted above Assessment & Plan (1) Alcohol withdrawal: (2) Alcoholic intoxication: (3) Hypothermia: (4) Acute hyponatremia: (5) Hypoglycemia: (6) Thrombocytopenia: (7) Rib fracture: (8) Emphysema of lung: (9) Depression: Plan: This is a 55-year-old male who has significant past medical history of alcohol abuse, depression with anxiety, history of pancreatitis, history of gastritis, tobacco abuse who presents to ED 2/2 to attempting to rehab at home from alcohol. Alcohol abuse/intoxication Alcohol withdrawal Hypothermia Metabolic acidosis likely 2/2 to acute alcohol abuse ETOH level 188 -- changed to Librium protocol PRN IV Ativan Alc Withdrawal protocol -- no signs of DTs --Clinically improved after Librium protocol -- patient not interested in Rehab Hypoglycemia a1c 4.9 likely alcohol induced, poor intake -- tolerating regular diet well d/c D5NSS, ,monitor BSGs q6h IV Thiamine --Appetite is great, BSG's within acceptable limits No signs and symptoms of hypoglycemia Transaminitis 2/2 to alcohol use does not meet criteria for alcoholic hepatitis Liver US 12/2019 revealed mild hepatomegaly and possible fatty infiltration of liver need to follow up with [facility] will obtain US for follow up : 1. Trace gallbladder sludge. No cholelithiasis or sonographic evidence of acute cholecystitis. 2. No biliary ductal dilation. 3. Hepatomegaly with hepatic steatosis redemonstrated. -- Tot [place] 1.1 AST 11 AST 161 -- monitor Hyponatremia, chronic likely 2/2 to etoh use -- Na 135 R rib fracture, 9 and 10, non displaced lidoderm patch, incentive spirometry PRN Toradol Emphysema of lung Tobacco abuse nicotine patch encourage smoking cessation Depression patient denies worsening of depression per sister, patient's depression seems to have worsened the past month continue escitalopram, doxepin, prazosin, propranolol Psych consulted- stable mood provided with list of outpatient resources DVT ppx: Lovenox Dispo: PCU PCP: Hilary FULL [facility] Disposition patient declining inpatient Alcohol rehab at this time states he will go for outpatient counselling d/c home ff up with PCP in 1 week Admission and Anticipated Discharge Date Admission Date: December 27, 2020 Subjective ff up for alcohol withdrawal, etc seen resting in bed, comfortable in good spirits states he feels much better overall no chest pain, dyspnea, palpitations, dizziness no tremors, sweats, hallucinations no depression/anxiety no other symptoms states he is ready and would like to be discharged today Review of Systems Review of Systems: all noted and negative except for above Physical Exam Physical Exam: General- oriented x 3, not in distress, speaks in sentences with no effort or accessory muscle use Eyes- anicteric Neck- no JVD Lungs- clear BS BL Heart- normal rate, regular rhythm; no murmurs Abdomen- normal bowel sounds, nondistended, soft, nontender Extremities- no pretibial edema, no calf tenderness no tremors Neuro- alert, oriented x 3; no gross focal neurologic deficits Skin- warm & dry Results & Data Results & Data ([facility]) Vital Signs (Past 12 Hours) Vital Signs Temp Pulse Pulse Pulse Resp BP BP 01/01/21 13:32 36.6 C 70 88 20 128/88 129/66 01/01/21 11:52 36.6 C 88 20 129/66 01/01/21 08:01 36.9 C 54 L 16 122/69 01/01/21 07:48 66 01/01/21 03:00 36.6 C 55 L 16 120/80 Pulse Ox 01/01/21 13:32 96 01/01/21 11:52 96 01/01/21 08:01 96 01/01/21 07:48 01/01/21 03:00 98 all noted and reviewed including below (1) Alcoholic intoxication Complication of substance-induced condition: uncomplicated Qualified Code(s): F10.920 - Alcohol use, unspecified with intoxication, uncomplicated
--- NOTE | 2021-01-16 14:32 | Discharge Summary ---
Date of Service January 16, 2021 Admission HPI Per Admitting Provider This is a 55-year-old male who has significant past medical history of alcohol abuse, depression with anxiety, history of pancreatitis, history of gastritis, tobacco abuse who presents to ED 2/ to attempting to rehab at home from alcohol. He was found down at home diaphoretic and hypothermic and was brought in via EMS. BSG on arrival was 40 and he required amp of D50. According to patient he is attempting to rehab from alcohol while at home. His last alcoholic beverage was yesterday. Of significance he was seen in ED a few weeks prior secondary to fall with rib fractures. He states he got his feet tangled in sheets and fell on his right side. Earlier today patient admits he went downstairs and felt sweaty and then cold and opted to lay on the floor. He continued to have sweats and generally felt weak and unable to get up. His mother found him about an hour later and called EMS. He states he last drank yesterday approximately 6-8 beers. He also smoked weed approximately 2 days ago. He continues to smoke tobacco. He admits to being in a rehab a times admitting it is never, "worked for him." He does not wish to return to rehab. He further complains of itchy watery eyes, rhinorrhea and inability to eat. He states he is afraid to eat secondary to straining causing him to have right rib pain. Right rib pain is also made worse with deep breathing. Per EMS paperwork patient's temp on arrival was 91.8. He was also hypothermic in ED which improved with bear hugger. His alcohol level was found to be extremely high at 188.6. Further lab abnormalities include sodium 129, chloride 96, anion gap 17, BUN six, creatinine 0.65, glucose 123, AST 299, ALT 233. Rib series x-ray revealed previous fractures on right ribs nine and 10 nondisplaced. In ED he did receive banana bag and IV lorazepam. Patient denies prior history of alcohol withdrawal despite multiple rehab attempts or seizure-like activity. Admission Exam (Per Admitting) Constitutional Constitutional: WD/WN, facial hair unkempt, vitals as above, NAD, sitting up in bed, pleasant, conversing easily Head: Normocephalic, Atraumatic Eyes: PERRL, conjunctivae normal, anicteric sclerae ENMT: external ear and nose normal, oropharynx normal Neck: trachea midline, no thyromegaly normal visual inspection Respiratory: normal respiratory effort, but guarded secondary to pain, lungs clear to auscultation, no wheeze, rales, rhonchi. Normal insp/exp effort, no accessory muscle use Cardiovascular: RRR, no murmur, no edema Vessels: no JVD or carotid bruit Chest: normal inspection of chest Abdomen: normal bowel sounds, soft, nontender, no hepatosplenomegaly Musculoskeletal: no cyanosis or clubbing, extremities motor strength 5/5 Skin: no rashes, warm and dry normal turgor Neurologic: PERRL, EOMI, accommodation nl, no face palsy, no dysarthria CN's II-XI intact bilaterally and moves all extremities Psychiatric: A+Ox3, euthymic affect Lymphatic: no cervical or axillary lymphadenopathy : deferred Discharge Data Consultations 12/27/20 16:10 ED Decision to Admit Stat 12/28/20 13:20 Consult Psychiatry Routine Procedures Performed US abdomen limited HISTORY: 55 years-old Male liver, elevated lft acutely elevated LFTs COMPARISON: Abdominal ultrasound 01/04/2020, CT abdomen and pelvis 01/02/2020 TECHNIQUE: Multiple real-time sonographic images of the abdominal right upper quadrant were obtained assessing grayscale appearance and color flow FINDINGS: The pancreas is obscured by bowel gas. Increased echogenicity of the liver which measures up to 19 cm in length. No hepatic mass, marginal nodularity or ascites. Trace gallbladder sludge. No shadowing cholelithiasis, gallbladder wall thickening or pericholecystic fluid. Mild gallbladder distention. Sonographic Sauceda sign reported as negative. Normal common bile duct, 5 mm. The imaged right kidney is unremarkable without hydronephrosis. IMPRESSION: 1. Trace gallbladder sludge. No cholelithiasis or sonographic evidence of acute cholecystitis. 2. No biliary ductal dilation. 3. Hepatomegaly with hepatic steatosis redemonstrated. ACT 112: Negative or not required by law. Hospital Course (1) Alcohol withdrawal: (2) Alcoholic intoxication: (3) Hypothermia: (4) Acute hyponatremia: (5) Hypoglycemia: (6) Thrombocytopenia: (7) Rib fracture: (8) Emphysema of lung: (9) Depression: This is a 55-year-old male who has significant past medical history of alcohol abuse, depression with anxiety, history of pancreatitis, history of gastritis, tobacco abuse who presents to ED 2/2 to attempting to rehab at home from alcohol. Alcohol abuse/intoxication Alcohol withdrawal Hypothermia Metabolic acidosis likely 2/2 to acute alcohol abuse ETOH level 188 -- changed to Librium protocol PRN IV Ativan Alc Withdrawal protocol -- no signs of DTs --Clinically improved after Librium protocol -- patient not interested in Rehab Hypoglycemia a1c 4.9 likely alcohol induced, poor intake -- tolerating regular diet well d/c D5NSS, ,monitor BSGs q6h IV Thiamine --Appetite is great, BSG's within acceptable limits No signs and symptoms of hypoglycemia Transaminitis 2/2 to alcohol use does not meet criteria for alcoholic hepatitis Liver US 12/2019 revealed mild hepatomegaly and possible fatty infiltration of liver need to follow up with [facility] will obtain US for follow up : 1. Trace gallbladder sludge. No cholelithiasis or sonographic evidence of acute cholecystitis. 2. No biliary ductal dilation. 3. Hepatomegaly with hepatic steatosis redemonstrated. -- Tot [place] 1.1 AST 11 AST 161 -- monitor Hyponatremia, chronic likely 2/2 to etoh use -- Na 135 R rib fracture, 9 and 10, non displaced lidoderm patch, incentive spirometry PRN Toradol Emphysema of lung Tobacco abuse nicotine patch encourage smoking cessation Depression patient denies worsening of depression per sister, patient's depression seems to have worsened the past month continue escitalopram, doxepin, prazosin, propranolol Psych consulted- stable mood provided with list of outpatient resources DVT ppx: Lovenox Dispo: PCU PCP: Hilary FULL CODE Disposition patient declining inpatient Alcohol rehab at this time states he will go for outpatient counselling d/c home ff up with PCP in 1 week
== END 2021-01-01 14:22 | disposition home or self-care (01) | DRG 896 ==
LOC: ED 12:13 → SUATTDRO 16:14 → 2S 16:14
DX: Y92.89 Other specified places as the place of occurrence of the external cause; E87.2 Acidosis; X58.XXXA Exposure to other specified factors, initial encounter; F10.239 Alcohol dependence with withdrawal, unspecified; E87.1 Hypo-osmolality and hyponatremia; E16.2 Hypoglycemia, unspecified; Z88.8 Allergy status to other drugs, medicaments and biological substances; F17.210 Nicotine dependence, cigarettes, uncomplicated; R74.01 Elevation of levels of liver transaminase levels; F10.229 Alcohol dependence with intoxication, unspecified; Z88.5 Allergy status to narcotic agent; D69.6 Thrombocytopenia, unspecified; F32.9 Major depressive disorder, single episode, unspecified; J43.9 Emphysema, unspecified; Z81.1 Family history of alcohol abuse and dependence; E43 Unspecified severe protein-calorie malnutrition; Z88.0 Allergy status to penicillin; E86.0 Dehydration; T68.XXXA Hypothermia, initial encounter; S22.41XA Multiple fractures of ribs, right side, initial encounter for closed fracture

== ENCOUNTER 2023-04-16 09:26 | Inpatient (IN) ==
[2023-04-16] MEDS ORDERED: MULTI-VITAMIN INFUSION 10 ML, THIAMINE HCL 100 MG, FOLIC ACID 1 MG in SODIUM CHLORIDE 0... IV ONE (09:32)
[2023-04-16] MEDS ORDERED: LACTATED RINGER'S 1,000 ML IV SCH (09:45)
--- NOTE | 2023-04-16 09:47 | Emergency Department Note ---
Impression & Plan Alcohol withdrawal, Abdominal pain, Hypomagnesemia ED Provider Note HISTORY OF PRESENT ILLNESS: Patient is a 58-year-old male presenting with abdominal pain and lack of appetite. Patient reports that for the last 3 to 4 days he has been unable to eat or drink anything secondary to generalized abdominal pain. He reports that he has had crampy generalized abdominal pain for the last 3 to 4 days. Reports has not been able to eat or drink anything secondary to this pain in that timeframe. Patient is an alcoholic who normally drinks 196 ounces of 8% hard liquor a day. He reports he has been unable to drink secondary to his abdominal pain. He states he attempted to drink 20 ounces of alcohol yesterday but was unable to. He denies any significant nausea or vomiting. Denies any diarrhea. Denies any fevers. Denies any history of abdominal surgeries. Denies any recent travel. Denies any recent sick contact exposures. Denies any dysuria or hematuria. Denies any chest pain or shortness of breath ROS: as above PHYSICAL EXAM: Constitutional: Patient appears in no acute distress. HENT: Head: Normocephalic and atraumatic. Eyes: EOMI, PERRL Mouth/Throat: Mucous membranes moist. Neck: Trachea midline. Neck supple. Cardiovascular: Tachycardic with regular rhythm. No murmurs, rubs or gallops. Intact distal pulses. Pulmonary/Chest: No respiratory distress. Breath sounds clear and equal bilaterally. No wheezes or rales. Abdominal: Abdomen soft, no rebound or guarding. Epigastric TTP Musculoskeletal: No edema, tenderness or deformity noted. Skin: Warm and dry. No rash, erythema, pallor or cyanosis Psychiatric: Appropriate mood and affect for situation. Neurological: Alert and keenly responsive. CN II-XII grossly intact, moving all extremities equally and fully. With arms extended, patient has significant tremors. MDM: - Vitals signs showed hypertension and tachycardia. - History obtained via patient. Patient presents with abdominal pain and lack of appetite. Patient reports for the last 3 to 4 days he been unable to eat or drink anything secondary to generalized abdominal pain. He reports a generalized crampy abdominal pain for the last 3 to 4 days. He is an alcoholic 82, but states in the last 3 days he has been able to drink secondary to his symptoms. Denies any fevers. Denies any history of abdominal surgeries. No chest pain or shortness of breath. - Chronic conditions affecting care: alcohol abuse - Differential diagnoses include, but are not limited to: cholecystitis; pancreatitis; viral syndrome; dehydration; ACS; electrolyte abnormality - Order placed for continuous cardiac monitoring. At this time, monitor showed rate of 78 bpm with normal sinus rhythm, per my interpretation. - External medical records reviewed. PCP note dated 04/13/2023 was reviewed. Patient follows with the PCP for his chronic alcohol abuse. They report he has been working on decreasing his alcohol intake. - EKG reviewed by myself showed normal sinus rhythm. Rate 97 bpm. QTc 464. No acute ischemic changes. - Laboratory workup interpreted by myself showed normal WBC; hyponatremia (Na 129); elevated lactate (3.7); elevated anion gap (16); normal glucose; hypomagnesemia (Mg 1.2); transaminitis (AST 55; ALT 79); nromal lipase; normal troponin; negative ethanol level - UA negative for infection. Noted to have trace ketones. - Respiratory viral swab negative - CT abdomen/pelvis with IV contrast showed nonspecific proctocolitis most significant in the rectosigmoid. - Patient was given 1L LR and 1L NS in ER. Given IV multivitamin/thiamine/folic acid. Given 1 mg IV ativan based on withdrawal symptoms and scale. - Patient given 1g IV magnesium for electrolyte replacement. - On reassessment, patient reports his withdrawal symptoms are improved. He still does not have much of an appetite and family expresses desire for patient ot be monitored in hospital for evening. - Discussion was had with social work nurse about patient's case and need for admission - Hospitalist consulted for admission - Patient admitted to [] service for further evaluation and management. ASSESSMENT AND PLAN: Diagnosis: abdominal pain; alcohol withdrawal; hypomagnesemia Plan: admit Past Med/Surg History Medical History (Updated 04/16/23 @ 14:11 by Mary Jo Chavez MD) Hypothermia Rib fracture Alcohol dependence Pancreatitis Abdominal pain Anxiety Depression Suicidal ideation Surgical History History of tonsillectomy History of esophagogastroduodenoscopy (EGD) History of colonoscopy Family History (Updated 01/09/23 @ 10:09 by Mickie Huddleston LPN) Father Alcohol abuse Cirrhosis Mother Diabetes Sister Anxiety Diabetes Heart disease Hypertension Social History Smoking Status: Current every day smoker Tobacco Type: Cigarettes Cigarettes Per Day: 10; Second Hand Exposure: Yes; Do You Dip or Chew Tobacco: No; Hx Alcohol Use: Yes Alcohol type: beer Hx Substance Use: Yes Last Used Substance: Days (ago) Preferred Language: Polish Communication Ability: Effective 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 Beliefs That Will Affect Care: None marital status: Single Current Living Situation: Parent Feels Safe at Home: Yes Assistive Devices: None Allergies Allergies Allergy/AdvReac Type Severity Reaction Status Date / Time codeine Allergy Intermediate GI SYMPTOMS Verified 04/13/23 09:57 meperidine Allergy Intermediate CAUSES Verified 04/13/23 09:57 CONFUSION Penicillins Allergy Mild FINGERS Verified 04/13/23 09:57 SWELLED A CHILD Home Meds Home Medications Medication Instructions Recorded Confirmed albuterol sulfate 90 mcg/actuation 1 puff inhalation QID PRN sob 04/16/23 04/16/23 aerosol inhaler escitalopram oxalate 20 mg tablet 30 mg PO QAM 04/16/23 04/16/23 metoprolol succinate 25 mg 25 mg PO QAM 04/16/23 04/16/23 tablet,extended release 24 hr Previous Rx's Medication Instructions Recorded folic acid 1 mg tablet 1 mg PO QAM #90 tabs 01/09/23 gabapentin 400 mg capsule 400 mg PO TID 90 days #270 caps 01/09/23 mirtazapine 30 mg tablet 30 mg PO DAILY #90 tabs 01/09/23 prazosin 2 mg capsule (Minipress) 2 mg PO HS #90 caps 01/09/23 buspirone 15 mg tablet 15 mg PO BID 90 days #180 tabs 04/13/23 pantoprazole 40 mg tablet,delayed 40 mg PO DAILY 90 days #90 tabs 04/13/23 release sertraline 100 mg tablet 100 mg PO DAILY #90 tabs 04/13/23 Results & Data (ED) Vital Signs Vital Signs - 24 hr 04/16/23 09:26 04/16/23 09:55 04/16/23 09:58 Temperature 36.2 C L Temperature Source Temporal Artery Scan Pulse Rate 110 H 99 H Pulse Rate from SpO2 Sensor Respiratory Rate 18 Blood Pressure 148/97 H Blood Pressure Mean 114 Pulse Oximetry 100 95 Oxygen Delivery Method Room Air Room Air Sepsis Recent Fever Within 48 Hours No Sepsis New/Unexplained Change in Mental Status N/A Sepsis Action Taken by Nursing No Action Required 04/16/23 11:00 04/16/23 11:30 04/16/23 12:01 Temperature Temperature Source Pulse Rate 80 79 Pulse Rate from SpO2 Sensor 80 79 80 Respiratory Rate 19 16 16 Blood Pressure 149/98 H 138/94 145/114 H Blood Pressure Mean 115 108 124 Pulse Oximetry 96 95 94 Oxygen Delivery Method Room Air Room Air Room Air Sepsis Recent Fever Within 48 Hours Sepsis New/Unexplained Change in Mental Status Sepsis Action Taken by Nursing 04/16/23 12:24 04/16/23 12:30 Temperature Temperature Source Pulse Rate 83 78 Pulse Rate from SpO2 Sensor 86 79 Respiratory Rate 15 16 Blood Pressure 158/105 H 161/107 H Blood Pressure Mean 122 125 Pulse Oximetry 95 97 Oxygen Delivery Method Room Air Room Air Sepsis Recent Fever Within 48 Hours Sepsis New/Unexplained Change in Mental Status Sepsis Action Taken by Nursing Laboratory Data 04/16/23 10:07 04/16/23 09:48 Lab Results 04/16/23 04/16/23 04/16/23 Range/Units 09:48 10:05 10:07 WBC 6.26 (4.8-10.8) K/ul RBC 5.21 (4.70-6.10) M/uL Hgb 17.2 (14.0-18.0) g/dl Hct 48.2 (42.0-52.0) % MCV 92.5 (80.0-100.0) fL MCH 33.0 (25.0-34.0) pg MCHC 35.7 (32.0-36.0) g/dL RDW Std Deviation 40.5 (36.4-46.3) fL RDW Coeff of Flore[place]io 11.9 (11.5-14.5) % Plt Count 182 (130-400) K/uL MPV 9.9 (9.4-12.4) fL Immature Gran % (Auto) 0.2 % Neut % (Auto) 62.2 % Lymph % (Auto) 26.4 % [place] % (Auto) 10.1 % Eos % (Auto) 0.6 % Baso % (Auto) 0.5 % Neut # (Auto) 3.90 (1.40-6.50) K/uL Lymph # (Auto) 1.65 (1.20-3.40) K/uL [place] # (Auto) 0.63 H (0.11-0.59) K/uL Eos # (Auto) 0.04 (0.00-0.50) K/uL Baso # (Auto) 0.03 (0.00-0.20) K/uL Immature Gran # (Auto) 0.01 (0.01-0.20) K/uL PT 11.6 (9.0-12.0) Seconds INR 1.1 (0.9-1.1) Sodium 129 L (136-145) mmol/L Potassium 3.5 (3.5-5.1) mmol/L Chloride 93 L (98-107) mmol/L Carbon Dioxide 20 L (21-32) mmol/L Anion Gap 16 H (3-11) BUN 5 L (6-23) mg/dl Creatinine 0.87 (0.6-1.4) mg/dl Est Cr Clr Drug Dosing 93.9 ml/min Est GFR ( Amer) 111.8 ml/min Est GFR (Non-Af Amer) 96.5 ml/min BUN/Creatinine Ratio 5.7 L (10-20) Glucose 109 H (70-99(Fasting)) mg/dl Lactate 3.7 H* (0.4-2.0) mmol/L Calcium 10.4 H (8.6-10.3) mg/dl Magnesium 1.2 L (1.7-2.4) mg/dl Total Bilirubin 1.5 H (0.2-1.0) mg/dl AST 55 H (13-39) U/L ALT 79 H (7-52) U/L Alkaline Phosphatase 72 (34-104) U/L Troponin I High Sens 3.1 (0-20) pg/ml Total Protein 8.2 (6.0-8.3) gm/dl Albumin 5.1 H (3.4-5.0) gm/dl Globulin 3.1 (2.5-4.0) gm/dl Albumin/Globulin Ratio 1.6 (0.9-2) Lipase 35 (11-82) U/L Urine Color [place] Urine Appearance Clear (Clear) Urine pH 6.0 (4.5-7.5) Ur Specific [place] 1.024 (1.000-1.030) Urine Protein 1+ H (Negative) Urine Glucose (UA) Negative (Negative) Urine Ketones Trace H (Negative) Urine Blood Negative (Negative) Urine Nitrite Positive A (Negative) Urine Bilirubin 1+ H (Negative) Urine Urobilinogen Negative (Negative) Ur Leukocyte Esterase 1+ H (Negative) Urine WBC (Auto) 1-5 (0-5) /hpf Urine RBC (Auto) 5-10 H (0-4) /hpf U Hyaline Cast (Auto) 1-5 (0-5) /lpf U Epithel Cells (Auto) 20-30 H (0-5) /lpf Urine Bacteria (Auto) Negative (Negative) Ethyl Alcohol mg/dL < 10.0 (<10.0) mg/dl Adenovirus (PCR) Not Detected (NotDetected) B. pertussis DNA (PCR) Not Detected (NotDetected) B.parapertussis DNA PCR Not Detected (NotDetected) C. pneumoniae DNA (PCR) Not Detected (NotDetected) Coronavirus OC43 (PCR) Not Detected (NotDetected) Coronavirus HKU1 (PCR) Not Detected (NotDetected) Coronavirus 229E (PCR) Not Detected (NotDetected) SARS-CoV-2 (PCR) Not Detected (NotDetected) Coronavirus NL63 (PCR) Not Detected (NotDetected) Human Metapneumovir PCR Not Detected (NotDetected) Influenza Type A (PCR) Not Detected (NotDetected) Influenza Type B (PCR) Not Detected (NotDetected) M. pneumoniae (PCR) Not Detected (NotDetected) Parainfluenza 1 (PCR) Not Detected (NotDetected) Parainfluenza 2 (PCR) Not Detected (NotDetected) Parainfluenza 3 (PCR) Not Detected (NotDetected) Parainfluenza 4 (PCR) Not Detected (NotDetected) RSV (PCR) Not Detected (NotDetected) Entero/Rhino (PCR) Not Detected (NotDetected) 04/16/23 Range/Units 12:15 WBC (4.8-10.8) K/ul RBC (4.70-6.10) M/uL Hgb (14.0-18.0) g/dl Hct (42.0-52.0) % MCV (80.0-100.0) fL MCH (25.0-34.0) pg MCHC (32.0-36.0) g/dL RDW Std Deviation (36.4-46.3) fL RDW Coeff of Florencio (11.5-14.5) % Plt Count (130-400) K/uL MPV (9.4-12.4) fL Immature Gran % (Auto) % Neut % (Auto) % Lymph % (Auto) % [place] % (Auto) % Eos % (Auto) % Baso % (Auto) % Neut # (Auto) (1.40-6.50) K/uL Lymph # (Auto) (1.20-3.40) K/uL [place] # (Auto) (0.11-0.59) K/uL Eos # (Auto) (0.00-0.50) K/uL Baso # (Auto) (0.00-0.20) K/uL Immature Gran # (Auto) (0.01-0.20) K/uL PT (9.0-12.0) Seconds INR (0.9-1.1) Sodium (136-145) mmol/L Potassium (3.5-5.1) mmol/L Chloride (98-107) mmol/L Carbon Dioxide (21-32) mmol/L Anion Gap (3-11) BUN (6-23) mg/dl Creatinine (0.6-1.4) mg/dl Est Cr Clr Drug Dosing ml/min Est GFR ( Amer) ml/min Est GFR (Non-Af Amer) ml/min BUN/Creatinine Ratio (10-20) Glucose (70-99(Fasting)) mg/dl Lactate 1.5 (0.4-2.0) mmol/L Calcium (8.6-10.3) mg/dl Magnesium (1.7-2.4) mg/dl Total Bilirubin (0.2-1.0) mg/dl AST (13-39) U/L ALT (7-52) U/L Alkaline Phosphatase (34-104) U/L Troponin I High Sens (0-20) pg/ml Total Protein (6.0-8.3) gm/dl Albumin (3.4-5.0) gm/dl Globulin (2.5-4.0) gm/dl Albumin/Globulin Ratio (0.9-2) Lipase (11-82) U/L Urine Color Urine Appearance (Clear) Urine pH (4.5-7.5) Ur Specific [place] (1.000-1.030) Urine Protein (Negative) Urine Glucose (UA) (Negative) Urine Ketones (Negative) Urine Blood (Negative) Urine Nitrite (Negative) Urine Bilirubin (Negative) Urine Urobilinogen (Negative) Ur Leukocyte Esterase (Negative) Urine WBC (Auto) (0-5) /hpf Urine RBC (Auto) (0-4) /hpf U Hyaline Cast (Auto) (0-5) /lpf U Epithel Cells (Auto) (0-5) /lpf Urine Bacteria (Auto) (Negative) Ethyl Alcohol mg/dL (<10.0) mg/dl Adenovirus (PCR) (NotDetected) B. pertussis DNA (PCR) (NotDetected) B.parapertussis DNA PCR (NotDetected) C. pneumoniae DNA (PCR) (NotDetected) Coronavirus OC43 (PCR) (NotDetected) Coronavirus HKU1 (PCR) (NotDetected) Coronavirus 229E (PCR) (NotDetected) SARS-CoV-2 (PCR) (NotDetected) Coronavirus NL63 (PCR) (NotDetected) Human Metapneumovir PCR (NotDetected) Influenza Type A (PCR) (NotDetected) Influenza Type B (PCR) (NotDetected) M. pneumoniae (PCR) (NotDetected) Parainfluenza 1 (PCR) (NotDetected) Parainfluenza 2 (PCR) (NotDetected) Parainfluenza 3 (PCR) (NotDetected) Parainfluenza 4 (PCR) (NotDetected) RSV (PCR) (NotDetected) Entero/Rhino (PCR) (NotDetected) Administered Medications Lactated Ringer's (Lr) 1,000 mls @ 120 mls/hr IV .Q8H20M [facility] Stop: 05/16/23 09:44 Last Admin: 04/16/23 09:54 Dose: 120 mls/hr Documented By: GARRICK Lorazepam 1 mg/ Syringe 1 mls @ 2 mls/min IV UD PRN; Protocol PRN Reason: EtOH Withdrawal AWSS Score 6,7 Stop: 05/16/23 10:07 Last Admin: 04/16/23 10:52 Dose: 2 mls/min Documented By: GARRICK Discontinued Medications Multivitamins 10 ml/ Thiamine HCl 100 mg/ Folic Acid 1 mg/Sodium Chloride 1,011.2 mls @ 500 mls/hr IV .Q2H2M ONE Stop: 04/16/23 11:33 Last Infusion: 04/16/23 12:13 Dose: Infused Documented By: Admin: 04/16/23 09:45 Dose: 500 mls/hr Documented By: GARRICK Sodium Chloride (Nss) 1,000 mls @ 999 mls/hr IV .Q1H1M ONE Stop: 04/16/23 11:22 Last Infusion: 04/16/23 12:13 Dose: Infused Documented By: Admin: 04/16/23 10:46 Dose: 999 mls/hr Documented By: GARRICK Magnesium Sulfate/Dextrose (Magnesium Sulfate / D5w) 1 gm in 100 mls @ 100 mls/hr IV NOW STA Stop: 04/16/23 13:25 Last Admin: 04/16/23 13:06 Dose: 100 mls/hr Documented By: ABDULLAHI Ioversol (Optiray 320 500ml) 89 ml IV ONCE ONE Stop: 04/16/23 11:47 Last Admin: 04/16/23 11:47 Dose: 89 ml Documented By: SUNSHINE Lorazepam (Lorazepam 1 Mg/1 Ml Syr Ed Inj Use) Confirm Administered Dose 1 mg .ROUTE .STK-MED ONE Stop: 04/16/23 10:49 Last Admin: 04/16/23 10:53 Dose: Not Given Documented By: GARRICK Imaging Data Radiologist's Impression: Abdomen/Pelvis CT 04/16/23 11:16 CT SCAN OF THE ABDOMEN AND PELVIS WITH IV CONTRAST CLINICAL HISTORY: Epigastric abdominal pain. COMPARISON STUDY: Abdominal CT dated 01/02/2020. TECHNIQUE: Following the IV administration of 89 cc of Optiray 320, CT scan of the abdomen and pelvis is performed from the lung bases to the proximal femora. Images are reviewed in the axial, sagittal, and coronal planes. IV contrast was administered without complication. A dose lowering technique was utilized adhering to the principles of ALARA. CT DOSE: 795.12 mGy.cm FINDINGS: Lung bases: The heart is mildly enlarged and without pericardial effusion. Emphysematous changes noted. There are scattered calcified granulomas. No airspace consolidation or pleural effusion is identified. There is a small hiatal hernia. Liver: The contrast-enhanced liver is normal in size and contour. Hepatic attenuation is diminished suggesting steatosis. There is no intrahepatic biliary ductal dilatation. The hepatic veins and portal veins are patent. Gallbladder: Unremarkable. There is a calcified splenic granuloma. Spleen: Normal in size and attenuation. Pancreas: Unremarkable. Adrenal glands: Unremarkable. Kidneys: The contrast enhanced kidneys are normal in size and without hydronephrosis. The kidneys enhance symmetrically. Abdominal vasculature: The abdominal aorta is normal in course and caliber noting moderate atherosclerotic calcification. Bowel: There is mild wall thickening and mucosal hyperemia suggested involving the rectosigmoid colon. No bowel obstruction is identified. The appendix is well-visualized and normal. Peritoneum: There is no intraperitoneal free air or abdominal ascites. There is a fat-containing umbilical hernia. Lymphadenopathy: None. Pelvic viscera: The prostate gland is enlarged and heterogeneous. The bladder wall is thickened/trabeculated indicating chronic outlet obstruction. Skeletal structures: No lytic or blastic lesions are seen. IMPRESSION: 1. Findings suggest a mild nonspecific proctocolitis, greatest involving the rectosigmoid. Correlate clinically. 2. Cardiomegaly and emphysema. 3. Hepatic steatosis. 4. Additional findings as above. ACT 112: Negative or not required by law. Electronically signed by: Javier Vazquez M.D. 04/16/2023 12:13 PM Discharge Plan Visit Data Chief Complaint: Abdominal Pain Stated Complaint: ABDOMINAL PAIN, UNABLE TO EAT, UNABLE TO DRINK ED Provider: Mary Jo Chavez Discharge Problem: Alcohol withdrawal, Abdominal pain, Hypomagnesemia Forms Stand Alone Forms: [employer] Prescriptions Prescriptions: No Action mirtazapine 30 mg tablet 30 mg PO DAILY Qty: 90 3RF folic acid 1 mg tablet 1 mg PO QAM Qty: 90 3RF gabapentin 400 mg capsule 400 mg PO TID 90 Days Qty: 270 3RF prazosin [Minipress] 2 mg capsule 2 mg PO HS Qty: 90 3RF sertraline 100 mg tablet 100 mg PO DAILY Qty: 90 3RF pantoprazole 40 mg tablet,delayed release (DR/EC) 40 mg PO DAILY 90 Days Qty: 90 3RF buspirone 15 mg tablet 15 mg PO BID 90 Days Qty: 180 2RF metoprolol succinate 25 mg tablet extended release 24 hr 25 mg PO QAM albuterol sulfate 90 mcg/actuation HFA aerosol inhaler 1 puff INHALATION QID PRN (Reason: sob) escitalopram oxalate 20 mg tablet 30 mg PO QAM Referrals Referrals: Alex Wright DO [Primary Care Provider] -
[2023-04-16] MEDS ORDERED: LORazepam 2 MG in SYRINGE 1 ML IV PRN ×2 (10:08→14:20)
[2023-04-16] MEDS ORDERED: LORazepam 3 MG in SYRINGE 1.5 ML IV PRN ×2 (10:08→14:20)
[2023-04-16] MEDS ORDERED: Ativan IV Alcohol Withdrawal--Active Protocol IV PRN ×2 (10:08→14:20)
[2023-04-16] MEDS ORDERED: LORazepam 1 MG in SYRINGE 0.5 ML IV PRN ×2 (10:08→14:20)
[2023-04-16 10:21] LABS: Albumin Level 5.1 gm/dl (3.4-5.0); Bilirubin,Total 1.5 mg/dl (0.2-1.0); Calcium 10.4 mg/dl (8.6-10.3); Potassium 3.5 mmol/L (3.5-5.1)
[2023-04-16 10:22] LABS: Basophils # (auto) 0.03 K/uL (0.00-0.20); Basophils % (auto) 0.5 %; Eosinophils # (auto) 0.04 K/uL (0.00-0.50); Eosinophils % (auto) 0.6 %; Hematocrit (blood only) 48.2 % (42.0-52.0); Hemoglobin 17.2 g/dl (14.0-18.0); Immature Granulocytes # (auto) 0.01 K/uL (0.01-0.20); Immature Granulocytes % (auto) 0.2 %; Lymphocytes # (auto) 1.65 K/uL (1.20-3.40); Lymphocytes % (auto) 26.4 %; Mean Corpuscular Hgb Conc 35.7 g/dL (32.0-36.0); Mean Corpuscular Volume 92.5 fL (80.0-100.0); Mean Platelet Volume 9.9 fL (9.4-12.4); Monocytes # (auto) 0.63 K/uL (0.11-0.59); Monocytes % (auto) 10.1 %; Neutrophils % (auto) 62.2 %; Platelet Count 182 K/uL (130-400); RDW Coefficient of Variation 11.9 % (11.5-14.5); RDW Standard Deviation 40.5 fL (36.4-46.3); Red Blood Count 5.21 M/uL (4.70-6.10); White Blood Count 6.26 K/ul (4.8-10.8)
[2023-04-16] MEDS ORDERED: SODIUM CHLORIDE 0.9% 1,000 ML IV ONE (10:22)
[2023-04-16 10:27] LABS: Appearance Urine Clear (Clear); Bacteria Urine Automated Negative (Negative); Blood Urine Negative (Negative); Color Urine Orange; Epithelial Cell Urine Auto 20-30 /lpf (0-5); Glucose Urine UA Negative (Negative); Ketones Urine Trace (Negative); Leukocyte Esterase Urine 1+ (Negative); Nitrite Urine Positive (Negative); Protein Urine 1+ (Negative); Specific Gravity Urine 1.024 (1.000-1.030); Urobilinogen Urine Negative (Negative)
[2023-04-16 10:27] LABS: Albumin Globulin Ratio 1.6 (0.9-2); BUN Creatinine Ratio 5.7 (10-20); Creatinine Clr Calc Pharmacy 93.9 ml/min; Est GFR (African American) 111.8 ml/min; Est GFR (Non-African American) 96.5 ml/min; Globulin 3.1 gm/dl (2.5-4.0); Total Protein 8.2 gm/dl (6.0-8.3)
[2023-04-16 10:29] LABS: Bilirubin Urine 1+ (Negative)
[2023-04-16 10:30] LABS: Troponin I High Sensitivity 3.1 pg/ml (0-20)
[2023-04-16 10:38] LABS: INR 1.1 (0.9-1.1); Prothrombin Time 11.6 Seconds (9.0-12.0)
[2023-04-16] MEDS ORDERED: LORazepam 1 MG/1 ML SYR ED Inj Use ONE (10:48)
[2023-04-16 11:13] LABS: Adenovirus PCR Not Detected (NotDetected); Bordetella parapertussis PCR Not Detected (NotDetected); Bordetella pertussis PCR Not Detected (NotDetected); Chlamydia pneumoniae PCR Not Detected (NotDetected); Coronavirus 229E PCR Not Detected (NotDetected); Coronavirus CoV-2 (COVID19)PCR Not Detected (NotDetected); Coronavirus HKU1 PCR Not Detected (NotDetected); Coronavirus NL63 PCR Not Detected (NotDetected); Coronavirus OC43PCR Not Detected (NotDetected); Human Metapneumovirus PCR Not Detected (NotDetected); Influenza A PCR Not Detected (NotDetected); Influenza B PCR Not Detected (NotDetected); Mycoplasma pneumoniae PCR Not Detected (NotDetected); Parainfluenza Virus 1 PCR Not Detected (NotDetected); Parainfluenza Virus 2 PCR Not Detected (NotDetected); Parainfluenza Virus 3 PCR Not Detected (NotDetected); Parainfluenza Virus 4 PCR Not Detected (NotDetected); Respiratory Syncytial VirusPCR Not Detected (NotDetected); Rhinovirus/Enterovirus PCR Not Detected (NotDetected)
[2023-04-16] MEDS ORDERED: OPTIRAY 320 500ml IV ONE (11:46)
[2023-04-16 12:03] LABS: Magnesium 1.2 mg/dl (1.7-2.4)
--- NOTE | 2023-04-16 12:14 | CT Scan Report ---
CT SCAN OF THE ABDOMEN AND PELVIS WITH IV CONTRAST CLINICAL HISTORY: Epigastric abdominal pain. COMPARISON STUDY: Abdominal CT dated 01/02/2020. TECHNIQUE: Following the IV administration of 89 cc of Optiray 320, CT scan of the abdomen and pelvi s is performed from the lung bases to the proximal femora. Images are reviewed in the axial, sagittal , and coronal planes. IV contrast was administered without complication. A dose lowering technique wa s utilized adhering to the principles of ALARA. CT DOSE: 795.12 mGy.cm FINDINGS: Lung bases: The heart is mildly enlarged and without pericardial effusion. Emphysematous changes note d. There are scattered calcified granulomas. No airspace consolidation or pleural effusion is identif ied. There is a small hiatal hernia. Liver: The contrast-enhanced liver is normal in size and contour. Hepatic attenuation is diminished s uggesting steatosis. There is no intrahepatic biliary ductal dilatation. The hepatic veins and portal veins are patent. Gallbladder: Unremarkable. There is a calcified splenic granuloma. Spleen: Normal in size and attenuation. Pancreas: Unremarkable. Adrenal glands: Unremarkable. Kidneys: The contrast enhanced kidneys are normal in size and without hydronephrosis. The kidneys enh ance symmetrically. Abdominal vasculature: The abdominal aorta is normal in course and caliber noting moderate atheroscle rotic calcification. Bowel: There is mild wall thickening and mucosal hyperemia suggested involving the rectosigmoid colon . No bowel obstruction is identified. The appendix is well-visualized and normal. Peritoneum: There is no intraperitoneal free air or abdominal ascites. There is a fat-containing umbi lical hernia. Lymphadenopathy: None. Pelvic viscera: The prostate gland is enlarged and heterogeneous. The bladder wall is thickened/trabe culated indicating chronic outlet obstruction. Skeletal structures: No lytic or blastic lesions are seen. IMPRESSION: 1. Findings suggest a mild nonspecific proctocolitis, greatest involving the rectosigmoid. Correlate clinically. 2. Cardiomegaly and emphysema. 3. Hepatic steatosis. 4. Additional findings as above. ACT 112: Negative or not required by law. Electronically signed by: Javier Vazquez M.D. 04/16/2023 12:13 PM
[2023-04-16] MEDS ORDERED: MAGNESIUM SULFATE / D5W 1 GM/100 ML BAG IV STA (12:26)
[2023-04-16] MEDS ORDERED: chlordiazePOXIDE ALCOHOL WITHDRAWL 50MG PO STA (14:20)
[2023-04-16] MEDS ORDERED: THIAMINE HCL 500 MG in SODIUM CHLORIDE 0.9% 50 ML IV STA (14:23)
--- NOTE | 2023-04-16 14:26 | Electrocardiogram Report ---
Test Reason : Blood Pressure : / mmHG Vent. Rate : 097 BPM Atrial Rate : 097 BPM P-R Int : 164 ms QRS Dur : 092 ms QT Int : 366 ms P-R-T Axes : 049 048 054 degrees QTc Int : 464 ms Normal sinus rhythm Nonspecific ST abnormality Abnormal ECG When compared with ECG of 22-JAN-2022 17:26, OK interval has decreased Vent. rate has increased BY 37 BPM Questionable change in QRS duration Confirmed by Donal Fox ([id number]) on 04/16/2023 2:25:45 PM Referred By: REFERRED SELF Confirmed By:Donal Fox
[2023-04-16] MEDS: chlordiazePOXIDE HCl 25 MG CAP PO SCH ×2 (14:48→20:48)
[2023-04-16] MEDS: POTASSIUM CHLORIDE / WTR 10 MEQ/100 ML PLCT IV SCH ×2 (14:54→17:50)
[2023-04-16] MEDS: MAGNESIUM SULFATE / D5W 1 GM/100 ML BAG IV SCH ×3 (14:58→20:47)
--- NOTE | 2023-04-16 15:16 | History & Physical Report ---
Date of Service April 16, 2023 Assessment & Plan (1) Alcohol withdrawal: Plan: - Last drink attempted 04/15 afternoon was unable to keep this down due to nausea Previously with approximately 1 gallon of 8% malt beverage intake daily. Does want to cut down, has been to rehab several times Tremulous on exam, improved following 1 dose of Ativan Has done well with Librium in the past and denies history of seizures. Will admit on Librium taper and AVSS Thiamine, folic acid protocol ordered Liver withSuspected steatosis., Transaminases are chronically with mild elevation. Outpatient GI records Hypomagnesemia repleted, potassium low normal and repletion ordered. Trended. (2) Abdominal pain: Plan: Previously seen by [facility]. Did have a EUS which was unremarkable other than gastritis, did not show any pancreatic pathology and patient was continued on Protonix. Had a history of pancreatitis, lipase is normal and without evidence of lipase on admitting CT Does have chronic history of lower abdomen bloating. Colonoscopy 01/2021 showed internal hemorrhoids but was otherwise normal. Patient's pain is more in the lower quadrant? Mild watershed with volume depletion. Pain has nearly completely resolved following fluids. He is covered with Rocephin for UTI below, low suspicion for infectious. Stool PCR is pending (3) Depression: Plan: Continue home meds (4) Thrombocytopenia: Plan UTI Infected versus contaminated appearing UA in a male. He reports his urine has been dark and more foul appearing, he is not sure if he is having urinary symptoms as he has been eating and drinking much less for the last few days Will treat as potential UTI, Rocephin ordered UCx pending DVT prophylaxis: Lovenox Disposition: Medical telemetry for EtOH on Librium taper CODE STATUS: Full code Diet: Full as tolerated, may advance as tolerated History of Present Illness Primary Care Provider: Alex Wright DO Bebeto is a 58-year-old male with past medical history of anxiety/depression, alcohol abuse, COPD who presents with 2 days of loose but not liquid diarrhea with some cramping lower abdominal pain improved on assessment, and a feeling of shakiness after cutting down to 1 gallon of 8% beer intake per day. He has a history of alcohol withdrawal but has required rehab and Librium several times and he is interested and cutting back/getting sober.. He reports he has had poor appetite for 2 days and has not eaten and drank anything due to having crampy low pain in his abdomen. He was unable to keep alcohol down yesterday due to nausea and is concerned about withdrawal. He denies a history of seizure and hallucinations. He reported he has had hospitalized withdrawal in the past which is required Librium but he has done well with this. He reports he has felt a little chilly but has had no fevers. Has had very dark urine output which appears more clouded although has not had dysuria/pain.. He does feel improved after 1 mg of Ativan while in the ER. Denies chest pain or chest pressure. Endorses tremulousness. Denies melena/bloody diarrhea. Denies hematemesis. Full Medical History: Reviewed Medications: Reviewed Surgical History: Reviewed Family history: Reviewed Allergies: Reviewed Social History: As noted Code Status: Full Allergies Allergy/AdvReac Type Severity Reaction Status Date / Time codeine Allergy Intermediate GI SYMPTOMS Verified 04/13/23 09:57 meperidine Allergy Intermediate CAUSES Verified 04/13/23 09:57 CONFUSION Penicillins Allergy Mild FINGERS Verified 04/13/23 09:57 SWELLED A CHILD Home Medications Medication Instructions Recorded Confirmed Type folic acid 1 mg tablet 1 mg PO QAM #90 tabs 01/09/23 04/16/23 Rx gabapentin 400 mg capsule 400 mg PO TID 90 days #270 caps 01/09/23 04/16/23 Rx mirtazapine 30 mg tablet 30 mg PO DAILY #90 tabs 01/09/23 04/16/23 Rx prazosin 2 mg capsule (Minipress) 2 mg PO HS #90 caps 01/09/23 04/16/23 Rx buspirone 15 mg tablet 15 mg PO BID 90 days #180 tabs 04/13/23 04/16/23 Rx pantoprazole 40 mg tablet,delayed 40 mg PO DAILY 90 days #90 tabs 04/13/23 04/16/23 Rx release sertraline 100 mg tablet 100 mg PO DAILY #90 tabs 04/13/23 04/16/23 Rx albuterol sulfate 90 mcg/actuation 1 puff inhalation QID PRN sob 04/16/23 04/16/23 History aerosol inhaler escitalopram oxalate 20 mg tablet 30 mg PO QAM 12/07/23 12/07/23 History metoprolol succinate 25 mg 25 mg PO QAM 04/16/23 04/16/23 History tablet,extended release 24 hr Past Med/Surg History Medical History Hypothermia Rib fracture Alcohol dependence Pancreatitis Abdominal pain Anxiety Depression Suicidal ideation Surgical History History of tonsillectomy History of esophagogastroduodenoscopy (EGD) History of colonoscopy Family History Father Alcohol abuse Cirrhosis Mother Diabetes Sister Anxiety Diabetes Heart disease Hypertension Social History Smoking Status: Current every day smoker Tobacco Type: Cigarettes Cigarettes Per Day: 10; Second Hand Exposure: Yes; Do You Dip or Chew Tobacco: No; Hx Alcohol Use: Yes Alcohol type: beer Hx Substance Use: Yes Last Used Substance: Days (ago) Preferred Language: Korean Communication Ability: Effective Director Of Food And Nutrition Services Required: No Beliefs That Will Affect Care: None marital status: Single Current Living Situation: Parent Feels Safe at Home: Yes Assistive Devices: None Physical Exam Physical Exam: General: A&Ox3. NAD. Cooperative. HEENT: Atraumatic, normocephalic. Vision/hearing intact Pulm: CTAB A&P. -wheezes, -rales, -rhonchi. Symmetrical chest rise. No increased work of breathing. No respiratory distress. Cardiac: RRR, -mrg. Radial pulses intact and symmetrical. Abdominal: Mild bilateral low abdominal pain, no upper quadrant abdominal pain. No epigastric pain. No guarding/rigidity. Patient reports pain greatly improved nearly resolved following fluids. No rebound/guarding Extremities warm, dry. Strength in upper and lower extremities grossly 5 out of 5, patient is tremulous during Results & Data Results & Data Vital Signs (Past 12 Hours) Vital Signs Temp Pulse Resp BP Pulse Ox O2 Del Method 04/16/23 14:10 96 H 04/16/23 12:30 78 16 161/107 H 97 Room Air 04/16/23 12:24 83 15 158/105 H 95 Room Air 04/16/23 12:01 16 145/114 H 94 Room Air 04/16/23 11:30 79 16 138/94 95 Room Air 04/16/23 11:00 80 19 149/98 H 96 Room Air 04/16/23 09:58 95 Room Air 04/16/23 09:55 99 H 04/16/23 09:26 36.2 C L 110 H 18 148/97 H 100 Room Air PG Care Time/CCT Total # of Minutes Spent Total Time Spent with Patient: Total time spent is greater than 50% in coordination of care (as documented) at patient's floor/unit and/or counseling patient: Coding Level of Care Code 55777 INT INP/OBS CARE 3/75MIN Diagnoses Alcohol withdrawal F10.239 Abdominal pain R10.10 Abdominal location: upper abdomen, unspecified Depression F32.9 Thrombocytopenia D69.6 (2) Abdominal pain Abdominal location: upper abdomen, unspecified Qualified Code(s): R10.10 - Upper abdominal pain, unspecified
[2023-04-16] MEDS ORDERED: ALBUTEROL HFA 8 GM INHALER INH PRN (17:01)
[2023-04-16] MEDS: PLASMA-LYTE A 1,000 ML IV SCH (18:10)
[2023-04-16 19:38] LABS: Adenovirus F 40/41 PCR Not Detected (NotDetected); Astrovirus PCR Not Detected (NotDetected); Campylobacter PCR Not Detected (NotDetected); Cryptosporidium PCR Not Detected (NotDetected); Cyclospora cayetanensis PCR Not Detected (NotDetected); Entamoeba histolytica PCR Not Detected (NotDetected); Enteroaggregative E.coli(EAEC) Not Detected (NotDetected); Enteropathogenic E.coli (EPEC) Not Detected (NotDetected); Enterotoxigenic E.coli (ETEC) Not Detected (NotDetected); Giardia lamblia PCR Not Detected (NotDetected); Norovirus GI/GII PCR Not Detected (NotDetected); Plesiomonas shigelloides PCR Not Detected (NotDetected); Rotavirus A PCR Not Detected (NotDetected); Salmonella PCR Not Detected (NotDetected); Sapovirus PCR Not Detected (NotDetected); Shiga-like Toxin E.coli (STEC) Not Detected (NotDetected); Shigella/Enteroinvasive E.coli Not Detected (NotDetected); Vibrio cholerae PCR Not Detected (NotDetected); Vibrio species PCR Not Detected (NotDetected); Yersinia enterocolitica PCR Not Detected (NotDetected)
[2023-04-16] MEDS ORDERED: NICOTINE 14 MG/24 HR PATCH TD SCH (20:40)
[2023-04-16] MEDS: GABAPENTIN 400 MG CAP PO SCH (20:49)
[2023-04-16] MEDS: busPIRone 15 MG TAB PO SCH (20:49)
[2023-04-16] MEDS: PRAZOSIN HCL 1 MG CAP PO SCH (20:50)
[2023-04-16] MEDS: FAMOTIDINE 20 MG in SYRINGE 3 ML IV SCH (21:29)
[2023-04-17] MEDS: PLASMA-LYTE A 1,000 ML IV SCH ×2 (00:28→08:13)
[2023-04-17] MEDS: chlordiazePOXIDE HCl 25 MG CAP PO SCH ×3 (02:52→17:23)
[2023-04-17 03:38] LABS: BUN Creatinine Ratio 4.3 (10-20); Calcium 8.5 mg/dl (8.6-10.3); Creatinine Clr Calc Pharmacy 118.4 ml/min; Est GFR (Non-African American) 106.1 ml/min; Potassium 3.2 mmol/L (3.5-5.1)
[2023-04-17] MEDS: FAMOTIDINE 20 MG in SYRINGE 3 ML IV SCH (08:22)
[2023-04-17] MEDS: SERTRALINE HCL 100 MG TABLET PO SCH (08:23)
[2023-04-17] MEDS: PANTOprazole 40 MG TAB PO SCH (08:23)
[2023-04-17] MEDS: GABAPENTIN 400 MG CAP PO SCH ×3 (08:24→20:34)
[2023-04-17] MEDS: FOLIC ACID 1 MG TAB PO SCH (08:24)
[2023-04-17] MEDS: METOPROLOL SUCC 25MG EXT REL TAB PO SCH (08:24)
[2023-04-17] MEDS: busPIRone 15 MG TAB PO SCH ×2 (08:25→20:34)
[2023-04-17] MEDS: ESCITALOPRAM OXALATE 10 MG TAB PO SCH (08:25)
[2023-04-17] MEDS ORDERED: MIRTAZAPINE TAB 15 MG TAB PO SCH (09:00)
[2023-04-17] MEDS ORDERED: THIAMINE HCL 300 MG in SODIUM CHLORIDE 0.9% 50 ML IV ONE (09:00)
[2023-04-17] MEDS ORDERED: FOLIC ACID 1 MG TAB PO SCH (09:00)
[2023-04-17] MEDS ORDERED: POTASSIUM CHLORIDE CRTAB 20 MEQ TABCR PO STA (09:20)
[2023-04-17] MEDS: NICOTINE 14 MG/24 HR PATCH TD SCH (11:24)
[2023-04-17] MEDS: SODIUM CHLORIDE 0.9% 1,000 ML IV SCH (11:26)
--- NOTE | 2023-04-17 12:59 | Hospitalist Progress Note ---
Date of Service April 17, 2023 Assessment & Plan (1) Alcohol withdrawal: Plan: Supportive care. [facility] protocol. Chlordiazepoxide has been ordered and will be tapered off as tolerated. Vitamin supplements (2) Abdominal pain: Plan: Now resolved. Probable acute gastritis present on admission. Now asymptomatic and eating solid food. (3) Depression: Plan: Stable. Continue current medical management (4) Thrombocytopenia: Plan: Mild. Suspect this to be alcohol related. Serial labs (5) Hypokalemia: Plan: Oral replacement ordered. Serial labs (6) Hypomagnesemia: Plan: IV replacement ordered. Serial lab (7) Acute hyponatremia: Plan: Mild. Asymptomatic. Serial labs (8) Urinary tract infection: Plan: Suspected on admission. Urine culture is pending. Continue Rocephin, day 2 Plan Anticipate eventual discharge to home Admission and Anticipated Discharge Date Admission Date: April 16, 2023 Subjective Alert and oriented. No acute problems. He will remain on IV fluids for now. Potassium replacement ordered for mild hypokalemia. Urine culture is pending. He remains on Rocephin, day 2. Epigastric pain has resolved. Solid diet has been started and well-tolerated. Review of Systems 2 Review of Systems: Constitutional-no fever or chills ENT-no blurred vision, no double vision, no epistaxis, no sore throat Respiratory-no cough, no wheezing, no shortness of breath Cardiac-no palpitations, no chest pain, no syncope GI-no nausea, vomiting, diarrhea, melena, hematochezia -no urinary retention, no urinary incontinence, no dysuria, no hematuria Musculoskeletal-no joint pain, no muscle tenderness Skin-no bruising, no rashes, no pruritus Neuro-no isolated weakness, no paresthesia, no weakness Psych-no depression, no anxiety Physical Exam 2 Physical Exam: General-alert and oriented x3, no fevers, no chills HEENT-head atraumatic and normocephalic, pupils equal and reactive to light, extraocular muscles intact Neck-no lymphadenopathy or thyromegaly, trachea midline Chest-clear to auscultation percussion. No rales wheezing or rhonchi Cardiac-regular rate and rhythm, normal S1 and S2, no murmurs Abdomen-normal bowel sounds, nontender, no hepatosplenomegaly Extremities-no cyanosis, clubbing, or edema Neuro-cranial nerves II through XII intact, motor and sensory function within normal limits, strength symmetrical, no focal deficits Psych-normal affect, normal mood Results & Data Results & Data Vital Signs (Past 12 Hours) Vital Signs Pulse Pulse Resp BP Pulse Ox O2 Del Method 04/17/23 11:19 90 18 134/85 100 Room Air 04/17/23 07:10 72 04/17/23 07:02 70 18 123/84 94 Room Air 04/17/23 06:00 80 16 123/83 95 Room Air Laboratory Results 04/17/23 03:12 04/17/23 03:12 PG Care Time/CCT Total # of Minutes Spent Total Time Spent with Patient: Total time spent is greater than 50% in coordination of care (as documented) at patient's floor/unit and/or counseling patient: Coding Level of Care Code 91575 SUB INP/OBS CARE 3/50MIN Diagnoses Alcohol withdrawal F10.239 Abdominal pain R10.10 Abdominal location: upper abdomen, unspecified Depression F32.9 Thrombocytopenia D69.6 Hypokalemia E87.6 Hypomagnesemia E83.42 Acute hyponatremia E87.1 Urinary tract infection N39.0 (2) Abdominal pain Abdominal location: upper abdomen, unspecified Qualified Code(s): R10.10 - Upper abdominal pain, unspecified
[2023-04-17] MEDS: cefTRIAXone SODIUM 2,000 MG in DEXTROSE 5 % MINI-B 50 ML IV SCH (17:29)
[2023-04-17] MEDS: POTASSIUM CHLORIDE CRTAB 20 MEQ TABCR PO SCH (20:34)
[2023-04-17] MEDS: FAMOTIDINE 20 MG TAB PO SCH (20:35)
[2023-04-17] MEDS: PRAZOSIN HCL 1 MG CAP PO SCH (20:35)
[2023-04-17] MEDS ORDERED: Nursing to Pharmacy Communication SCH (20:45)
[2023-04-18] MEDS: chlordiazePOXIDE HCl 25 MG CAP PO SCH ×4 (00:09→23:28)
[2023-04-18] MEDS ORDERED: MELATONIN 3 MG TAB PO PRN (00:15)
[2023-04-18] MEDS ORDERED: MELATONIN 3 MG TAB PO ONE (00:25)
[2023-04-18] MEDS: SODIUM CHLORIDE 0.9% 1,000 ML IV SCH ×2 (00:27→15:49)
[2023-04-18 06:44] LABS: Basophils # (auto) 0.03 K/uL (0.00-0.20); Basophils % (auto) 0.5 %; Eosinophils # (auto) 0.15 K/uL (0.00-0.50); Eosinophils % (auto) 2.5 %; Hematocrit (blood only) 42.6 % (42.0-52.0); Hemoglobin 14.6 g/dl (14.0-18.0); Immature Granulocytes # (auto) 0.02 K/uL (0.01-0.20); Immature Granulocytes % (auto) 0.3 %; Lymphocytes # (auto) 2.05 K/uL (1.20-3.40); Lymphocytes % (auto) 33.9 %; Mean Corpuscular Hemoglobin 32.7 pg (25.0-34.0); Mean Corpuscular Hgb Conc 34.3 g/dL (32.0-36.0); Mean Corpuscular Volume 95.3 fL (80.0-100.0); Mean Platelet Volume 10.4 fL (9.4-12.4); Monocytes # (auto) 0.54 K/uL (0.11-0.59); Monocytes % (auto) 8.9 %; Neutrophils # (auto) 3.25 K/uL (1.40-6.50); Neutrophils % (auto) 53.9 %; Platelet Count 128 K/uL (130-400); RDW Coefficient of Variation 11.7 % (11.5-14.5); RDW Standard Deviation 40.7 fL (36.4-46.3); Red Blood Count 4.47 M/uL (4.70-6.10); White Blood Count 6.04 K/ul (4.8-10.8)
[2023-04-18 07:00] LABS: BUN Creatinine Ratio 5.4 (10-20); Creatinine Clr Calc Pharmacy 98.4 ml/min; Est GFR (African American) 107.4 ml/min; Est GFR (Non-African American) 92.6 ml/min; Potassium 3.4 mmol/L (3.5-5.1)
[2023-04-18] MEDS: THIAMINE HCL 100 MG in SYRINGE 9 ML IV SCH (08:24)
[2023-04-18] MEDS: NICOTINE 14 MG/24 HR PATCH TD SCH (08:25)
[2023-04-18] MEDS: busPIRone 15 MG TAB PO SCH ×2 (08:25→20:05)
[2023-04-18] MEDS: FAMOTIDINE 20 MG TAB PO SCH (08:26)
[2023-04-18] MEDS: ESCITALOPRAM OXALATE 10 MG TAB PO SCH (08:26)
[2023-04-18] MEDS: FOLIC ACID 1 MG TAB PO SCH (08:27)
[2023-04-18] MEDS: GABAPENTIN 400 MG CAP PO SCH ×3 (08:28→20:05)
[2023-04-18] MEDS: METOPROLOL SUCC 25MG EXT REL TAB PO SCH (08:28)
[2023-04-18] MEDS: SERTRALINE HCL 100 MG TABLET PO SCH (08:29)
[2023-04-18] MEDS: POTASSIUM CHLORIDE CRTAB 20 MEQ TABCR PO SCH ×2 (08:29→20:07)
[2023-04-18] MEDS: PANTOprazole 40 MG TAB PO SCH ×2 (08:29→20:05)
--- NOTE | 2023-04-18 09:26 | Hospitalist Progress Note ---
Date of Service April 18, 2023 Assessment & Plan (1) Alcohol withdrawal: Plan: Supportive care. AWSS protocol. Chlordiazepoxide has been ordered and will be tapered off as tolerated. currently 25 every 8 thiamine supplementation continue discussed cessation counseling patient is seen people in the past is open to continue to see a counselor in the future (2) Abdominal pain: Plan: Now resolved. given his epigastric nature most Probable acute gastritis present on admission. reducing symptoms and tolerating diet make PPI twice daily and add Carafate. If improving will consider medical treatment if not improving will consider GI consultation on 1211. Previously has seen [facility] for colonoscopies (3) Depression: Plan: Stable. was on mirtazapine sertraline prazosin and escitalopram (4) Thrombocytopenia: Plan: Mild. Suspect this to be alcohol related. Serial labs (5) Acute hyponatremia: Plan: Mild. Asymptomatic. improving. Other electrolyte abnormalities of hypokalemia hypomagnesemia will be repleted (6) Urinary tract infection: Plan: Suspected on admission. Urine culture is pending. Continue Rocephin, will complete 3-day course of uncomplicated UTI if culture is not returned Plan Anticipate eventual discharge to home, patient open outpatient alcohol counseling is not interested in completely quitting at this point in time Admission and Anticipated Discharge Date Admission Date: April 16, 2023 Subjective patient feels about 50% improved when he came in. Less abdominal discomfort was able to tolerate food this morning. He did have a black bowel movement in the hospital today. He feels his anxiety is appropriately controlled given his alcohol withdrawal. Is known to be an alcoholic really talks about it however does drink typically to 40 ounces of beer a day to keep his withdrawal and check and this seems to be his strategy to treat his alcoholism as time is forward Physical Exam Physical Exam: mildly tremulous with no asterixis cardiac exam is regular lungs are clear abdomen NABS epigastric is tender right upper quadrant is tender and there is no organomegaly however Results & Data Results & Data Vital Signs (Past 12 Hours) Vital Signs Temp Pulse Pulse Resp BP Pulse Ox O2 Del Method 04/18/23 08:00 97.9 F 73 18 136/93 97 Room Air 04/18/23 02:08 98.1 F 57 L 18 120/75 96 Room Air 04/18/23 00:18 64 04/17/23 23:16 97.5 F L 61 18 124/79 99 Room Air Laboratory Results reviewed CBC reviewed chemistry C. difficile is tested and negative magnesium is low repletion is ordered parenterally PG Care Time/CCT Total # of Minutes Spent Total Time Spent with Patient: Total time spent is greater than 50% in coordination of care (as documented) at patient's floor/unit and/or counseling patient: Coding Level of Care Code 09832 SUB INP/OBS CARE 2/35MIN Diagnoses Alcohol withdrawal F10.239 Abdominal pain R10.10 Abdominal location: upper abdomen, unspecified Depression F32.9 Thrombocytopenia D69.6 Acute hyponatremia E87.1 Urinary tract infection N39.0 (2) Abdominal pain Abdominal location: upper abdomen, unspecified Qualified Code(s): R10.10 - Upper abdominal pain, unspecified
[2023-04-18 10:21] LABS: Magnesium 1.5 mg/dl (1.7-2.4)
[2023-04-18] MEDS: MAGNESIUM SULFATE / D5W 1 GM/100 ML BAG IV SCH ×2 (11:55→14:00)
[2023-04-18] MEDS: cefTRIAXone SODIUM 2,000 MG in DEXTROSE 5 % MINI-B 50 ML IV SCH (14:59)
[2023-04-18] MEDS: SUCRALFATE 1 GM TAB PO SCH ×2 (17:11→20:05)
[2023-04-18] MEDS: PRAZOSIN HCL 1 MG CAP PO SCH (20:04)
[2023-04-18] MEDS ORDERED: MIRTAZAPINE TAB 15 MG TAB PO SCH (21:00)
[2023-04-19] MEDS: SODIUM CHLORIDE 0.9% 1,000 ML IV SCH ×2 (04:25→13:02)
[2023-04-19 07:35] LABS: Basophils # (auto) 0.04 K/uL (0.00-0.20); Basophils % (auto) 0.7 %; Eosinophils # (auto) 0.13 K/uL (0.00-0.50); Eosinophils % (auto) 2.4 %; Hematocrit (blood only) 37.9 % (42.0-52.0); Hemoglobin 13.2 g/dl (14.0-18.0); Immature Granulocytes # (auto) 0.02 K/uL (0.01-0.20); Immature Granulocytes % (auto) 0.4 %; Lymphocytes # (auto) 1.29 K/uL (1.20-3.40); Mean Corpuscular Hemoglobin 32.5 pg (25.0-34.0); Mean Corpuscular Hgb Conc 34.8 g/dL (32.0-36.0); Mean Corpuscular Volume 93.3 fL (80.0-100.0); Mean Platelet Volume 10.6 fL (9.4-12.4); Monocytes # (auto) 0.57 K/uL (0.11-0.59); Monocytes % (auto) 10.6 %; Neutrophils # (auto) 3.33 K/uL (1.40-6.50); Neutrophils % (auto) 61.9 %; Platelet Count 120 K/uL (130-400); RDW Coefficient of Variation 11.7 % (11.5-14.5); RDW Standard Deviation 39.8 fL (36.4-46.3); Red Blood Count 4.06 M/uL (4.70-6.10); White Blood Count 5.38 K/ul (4.8-10.8)
[2023-04-19] MEDS: GABAPENTIN 400 MG CAP PO SCH ×2 (08:13→14:16)
[2023-04-19] MEDS: PANTOprazole 40 MG TAB PO SCH (08:13)
[2023-04-19] MEDS: busPIRone 15 MG TAB PO SCH (08:13)
[2023-04-19] MEDS: SERTRALINE HCL 100 MG TABLET PO SCH (08:14)
[2023-04-19] MEDS: SUCRALFATE 1 GM TAB PO SCH ×2 (08:14→14:16)
[2023-04-19] MEDS: NICOTINE 14 MG/24 HR PATCH TD SCH (08:15)
[2023-04-19] MEDS: METOPROLOL SUCC 25MG EXT REL TAB PO SCH (08:15)
[2023-04-19] MEDS: ESCITALOPRAM OXALATE 10 MG TAB PO SCH (08:15)
[2023-04-19] MEDS: FOLIC ACID 1 MG TAB PO SCH (08:15)
[2023-04-19 08:19] LABS: BUN Creatinine Ratio 5.6 (10-20); Calcium 8.8 mg/dl (8.6-10.3); Creatinine Clr Calc Pharmacy 125.7 ml/min; Est GFR (African American) 120.9 ml/min; Est GFR (Non-African American) 104.3 ml/min; Potassium 3.5 mmol/L (3.5-5.1)
[2023-04-19] MEDS: chlordiazePOXIDE HCl 25 MG CAP PO SCH (08:21)
[2023-04-19] MEDS: POTASSIUM CHLORIDE CRTAB 20 MEQ TABCR PO SCH (08:22)
[2023-04-19] MEDS: THIAMINE HCL 100 MG in SYRINGE 9 ML IV SCH (08:25)
--- NOTE | 2023-04-19 19:04 | Discharge Summary ---
Date of Service April 19, 2023 Admission HPI Per Admitting Provider Bebeto is a 58-year-old male with past medical history of anxiety/depression, alcohol abuse, COPD who presents with 2 days of loose but not liquid diarrhea with some cramping lower abdominal pain improved on assessment, and a feeling of shakiness after cutting down to 1 gallon of 8% beer intake per day. He has a history of alcohol withdrawal but has required rehab and Librium several times and he is interested and cutting back/getting sober.. He reports he has had poor appetite for 2 days and has not eaten and drank anything due to having crampy low pain in his abdomen. He was unable to keep alcohol down yesterday due to nausea and is concerned about withdrawal. He denies a history of seizure and hallucinations. He reported he has had hospitalized withdrawal in the past which is required Librium but he has done well with this. He reports he has felt a little chilly but has had no fevers. Has had very dark urine output which appears more clouded although has not had dysuria/pain.. He does feel im proved after 1 mg of Ativan while in the ER. Denies chest pain or chest pressure. Endorses tremulousness. Denies melena/bloody diarrhea. Denies hematemesis. Full Medical History: Reviewed Medications: Reviewed Surgical History: Reviewed Family history: Reviewed Allergies: Reviewed Social History: As noted Code Status: Full Principal Diagnosis alcohol withdrawal gastritis Discharge Exam awake and alert no tremor abd is soft and non tender Discharge Data Allergies Allergy/AdvReac Type Severity Reaction Status Date / Time codeine Allergy Intermediate GI SYMPTOMS Verified 04/13/23 09:57 meperidine Allergy Intermediate CAUSES Verified 04/13/23 09:57 CONFUSION Penicillins Allergy Mild FINGERS Verified 04/13/23 09:57 SWELLED A CHILD Consultations 04/16/23 14:09 ED Decision to Admit Stat Ordered Studies 04/16/23 11:16 CT Abd and Pelvis [CT abd pelvis IV con only] Stat Hospital Course (1) Alcohol withdrawal: Chlordiazepoxide tapered off as out pt discussed cessation pt now on board to stop counseling patient is seen people in the past is open to continue to see a counselor in the future (2) Abdominal pain: Now resolved. given his epigastric nature most Probable acute gastritis present on admission. reducing symptoms and tolerating diet make PPI twice daily and add Carafate. (3) Depression: Stable. was on mirtazapine sertraline prazosin and escitalopram (4) Thrombocytopenia: Mild. Suspect this to be alcohol related. (5) Acute hyponatremia: Mild. Asymptomatic. improving. Other electrolyte abnormalities of hypokalemia hypomagnesemia will be repleted (6) Urinary tract infection: Suspected on admission. Urine culture is without infectoin Total Time Total Time Spent Total Time Spent (In Minutes): it required greater than 30 minutes to prepare this patient for discharge. Discharge Plan Discharge Items Patient Disposition: Home - Self-Care Reason For Visit: ETOH WITHDRAWAL Discharge Diagnosis: gastritis alcohol withdrawal Activity: Resume your previous activity Non-emergency contact: Primary Care Provider Call non-emergency contact if: your symptoms worsen Follow-up/Referrals: Alex Wright, [Primary Care Provider] - Diet: Regular Addtl Attending Provider Instructions: please refrain from drinking alcohol take your Librium on a tapering dose take your medicine twice a day to help your stomach Pending Studies at Discharge: No Stand-Alone Forms: My [facility] Prepmatic, Smoking Cessation Medications and DC Order Prescriptions: New sucralfate 1 gram Tablet 1 g PO QID Qty: 24 0RF chlordiazepoxide HCl 10 mg capsule 10 mg PO DIRECTED Qty: 17 0RF Rx Instructions: 2 pills evening and bedtime on 04/19-> 2 pills 3x a day 04/20 2 pills 2x a day 04/21-> one pill 2x a day 04/22-> one pill at night 04/23 Continued mirtazapine 30 mg tablet 30 mg PO DAILY Qty: 90 3RF folic acid 1 mg tablet 1 mg PO QAM Qty: 90 3RF gabapentin 400 mg capsule 400 mg PO TID 90 Days Qty: 270 3RF prazosin [Minipress] 2 mg capsule 2 mg PO HS Qty: 90 3RF sertraline 100 mg tablet 100 mg PO DAILY Qty: 90 3RF buspirone 15 mg tablet 15 mg PO BID 90 Days Qty: 180 2RF metoprolol succinate 25 mg tablet extended release 24 hr 25 mg PO QAM albuterol sulfate 90 mcg/actuation HFA aerosol inhaler 1 puff INHALATION QID PRN (Reason: sob) escitalopram oxalate 20 mg tablet 30 mg PO QAM Changed pantoprazole 40 mg tablet,delayed release (DR/EC) 40 mg PO BID 90 Days Qty: 60 3RF Discharge Orders: Discharge Order (Routine); Ordered 04/19/23 Ordered By: Matt Coronel Admission Data Admit Date/Time: 04/16/23 14:58 Attending Provider: Matt Coronel Admit Provider: Arthur Mustafa Primary Care Provider: Alex Wright Other Providers: Arthur Mustafa Other Interventions: Discharge Summary Assessment (RN) Last Done: 04/19/23 14:31 Coding Level of Care Code 90824 INP/OBS DISCH >30 MIN Diagnoses Alcohol withdrawal F10.239 Abdominal pain R10.10 Abdominal location: upper abdomen, unspecified Depression F32.9 Thrombocytopenia D69.6 Acute hyponatremia E87.1 Urinary tract infection N39.0
== END 2023-04-19 15:01 | disposition home or self-care (01) | DRG 897 ==
LOC: ED 09:26 → SUATTDRO 14:58 → EDINP 14:58 → 2S 17:00